=== PATIENT | female | born 2000 | race Caucasian/White ===

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

== ENCOUNTER 2022-11-24 12:31 | Emergency (ER) | payer OTHER, SELFPAY ==
[2022-11-24 12:46] VITALS: BP 132/76; PULSE 85; RESP 16; TEMP 36.8; O2SAT 99
--- NOTE | 2022-11-24 13:13 | ED.URI ---
HPI - URI/Sore Throat General Chief Complaint: Upper Respiratory Infection Stated Complaint: sore throat runny nose Source: patient and RN notes reviewed History of Present Illness HPI Narrative: 22-year-old male presents urgent care with complaints of runny nose, congestion, sore throat, and cough. Patient states her symptoms are worse at nighttime. Patient states she has chest pain, midsternal, with coughing nasal shortness of breath. Patient denies any fevers or chills. Denies any vomiting or diarrhea. Denies any ear pain. Patient has been taking [id number] cold medication with minimal relief. Patient states she tested positive for COVID 3 weeks ago and her symptoms resolved after approximately 4-5 days. Some parts of this dictation were generated by voice recognition software and may contain typographical and/or grammatical inaccuracies. Related Data Allergies Allergy/AdvReac Type Severity Reaction Status Date / Time Penicillins Allergy Severe HIVES Verified 11/24/22 12:45 amoxicillin Allergy Stopped Verified 11/24/22 12:45 Breathing ALL CILLINS Allergy Stopped Uncoded 11/24/22 12:45 Breathing Review of Systems Review of Systems: Pertinent positives and pertinent negatives per HPI. [facility] Past Medical History Medical History Ankle fracture, left Asthma Foot fracture, right Pneumonia Right arm fracture Skin tag of neck Tonsillitis Surgical History Surgical History History of surgical removal of skin lesion on neck Hx of tonsillectomy Family History Family History Mother No pertinent family history Social History Social History (Updated 10/25/21 @ 17:41 by TIMOTHY Hubbard, ) Smoking status: Never smoker Substance use: never Living arrangements: with family Occupation/Education: student Gender identity (if verbalized by the patient): Female Spiritual care concerns: No Comments At the time of my signature, I reviewed and agree with the nursing past medical, surgical, social, and family history. There is no relevant family history pertinent to the patient complaint. Exam Narrative: GENERAL: This is a well-nourished, well-developed patient, in no apparent distress. HEAD: normocephalic, atraumatic. EYES: PERRL. Sclera clear/white. Vision is grossly intact. EARS: External ears normal, auditory canals clear and without drainage, TMs normal without perforation. Hearing grossly intact. NOSE: External nose normal with no obvious nasal discharge, nares without redness, no rhinorrhea. THROAT: Mucous membranes moist, posterior pharynx clear. NECK: Neck supple, non-tender without lymphadenopathy, masses or thyromegaly. CARDIOVASCULAR: Regular rate and rhythm without murmurs, gallops, or rubs. RESPIRATORY: Clear to auscultation. Breath sounds equal bilaterally. No wheezes, rales, or rhonchi. GASTROINTESTINAL: Abdomen soft, non-tender, nondistended. Bowel sounds are active. No hepato-splenomegaly, or palpable masses. No guarding. SKIN: warm, intact with no suspicious lesions or rash, good texture and turgor. NEURO: awake, alert, and oriented to person, place and time. There were no obvious focal neurologic abnormalities. Course Course Level of Care: Express Care Visit Vital Signs Vital signs: Vital Signs Temperature 98.2 F 11/24/22 12:46 Pulse Rate 85 11/24/22 12:46 Respiratory Rate 16 11/24/22 12:46 Blood Pressure 132/76 11/24/22 12:46 Pulse Oximetry 99 11/24/22 12:46 Oxygen Delivery Room Air 11/24/22 12:46 Temperature 98.2 F 11/24/22 12:46 Pulse Rate 85 11/24/22 12:46 Respiratory Rate 16 11/24/22 12:46 Blood Pressure 132/76 11/24/22 12:46 Pulse Oximetry 99 11/24/22 12:46 Oxygen Delivery Room Air 11/24/22 12:46 reviewed. ALEX - YANNICKI/Juan Jiménez
== END 2022-11-24 13:18 | disposition home or self-care (01) ==
PROVIDERS: Emergency Provider Nurse Practitioner Family; PCP Pediatrics
DX: J06.9 Acute upper respiratory infection, unspecified (principal); J45.909 Unspecified asthma, uncomplicated
CPT/HCPCS: 87081; 87880; 99213; G0463

== ENCOUNTER 2023-03-31 08:30 | Emergency (ER) | payer OTHER, SELFPAY ==
[2023-03-31 08:45] VITALS: BP 129/85; PULSE 87; RESP 16; TEMP 36.2; O2SAT 100
--- NOTE | 2023-03-31 09:07 | ED.URI ---
HPI - URI/Sore Throat General Chief Complaint: Upper Respiratory Infection Stated Complaint: Sore Throat/Fever/Chest Congestion Time Seen by Provider: 03/31/23 08:55 Source: patient, RN notes reviewed and old records reviewed Mode of arrival: ambulatory Limitations: no limitations History of Present Illness HPI Narrative: [age] year female presents to the [facility] with complaints of a fever and a sore throat that started last night. Reports a fever of 101 last night. MD elicited complaint: sore throat Onset (ago): hour(s) (12) Treatments prior to arrival: ibuprofen Related Data Allergies Allergy/AdvReac Type Severity Reaction Status Date / Time Penicillins Allergy Severe HIVES Verified 01/19/23 14:28 amoxicillin Allergy Stopped Verified 01/19/23 14:28 Breathing ALL CILLINS Allergy Stopped Uncoded 01/19/23 14:28 Breathing Review of Systems Review of Systems: All systems reviewed & are unremarkable except as noted in HPI and below Constitutional: Constitutional: Reports no additional constitutional complaints Eyes: Eyes: Reports no additional eye complaints ENT: Reports as per HPI and Reports sore throat Cardiovascular: Cardiovascular: Reports no additional cardiovascular complaints, Denies chest pain and Denies dyspnea Respiratory: Respiratory: Reports no additional respiratory complaints, Denies chest congestion, Denies cough and Denies dyspnea Gastrointestinal: Gastrointestinal: Reports no additional gastrointestinal complaints, Denies abdominal pain, Denies nausea and Denies vomiting Musculoskeletal: Musculoskeletal: Reports no additional musculoskeletal complaints Integumentary/Breasts: Skin/Breast: Reports system reviewed and no additional complaints, except as docu Neurologic: Reports system reviewed and no additional complaints, except as documented Psychiatric: Psychiatric: Reports no additional psychiatric complaints Allergic/Immunologic: Allergic/Immunologic: Reports no additional allergic/immunologic complaints [facility] Past Medical History Medical History Ankle fracture, left Asthma Foot fracture, right Pneumonia Right arm fracture Surgical History Surgical History History of surgical removal of skin lesion on neck Hx of tonsillectomy Family History Family History Mother Hypertension Depression Social History Social History Smoking status: Never smoker Substance use: never Living arrangements: with family Occupation/Education: student Gender identity (if verbalized by the patient): Female Spiritual care concerns: No Comments At the time of my signature, I reviewed and agree with the nursing past medical, surgical, social, and family history. There is no relevant family history pertinent to the patient complaint. Exam Const: General: cooperative, healthy appearing, comfortable, no acute distress, well developed, alert and well nourished Nutritional Appearance: well nourished Orientation/consciousness: patient oriented x3 Limitations: no limitations HENMT: Head: normal to inspection Ears: hearing grossly normal bilaterally, external ears normal, TM's normal bilaterally and EAC's normal Face/Nose/Sinus: Normal external nose present, Normal nares present, Normal nasal mucous membranes and turbinates present and normal facial exam Face and sinus: normal facial exam Mouth: Yes Normal oral and palatal mucosa present, Yes lip normal and Yes moist mucous membranes Throat: posterior oropharynx normal, tonsils normal, uvula midline and postnasal drainage Eyes: General: appearance normal, both eyes and all related structures Alignment and Position: alignment normal Periorbital: periorbital findings normal Pupils: Equal, round and reactive pupils pres
== END 2023-03-31 09:17 | disposition home or self-care (01) ==
PROVIDERS: Emergency Provider Nurse Practitioner; PCP Family Medicine
DX: J02.9 Acute pharyngitis, unspecified (principal); J06.9 Acute upper respiratory infection, unspecified; J45.909 Unspecified asthma, uncomplicated
CPT/HCPCS: 87081; 87880; 99213; G0463

== ENCOUNTER 2023-09-28 13:30 | Emergency (ER) | payer OTHER, SELFPAY ==
[2023-09-28 13:40] VITALS: BP 149/83; PULSE 86; RESP 14; TEMP 36.8; O2SAT 100
--- NOTE | 2023-09-28 14:56 | ED.URI ---
HPI - URI/Sore Throat General Chief Complaint: Upper Respiratory Infection Stated Complaint: Fever/Vomiting/Diarrhea/Sore Throat Time Seen by Provider: 09/28/23 14:40 Source: patient, RN notes reviewed and old records reviewed Mode of arrival: ambulatory Limitations: no limitations History of Present Illness HPI Narrative: 23-year-old female who presents to [facility] with complaints of being ill since Tuesday with body aches, nausea, vomiting, some loose stools ,some sore throat and fever. 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 She has been taking DayQuil NyQuil and also Tylenol MD elicited complaint: fever, sore throat, rhinorrhea, nasal congestion and other Onset (ago): day(s) (day 3 of symptoms) Consistency: progressively worsening Pain scale (0-10): 8 Treatments prior to arrival: acetaminophen and other (DayQuil and NyQuil) Related Data Allergies Allergy/AdvReac Type Severity Reaction Status Date / Time Penicillins Allergy Severe HIVES Verified 09/28/23 14:27 amoxicillin Allergy Stopped Verified 09/28/23 14:27 Breathing ALL CILLINS Allergy Stopped Uncoded 09/28/23 14:27 Breathing Review of Systems Review of Systems: CONSTITUTIONAL: Reports fever, chills, or sweats. EYES: Denies visual changes, redness, or discharge. ENT:reports rhinorrhea, congestion, positive for sore throat, or otalgia. CARDIOVASCULAR: Denies chest pain, palpitations, or edema. RESPIRATORY: REports cough no dyspnea. GASTROINTESTINAL: Denies abdominal pain,positive for nausea, vomiting, or diarrhea. GENITOURINARY: Denies dysuria or hematuria. SKIN: Denies rash or itching. MUSCULOSKELETAL: Denies back pain, joint pain, or myalgia. NEUROLOGIC: Denies headache, numbness, or weakness. PSYCHIATRIC: Denies anxiety or depression. All systems reviewed & are unremarkable except as noted in HPI and below PMFSH Past Medical History Medical History Ankle fracture, left Asthma Foot fracture, right PCOS (polycystic ovarian syndrome) Pneumonia Right arm fracture Surgical History Surgical History History of surgical removal of skin lesion on neck Hx of tonsillectomy Family History Family History Mother Hypertension Depression Social History Social History Smoking status: Never smoker Substance use: never Living arrangements: with family Occupation/Education: student Gender identity (if verbalized by the patient): Female Spiritual care concerns: No Comments At time of signature, agree with nursing past medical, surgical, social and family history. There is no relevant family history pertinent to the presenting complaint Exam Narrative: GENERAL: Well-appearing, well-nourished, and in no acute distress. HEAD: Normocephalic, atraumatic. EYES: PERRLA and EOMI. ENT: Nares clear, clear rhinorrhea no epistaxis. Mucous membranes moist.TM's normal, tonsil absent, oropharyngeal redness NECK: Supple. CHEST: Clear to auscultation. No respiratory distress. HEART: Regular rate and rhythm. No murmur heard. Normal peripheral pulse ABDOMEN: Soft, nontender, nondistended, normal active bowel sounds.intermittent nausea vomiting and diarrhea. EXTREMITIES: Normal range of motion. No edema. SKIN: Warm, dry, no rash. NEURO: No focal deficits. Alert and oriented x3. Course Course Emergency Course: Patient is aware of diagnosis, understands and agrees to treatment plan.? Anticipatory guidance given.? Patient agrees to follow-up as directed and is aware of reasons to seek care at the emergency department. Portions of this record may have been created with voice recognition software Level of Care: [facility] Visit Vital
== END 2023-09-28 15:20 | disposition home or self-care (01) ==
PROVIDERS: Emergency Provider Registered Nurse; PCP Family Medicine
DX: B34.9 Viral infection, unspecified (principal); Z20.822 Contact with and (suspected) exposure to COVID-19; J45.909 Unspecified asthma, uncomplicated; E28.2 Polycystic ovarian syndrome
CPT/HCPCS: 87081; 87426; 87804; 87880; 99213; G0463

== ENCOUNTER 2024-05-30 09:02 | Emergency (ER) | payer OTHER, SELFPAY ==
--- NOTE | ~2024-05-30 | XR_ITS ---
Clinical Indication: Cough PA and lateral views of the chest: Comparison: 09/17/2019 Findings: The lungs are clear, without evidence of focal consolidation or pleural effusion. Cardiome diastinal silhouette is within normal limits. Bones and soft tissues are unremarkable. Impression: Normal chest. Reviewed, dictated and finalized at [facility]. Impression: Normal chest.
[2024-05-30 09:15] VITALS: BP 135/96; PULSE 84; RESP 16; TEMP 36.7; O2SAT 99
--- NOTE | 2024-05-30 09:57 | ED.URI ---
HPI - URI/Sore Throat General Chief Complaint: Upper Respiratory Infection Stated Complaint: chest pain,cough Time Seen by Provider: 05/30/24 09:40 Source: patient and RN notes reviewed Mode of arrival: ambulatory Limitations: no limitations History of Present Illness HPI Narrative: Patient presents today complaining of a one-month history of an occasionally productive cough with intermittent shortness of breath that is worse at night when lying flat. She also complains of a one-week history of some sternal chest wall pain with coughing. She has tried some bmlr-vgb-csgfglx cough medicine without relief. She has tried some Tylenol and ibuprofen for her discomfort with some minimal relief. Reports history of asthma as a small child, but none since then. She is a nonsmoker. States cough started after she had COVID a month ago. Related Data Allergies Allergy/AdvReac Type Severity Reaction Status Date / Time Penicillins Allergy Severe HIVES Verified 05/30/24 09:35 amoxicillin Allergy Stopped Verified 05/30/24 09:35 Breathing Review of Systems Review of Systems: CONSTITUTIONAL: Denies body aches, fever, chills, or sweats. EYES: Denies visual changes, redness, or discharge. ENT: Denies rhinorrhea, congestion, sore throat, or otalgia. CARDIOVASCULAR: Denies chest pain, palpitations, or edema. RESPIRATORY: + cough, shortness of breath, chest wall pain GASTROINTESTINAL: Denies abdominal pain, nausea, vomiting, or diarrhea. GENITOURINARY: Denies dysuria or hematuria. SKIN: Denies rash, itching, or wounds. MUSCULOSKELETAL: Denies back pain, joint pain, or myalgia. NEUROLOGIC: Denies headache, numbness, tingling, or weakness. PSYCH: Denies depression or anxiety. [facility] Past Medical History Medical History Ankle fracture, left Asthma Foot fracture, right PCOS (polycystic ovarian syndrome) Pneumonia Right arm fracture Surgical History Surgical History History of surgical removal of skin lesion on neck Hx of tonsillectomy Family History Family History Mother Hypertension Depression Social History Social History Smoking status: Never smoker Substance use: never Living arrangements: with family Occupation/Education: student Gender identity (if verbalized by the patient): Female Spiritual care concerns: No Comments At time of signature, I have reviewed and agree with nursing past medical, surgical, social and family history unless otherwise noted. Please see nursing chart for further information. There is no relevant family history pertinent to the presenting complaint Exam Narrative: GENERAL: Well-appearing, well-nourished, and in no acute distress. HEAD: Normocephalic, atraumatic. EYES: EOMI. No redness or drainage. Conjunctivae normal. ENT: Mucous membranes pink and moist. Nares clear. No rhinorrhea. NECK: Normal AROM. Supple. No lymphadenopathy. CHEST: No respiratory distress. Clear to auscultation. Tenderness to the bilateral sternal borders with palpation. HEART: Regular rate and rhythm. No murmur appreciated. EXTREMITIES: Normal range of motion. No edema. SKIN: Warm, dry, no rash. Capillary refill normal. Normal skin turgor. NEURO: No focal deficits. Alert and oriented x3. Gait steady. PSYCH: Normal affect. No signs of depression or anxiety. Course Course Level of Care: Express Care Visit Vital Signs Vital signs: Vital Signs Temperature 98.1 F 05/30/24 09:15 Pulse Rate 84 05/30/24 09:15 Respiratory Rate 16 05/30/24 09:15 Blood Pressure 135/96 H 05/30/24 09:15 Pulse Oximetry 99 05/30/24 09:15 Oxygen Delivery Room Air 05/30/24 09:15 Temperature 98.1 F 05/30/24 09:15 Pulse Rate 84 05/30/24 09:15
== END 2024-05-30 10:10 | disposition home or self-care (01) ==
PROVIDERS: Emergency Provider Nurse Practitioner; PCP Family Medicine
DX: J40 Bronchitis, not specified as acute or chronic (principal); M94.0 Chondrocostal junction syndrome [Tietze]; J45.909 Unspecified asthma, uncomplicated; E28.2 Polycystic ovarian syndrome
CPT/HCPCS: 71046; 99213; G0463

== ENCOUNTER 2024-08-21 08:13 | Emergency (ER) | payer OTHER, SELFPAY ==
[2024-08-21 08:18] VITALS: BP 136/87; PULSE 93; RESP 20; TEMP 36.7; O2SAT 100
--- NOTE | 2024-08-21 08:39 | ED.GENADULT ---
HPI - General Adult General Chief complaint: Ear Stated complaint: Ear Pain Source: patient Mode of arrival: ambulatory Limitations: no limitations History of Present Illness HPI narrative: Patient presents for evaluation of left-sided ear pain. Symptom onset yesterday. She has some muffled hearing on that side. Denies tinnitus or drainage from the ear. Approximately 3 weeks ago she had upper respiratory symptoms including sinus congestion and cough. She still has a mild cough. Denies fever, chills, nausea, vomiting, diarrhea, shortness of breath. She has tried several hoff-wfe-iidhcni agents without improvement thereafter. She does not smoke. Related Data Home Medications ?Medication ?Instructions ?Recorded ?Confirmed ?Last Taken ?Type etonogestrel 0.12 mg-ethinyl 1 vag ring vaginal ONCE 08/21/24 08/21/24 Unknown History estradiol 0.015 mg/24 hr vaginal ring (EluRyng) Allergies Allergy/AdvReac Type Severity Reaction Status Date / Time Penicillins Allergy Severe HIVES Verified 08/21/24 08:18 amoxicillin Allergy Stopped Verified 08/21/24 08:18 Breathing Review of Systems Review of Systems: CONSTITUTIONAL: Denies fever, chills, or sweats. EYES: Denies visual changes, redness, or discharge. ENT: Reports left sided ear pain. Denies rhinorrhea, congestion, or sore throat CARDIOVASCULAR: Denies chest pain, palpitations, or edema. RESPIRATORY: Reports occasional cough. Denies dyspnea. GASTROINTESTINAL: Denies abdominal pain, nausea, vomiting, or diarrhea. GENITOURINARY: Denies dysuria or hematuria. SKIN: Denies rash or itching. MUSCULOSKELETAL: Denies back pain, joint pain, or myalgia. NEUROLOGIC: Denies headache, numbness, dizziness, or weakness. PSYCHIATRIC: Denies anxiety or depression. COUNTS INCLUDE 234 BEDS AT [facility] Past Medical History Medical History PCOS (polycystic ovarian syndrome) Ankle fracture, left Right arm fracture Foot fracture, right Pneumonia Asthma Surgical History Surgical History History of surgical removal of skin lesion on neck Hx of tonsillectomy Family History Family History Mother Hypertension Depression Social History Social History Smoking status: Never smoker Substance use: never Living arrangements: with family Occupation/Education: student Gender identity (if verbalized by the patient): Female Spiritual care concerns: No Exam Narrative: GENERAL: Well-appearing, well-nourished, and in no acute distress. HEAD: Normocephalic, atraumatic. EYES: PERRLA and EOMI. ENT: Nares clear, no rhinorrhea or epistaxis. Mucous membranes moist. Oropharynx without tonsillar hypertrophy exudate or other lesions. Left ear canal is edematous. Left TM is erythematous and bulging NECK: Supple. No adenopathy or masses. No carotid bruits or JVD CHEST: Clear to auscultation. No respiratory distress. No wheezes rales or rhonchi HEART: Regular rate and rhythm. No murmur heard. Normal peripheral pulses. ABDOMEN: Soft, nontender, nondistended, normal active bowel sounds. EXTREMITIES: Normal range of motion. No edema. SKIN: Warm, dry, no rash. NEURO: No focal deficits. Alert and oriented x3. PSYCH: Normal mood and affect. Course Course Emergency Course: This is a 24-year-old female who presents for evaluation of left ear pain. She has evidence of otitis media and externa on exam. Will discharge with cefdinir and ofloxacin. Smbl-jgm-tfhptgt agents for symptom management. Follow up with primary provider. Go to the ER for worsening symptoms. Patient in agreement with plan of care. Level of Care: Express Care Visit Vital Signs Vital signs: Vital Signs Temperature 36.7 C 08/21/24 08:18 Pulse Rate 93 08/21/24 08:18 Respiratory Rate 20 08/21/24 08:18 Blood Pressure 136/87 08/21/24 08:18 Pulse Oximetry 100 08/21/24 08:18 Oxygen Delivery Room Air 08/21/24 08:18 Temperature 36.7 C 08/21/24 08:18 Pulse Rate 93 08/21/24 08:18 Respiratory Rate 20 08/21/24 08:18 Blood Pressure 136/87 08/21/24 08:18 Pulse Oximetry 100 08/21/24 08:18 Oxygen Delivery Room Air 08/21/24 08:18 Medical Decision Making Vital Signs Vital Signs: Vital Signs Temperature 36.7 C 08/21/24 08:18 Pulse Rate 93 08/21/24 08:18 Respiratory Rate 20 08/21/24 08:18 Blood Pressure 136/87 08/21/24 08:18 Pulse Oximetry 100 08/21/24 08:18 Oxygen Delivery Room Air 08/21/24 08:18 Temperature 36.7 C 08/21/24 08:18 Pulse Rate 93 08/21/24 08:18 Respiratory Rate 20 08/21/24 08:18 Blood Pressure 136/87 08/21/24 08:18 Pulse Oximetry 100 08/21/24 08:18 Oxygen Delivery Room Air 08/21/24 08:18 Discharge Plan Discharge Clinical Impression: Acute otitis media, left, Other otitis externa, left ear Patient Disposition: Home, Self-Care Condition: Stable Instructions: Antibiotic Form, Swimmer's Ear (GEN), Ear Infection (AC) Patient Language: Serbian Prescriptions: New cefdinir 300 mg capsule 300 mg PO Q12H Qty: 20 0RF ofloxacin 0.3 % drops 10 drp LEFT EAR DAILY 7 Days Qty: 5 0RF No Action etonogestrel-ethinyl estradiol [EluRyng] 0.12-0.015 mg/24 hr ring 1 vag ring vaginal ONCE Follow-up/Referrals: Steven Chase MD [Primary Care Provider] - Time of Disposition: 08:38
--- OUTSIDE RECORDS SUMMARY | 2024-08-28 06:02 | XMS_ITS ---
Author Organization [facility] Address [address] [place] [address] Phone Care Team Providers Care Dynamite Reclaimer Name Role Phone KWASI FOUNTAIN, SURESH Unavailable [phone] Plan of Treatment No Plan of Treatment Recorded Assessments Includes: Assessments for all patient encounters Findings Encounter Date Contact with and (Suspected) exposure to COVID-19 COVID SICK VISIT- NEW PATIENT with [facility] 08/09/2021 Last Documented On 1 5:58PM ; [facility] Medical Equipment - Implanted Devices Includes: Current and historical Devices No Medical Equipment Recorded Medications Includes: Current and historical Medications No Medications Taken Medications Administered Includes: Administered Medications in patient's chart No Administered Medications Recorded Results Includes: Results from 08/28/2023 through 08/28/2024 No Results Recorded For Specified Dates History of Present Illness History of Present Illness not supported for this document type No History of Present Illness Recorded Social History Description Last Updated Tobacco non-user 08/09/2021 Last Documented On 1 5:58PM ; [facility] Smoking Status Unknown Medical History Includes: Medical History in patient's chart Description Last Updated Contact with and (Suspected) exposure to COVID-19 08/09/2021 Last Documented On 1 5:58PM ; [facility] Date COVID symptoms started: 08/07 Last Documented On 1 5:58PM ; [facility] No fall 08/09/2021 Last Documented On 1 5:58PM ; [facility] Family History Includes: Family History in patient's chart No Family History Recorded Review of Systems Review of Systems not supported for this document type No Review of Systems Recorded Mental Status Description Oriented to time, place, and person Functional Status No Functional Status Recorded Physical Exam Physical Exam not supported for this document type No Physical Exam Recorded Allergies Includes: Active, inactive, and resolved Allergies No Known Allergies Insurance Includes: Active Insurance Policies Plan Name Member ID Group # Subscriber Relationship Effect james Dates 1 - [facility] [id number] ELIAS magana Clinical Notes Includes: Signed Clinical Notes starting from 09/10/2022 No Clinical Notes Recorded
--- OUTSIDE RECORDS SUMMARY | 2024-08-28 06:02 | XMS_ITS ---
Care Plan - [facility] Created on: August 28, 2024 ELIAS VILLATORO : 2000 Sex: Female Author Organization [facility] Address [address] [place] [address] Phone Care Team Providers Care Wire Stitcher Name Role Phone SURESH VILLALPANDO MD Unavailable [phone]
--- OUTSIDE RECORDS SUMMARY | 2024-08-28 06:03 | XMS_ITS | Encounter Summary ---
Author Organization [facility] Address [address] [place] [address] Care Team Providers Care Home Economics Extension Worker Name Role Phone Rose Mary Kidd MD Primary Care Provider + Encounter Details Date Type Department Care Team (Late st Contact Info) Description 05/31/[address] [facility] Orthopedics and Sports Medicine at [address] [address] Chraley Dominguez Social History Tobacco Use Types Packs/Day Years Used Date Smoking Tobacco: Never Smokeless Tobacco: Never AUDIT-C Answer Date Recorded Q1: How often do you have a drink containing alc ohol? 2-3 times a week 03/23/2024 Q2: How many drinks containi ng alcohol do you have on a typical day when you are drinking? 5 or 6 03/23/2024 Q3: How often do you have si x or more drinks on one occasion? Weekly 03/23/2024 Personal Safety Answer Date Recorded Have you ever been in or are you currently in a harmful physical or emotional relationship or is someone making you feel afraid or unsafe? 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
--- OUTSIDE RECORDS SUMMARY | 2024-08-28 06:03 | XMS_ITS | Encounter Summary ---
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 She's starts college 04/09/2024 will need assistance getting around. documented in this encounter Plan of Treatment Not on file documented as of this encounter Visit Diagnoses Not on filedocumented in this encounter Care Teams Development Editor Relationship Specialty Start Date End Date Rose Mary Kidd MD [address] [place] [address] PCP - General 07/21/17 documented as of this encounter
--- OUTSIDE RECORDS SUMMARY | 2024-08-28 06:03 | XMS_ITS | Encounter Summary ---
Author Organization [facility] Address [address] [place] [address] Care Team Providers Care Lawyer Real Estate Name Role Phone Rose Mary Kidd MD Primary Care Provider Reason for Visit * Reason Comments Evaluation restless sleep, trou ble initiating and staying asleep, patient thinks she sleepwalks occasionally Encounter Details Date Type Department Care Team (Latest Contact Info) Description 12/27/2017 8:14 AM CDT - 12/27/2017 9:18 AM CDT Hospital Encounter [facility] - Sleep [address] [place] [address] Lilibeth Helm, ENVIRONMENTAL ISSUES INSTRUCTOR-GENERAL PRACTICE [address] [place] [address] Discharge Disposition: Home or Self Care Social History Tobacco Use Types Packs/Day Years Used Date Smoking Tobacco: Passive Smo ke Exposure - Never Smoker Smokeless Tobacco: Never Sex and Gender Information Value Date Recorded Sex Assigned at Not on file Gender Identity Not on file Sexual Orientation Not on file documented as of this encounter Last Filed Vital Signs Vital Sign Reading Time Taken Comments Blood Pressure 108/58 12/27/2017 8:30 AM CDT Pulse 91 12/27/2017 8:30 AM CDT Temperature - - Respiratory Rate - - Oxygen Saturation 97% 12/27/2017 8:30 AM CDT Inhaled Oxygen Concentration - - Weight 107.3 kg (236 lb 8.9 oz) 12/27/2017 8:30 AM CDT Height 172.5 cm (5' 7.91 ) 12/27/2017 8:30 AM CD T Body Mass Index 36.06 12/27/2017 8:30 AM CDT Body Mass Index Percentile 98.89% 12/27/2017 8:3 0 AM CDT Growth Chart: [facility] (Girls, 2- 20 Years) documented in this encounter Discharge Instructions * Patient Instructions* Lilibeth Helm APRN-CNP - 12/27/2017 9:06 AM CDT 1. Sleep study 2. Labs today 3. Rosmery will start iron for ferritin < 80 and Vitamin D < 30. Please call our nurse's line with any questions. ([phone], opt 3) documented in this encounter Medications at Time of Discharge Medication Sig Dispensed Refills Start Date End Date ibuprofen (MOTRIN) 200 MG tablet Take 400 mg by mouth every 6 hours as needed for Pain melatonin 10 MG capsule Take 10 mg by mouth at bedtime documented as of this encounter Progress Notes * Lilibeth Helm APRN-CNP - 12/27/2017 8:34 AM CDT New Patient Visit Note Pediatric Sleep Medicine [facility] Chief Complaint Patient presents with ??? Evaluation restless sleep, trouble initiating and staying asleep, patient thinks she sleepwalks occasionally HPI: Rosmery Wynne is a 17 y.o. female who presents to the Pediatric Sleep Disorders Clinic at [facility] on 12/27/2017 for evaluation of headaches and restless sleep. She was accompanied by her grandmother who assisted in providing the history. She was referred by Dr. Kidd. I have personally reviewed her records. Rosmery reports weekly headaches that occur mostly in the morning. She wakes with headaches that resolve as the day progresses. No vomiting, photo or phonophobia. She has previously taken amitriptylineand rizatriptan without improvement. She does not snore. There are are no pauses in breathing, gasping, choking, diaphoresis, or drooling noted during sleep. She complains of extreme thirst at night . She is difficult to awaken in the morning and is sleepy throughout the day. She does fall asleep at school. She does not take naps. She has nocturnal enuresis 0 nights per week. Nocturia occurs 2 times per night. No previous polysomnogram. Rosmery complains of a sensation of bugs crawling 1 nights per week. Sensation is relieved with movement and and worsened with lying still. She describes herself as a very restless sleeper with difficulty getting comfortable. She does not have a history of low iron. RLS is not reported in first degree family members. There are no sleep terrors, nightmares, sleep talking or sleep walking. Weekday Bedtime: 930 PM takes 10 mg of melatonin at 830 PM Weekday Wake time: 615 AM Weekend Bedtime: 11 PM Weekend Wake time: 10 AM Sleep Latency: less than 30 minutes Nighttime awakenings: 1-2 Sleep onset after wake: 20 minutes Sleep environment: In her own bedroom, in his own bed. There is not a nightlight. Accessible screens include: NO Bedtime routine: dinner, homework TV and lights out Naps: no Caffeine intake: YES- coffee in the AM Review of Systems: Psychological ROS: negative Ophthalmic ROS: negative ENT ROS: negative Allergy and Immunology ROS: negative Respiratory ROS: no cough, shortness of breath, or wheezing negative Cardiovascular ROS: negative Gastrointestinal ROS: negative Urinary ROS: negative Musculoskeletal ROS: negative Neurological ROS: negative Dermatological ROS: negative [place] Sleepiness Scale: Sitting and Reading would never doze Watching TV slight chance of dozing Sitting, inactive in a public place would never doze Car passenger for an hour high chance of dozing Lying down to rest in afternoon high chance of dozing Sitting and Talking would never doze Sitting Quietly after lunch would never doze While playing a video game slight chance of dozing Total Dozing Score 8 Past Surgical History: Procedure Laterality Date ??? Tonsillectomy and Adenoidectomy 2007 at [facility] Past Medical History: Diagnosis Date ??? GERD (gastroesophageal reflux disease) ??? Skin tag reoved in 2010 ??? Unspecified asthma(493.90) triggered by allergies, no inhaler use FAMILY HISTORY OF SLEEP DISORDERS: None known SOCIAL HISTORY: Rosmery lives at home with maternal grandmother, mother, step- father and one sister. There is pasive smoke exposure. she is in the 9th grade and receives good grades. she does not get in trouble at school. Allergies Allergen Reactions ??? Amoxicillin Urticaria Current Outpatient Prescriptions Ordered in [facility] Medication Sig Dispense Refill ??? ibuprofen (MOTRIN) 200 MG tablet Take 400 mg by mouth every 6 hours as needed for Pain ??? melatonin 10 MG capsule Take 10 mg by mouth at bedtime No current [facility]-ordered facility-administered medications on file. Exam: Vitals: 12/27/17 0830 BP: 108/58 Pulse: 91 SpO2: 97% Constitutional: no retractions or cyanosis Psych: normal affect Head and Face: no lesions or masses; facies symmetrical Eyes: sclera and conjunctiva clear Ears: Inspection: normal pinnae shape and position Nasal: normal external nose, mucous membranes and septum Oral Cavity: moist mucous membranes; normal uvula, palate and tongue size scalloping of tongue Throat: tonsil absent Mallampati 1 Neck: supple without tenderness or crepitus; no palpable adenopathy Heart: normal rate and rhythm Respiration: unlabored breathing GI: abdomen soft and round Skin: skin healthy Impression/Plan: Headaches: Headaches are a common complaint in those with untreated sleep disorders. Headaches havebeen associated with sleep-onset and maintenance problem and disrupted sleep architecture on polysomnogram. Children and teenagers with Obstructive Sleep Apnea may complain of headaches, particularlyin the morning on waking, likely secondary to elevated CO2 levels and/or poor quality sleep. Diagnostic polysomnogram scheduled today. Restless Sleeper: Restless sleep is often the only symptom described in the broader condition of restless legs syndrome. I reviewed the diagnosis, etiology and treatment of RLS at length with mother.Restless legs syndrome is caused by a defect in the dopamine pathway, either with decreased production, incorrect production, or failed transport across the blood-brain barrier. Iron is a necessary cofactor for dopamine production. Serum ferritin checked today. Ferrous sulfate to be started for ferritin < 80. Additionally, a vitamin D level was checked. Goal Vitamin D > 30. Patient Instructions 1. Sleep study 2. Labs today 3. Rosmery will start iron for ferritin < 80 and Vitamin D < 30. Please call our nurse's line with any questions. ([phone], opt 3) Follow-up in 3 months Thank you for allowing me to participate in the care of your patient. Please call me with any questions at [phone]. KATARINA Chavez [facility] documented in this encounter Plan of Treatment Not on file documented as of this encounter Results * VITAMIN D (25-HYDROXY) (12/27/2017 9:20 AM CDT) Vitamin D, 25 Hydroxy 28.8 20 - 100 ng/mL 12/27/2017 11:29 AM CDT [facility] Blood BLOOD SPECIMEN / Unknown Lab Venipuncture / Unknown 12/27/2017 9:20 AM CDT 12/27/2017 10:02 AM CDT Narrative [facility] - 12/27/2017 11:29 AM CDT Vitamin D Status: ?Deficient ? <10 ?? ng/mL ? Borderline ?10-20 ng/mL ?Sufficient ?>20 ?? ng/mL ?Toxic ? >100 ??ng/mL Lilibeth SANTANA LAB - CHEMISTR Y ORDERABLES [facility] [address] [facility] [place] [address] * FERRITIN (12/27/2017 9:20 AM CDT) Pathologist [facility] Ferritin 31 10 - 140 ng/mL 12/27/2017 11:08 AM CDT [facility] Blood BLOOD SPECIMEN / Unknown Lab Venipuncture / Unknown 12/27/2017 9:20 AM CDT 12/27/2017 10:02 AM CDT Lilibeth Helm ENVIRONMENTAL ISSUES INSTRUCTOR-GENERAL PRACTICE LAB - CHEMISTR Y ORDERABLES Performing Organization Address City/State/[facility] Co de Phone Number [facility] [address] [place] [address] documented in this encounter Visit Diagnoses Diagnosis Restless legs syndrome (RLS)- Primary Nocturia Chronic nonintractable headache, unspecified headache type documented in this encounter Care Teams Lawyer Real Estate Relationship Specialty [place] [address] [place] [id number] PCP - General 03/29/11 documented as of this encounter
--- OUTSIDE RECORDS SUMMARY | 2024-08-28 06:03 | XMS_ITS | Referral Summary ---
Author Organization [facility] Address [address] [place] [address] Care Team Providers Care Director Professional Services Name Role Phone Rose Mary Kidd MD Primary Care Provider [phone] Source Comments [facility],non-owned Affiliates and Associated Physician Practices is amultiple site organization consisting of ambulatory clinics and hospital sitesin [place], [place], [place]. This disclosure is being madepursuant to the Care Everywhere program and may not contain all information available regarding this patient. Last updated 18.[facility] Allergies Active Allergy Reactions Criticality Noted Date Comments Amoxicillin Urticaria 05/14/2011 Medications * Be aware that medications may not be up to date on this document. Alwaysverify current medications with the patient. Medication Sig Dispensed Refills Start Date End Date Status ibuprofen (MOTRIN) 200 MG tablet Take 400 mg by mouth every 6 hours as needed for Pain Active melatonin 10 MG capsule Take 10 mg by mouth at bedtime Active ferrous sulfate 325 (65 FE) MG tablet Take 1 tablet by mouth 2 times daily Take w/ vitamin C such as OJ. Miralax or generic for tummy upset. 60 tablet 3 12/27/2017 Active Active Problems Problem Noted Date Diagnosed Date Skin tag 05/12/2011 Social History Tobacco Use Types Packs/Day Years Used Date Smoking Tobacco: Passive Smo ke Exposure - Never Smoker Smokeless Tobacco: Never Sex and Gender Information Value Date Recorded Sex Assigned at Not on file Gender Identity Not on file Sexual Orientation Not on file Last Filed Vital Signs Vital Sign Reading Time Taken Comments Blood Pressure 108/58 12/27/2017 8:30 AM CDT Pulse 91 12/27/2017 8:30 AM CDT Temperature 37.3 ??C (99.2 ??F) 07/24/2011 5:32 PM CS T Respiratory Rate 16 11/28/2017 10:0 7 AM CDT Oxygen Saturation 97% 12/27/2017 8:30 AM CDT Inhaled Oxygen Concentration - - Weight 107.3 kg (236 lb 8.9 oz) 12/27/2017 8:30 AM CDT Height 172.5 cm (5' 7.91 ) 12/27/2017 8:30 AM CD T Body Mass Index 36.06 12/27/2017 8:30 AM CDT Plan of Treatment Not on file Care Teams Director Professional Services Relationship Specialty Start Date End Date Rose Mary Kidd MD [address] [place] [address] PCP - General 03/29/11
--- OUTSIDE RECORDS SUMMARY | 2024-08-28 06:03 | XMS_ITS | Encounter Summary ---
Author Organization [facility] Address [address] [place] [address] Care Team Providers Care Medical Communication Specialist Name Role Phone Rose Mary Kidd MD Primary Care Provider + Reason for Visit * Reason Comments Post-op Encounter Details Date Type Department Care Team (Late st Contact Info) Description 04/09/2024 1:00 PM CDT Office Visit [facility] at [address] [place] [id number] [place] [address] [address] Closed displaced fracture of medial malleolus of left tibia with routine healing, subsequent encounter (Primary Dx) Social History Tobacco Use Types Packs/Day Years [...] on file 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 Gender Identity Not on file Sexual Orientation Not on file documented as of this encounter Last Filed Vital Signs Vital Sign Reading Time Taken Comments Blood Pressure - - Pulse - - Temperature - - Respiratory Rate - - Oxygen Saturation - - Inhaled Oxygen Concentration - - Weight 110.2 kg (243 lb) 04/09/2024 1:12 PM CDT Height 170.2 cm (5' 7 ) 04/09/2024 1:12 PM CDT Body Mass Index 38.06 04/09/2024 1:12 PM CDT documented in this encounter Ordered Prescriptions Prescription Sig Dispense Quantity Refills Last Filled Start Date End Date mupirocin (BACTROBAN) 2 % ointment Apply topically 2 (two) times a day 30 g 1 04/09/2024 HYDROcodone-acetam inophen (NORCO) 5-325 mg per tabletIndications: Pain Take 1 tablet by mouth every 6 (six) hours as needed for pain 30 tablet 04/09/2024 documented in this encounter Progress Notes * Adrienne Umanzor PA - 04/09/2024 1:00 PM CDT Images from the original note were not included. FOLLOW UP VISIT Subjective CHIEF COMPLAINT She had concerns including Post-op of the Left Ankle. HISTORY OF PRESENT ILLNESS Rosmery Wynne is a pleasant 23-year-old female that presents to the office today for a [id number]. She is 2 weeks status-post an open reduction internal fixation left medial malleolus fracture, her surgery was performed on 03/23/[address] Mendoza. She reports that she has been doing well since surgery with minimal pain to the left ankle. She states that she had some increased swelling to the dorsum of her left foot and toes after surgery and the splint to the lateral aspect of her left foot over the 5th toe became tight and was rubbing on the toe-She was having more pain from this than at her surgical site. She reports that she has remained compliant with her non-weightbearing restrictions to her left lower extremity since surgery-She has been up ambulating with a knee scooter. She has been elevating the left lower extremity as directed to help with swelling. 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 She has been taking Aleve through the day which helps. She denies any numbness to the left foot or toes. She denies any drainage to her surgical dressings. She denies any fevers or chills. Pain Assessment Pain Assessment: 0-10 Pain Score: 0 - No pain Pain Location: Ankle MEDICATIONS She has a current medication list which includes the following prescription(s): acetaminophen-codeine, acetaminophen-codeine, hydrocodone-acetaminophen, ibuprofen, and meclizine. PHYSICAL EXAM Ht 170.2 cm (5' 7 ) Wt 110.2 kg (243 lb) BMI 38.06 kg/m?? Ortho Exam Alert and oriented x 3. No acute distress. She is cooperative with the examination. She presents tothe office today non-weightbearing to her left lower extremity-Up using a knee scooter. Splint removed. Left lower extremity is neurovascular intact. Sensation is intact to light touch to the dorsum of her left foot and toes. Left foot and toes are pink, warm and well-perfused with palpable distal pulses. Sutures removed from her incision site to the medial ankle, steri strips applied-Incision isclean, dry and well-healed with no evidence of any infection. She is able to wiggle her toes. Rangeof motion of the left ankle is as expected for this stage of healing. Soft tissue swelling noted tothe dorsum of her left foot and toes. She does have a small blood blister to the lateral aspect of the foot over her 5th toe from where the splint was rubbing-Area tender, no signs of any active infection or surrounding redness. REVIEW OF X-RAYS/STUDIES/LABS No new x-rays taken in the office today Assessment/Plan Rosmery was seen today for post-op. Diagnoses and all orders for this visit: Closed displaced fracture of medial malleolus of left tibia with routine healing, subsequent encounter PLAN This is a 23-yo female that is 2 weeks status-post an open reduction internal fixation left medial malleolus fracture Sutures removed from her incision site to the medial ankle, steri strips applied-Incision is clean,dry and well-healed with no evidence of any infection- She was instructed on continued incision care She was transitioned into a tall walker boot today but will remain non- weightbearing to her left lower extremity for the next 2 weeks-She should continue to be ambulating with a knee scooter She may remove the boot to shower, sleep and to start working on range of motion exercises/stretches of her left foot and ankle Continue to ice and elevate the left foot and ankle to help with swelling Hydrocodone refilled in the office today-To take as needed for pain. She may take Aleve/Ibuprofen through the day She was given a Rx for Bactroban ointment to use to the area of blistering to the lateral aspect ofher left little toe-Apply twice daily with a band-aid She will follow back up in the office in 2 weeks for re-evaluation and non- weightbearing x-rays of her left ankle-If x-rays look good at that time, we will allow protected weight-bearing in the boot.She knows to call the office with any worsening symptoms, questions or concerns. RAYMOND Cameron documented in this encounter Plan of Treatment Not on file documented as of this encounter Visit Diagnoses Diagnosis Closed displaced fracture of medial malleolus of left tibia with routine healing, subsequent encounter- Primary documented in this encounter Discontinued Medications Medication Sig Discontinue Reason Start Date End Da te acetaminophen-codeine (TYLENOL with CODEINE #3) 300-30 mg per tabletIndications:Closed displaced fracture of medial malleolus of left tibia, initial encounter Take 1-2 tablets by mouth every 6 (six) hours as needed for pain Alternate therapy 03/20/2024 04/09/2024 acetaminophen-codeine (TYLENOL with CODEINE #3) 300-30 mg per tablet Take 1-2 tablets by mouth every 4 (four) hours as needed for pain for up to 40 doses Alternate therapy 03/23/2024 04/09/2024 HYDROcodone-acetaminophe n (NORCO) 5-325 mg per tabletIndications:Pain Take 1-2 tablets every 4-6 hours as needed for pain Reorder 03/23/2024 04/09/2024 documented as of this encounter Care Teams Medical Communication Specialist Relationship Specialty Start Date End Date Rose Mary Kidd MD [address] [place] [address] PCP - General 07/21/17 documented as of this encounter
--- OUTSIDE RECORDS SUMMARY | 2024-08-28 06:03 | XMS_ITS | Encounter Summary ---
Author Organization [facility] Address [address] [place] [address] Care Team Providers Care Pattern Repair Person Name Role Phone Rose Mary Kidd MD Primary Care Provider Reason for Visit * Reason Onset Date Comments Surgical Followup 07/20/2011 Encounter Details Date Type Department Care Team (Late st Contact Info) Description 07/20/2011 Telephone [facility] Pediatrics - Plastic Surgery Division of Plastic Surgery [address] [place] [id number] Val Brennan MD [address] [place] [id number] Surgical Followup Social History Tobacco Use Types Packs/Day Years Used Date Smoking Tobacco: Passive Smo ke Exposure - Never Smoker Sex and Gender Information Value Date Recorded Sex Assigned at Not on file Gender Identity Not on file Sexual Orientation Not on file documented as of this encounter Miscellaneous Notes * Telephone Encounter - Dariana Winters RN - 07/20/2011 12:33 PM SOCIETY EDITOR Enriqueta called in and states that the upper leg incision has come apart, when asked for Enriqueta to describe she stated that they did not think that it was as wide as a piece of spaghetti. Dermabond remains in place. Enriqueta states that the incision is slightly reddened, but it is also has a tendency to rub. Denies bright red, shiny, warmth to touch, oozing, pain, or bleeding. Instructed to apply small dressing over the incision to prevent further irritation. Plan reviewed with Dr. Brennan. Instructed to follow up in the ER if incision continues to widen or if she notices any of the above, redness, warmth, shininess, drainage, bleeding. States other incisions are healing without difficulty. No further complaints and verbalizes understanding. ETY EDITOR documented in this encounter Plan of Treatment Not on file documented as of this encounter Visit Diagnoses Not on filedocumented in this encounter Care Teams Pattern Repair Person Relationship Specialty Start Date End Date Rose Mary Kidd MD [address] [place] [id number] PCP - General 03/29/11 documented as of this encounter
--- OUTSIDE RECORDS SUMMARY | 2024-08-28 06:03 | XMS_ITS | Encounter Summary ---
Author Organization [facility] Healthcare Address [address] [place] [address] Care Team Providers Care Hand Decorator Name Role Phone Rose Mary Kidd MD Primary Care Provider + Reason for Referral * Consultation (Routine) - Closed Specialty Diagnoses / Procedures Referred By Macy mcclain Referred To Contact Physical Therapy Diagnoses Closed displaced fracture of medial malleolus of left tibia with routine healing, [place] [address] [address] Phone: tel: fax: External Order Referral ID Status Reason Start Date Expiration Date V isits Requested Visits Authorized [id number] Closed Evaluate and Treat 04/26/2024 05/26/2025 12 12 Question Answer PTRFR PT Evaluate and Treat Therapy options discussed with patient? Yes Location provided for therapy services is: Patient requested/Patient preferred Please select the performing region: External Order [171] # of visits: 12 Comments Left medial malleolus fracture S/P ORIF Left ankle Evaluate and treat She is weightbearing in the boot for the next 3 weeks * Diagnostic Imaging (Routine) - Closed Specialty Diagnoses / Procedures Referred By Macy mcclain Referred To Contact Diagnoses Closed displaced fracture of medial malleolus of left tibia with routine healing, subsequent encounter Procedures XR Ankle Left 3 or More Views [place], [place] [address] [facility] [address] [place] [address] Phone: tel: fax: Referral ID Status Reason Start Date Expiration Date Visits Re quested Visits Authorized [id number] Closed 04/26/2024 05/26/2025 1 1 Reason for Visit * Reason Comments Post-op Encounter Details Date Type Department Care Team (Late st Contact Info) Description 04/26/2024 1:30 PM CDT Office Visit [facility] at [address] [id number] [place] [id number] [address] Closed displaced fracture of medial [...] on file 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 FOLLOW UP VISIT Subjective CHIEF COMPLAINT She had concerns including Post-op of the Left Ankle. HISTORY OF PRESENT ILLNESS Rosmery Wynne is a pleasant 23-year-old female that presents to the office today for a [id number]. She is 5 weeks status-post an open reduction internal fixation left medial malleolus fracture, her surgery was performed on 03/23/[address] Mendoza. She reports that she has continued to do well since her last office visit. She reports minimal painto her left ankle. She has intermittent aching soreness to the medial aspect of her left ankle. Shecontinues to have soft tissue swelling to her left ankle. She has been complaint with her non-weightbearing restrictions-She has been up with the help of a knee scooter. Blister to the lateral aspectof her 5th toe is improving-She has been using the prescribed Bactroban ointment as directed. She has been elevating the left lower extremity as directed to help with swelling. She has been taking Aleve/Ibuprofen as needed for pain. She denies any numbness to the left foot or toes. Her incision site is well-healed. She denies any fevers or chills. She has been removing the boot to work on [id number] exercises/stretches of her left foot/ankle. Pain Assessment Pain Assessment: 0-10 Pain Score: 1 Pain Location: Ankle Pain Orientation: Left Pain Descriptors: Aching, Discomfort, Tightness, Sore Pain Frequency: Constant/continuous Clinical Progression: Gradually worsening Result of Injury: No Work-Related Injury: No MEDICATIONS She has a current medication list which includes the following prescription(s): hydrocodone-acetaminophen, ibuprofen, meclizine, and mupirocin. PHYSICAL EXAM Ht 170.2 cm (5' 7.01 ) BMI 38.05 kg/m?? Ortho Exam Alert and oriented x 3. No acute distress. She is cooperative with the examination. She presents tothe office today non-weightbearing to her left lower extremity-Up using a knee scooter. Left lower extremity is neurovascular intact. Sensation is intact to light touch to the dorsum of her left footand toes. Left foot and toes are pink, warm and well-perfused with palpable distal pulses. Incisionto her medial ankle is clean, dry and well-healed with no evidence of any infection. She is able towiggle her toes. Stiffness with plantarflexion and dorsiflexion of her left ankle. Soft tissue swelling noted to the dorsum of her left foot and toes. Small blood blister to the lateral aspect of thefoot over her 5th toe-Area non-tender, no signs of any active infection or surrounding redness-Areaimproving REVIEW OF X-RAYS/STUDIES/LABS XR Ankle Left 3 or More Views X-rays Left ankle-3 views non-weightbearing demonstrate a single screw transfixing the medial malleolus, fracture remains in good alignment/position. No evidence of any hardware loosening or failure. Assessment/Plan Rosmery was seen today for post-op. Diagnoses and all orders for this visit: Closed displaced fracture of medial malleolus of left tibia with routine healing, subsequent encounter - XR Ankle Left 3 or More Views - Ambulatory referral order to Physical Therapy -; Future - Vitamin D 25 hydroxy; Future PLAN This is a 23-yo female that is 5 weeks status-post an open reduction internal fixation left medial malleolus fracture Incision to her medial ankle is clean, dry and well-healed X-rays of her left ankle were reviewed in the office today She may transition to protected weightbearing in her boot She may continue to remove the boot to shower, sleep and to continue working on range of motion exercises/stretches of her left foot and ankle She was given an order to start outpatient physical therapy for the left ankle with a home exerciseprogram Continue to ice and elevate the left foot and ankle to help with swelling Aleve/Ibuprofen as needed for pain She should continue to use Bactroban ointment to the area of blistering to her left toe She was given a lab order today to have her vitamin-D levels checked She will follow back up in the office in 3 weeks for re-evaluation and weightbearing x-rays of her left ankle. She knows to call the office with any worsening symptoms, questions or concerns. RAYMOND Cameron documented in this encounter Plan of Treatment Scheduled Orders Name Type Priority Associated Diagnoses Orde r Schedule Vitamin D 25 hydroxy Lab Routine Closed displaced fracture of medial malleolus of left tibia with routine healing, subsequent encounter Expected: 04/29/2024, Expires: 04/26/2025 Scheduled Referrals Name Type Priority Associated Diagnoses Order Schedule Ambulatory referral order to Physical Therapy - Outpatient Referral Routine Closed displaced fracture of medial malleolus of left tibia with routine healing, subsequent encounter Expected: 05/10/2024 (Approximate), Expires: 04/26/2025 documented as of this encounter Procedures Procedure Name Priority Date/Time Associated Diagnosis Comments XR ANKLE LEFT 3 OR MORE VIEWS Schedule Routine, Read Routine (OP Routine) 04/26/2024 2:05 PM CDT Closed displaced fracture of medial malleolus of left tibia with routine healing, subsequent encounter documented in this encounter Results * XR Ankle Left 3 or More Views (04/26/2024 2:05 PM CDT) Anatomical Region Laterality Modality Lower Extremities, Ankle Left Compute d Radiography Narrative 04/26/2024 4:26 PM CDT X-rays Left ankle-3 views non-weightbearing demonstrate a single screw transfixing the medial malleolus, fracture remains in good alignment/position. ??No evidence of any hardware loosening or failure. Adrienne ANDRADE IMG XR PROCEDURES Final Resu lt documented in this encounter Visit Diagnoses Diagnosis Closed displaced fracture of medial malleolus of left tibia with routine healing, subsequent encounter- Primary documented in this encounter Care Teams Hand Decorator Relationship Specialty Start Date End Date Rose Mary Kidd MD [address] [place] [address] PCP - General 07/21/17 documented as of this encounter
--- OUTSIDE RECORDS SUMMARY | 2024-08-28 06:03 | XMS_ITS | Patient Health Summary ---
Author Organization [facility] Address [address] [place] [address] Care Team Providers Care Reinstatement Clerk Name Role Phone Rose Mary Kidd MD Primary Care Provider [phone] Note from [facility],non-owned Affiliates and Associated Physician Practices is amultiple site organization consisting of ambulatory clinics and hospital sitesin [place], [place], [place] and [place]. This disclosure is being madepursuant to the Care Everywhere program and may not contain all information available regarding this patient. Last updated 18.[facility] Allergies * Amoxicillin(Urticaria) Medications * Be aware that medications may not be up to date on this document. Alwaysverify current medications with the patient. * ibuprofen (MOTRIN) 200 MG tablet Take 400 mg by mouth every 6 hours as needed for Pain * melatonin 10 MG capsule Take 10 mg by mouth at bedtime * ferrous sulfate 325 (65 FE) MG tablet(Started 12/27/2017) Take 1 tablet by mouth 2 times daily Take w/ vitamin C such as OJ. Miralax or generic for tummy upset. 3 refills remaining Active Problems Problem Noted Date Diagnosed Date [...] Mass Index 36.06 12/27/2017 8:30 AM CDT Procedures * DERMATOPATHOLOGY(Performed 09/21/2022) * VITAMIN D 25-HYDROXY(Performed 12/27/2017) Performed for Restless legs syndrome (RLS) * FERRITIN(Performed 12/27/2017) Performed for Restless legs syndrome (RLS) * CARDIAC EKG ORDER(Performed 12/02/2017) * CARDIAC EKG ORDER(Performed 12/02/2017) * EKG 15-LEAD(Performed 11/28/2017) Performed for Other chest pain * ECHO CONSULT - PEDIATRIC(Performed 11/28/2017) Performed for Other chest pain * PATHOLOGY/CYTOLOGY REPORT ORDER(Performed 07/19/2011) * GROSS + MICRO EXAM(Performed 07/14/2011) Results * DERMATOPATHOLOGY (09/21/2022 12:00 AM TECHNICAL IMPLEMENTATION LEAD) Case Report Dermatopathology Report ? Case: [id number] ? Authorizing Provider: ??Vasiliy Arredondo MD ?Collected: ? 09/21/2022 12:00 AM ? Ordering Location: ? [facility] ?Received: ?09/22/2022 04:04 PM ? Pathologist: ? Elicia Ferguson MD ? Specimen: ?Skin, left upper bhavesh lip border ? 5:16 PM [facility] Final Diagnosis Specimen A. SKIN, left upper bhavesh lip border: RUPTURED EPIDERMOID CYST (L72.0) (see microscopic description) 5:16 PM [facility] Clinical History R/O EIC 5:16 PM [facility] Gross Description Specimen A: Received is one formalin filled container labeled with the patient's name and designated left upper bhavesh lip border. The specimen consists of a punch biopsy measuring [id number]. Jar 0. 5:16 PM [facility] Microscopic Description Specimen A. SKIN, left upper bhavesh lip border: Within the dermis, there is an infiltrate composed of lymphocytes and histiocytes, including multinucleated type giant cells. Some histiocytes contain flakes of material consistent with keratin. Additional deeper sections were obtained and reviewed. 5:16 PM [facility] Disclaimer An external and internal positive and negative controls are appropriate for the histochemical, immunohistochemical and immunofluorescence stain(s) in this case (if any), except where stated explicitly. The performance characteristics of the stain(s) cited in this report were developed and its performance characteristic determined by the Dermatopathology Laboratory at [facility], directed by Dr. Williams Hale. These tests need not be, and therefore are not, approved by the [place] Food and Drug Administration. The tests are used for clinical purposes. Billing Codes Specimen Charges Stain Charges 68823 1 3 5:16 PM TECHNICAL IMPLEMENTATION LEAD DERMATOPATHOLOGY LABORATORY Embedded Images 3 5:16 PM TECHNICAL IMPLEMENTATION LEAD DERMATOPATHOLOGY LABORATORY Pathology/Cytolog y TISSUE SPECIMEN FROM SKIN / Unknown 09/21/2022 09/22/2022 4:04 PM TECHNICAL IMPLEMENTATION LEAD Vasiliy Arredondo MD LAB - PATHOLOGY/CYTO LOGY ORDERABLES Performing Organization Address City/[facility]/ZIP Co de Phone Number DERMATOPATHOLOGY LABORATORY [facility] - Department of Dermatology [address], [address] [phone] * VITAMIN D (25-HYDROXY) (12/27/2017 9:20 AM CDT) [facility] Vitamin D, 25 Hydroxy 28.8 20 - 100 ng/mL 12/27/2017 11:29 AM CDT [facility] Blood BLOOD SPECIMEN / Unknown Lab Venipuncture / Unknown 12/27/2017 9:20 AM CDT 12/27/2017 10:02 AM CDT Narrative [facility] - 12/27/2017 11:29 AM CDT Vitamin D Status: ?Deficient ? <10 ?? ng/mL ? Borderline ?10-20 ng/mL ?Sufficient ?>20 ?? ng/mL ?Toxic ? >100 ??ng/mL Lilibeth Helm APRN-CONTAINER FINISHING INSPECTOR LAB - CHEMISTR Y ORDERABLES Performing Organization Address [facility] Co de Phone Number [facility] [place] [address] * FERRITIN (12/27/2017 9:20 AM CDT) Ferritin 31 10 - 140 ng/mL 12/27/2017 11:08 AM CDT [facility] Blood BLOOD SPECIMEN / Unknown Lab Venipuncture / Unknown 12/27/2017 9:20 AM CDT 12/27/2017 10:02 AM CDT Lilibeth James Helm WIRING TECHNICIAN-CONTAINER FINISHING INSPECTOR LAB - CHEMISTR Y ORDERABLES [facility] [address] [place] [address] * CARDIAC EKG ORDER (12/02/2017 2:30 PM CDT) Only the most recent of2 resultswithin the time period is included. Narrative 12/02/2017 2:30 PM CDT Ordered by an unspecified provider. Scanned Document CARDIAC SERVICES ORD ERABLES * EKG 15-LEAD (11/28/2017 11:32 AM CDT) Ventricular Rate 79 BPM CG MUSE Atrial Rate 79 BPM CG MUSE P-R Interval 136 ms CG MUSE QRS Duration ms 86 ms CG MUSE Q-T Interval ms 372 ms CG MUSE QTC Calculation (Bezet) 426 ms CG MUSE Calculated P Melrose 46 degrees CG MUSE Calculated R Mel[place] 75 degrees CG MUSE Calculated T Melrose 36 degrees CG MUSE Interpretation EKG * Pediatric ECG Analysis * Normal sinus rhythm Normal ECG No previous ECGs available Confirmed by Janice Norton ([id number]) on 12/01/2017 3:06:44 PM CG MUSE 11/28/2017 11:3 2 AM CDT 12/01/2017 3:06 PM CDT Janice Norton MD ECG ORDERABLES Performing Organization Address City/[facility]/ZIP Co de Phone Number MUSE * ECHO CONSULT - PEDIATRIC (11/28/2017 10:48 AM CDT) 11/28/2017 10:4 8 AM CDT Narrative [facility] - 11/28/2017 11:48 AM CDT ?[address] [place] [address] ?[phone] Phone ?[phone] Fax ?Non-Congenital Transthoracic Report Pat.Name: ??ELIAS VILLATORO ?Pat.ID: ?[id number] ? St.Date: ?? 11/28/2017 ?Exam Time: 10:48:00 AM ? Study Type:Non-Congenital TTE ?Height: ?171.8cm ? Weight: ?107kg ? BSA: ? 2.18 m2 ?Age: ??2000,17Y ?Sex: ? FEMALE ? BP: ?116/76 ?Sonogrphr: Hannah Cool LU ? Pat. Stat.:Outpatient ?CPT - 4: ?? [id number] ? Reason for Study:chest pain, right axis deviation History / Clinical:chest pain and right axis deviation Procedures:2D Non-congenital, Doppler Complete, Color Flow Visit ID: ??[id number] ? SUMMARY: Impression: Normal intracardiac anatomy and normal biventricular systolic function. ??No pathologic valve stenosis or regurgitation. Coronary arteries, arch sidedness, and atrial septum images attempted but not well seen due to patient body habitus. Findings: Anatomic Relationships: ??Abdominal situs solitus. ??There is levocardia. ??Atrial situs solitus. ??The AV alignment is concordant. The ventricular looping is D-looped. ??The VA connection is concordant. The arterial relationships are normal. Systemic Veins: ??Normal right SVC. ??Normal IVC. Pulmonary Veins: ??1/4 pulmonary veins drain normally to the LA. The remaining pulmonary veins not well visualized due to patient body habitus.. Right Atrium: ??The right atrial size is normal. Left Atrium: ??The left atrial size is normal. Atrial Septum: ??Atrial septum attempted to be visualized but not well seen due to patient body habitus. Tricuspid Valve: ??The tricuspid valve is structurally normal. ??There is no stenosis. ??There is physiologic regurgitation present. Mitral Valve: ??The mitral valve is structurally normal. ??There is no stenosis. ??There is no regurgitation present. Right Ventricle: ??The cavity size is normal. ??The wall thickness is normal. ??The systolic function is normal. RV Outflow Tract: ??The outflow tract is normal. Left Ventricle: ??The cavity size is normal. ??The wall thickness is normal. ??The systolic function is normal. ?? LV Outflow Tract: ??The outflow tract is normal. Ventricular Septum: ??The septal motion is normal. ??There is no defect with no shunting. Pulmonary Valve: ??The pulmonic valve is structurally normal. ??There is no stenosis. ??There is physiologic regurgitation present. Aortic Valve: ??The aortic valve is structurally normal. ??There is no stenosis. ??There is no regurgitation present. Pulmonary Artery: ??The MPA is normal. ??The LPA is normal. ??The RPA is normal. Aorta: ??The aortic root is normal. ??The aortic arch is patent. ??The arch sidedness is not evaluated. PDA: ??No PDA with no shunting. Coronary Arteries: ??Coronary artery images attempted but not well visualized due to patient body habitus.. Pericardium: ??No pericardial effusion. MEASUREMENTS: ?DOPPLER Mitral Valve ?? MV pkE ? 0.7 m/s ??(zsc -1.5) MV E/A ? 1.6 ?(zsc -1.1) MV pkA ? 0.4 m/s ??(zsc -0.2) MV DeTm ?136 ms ?? (zsc -0.6) Left Ventricle ?? BasLatE' ? 0.2 m/s ? BasSeptE' ?0.1 m/s ??(zsc -2.1) AV Velocity AVpkVel ?1.3 m/s ? AVpkPG ? 6.7 mmHg PV Velocity PV pkVel ? 1.2 m/s ? PV pkPG ?5.9 mmHg AO Pressure Gradient DscAopkVel ? 1.6 m/s ? DscAopkPG ?9.7 mmHg ?2D Mitral Valve ?? MV jameel ?28.3 mm ?? (zsc -0.5) Tricuspid Valve ?? TV jameel ?31.5 mm ?? (zsc -0.3) Aortic Valve ?? AV chemo ?21.1 mm ?? (zsc -0.9) Aorta ?? Ao StJx ? 20.4 mm ?? (zsc -1.9) DisAoArc ?17.4 mm ?? (zsc -1.6) AAo ? 24 mm ?? (zsc -1.3) ?MMODE Left and Right Ventricles RVIDd ? 32 mm ?LV EF ? 60.4 % ?? IVSd ?11.7 mm ?? (zsc 0.6) HR ?80 bpm LVPWd ? 11.7 mm ?? (zsc 1.2) LV CO ?3.6 l/min LVIDd ? 41 mm ?? (zsc -3.2) LV CI ?1.6 l/m/m2 LVIDs ? 27.9 mm ?? (zsc -1.8) LV Mass ?165.9 g ?(zsc -1.4) IVSs ?11.9 mm ?? (zsc -1.2) LV Ma/ht ?96.6 g/m LVPWs ? 15.5 mm ?? (zsc -0.4) LV MaIx ? 76.1 g/m2 LV%fs ? 31.9 % ? Signed 11/28/2017 11:48 AM Janice Norton MD Procedure Note Janice Norton MD - 11/29/2017 [address] [place] [address] Fax Non-Congenital Transthoracic Report Pat.Name: ELIAS VILLATORO Pat.ID: [id number] .Date: 11/28/2017 Exam Time: 10:48:00 AM Study Type:Non-Congenital TTE Height: 171.8cm Weight: 107kg BSA: 2.18 m2 Age: 14 2000,17Y Sex: FEMALE BP: 116/76 Sonogrphr: Hannah Cool RDCS Pat. Stat.:Outpatient CPT - 4: [id number] Reason for Study:chest pain, right axis deviation History / Clinical:chest pain and right axis deviation Procedures:2D Non-congenital, Doppler Complete, Color Flow Visit ID: [id number] SUMMARY: Impression: Normal intracardiac anatomy and normal biventricular systolic function. No pathologic valve stenosis or regurgitation. Coronary arteries, arch sidedness, and atrial septum images attempted but not well seen due to patient body habitus. Findings: Anatomic Relationships: Abdominal situs solitus. There is levocardia. Atrial situs solitus. The AV alignment is concordant. The ventricular looping is D-looped. The VA connection is concordant. The arterial relationships are normal. Systemic Veins: Normal right SVC. Normal IVC. Pulmonary Veins: 1/4 pulmonary veins drain normally to the LA. The remaining pulmonary veins not well visualized due to patient body habitus.. Right Atrium: The right atrial size is normal. Left Atrium: The left atrial size is normal. Atrial Septum: Atrial septum attempted to be visualized but not well seen due to patient body habitus. Tricuspid Valve: The tricuspid valve is structurally normal. There is no stenosis. There is physiologic regurgitation present. Mitral Valve: The mitral valve is structurally normal. There is no stenosis. There is no regurgitation present. Right Ventricle: The cavity size is normal. The wall thickness is normal. The systolic function is normal. RV Outflow Tract: The outflow tract is normal. Left Ventricle: The cavity size is normal. The wall thickness is normal. The systolic function is normal. LV Outflow Tract: The outflow tract is normal. Ventricular Septum: The septal motion is normal. There is no defect with no shunting. Pulmonary Valve: The pulmonic valve is structurally normal. There is no stenosis. There is physiologic regurgitation present. Aortic Valve: The aortic valve is structurally normal. There is no stenosis. There is no regurgitation present. Pulmonary Artery: The MPA is normal. The LPA is normal. The RPA is normal. Aorta: The aortic root is normal. The aortic arch is patent. The arch sidedness is not evaluated. PDA: No PDA with no shunting. Coronary Arteries: Coronary artery images attempted but not well visualized due to patient body habitus.. Pericardium: No pericardial effusion. MEASUREMENTS: DOPPLER Mitral Valve MV pkE 0.7 m/s (zsc -1.5) MV E/A 1.6 (zsc -1.1) MV pkA 0.4 m/s (zsc -0.2) MV DeTm 136 ms (zsc -0.6) Left Ventricle BasLatE' 0.2 m/s BasSeptE' 0.1 m/s (zsc -2.1) AV Velocity AVpkVel 1.3 m/s AVpkPG 6.7 mmHg PV Velocity PV pkVel 1.2 m/s PV pkPG 5.9 mmHg AO Pressure Gradient DscAopkVel 1.6 m/s DscAopkPG 9.7 mmHg 2D Mitral Valve MV jameel 28.3 mm (zsc -0.5) Tricuspid Valve TV jameel 31.5 mm (zsc -0.3) Aortic Valve AV chemo 21.1 mm (zsc -0.9) Aorta Ao StJx 20.4 mm (zsc -1.9) DisAoArc 17.4 mm (zsc -1.6) AAo 24 mm (zsc -1.3) MMODE Left and Right Ventricles RVIDd 32 mm LV EF 60.4 % IVSd 11.7 mm (zsc 0.6) HR 80 bpm LVPWd 11.7 mm (zsc 1.2) LV CO 3.6 l/min LVIDd 41 mm (zsc -3.2) LV CI 1.6 l/m/m2 LVIDs 27.9 mm (zsc -1.8) LV Mass 165.9 g (zsc -1.4) IVSs 11.9 mm (zsc -1.2) LV Ma/ht 96.6 g/m LVPWs 15.5 mm (zsc -0.4) LV MaIx 76.1 g/m2 LV%fs 31.9 % Signed 11/28/2017 11:48 AM Janice Norton MD Janice Norton MD ECHO ORDERABLES [facility] [address] [place] [address] * PATHOLOGY/CYTOLOGY REPORT ORDER (07/19/2011 9:25 AM TECHNICAL IMPLEMENTATION LEAD) Narrative Transcriptions Document, Scanned - 07/19/2011 9:25 AM CST Scanned Document LAB - PATHOLOGY/CYTO LOGY ORDERABLES * GROSS + MICRO EXAM (07/14/2011 2:43 PM TECHNICAL IMPLEMENTATION LEAD) [facility] Clinical History [facility] Comment: The patient is ab 10-year-old girl with two neck lesions, two right thigh lesions, one lower lip skin tag, and left axillary skin tag. ?? Gross Description [facility] Comment: The specimens are received in three formalin-filled containers all labeled with the patient's name, Elias Villatoro. Specimen A, left neck cyst, consists of one 0.3 cm round firm, olvera- vasquez lesion. ??The surface is smooth. ??On the cut surface, the loose cyst is seen. ??There is a white, vasquez firm calcification at the center of the lesion. ??The specimen is bisected and entirely submitted in cassette A1 . ??The specimen has been submitted for decalcification. ?? Specimen B, right neck nevus, consists of one black-vasquez elliptic skin and subcutaneous tissue measuring 2.9 x 0.8 x 0.3 cm. ??The surface is inked blue. ??After inked, the specimen is serially sectioned, and entirely submitted in cassette B1 . Specimen C, right groin thigh lesion, consists of two olvera-vasquez skin and subcutaneous tissue measuring 1.6 x 0.9 x 0.4 cm. ??The other one is 0.8 x 0.4 x 0.3 cm. ??The skin surface shows papillary structure. ??The larger specimen is bisected and submitted in cassette C1 . ??The small specimen is bisected and submitted in cassette C2 . ??(LH/lw) Microscopic Examination [facility] Comment: A) 2 H+E; B) 1 H+E; C) 2 H+E. Sections show oval-shaped concentric lamination of keratin mixed with brown pigment consistent with melanin. ?? Sections of right neck nevus show papillomatosis, epidermal hyperplasia, and hyperkeratosis associated with poorly formed hair follicles, hyperplastic sebaceous glands, and sweat glands. ?? Sections of left groin and thigh show papillomatosis, hyperkeratosis, and hypergranulosis. ??Within the dermis, there are poorly-formed hair follicles, hyperplastic sebaceous glands, and sweat glands. ??(LH/lw) ?? Diagnosis [facility] Comment: DIAGNOSIS: ??A) LEFT NECK CYST, EXCISION: ? -LAMINATED KERATIN PLUG. ?B) RIGHT NECK NEVUS, EXCISION: ? -NEVUS SEBACEOUS. ?C) RIGHT GROIN/THIGH LESION, EXCISION: ? -NEVUS SEBACEOUS. ?? This case has been personally reviewed and interpreted by the attending (teaching) pathologist. Addendum 1 [facility] Comment: Slides were sent to [facility], [place]. ??Dr. Amanda Hale reviewed the slides and her diagnosis are as follows: A.SKIN, LEFT NECK: ?? 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 B.SKIN,RIGHT NECK,: ?? -NEVUS SEBACEOUS, PRESENT AT MARGIN. C.SKIN,LEFT GROIN AND THIGH: ??-ACANTHOSIS AND PAPILLOMATOSIS, SEE COMMENT. COMMENT: ??The findings in specimen C could be consistent with a verruca or an epidermal nevus. ??Clinical correlation is recommended. ?? (CSA) Cardiac Technologist Gilda Conner, [facility] Resident in Pathology Leona Hopper M.D. [facility] Pathologist Rocky Valdovinos M.D. [facility] Electronically Signed By Rocky Valdovinos M.D. [facility] CYST TISSUE / Unknown 07/14/2011 2:43 PM TECHNICAL IMPLEMENTATION LEAD 07/16/2011 9:01 AM TECHNICAL IMPLEMENTATION LEAD Val Brennan MD LAB - PATHOLOGY /CYTOLOGY ORDERABLES [facility] [address] [place] [address] Care Teams Reinstatement Clerk Relationship Specialty Start Date End Date Rose Mary Kidd MD [address] [place] [id number] PCP - General 03/29/11
--- OUTSIDE RECORDS SUMMARY | 2024-08-28 06:03 | XMS_ITS | Encounter Summary ---
Author Organization [facility] Address [address] [place] [address] Care Team Providers Care Homemaking Rehabilitation Consultant Name Role Phone Rose Mary Kidd MD Primary Care Provider Encounter Details Date Type Department Care Team (Late st Contact Info) Description 12/27/2017 Orders Only [facility] - Sleep [address] [place] [address] Lilibeth Helm, DIRECTOR OF EDUCATION-THEOLOGY TEACHER [address] [place] [address] Social History Tobacco Use Types Packs/Day Years [...] on filedocumented in this encounter Care Teams Homemaking Rehabilitation Consultant Relationship Specialty Start Date End Date Rose Mary Kidd MD [address] [address] PCP - General 03/29/11 documented as of this encounter
--- OUTSIDE RECORDS SUMMARY | 2024-08-28 06:03 | XMS_ITS | Encounter Summary ---
Author Organization [facility] Address [address] [place] [address] Care Team Providers Care Foreign Language Professor Name Role Phone Rose Mary Kidd MD Primary Care Provider [phone] Encounter Details Date Type Department Care Team (Late st Contact Info) Description 09/22/2022 Lab Requisition [facility] [address] [place] [address] Vasiliy Arredondo MD [address] [place] [address] Social History Tobacco Use Types Packs/Day Years Used Date Smoking Tobacco: Passive Smo ke Exposure - Never Smoker Smokeless Tobacco: Never Sex and Gender Information Value Date Recorded Sex Assigned at Not on file Gender Identity Not on file Sexual Orientation Not on file documented as of this encounter Plan of Treatment Not on file documented as of this encounter Procedures Procedure Name Priority Date/Time Associated Diagnosis Comments DERMATOPATHOLOGY Routine 09/21/2022 12:0 0 AM HAMMER SETTER documented in this encounter Results * DERMATOPATHOLOGY (09/21/2022 12:00 AM HAMMER SETTER) Case Report Dermatopathology Report ? Case: [id number] ? Authorizing Provider: ??Vasiliy Arredondo MD ?Collected: ? 09/21/2022 12:00 AM ? Ordering Location: ? [facility] ?Received: ?09/22/2022 04:04 PM ? Pathologist: ? Elicia Ferguson MD ? Specimen: ?Skin, left upper bhavesh lip border ? 3 5:16 PM [facility] Final Diagnosis Specimen A. SKIN, left upper bhavesh lip border: RUPTURED EPIDERMOID CYST (L72.0) (see microscopic description) 3 5:16 PM [facility] Clinical History R/O EIC 3 5:16 PM [facility] Gross Description Specimen A: Received is one formalin filled container labeled with the patient's name and designated left upper bhavesh lip border. The specimen consists of a punch biopsy measuring [id number]. Jar 0. 3 5:16 PM [facility] Microscopic Description Specimen A. SKIN, left upper bhavesh lip border: Within the dermis, there is an infiltrate composed of lymphocytes and histiocytes, including multinucleated type giant cells. Some histiocytes contain flakes of material consistent with keratin. Additional deeper sections were obtained and reviewed. 3 5:16 PM [facility] Disclaimer An external and internal positive and negative controls are appropriate for the histochemical, immunohistochemical and immunofluorescence stain(s) in this case (if any), except where stated explicitly. The performance characteristics of the stain(s) cited in this report were developed and its performance characteristic determined by the Dermatopathology Laboratory at [facility], directed by Dr. Williams Hale. These tests need not be, and therefore are not, approved by the [place] Food and Drug Administration. The tests are used for clinical purposes. Billing Codes Specimen Charges Stain Charges 37903 1 3 5:16 PM HAMMER SETTER DERMATOPATHOLOGY LABORATORY Embedded Images 3 5:16 PM [facility]MER SETTER DERMATOPATHOLOGY LABORATORY Pathology/Cytolog y TISSUE SPECIMEN FROM SKIN / Unknown 09/21/2022 09/22/2022 4:04 PM HAMMER SETTER Vasiliy Arredondo MD LAB - PATHOLOGY/CYTO LOGY ORDERABLES DERMATOPATHOLOGY LABORATORY [facility] - Department of Dermatology [facility] Medicine [address] [place] [address], [address] [phone] documented in this encounter Visit Diagnoses Not on filedocumented in this encounter Care Teams Foreign Language Professor Relationship Specialty Start Date End Date Rose Mary Kidd MD [address] [address] PCP - General 03/29/11 documented as of this encounter
--- OUTSIDE RECORDS SUMMARY | 2024-08-28 06:03 | XMS_ITS | Clinical Summary ---
Author Organization [facility] Address [address] [place] [address] Phone Care Team Providers Care Tying Machine Operator Name Role Phone Rose Mary Kidd MD Primary Care Provider + Allergies Active Allergy Reactions Criticality Noted Date Comments Amoxicillin Unknown 02/26/2014 Medications ibuprofen (ADVIL,MOTRIN) 200 mg tab/cap Take by mouth every 6 (six) hours as needed for pain Active meclizine (ANTIVERT) 25 mg tablet Take 1 tablet (25 mg total) by mouth 3 (three) times a day as needed for dizziness 30 tablet 3 Active HYDROcodone-rito taminophen (NORCO) 5-325 mg per tabletIndicatio ns:Pain Take 1 tablet by mouth every 6 (six) hours as needed for pain 30 tablet 4 Active Additional Information Patient not taking.Reported on 05/31/2024 mupirocin (BACTROBAN) 2 % ointment Apply topically 2 (two) times a day 30 g 1 4 Active Active Problems Problem Noted Date Diagnosed Date Closed displaced fracture of medial malleolus of left tibia 03/19/2024 Patellofemoral pain syndrome of left knee 2018 Acute pain of left knee 04/06/2019 Encounters Date Type Department Care Team Description 05/31/2024 1:45 PM CDT Office Visit [facility] Medical [facility] Orthopedics and Sports Medicine at [address] [phone] Adrienne Umanzor PA Closed displaced fracture of medial malleolus of left tibia with routine healing, subsequent encounter (Primary Dx) 05/31/2024 1:29 PM CDT - 05/31/2024 11:59 PM CDT Hospital Encounter [facility] [address] [place] [phone] Discharge Disposition: Discharge to home or self care 05/31/2024 Documentation [facility] Orthopedics and Sports Medicine at [address] [phone] Charley Dominguez from Last 3 Months Surgical History Surgery Date Site/Laterality Comments TONSILECTOMY, ADENOIDECTOMY, BILATERAL MYRINGOTOMY AND TUBES SKIN TAG REMOVAL ORIF ANKLE FRACTURE 03/23/2024 Left Medical History Medical History Date Comments Asthma PONV (postoperative nausea and vomiting) Motion sickness Closed nondisplaced fracture of medial malleolus of left tibia, initial encounter Social History Tobacco Use Types Packs/Day Years [...] on file Legal Sex 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 Gender Identity Not on file Sexual Orientation Not on file Obstetrics History Last Filed Vital Signs Vital Sign Reading Time Taken Comments Blood Pressure 118/77 03/23/2024 1:45 PM CDT Pulse 85 03/23/2024 1:45 PM CDT Temperature 36.8 ??C (98.2 ??F) 03/23/2024 1:45 PM CD T Respiratory Rate 18 03/23/2024 1:45 PM CDT Oxygen Saturation 100% 03/23/2024 1:45 PM CDT Inhaled Oxygen Concentration - - Weight 110.2 kg (243 lb) 05/31/2024 1:24 PM CDT Height 170.2 cm (5' 7.01 ) 05/31/2024 1:24 PM CD T Body Mass Index 38.05 05/31/2024 1:24 PM CDT Plan of Treatment Health Maintenance Due Date Last Done Comments Cervical Cancer Screening 2002 Chlamydia and Gonorrhea (GC/ CT) Screening 2002 Depression Screening 2002 Hepatitis C Screening 2002 Meningococcal B Vaccine (1 o f 2 - Patient Seeks Protection) 2018 Regular Well Visit/Exam 18-64 2020 Influenza Vaccine (#1) 2024 06/23/2009 DTaP/Tdap/Td Vaccine (8 - Td or Tdap) 07/18/2033 07/18/2023, 11/20/2013, 03/21/2008, Additional history exists Pneumococcal vaccine <65 Completed 003, 02/15/2003, 2002, Additional history exists Varicella Vaccines Completed 03/21/2008, 01/31/2004 HPV Vaccines Completed 11/12/2014, 05/23, 04/10/2014 Medical Devices Implanted Type Area Etl Lead Device Identifier Shelf Expiration Date Model / Serial / Lot [employer] Low Profile Screws 4mm 46mm Self Drill Self Tap Cannulated [id number] - [id number] Implanted:Qty: 1 on 03/23/2024 by Donald Mendoza Jr., MD at [facility] Left: Ankle [employer] [id number] / / Procedures Procedure Name Priority Date/Time Associated Diagnosis Comments XR ANKLE LEFT 3 OR MORE VIEWS Schedule Routine, Read Routine (OP Routine) 06/03/2024 1:19 PM CDT Closed displaced fracture of medial malleolus of left tibia with routine healing, subsequent encounter from Last 3 Months Results * XR Ankle Left 3 or More Views (06/03/2024 1:19 PM CDT) Anatomical Region Laterality Modality Lower Extremities, Ankle Left Compute d Radiography Narrative 06/03/2024 1:19 PM CDT X-rays Left ankle-3 views weightbearing demonstrate a single screw transfixing the medial malleolus, fracture remains in good alignment/position. ??No evidence of any hardware loosening or failure. Good callus formation present across the fracture line-Fracture appears healed. Adrienne ANDRADE IMG XR PROCEDURES Final Resu lt from Last 3 Months Insurance [facility] Care Teams Tying Machine Operator Relationship Specialty Start Date End Date Rose Mary Kidd MD [address] [place] [address] PCP - General 07/21/17
--- OUTSIDE RECORDS SUMMARY | 2024-08-28 06:03 | XMS_ITS | Encounter Summary ---
Author Organization [facility] Address [address] [facility] [place] [address] Care Team Providers Care Pot Maker Name Role Phone Rose Mary Kidd MD Primary Care Provider Reason for Visit * Reason Comments Skin Tag dark skin tag on nec k, in between legs, and small bumb on neck Encounter Details Date Type Department Care Team (Late st Contact Info) Description 05/14/2011 12:01 AM CDT - 05/14/2011 11:59 PM T Hospital Encounter [facility] - Plastic Surgery Division of Plastic Surgery [address] [place] [id number] Val Brennan MD [address] [place] [id number] Plastic Surgery Discharge Disposition: Home or Self Care Social History Tobacco Use Types Packs/Day Years Used Date Smoking Tobacco: Never Assessed Sex and Gender Information Value Date Recorded Sex Assigned at Not on file Gender Identity Not on file Sexual Orientation Not on file documented as of this encounter Last Filed Vital Signs Vital Sign Reading Time Taken Comments Blood Pressure - - Pulse - - Temperature - - Respiratory Rate - - Oxygen Saturation - - Inhaled Oxygen Concentration - - Weight 64.3 kg (141 lb 12.8 oz) 05/14/2011 8:10 AM CDT Height 152 cm (4' 11.84 ) 05/14/2011 8:10 AM CDT Body Mass Index 27.84 05/14/2011 8:10 AM CDT Body Mass Index Percentile 99.44% 05/14/2011 8:1 0 AM CDT Growth Chart: [facility][NOTE 3] (Girls, 2- 20 Years) documented in this encounter Discharge Instructions * Patient Instructions* Rekha Dillon RN - 05/14/2011 11:00 AM CDT Plastic Surgey has recommended that your child be scheduled for surgery. Please call the plastic surgery office at [phone] to schedule this procedure. Please call plastic office when you are ready to schedule surgery. documented in this encounter Medications at Time of Discharge Medication Sig Dispensed Refills Start Date End Date Loratadine (CLARITIN PO) Take by mouth once daily. 11/28/2017 Montelukast Sodium (SINGULAIR PO) Take by mouth. 11/28/2017 RANITIDINE HCL PO Take by mouth twice daily before meal and at bedtime. 12/28/2013 documented as of this encounter Progress Notes * Val Brennan MD - 05/14/2011 8:48 AM CDT [facility] Plastic Surgery Note 05/14/2011 HISTORY: Rosmery Wynne is a 10 y.o. 9 m.o. female who presents today with mom and grandma with concerns aboutthree separate skin lesions. First, there are two areas of skin tags between her legs in her right medial upper thigh and also in her right groin. They began when she was [age] years old and have recently been getting larger and becoming more irritating especially when her legs rub together. She hasstarted wearing boy shorts underwear so that the lesions in her groin are not irritated by her clothes. She also has a small, blue, hard bump on the side of her neck that appeared about a year ago. She complains that is painful and changes in size. Lastly, she has a large, linear, textured, mole-like lesion on her anterior neck that has been there since she was a baby and has changed slightly in size and texture. Mom, grandma and Rosmery are here today for evaluation of these lesions and to discuss options for possible removal. PAST MEDICAL HISTORY: No past medical history on file. PAST SURGICAL HISTORY: Tonsils and Adenoids removed around 8yo MEDICATIONS: Current Outpatient Prescriptions Medication Sig Dispense Refill ??? Montelukast Sodium (SINGULAIR PO) Take by mouth. ??? Loratadine (CLARITIN PO) Take by mouth once daily. ??? RANITIDINE HCL PO Take by mouth twice daily before meal and at bedtime. ALLERGIES: is allergic to amoxicillin. SOCIAL HISTORY: History Substance Use Topics ??? Smoking status: Not on file ??? Smokeless tobacco: Not on file ??? Alcohol Use: Not on file Lives at home with mom about 30 minutes away. In third grade and enjoys school. FAMILY HISTORY: No family history on file. REVIEW OF SYSTEMS: Negative except for above Exam- Skin: 1. Multiple hyperpigmented, pedunculated skin lesions in her right medial upper thigh measuring 2cmx 1 cm and in her right groin measuring 1cm x 0.5cm. 2. Small, blue, circular, hard mass on left lateral neck measuring about 2mm x 2mm 3. Hyperpigmented, papular, linear epithelial nevus on right anterior neck measuring 4.2cm x 1cm A/P- 10yoF with no medical problems presents with multiple benign skin lesions includin. skin tags on her right upper thigh and groin probably resulting from a viral skin infection, 2. 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 linear epidermal nevus on right anterior neck. We discussed possible options including surgical excision of all the lesions under general anesthesia. We discussed in depth the procedures regarding removal and the scars that would result from these procedures. The family is comfortable with the diagnoses and options and they plan to discuss at home which lesions they would like to have removed at this time. The surgery scheduling will be calling them next week to discuss a possible surgery date. Sabina Rubio, MS3 05/14/11 Patient personally seen and examined, and I agree with the above with the following additions: Rosmery is seen in consultation of skin lesions on neck since , thigh since 6 y/o and neck cyst as described above. The thigh lesions are painful and catch on clothing and the neck cyst is tender at times. The neck skin lesion is thickening and becoming more prominent. On exam there is a linear 4.2x1.2cm relatively vertical veruccous brown raised lesion of the anterior R neck just lateral to midline with skip lesions. There are raised hard projecting frondular lesions of the R upper thigh (2x1cm) and groin crease (1x0.5cm). There is a hard nodular SQ cyst with overlying blue discoloration of the skin ~0.5 cm on L posterior neck. A/P- 1. Neck Pilomatrixoma. The nature of this cyst was discussed with the family including the tendencyto grow over time and affect the overlying skin and slight risk of infection. We recommend excision, and this will be carried out under local/general anesthesia due to patient age and sensitive location and multiple procedures. 2. Likely linear epidermal nevus of the neck. We discussed the benign nature of this skin lesion but tendency to thicken and grow over time. Alternatives to excision and varying efficacy were brieflydiscussed with offer of referral to derm for consideration of these should they wish to avoid the scarring associated with surgical excision. Otherwise, surgical excision would require Z plasty for closure to reduce the chance of scar contracture or hypertrophy and the nature of this scar was discussed in detail. 3. Likely thigh skin lesion of viral origin/wart. At this point due to the size and local symptoms of pain, excision for diagnosis and treatment is warranted. We discussed the possibility of recurrence associated with this due to it being viral in nature which they understand. Due to the multiple lesions in sensitive locations I would address all of these lesions under general anesthesia. We discussed procedure to excise and issues related to scar, and individual variationin scarring. Risks of bleeding, infection, scarring and need for further procedures reviewed. Activity restrictions and postop care reviewed. They will take this consult under advisement and contact for scheduling. documented in this encounter Miscellaneous Notes * Miscellaneous Scans - Document, Scanned - 06/30/2011 11:27 AM CST ARE ANALYST documented in this encounter Plan of Treatment Not on file documented as of this encounter Visit Diagnoses Not on filedocumented in this encounter Care Teams Pot Maker Relationship Specialty Start Date End Date Rose Mary Kidd MD [address] [phone] PCP - General 03/29/11 documented as of this encounter
--- OUTSIDE RECORDS SUMMARY | 2024-08-28 06:03 | XMS_ITS | Encounter Summary ---
Author Organization [facility] Address [address] [facility] [place] [address] Care Team Providers Care Plastic Tile Setter Name Role Phone Rose Mary Kidd MD Primary Care Provider Reason for Visit * Reason Comments Surgical Follow-up Encounter Details Date Type Department Care Team (Late st Contact Info) Description 07/30/2011 9:54 AM VEHICLE COST ENGINEER - 07/30/2011 11:59 PM [facility] Hospital Encounter [facility] - Plastic Surgery Division of Plastic Surgery [address] [place] [address]. [place] [address] Val Brennan MD [address] [place] [id number] Plastic Surgery Discharge Disposition: Home or Self Care Social History Tobacco Use Types Packs/Day Years Used Date Smoking Tobacco: Passive Smo ke Exposure - Never Smoker Sex and Gender Information Value Date Recorded Sex Assigned at Not on file Gender Identity Not on file Sexual Orientation Not on file documented as of this encounter Medications at Time of Discharge Medication Sig Dispensed Refills Start Date End Date Loratadine (CLARITIN PO) Take by mouth once daily. 11/28/2017 Montelukast Sodium (SINGULAIR PO) Take by mouth. 11/28/2017 RANITIDINE HCL PO Take by mouth twice daily before meal and at bedtime. 12/28/2013 documented as of this encounter Progress Notes * Val Brennan MD - 07/30/2011 11:04 AM CST Plastic Surgery Clinic Note 07/30/2011 History: Rosmery Wynne is an 10 yo female who presents 2 weeks s/p excision of right medial thigh and right andleft neck lesions, and left axillary and lower lip skin tags. On POD#10 she felt a pop in the rightgroin while she was walking at home and noticed that the right medial thigh incision had opened up.She was seen in the ER and told to proceed with local wound care with warm soapy water rinses and ap plication of bacitracin TID. She denies any pain or discharge from the wounds. She presents today for follow up. Exam: NAD, cooperative, pleasant. Right neck and left neck incisions healing well RRR CTAB Abdomen soft, non-distented, non-tender Extremities: Right upper medial thigh incision open with no surrounding erythema or signs of infection. Wound measures approximately 2 cm x 0.5 cm. Right lower medial thigh incision open with no surrounding erythema or signs of infection. Wound measures approximately 3 cm x 1.5 cm. There is some tenderness to palpation over both wounds. A/P: 10 yo female s/p excision of right medial thigh, right and left neck lesions, and left axillary and lower lip skin tags on 07/14/2011 with dehiscence of upper and lower right medial thigh incisions, healing well. - Continue local wound care. - Follow-up in clinic in 2 weeks. Abdelrahman Merchant M.D, M.P.H. PGY-2 [facility] Department of Sugery Pager: Patient personally seen and examined, and I agree with the above with the following additions: Rosmery is now 2.5 weeks s/p excision of multiple skin lesions. She was seen for dehiscence of the thigh wounds in the ER last week, and they have been keeping the wounds clean with bacitracin applied. On exam the neck incisions are pink and healing without complication. There is minor localized surrounding erythema on the Z plasty incision c/w suture reaction. No infection. Facial and axillary skin tag excision sites are healed. The R medial thigh has 2 small areas of clean granulating wounds which are epithelializing at the edges at the sites of previous excision. Pathology pending, despite calling for results. A/P- We discussed the process of healing by secondary intention and the plan for continued wound care with bacitracin ointment and daily baths as the sites heal. Discussed monitoring for signs of infection. We will see them in 2 weeks to follow progress, and possibly initiate taping of the neck scar to promote maturation and combat hypertrophy. CLE COST ENGINEER documented in this encounter Miscellaneous Notes * Miscellaneous Scans - Document, Scanned - 08/25/2011 9:48 AM CST CLE COST ENGINEER documented in this encounter Plan of Treatment Not on file documented as of this encounter Visit Diagnoses Not on filedocumented in this encounter Care Teams Plastic Tile Setter Relationship Specialty Start Date End Date Rose Mary Kidd MD [address] [id number] PCP - General 03/29/11 documented as of this encounter
--- OUTSIDE RECORDS SUMMARY | 2024-08-28 06:03 | XMS_ITS | Encounter Summary ---
Author Organization [facility] Healthcare Address [address] [place] [address] Care Team Providers Care Computer Systems Hardware Analyst Name Role Phone Rose Mary Kidd MD Primary Care Provider + Reason for Visit * Auth/Cert (Routine) Specialty Diagnoses / Procedures Referred By Contac t Referred To Contact Diagnoses Closed nondisplaced fracture of medial malleolus of left tibia, initial encounter Closed nondisplaced fracture of medial malleolus of left tibia, initial encounter [S82.55XA] Procedures [place] OPEN TREATMENT MEDIAL MALLEOLUS FRACTURE ORIF LEFT MEDIAL MALLEOLUS/60 min Referral ID Status Reason Start Date Expiration Date Visits Re quested Visits Authorized [id number] 1 1 Encounter Details Date Type Department Care Team (Late st Contact Info) Description 03/23/2024 12:30 PM CDT - 03/23/2024 2:30 PM CDT Surgery [facility] Operating Room [address] [place] [address] [place] [id number] [address] OPEN REDUCTION INTERNAL FIXATION LEFT MEDIAL MALLEOLUS Surgery Details Date/Time Status Location OR Service Patient Class Case Class Case Type Trauma Case? 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 For your information, our number may come up as unknown or a random number. If our surgical flow allows, we will attempt tomake a phone call the same day of surgery if you were discharged prior to 3pm. Regardless, we will call you the next day after surgery to follow up with you on pain control and see if you have any questions or concerns. If we are unable to reach you, we will leave a voice message if that is an option and then attempt to reach you again the following day. If we are still unable to reach you on that second day after surgery, we will stop the process of follow up calls. Please reach out to your surgeon if you have any questions or concerns. We want you to be able to say your care was EXCELLENT! If it was not, please let us know! Good and Great are not enough for us, we strive for EXCELLENCE! * Attachments The following attachments cannot be sent through Care Everywhere. * Hydrocodone/Acetaminophen (By mouth) (Nepali) * Care After General Anesthesia (General Information) (Nepali) documented in this encounter Medications at Time of Discharge ibuprofen (ADVIL,MOTRIN) 200 mg tab/cap Take by mouth every 6 (six) hours as needed for pain meclizine (ANTIVERT) 25 mg tablet Take 1 tablet (25 mg total) by mouth 3 (three) times a day as needed for dizziness 30 tablet 01/05/2023 acetaminophen-co deine (TYLENOL with CODEINE #3) 300-30 mg per tabletIndication s:Closed displaced fracture of medial malleolus of left tibia, initial encounter Take 1-2 tablets by mouth every 6 (six) hours as needed for pain 30 tablet 03/20/2024 4 acetaminophen-co deine (TYLENOL with CODEINE #3) 300-30 mg per tablet Take 1-2 tablets by mouth every 4 (four) hours as needed for pain for up to 40 doses 40 tablet 03/23/2024 4 HYDROcodone-acet aminophen (NORCO) 5-325 mg per tabletIndication s:Pain Take 1-2 tablets every 4-6 hours as needed for pain 40 tablet 03/23/2024 4 documented as of this encounter Ordered Prescriptions Prescription Sig Dispense Quantity Refills Last Filled Start Date End Date HYDROcodone-acetam inophen (NORCO) 5-325 mg per tabletIndications: Pain Take 1-2 tablets every 4-6 hours as needed for pain 40 tablet 03/23/2024 4 acetaminophen-code ine (TYLENOL with CODEINE #3) 300-30 mg per tablet Take 1-2 tablets by mouth every 4 (four) hours as needed for pain for up to 40 doses 40 tablet 03/23/2024 4 documented in this encounter Discharge Disposition Disposition Code Departure Means Destination Comment s Discharge to home or self care documented in this encounter H&P Notes * Donald Mendoza Jr., MD - 03/23/2024 10:30 AM CDT I have reviewed the H&P, examined the patient, and endorse the findings as written. Plan of Care : Based on the above findings, I consider Rosmery Wynne to be an acceptable risk for :Procedure(s): ORIF LEFT MEDIAL MALLEOLUS/60 min Source Note - Donald Mendoza Jr., MD - 03/19/2024 1:00 PM CDT Images from the original note were not included. NEW PATIENT VISIT Subjective CHIEF COMPLAINT Rosmery Wynne was seen today for consultation requested by Rose Mary Kidd MD for Pain and Edema of the Left Ankle HISTORY OF PRESENT ILLNESS She is a 23-year-old white female with a painful left ankle. She was enjoying her vacation in [place] and was just walking in her hotel room and twisted her left ankle on 03/16/2024. She went to [facility] on [facility]/17[facility]. She had pain and tenderness in the ankle and she was diagnosed with a medial malleolus fracture and placed into a splint ER notes were reviewed. She was placed into a walker boot and has been nonweightbearing. She was in the office with her mother a friend. 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 Pain Assessment Pain Assessment: 0-10 Pain Score: 8 Pain Location: Ankle Pain Descriptors: Aching, Burning Pain Frequency: Constant/continuous PAST MEDICAL HISTORY She has a past medical history of Asthma. PAST SURGICAL HISTORY She has a past surgical history that includes Tonsilectomy, adenoidectomy, bilateral myringotomy and tubes and Skin tag removal. MEDICATIONS She has a current medication list which includes the following prescription(s): acetaminophen-codeine, haloette, ibuprofen, and meclizine. ALLERGIES She is allergic to amoxicillin. SOCIAL HISTORY She reports that she has never smoked. She has never used smokeless tobacco. She reports that she does not use drugs. Patient denies consuming alcoholic drinks. FAMILY HISTORY Her family history is not on file. REVIEW OF SYSTEMS Review of Systems Constitutional: Negative for chills and fever. HENT: Negative for hearing loss. Eyes: Negative for visual disturbance. Respiratory: Negative for cough and shortness of breath. Cardiovascular: Negative for chest pain and palpitations. Gastrointestinal: Negative for constipation, diarrhea, nausea and vomiting. Endocrine: Negative for cold intolerance, heat intolerance, polydipsia and polyuria. Genitourinary: Negative for difficulty urinating, dysuria and urgency. Musculoskeletal: Positive for gait problem and joint swelling. Negative for back pain, myalgias andneck pain. Neurological: Negative for seizures and weakness. Hematological: Does not bruise/bleed easily. Psychiatric/Behavioral: Negative for dysphoric mood. The patient is not nervous/anxious. Objective PHYSICAL EXAM BP 127/88 Ht 170.2 cm (5' 7 ) Wt 99.8 kg (220 lb) BMI 34.46 kg/m?? CONSTITUTIONAL: No fever, chills or change in weight HEENT: No change in vision, speech or hearing CARDIOVASCULAR: No chest pain or shortness of breath RESPIRATORY: No wheezing or cough GASTROINTESTINAL: No nausea, vomiting or diarrhea GENITOURINARY: No hematuria or discharge MUSCULOSKELETAL: See HPI NEUROLOGIC: No seizure or headaches SKIN: No ulcerations or skin lesions Ortho Exam Left foot and ankle She has been nonweightbearing in the tall walker boot. She does not have any tenderness in the proximal aspect of her leg. She is only tender over her medial malleolus. Neurologic and vascular grossly intact and normal. Pain tenderness and swelling over the medial malleolar area. No tenderness lateral malleolus but there is some tenderness of the ankle joint itself. Range of motion decreased secondary to tenderness. No skin lesions, lacerations or ulcerations. REVIW OF X-RAYS/STUDIES/LABS My independent interpretation of the left nonweightbearing tibia, ankle and foot films done on 03/17/2024 show a displaced medial malleolus fracture below the level of the plafond. Assessment/Plan Rosmery was seen today for pain and edema. Diagnoses and all orders for this visit: Closed displaced fracture of medial malleolus of left tibia, initial encounter She has a displaced left medial malleolus fracture from a fall in her hotel room on 03/16/2024 in [place]. It to be surgically fixed and stabilized. She was seen in [place] and placed into a splint. She only has tenderness of the medial malleolus. It is a fracture below the level of the plafond but it is displaced. 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 PLAN She will be scheduled for open reduction internal fixation left medial malleolus fracture as same-day surgery with general anesthesia. The risks, benefits, complications and prognosis pertaining to the ankle fracture were explained to the patient. These include, but are not inclusive, are infection, the fracture not healing, loss of position of the fracture, postoperative arthritis or arthritis in surrounding joints. There also is the possibility of a nerve or blood vessel damage. All questionswere answered to the patient's satisfaction and they elected to proceed with surgery. I will need the Arthrex ankle set and mini C-arm. Donald Mendoza Jr., MD documented in this encounter Miscellaneous Notes * Op Note - Donald Mendoza Jr., MD - 03/23/2024 12:14 PM CDT OPERATIVE NOTE Attending Surgeon: Surgeons and Role: * Donald Mendoza Jr., MD - Primary RAYMOND Lai - 1st treasury assistant Preoperative Diagnosis: Pre-op Diagnosis * Closed displaced fracture of medial malleolus of left tibia, initial encounter Postoperative Diagnosis: Closed displaced fracture medial malleolus of left tibia Name of Operation: Open reduction internal fixation left medial malleolus fracture Operative Findings: Patient brought the operating placed supine position. General anesthesia was given. Tourniquet placed on the left thigh. Left lower extremity was prepped and draped in usual sterile manner. 2 g Ancef given intravenously the thigh tourniquet deflated 250 mm of mercury. Mean incision was made over the anterior aspect the medial malleolus. Section carried down subcutaneous tissue. Any bleeding vessels with the Bovie cautery. The fracture fragments able to be identified and the tip of the K-wire was placed in the tip of the fracture. Due the fact being a small fragment need tomake sure is in the center of the fragment I was a pin was driven up to the center the fragment up i nto the medial malleolus. Measured and a 50 mm partially-threaded Arthrex cannulated screw was placed with anatomic mandaen of the medial malleolar fragment with excellent compression. Wound was irrigated and dried. Closed with 3 0 Vicryl and 3-0 nylon suture. Dressing was Xeroform, 4 x 4, Webril with posterior and sugar-tong splints an Gerard wrap. 10 cc of 0.5% Marcaine injected around the incision prior to final dressing closure. Tourniquet released after approximately 30 minutes. Transferred to PACU in stable condition sponge counts correct. Intraoperative findings were documented with FluoroScan. Specimen/Tissue removed: No specimen collected in procedure Estimated Blood Loss: No blood loss documented. Blood/Bloood Products Transfused: Complications: * No complications entered in OR log * Condition on discharge from the operating room was : stable Date: 03/23/2024 Time: 12:14 PM * Perioperative Nursing Note - Chris Bass RN - 03/23/2024 11:03 AM CDT Nerve block procedure complete. Awake and alert. * Pre-Procedure Instructions - Simin Arellano RN - 03/21/2024 1:01 PM CDT We are pleased that you and your doctor have chosen [facility] for your surgery. We hope that the following information will help make your visit a pleasant one. Surgery Date: 03/23/2024 Arrive at 10 AM. [facility] Center [facility] side [facility] (look for sign reading ???EMERGENCY - SURGERY CENTER?? ) [address] [place] [address] Directions: [address] driving down [facility] [address] [facility] towards [facility], look for the sign that says Emergency. Take this Entrance, drive straight back following the signs that say Surgery Center. At the 3rd stop sign, the Surgery Center is on the left and parking is on the right. Parking is also straightahead across the road. Before your surgery: Notify your doctor of ANY change in your health such as a cold, sore throat, fever, infection or a change in the problem for which you are having your surgery. Follow any instructions given to you by your doctor or surgeon. One week before surgery STOP taking (unless directed otherwise by your physician): All herbal/vitamin supplements Aspirin (not ordered by your doctor) Aleve, Advil, Motrin, Ibuprofen, Excedrin, Naproxen, Meloxicam, Diclofenac (oral & topical) Relafen, Celebrex, Ketorolac (Toradol) or other similar medications (Tylenol is okay unless it is not recommended by your physician). Fish Oil/[place] 3, Co Q 10, Cod Liver Oil, or other similar products. 24 hours before your surgery: No smoking, chew, vaping, alcohol, Marijuana, or recreational drug use. It is best to stop smoking now to improve your health. Hydrate yourself (water) - if no restrictions. Night before your surgery: DO NOT eat or drink anything after midnight including candy, mints, gum, chewable antacids, and cough drops. However, You may have up to 16 ounces of water/Gatorade (Sugar Free if you are diabetic) (no red or purple) until 9 AM the morning of your surgery. Follow surgeon's instructions for anti-bacterial shower night before and morning of surgery. Before Surgery your body must be thoroughly cleaned. Shower Instructions Using Chlorhexidine gluconate or CHG (brand name: Hibiclens): CHG helps to reduce the bacteria (germs) from the skins surface. First Clean your hair using your normal shampoo. Do this so the antiseptic soap is not washed off by your shampoo. Wash face with warm water and/or your normal soap Move away from the shower stream. Using a clean washcloth and the CHG soap, thoroughly wash from jawline down (avoid the groin area, buttocks, and open wounds). Using a second clean washcloth and CHG soap, wash your groin area, and buttocks. (Do NOT use CHG onthe genital area.) Use enough soap to thoroughly cover your body. CHG soap does not produce much lather. You may need help if some areas cannot easily be reached, such as your back. Wash with the CHG soap for 2-3 minutes then Rinse thoroughly. Dry with a clean towel. Do not use lotions, powders, creams, Vaseline, makeup, or hair products after either shower. Dress in clean pajamas or clothing. Do not shave below the neck on the night before or day of surgery The night before surgery sleep on clean linen Do Not let pets sleep with you Day of surgery: You may brush your teeth and rinse your mouth out. Repeat shower ONLY take these pills with a sip of water: Pre-Surgery Instructions: Medication Instructions acetaminophen-codeine (TYLENOL with CODEINE #3) Take morning of surgery, if needed. meclizine (ANTIVERT) Take morning of surgery, if needed. You Should bring a complete, up-to-date, list of all medications on the day of your surgery/procedure. Including any over the counter medications or supplements. Please note on your medication list the last time you took each medication. The healthcare team will ask for this information. If you are 17 years old or younger, you must have a parent or legal guardian with you. Wear comfortable clothes that will not be tight over the area of your surgery Do Not Glue Dentures or Partials In If you have an implantable device with a remote, bring the remote with you on the day of surgery. Leave all valuables and jewelry, (including all body piercing jewelry), hairpins, false eyelashes, contact lenses at home. If you use a CPAP machine, please bring it with you to wear after your surgery. Please bring your photo ID, insurance cards, and medication list (including all [id number] medications) with you. Prescriptions can be filled onsite prior to discharge. Please have your co-pay available. Check in at the Registration Desk. You may have 2 visitors (visitor must be over the age of 18). When you are discharged: You must have a responsible adult to drive you home, you will not be allowed to drive or take a cabhome. We recommend you have someone stay with you for 24 hours after your surgery. What to bring if you are spending the night with us: Bring toiletry items such as: robe, slippers, toothbrush, toothpaste, brush or comb. Bring contact lens, hearing aids, glass cases and denture container if you use any of these items. The hospital will provide you with a gown. Questions or concerns: If you have any questions or concerns regarding your procedure, or to cancel your surgery/procedure- contact your surgeon as soon as possible. If you have questions regarding your Pre-Admission Screen/Testing, please call at . documented in this encounter Plan of Treatment Not on file documented as of this encounter Procedures Procedure Name Priority Date/Time Associated Diagnosis Comments FL FLUOROSCOPY < 1 HOUR IP Routine 03/23/2024 12:11 PM CDT XR ANKLE LEFT 2 VIEWS IP Routine 03/23/2024 12:11 PM CDT OPEN REDUCTION INTERNAL FIXATION - ANKLE 03/23/2024 11:09 AM CDT Closed nondisplaced fracture of medial malleolus of left tibia, initial encounter POCT HCG, URINE Routine 03/23/2024 10:15 AM CDT documented in this encounter Results * FL Fluoroscopy < 1 Hour (03/23/2024 12:11 PM CDT) Narrative [facility] - 03/23/2024 12:11 PM CDT The images from this study are not interpreted by Radiology. ??Please refer to the physician's procedure / OR operative note. Donald Mendoza Jr., MD IMG FLUOROSCOPY PRO CEDURES Final Result [facility] * XR Ankle Left 2 Views (03/23/2024 12:11 PM CDT) Anatomical Region Laterality Modality Lower Extremities, Ankle Left Compute d Radiography 03/23/2024 1:22 PM CDT Impressions 03/23/2024 1:22 PM CDT Findings/impression: Fixation screw traversing the medial malleolus. ??Remainder the examination is unremarkable. Electronically signed by: Jerson Monroe II, D.O. Narrative 03/23/2024 1:22 PM CDT EXAMINATION: XR ANKLE LEFT 2 VIEWS DATE: 03/23/2024 10:55 AM HISTORY: ORIF left ankle. COMPARISON: None. Procedure Note Jerson Monroe II, DO - 03/23/2024 EXAMINATION: XR ANKLE LEFT 2 VIEWS DATE: 03/23/2024 10:55 AM HISTORY: ORIF left ankle. COMPARISON: None. IMPRESSION: Findings/impression: Fixation screw traversing the medial malleolus. Remainder the examination is unremarkable. Electronically signed by: Jerson Monroe II, D.O. Donald Mendoza Jr., MD IMG XR PROCEDURES F inal Result * POCT hCG, urine (03/23/2024 10:15 AM CDT) HCG, ur, POC Negative Negative Lot Number [id number] QC Backgroud Clear Acceptable QC Control Line Acceptable Urine 03/23/2024 10:1 5 AM CDT Yoandy Mar MD POINT OF CARE TEST ORDERABLES Fi nal Result documented in this encounter Visit Diagnoses Diagnosis Closed displaced fracture of medial malleolus of left tibia- Primary Closed displaced fracture of medial malleolus of left tibia, initial encounter Closed nondisplaced fracture of medial malleolus of left tibia, initial encounter documented in this encounter Admitting Diagnoses Diagnosis Closed nondisplaced fracture of medial malleolus of left tibia documented in this encounter Administered Medications Inactive Administered Medications - up to 3 most recent administrations Medication Order MAR Action Action Date Dose Rate Site acetaminophen (TYLENOL) tablet 1,000 mg 1,000 mg, oral, Once, On Tue03/23/24 at 0945, For 1 dose, Pre-Op, Indications: Pre-Emptive AnalgesiaIndications:Pre-Emptive Analgesia Given 03/23/2024 9:50 AM CDT 1,000 mg celecoxib (CeleBREX) capsule 200 mg 200 mg, oral, Once, On Tue03/23/24 at 0945, For 1 dose, Pre-Op, Indications: Pre-Emptive PainIndications:Pre-Emptive Pain Given 03/23/2024 9:51 AM CDT 200 mg HYDROcodone-acetaminophen (NORCO) 5-325 mg per tablet 2 tablet 2 tablet, oral, Once, On Tue03/23/24 at 1430, For 1 dose, Phase I & Post-op Floor, Indications: PainIndications:Pain Given 03/23/2024 2:05 PM CDT 2 tablets HYDROmorphone (PF) (DILAUDID) injection 0.2 mg 0.2 mg, intravenous, Administer over 2 Minutes, Every 10 min PRN, 1st line for pain, Starting on Tue03/23/24 at 1154, Phase I, Notify Anesthesiologist if total PACU dose reaches 2 mg and pain score 5/10 or more., Indications: PainIndications:Pain Given 03/23/2024 12:33 PM CDT 0.2 mg Given 03/23/2024 12:20 PM CDT 0.2 mg Given 03/23/2024 12:10 PM CDT 0.2 mg Lactated Ringer's (LR) infusion 30 mL/hr, intravenous, Continuous, Starting on Tue03/23/24 at 0945, Pre-Op New Bag 03/23/2024 11:43 AM CDT Rate/Dose Verify 03/23/2024 11:08 AM CDT 30 mL/ hr New Bag 03/23/2024 10:12 AM CDT 30 mL/hr 30 mL/hr sodium chloride 0.9% irrigation As needed, Starting on Tue03/23/24 at 1127, Intra-Op Given 03/23/2024 11:27 AM CDT 1,000 mL Surgical Site documented in this encounter Discontinued Medications Medication Sig Discontinue Reason Start Date End Da te Haloette 0.12-0.015 mg/24 hr vaginal ring INSERT 1 RING VAGINALLY EVERY MONTH 01/24/2024 03/21/2024 documented as of this encounter Active and Recently Administered Medications Times are shown in CDT. Scheduled Medication Order 03/21/2024 03/22/2024 03/23/2024 acetaminophen (TYLENOL) tablet 1,000 mg (COMPLETED) 1,000 mg, oral, Once, On Tue03/23/24 at 0945, For 1 dose, Pre-Op, Indications: Pre-Emptive Analgesia 0950 (Given - Provid er: Chris Bass RN) ceFAZolin (ANCEF) 1 gram/10 mL in sterile water (premix) 2,000 mg (COMPLETED) 2,000 mg, intravenous, at 400 mL/hr, Administer over 3 Minutes, Once, On Tue03/23/24 at 0945, For 1 dose, Pre-Op, Indications: Prophylaxis, Surgical 1118 (Given - Provid er: Nely Page CRNA) celecoxib (CeleBREX) capsule 200 mg (COMPLETED) 200 mg, oral, Once, On Tue03/23/24 at 0945, For 1 dose, Pre-Op, Indications: Pre-Emptive Pain 0951 (Given - Provid er: Chris Bass RN) HYDROcodone-acetaminophen (NORCO) 5-325 mg per tablet 2 tablet (COMPLETED) 2 tablet, oral, Once, On Tue03/23/24 at 1430, For 1 dose, Phase I & Post-op Floor, Indications: Pain 1405 (Given - Provid er: Chris Bass RN) Continuous Medication Order 03/21/2024 03/22/2024 03/23/2024 Lactated Ringer's (LR) infusion 30 mL/hr, intravenous, Continuous, Starting on Tue03/23/24 at 0945, Pre-Op 1012 (New Bag - Prov ider: Chris Bass RN)1108 (Rate/Dose Verify - Provider: Nely Page CRNA)1142 (Paused - Provider: Nely Arlyn [place], LEAD SECURITY OFFICER - Comment: Switch to gravity)1143 (New Bag - Provider: Nely Page CRNA)1159 (Continued from OR - Provider: Raisa Us RN)1849 (Due: Stopped) PRN Medication Order 03/21/2024 03/22/2024 03/23/2024 HYDROmorphone (PF) (DILAUDID) injection 0.2 mg (CANCELED) 0.2 mg, intravenous, Administer over 2 Minutes, Every 10 min PRN, 1st line for pain, Starting on Tue03/23/24 at 1154, Phase I, Notify Anesthesiologist if total PACU dose reaches 2 mg and pain score 5/10 or more., Indications: Pain 1210 (Given - Provid er: Raisa Us RN)1220 (Given - Provider: Raias Us RN)1233 (Given - Provider: Raisa Us RN) sodium chloride 0.9% irrigation (CANCELED) As needed, Starting on Tue03/23/24 at 1127, Intra-Op 1127 (Given - Provid er: Donald Mendoza Jr., MD - Comment: on sterile field for use during case) documented in this encounter Orders Medications Ordered That Leodan ht Not Have Been Administered Count Last Ordered Date First Ordered Date ceFAZolin (ANCEF) 1 gram/10 mL in sterile water (premix) 2,000 mg 1 03/23/2024 lidocaine (XYLOCAINE) 10 mg/ mL (1 %) injection 2-10 mg 1 03/23/2024 meperidine (DEMEROL) preserv ative free injection 12.5 mg 1 03/23/2024 naloxone (NARCAN) 0.4 mg/mL injection 0.04-0.4 mg 1 03/23/2024 ondansetron (ZOFRAN) injection 4 mg 1 03/23 prochlorperazine (COMPAZINE) injection 5 mg 1 03/23/2024 sodium chloride 0.9% flush 0.5-20 mL 2 09/2023 Diet Count Last Ordered Date First Orde red Date ADULT DISCHARGE DIET 1 03/23/2024 Nursing Count Last Ordered Date First Orde red Date DISCHARGE ACTIVITY 1 03/23/2024 DISCHARGE CALL PROVIDER 8 03/23/2024 DISCHARGE DRESSING 3 03/23/2024 DISCHARGE FOLLOW UP 1 03/23/2024 DISCHARGE INSTRUCTIONS 4 03/23/2024 WEIGHT BEARING STATUS 1 03/23/2024 Discharge Count Last Ordered Date First Orde red Date DISCHARGE PATIENT 1 03/23/2024 documented in this encounter Care Teams Computer Systems Hardware Analyst Relationship Specialty Start Date End Date Rose Mary Kidd MD [address] [place] [address] PCP - General 07/21/17 documented as of this encounter
--- OUTSIDE RECORDS SUMMARY | 2024-08-28 06:03 | XMS_ITS | Encounter Summary ---
Author Organization [facility] Address [address] [place] [address] Care Team Providers Care Wax Molder Name Role Phone Rose Mary Kidd MD Primary Care Provider Reason for Visit * Reason Comments WOUND DEHISCENCE had skin tag removal 07/14 on R. upper thigh. wounds opened today. mom had notified plastic superintendent car construction. Encounter Details Date Type Department Care Team (Late st Contact Info) Description 07/24/2011 5:27 PM MUCK HAULER - 07/24/2011 7:27 PM MUCK HAULER Emergency ER at [address] [address] Toni Glynn MD [address] [place] [id number] Skin tag; Wound check, dressing change Discharge Disposition: Home or Self Care Social [...] Sign Reading Time Taken Comments Blood Pressure 106/67 07/24/2011 5:35 PM MUCK HAULER Pulse 100 07/24/2011 5:32 PM MUCK HAULER Temperature 37.3 ??C (99.2 ??F) 07/24/2011 5:32 PM CS T Respiratory Rate 18 07/24/2011 5:32 PM MUCK HAULER Oxygen Saturation - - Inhaled Oxygen Concentration - - Weight 67.2 kg (148 lb 2.4 oz) 07/24/2011 5:32 P M MUCK HAULER Height - - Body Mass Index - - documented in this encounter Discharge Instructions * Discharge Instructions* Toni Glynn MD - 07/24/2011 7:12 PM MUCK HAULER Sutured Wound Care Your cut has been cleaned and closed with sutures, also called stitches. You should keep the area around your wound clean and dry until the stitches are removed. Rest and elevate the injured area until all the pain and swelling are gone. HOME CARE INSTRUCTIONS ?? Change your dressing daily unless your caregiver tells you differently. ?? Avoid stretching a sutured wound. ?? On some sutured wounds your caregiver may want you to do certain things. Please make sure you know how your caregiver wants you to care for your wound. Treatment recommendation may include: l Apply a topical antibiotic ointment on the sutured wound. l Stop using a dressing after 2 days or after the wound stops draining. l Cleaning the wound gently with soap and water once daily after 48 hours ?? Use sunscreen on your wound for the next 3-6 months to reduce darkening of the scar. SEEK IMMEDIATE MEDICAL ATTENTION IF: ?? If the wound becomes red, swollen, hot, tender, or pus starts to drain. ?? If you develop a fever, shaking chills. ?? Bleeding persists from the sutured wound. SUTURE REMOVAL: ?? Remember to return to your caregiver as instructed for suture removal. General guidelines to return for suture removal are: l 5 days for the face. l 7 days for the scalp. l 10 days for the extremities and the trunk. Document Released: 08/02/2007 Document Re-Released: 06/10/2009 ExitCare?? Patient Information ??2009 [employer]. HAULER * Discharge Instructions* Document, Scanned - 07/26/2011 8:46 PM MUCK HAULER HAULER documented in this encounter Medications at Time of Discharge Medication Sig Dispensed Refills Start Date End Date acetaminophen-codeine (TYLENOL #3) 300-30 MG tablet Take 1 Tab by mouth every 4 hours as needed for Pain. 30 Tab 0 07/14/2011 07/30/2011 Loratadine (CLARITIN PO) Take by mouth once daily. 11/28/2017 Montelukast Sodium (SINGULAIR PO) Take by mouth. 11/28/2017 RANITIDINE HCL PO Take by mouth twice daily before meal and at bedtime. 12/28/2013 documented as of this encounter Consult Notes * Cherelle Strange MD - 07/24/2011 6:53 PM CST Plastic Surgery Consult Note 07/24/2011 Chief Complaint: Right medial thigh wound HISTORY: Rosmery Wynne is a 10 y.o. 11 m.o. female who had excision of the right medial thigh, right neck lesion & left axillary skin tags done by Dr Brennan on 07/14/2011. Post-op, patient had no complains but earlier today mom says that when patient was walking she felt a pop in the right groin &noted the lower incision in the right thigh had opened up. Patient denies any pain or any dischargefrom the right thigh wound. PAST MEDICAL HISTORY: Past Medical History Diagnosis Date ??? Unspecified asthma triggered by allergies, no inhaler use ??? GERD (gastroesophageal reflux disease) PAST SURGICAL HISTORY: Past Surgical History Procedure Date ??? Tonsillectomy and adenoidectomy 2008 at [facility] 07/14/2011 1. Excision of anterior neck nevus measuring 4 cm with tissue rearrangement by multiple Z-plasty for closure. 2. Excision of left neck subcutaneous cyst measuring 8 mm with intermediate closure 8 mm. 3. Excision of right thigh exophytic skin lesions x2, one measuring 2.5 cm diameter, the upper thigh 2 cm diameter with intermediate closure, total measuring 6 cm. 4. Trimming of skin tags of the lower lip and left axillary region. MEDICATIONS: Current Facility-Administered Medications Medication Dose Route Frequency Provider Last Rate Last Dose ??? ibuprofen (MOTRIN) tablet 400 mg 400 mg Oral Once Toni Glynn MD 400 mg at 07/24/11 1810 ??? bacitracin topical ointment Topical TID Cherelle Strange MD Current Outpatient Prescriptions Medication Sig Dispense Refill ??? acetaminophen-codeine (TYLENOL #3) 300-30 MG tablet Take 1 Tab by mouth every 4 hours as neededfor Pain. 30 Tab 0 ??? Montelukast Sodium (SINGULAIR PO) Take by mouth. ??? Loratadine (CLARITIN PO) Take by mouth once daily. ??? RANITIDINE HCL PO Take by mouth twice daily before meal and at bedtime. ALLERGIES: is allergic to amoxicillin. SOCIAL HISTORY: History Substance Use Topics ??? Smoking status: Passive Smoker ??? Smokeless tobacco: Not on file ??? Alcohol Use: FAMILY HISTORY: None REVIEW OF SYSTEMS: Negative except for as mentioned in HPI Exam- General: Alert, awake & resting comfortably. HEENT: Right neck incision intact and healing well CVS: RRR Lungs: Clear B/L Abd: Soft, non-distented, non-tender. Extremities: Right upper medial thigh incision open with overlying scab but no surrounding erythema/cellulitis. Right lower medial thigh incision open with clean base & no surrounding erythema/cellulitis. A/P- 10 yr old female s/p excision of the right medial thigh, right neck lesion & left axillary skin tags on 07/14/2011 now with dehiscence of upper & lower right medial thigh incision - There is no evidence of local wound infection upper & lower right medial thigh incisional dehiscence - Local wound care: wash with warm soapy water daily and apply bacitracin TID. - F/U with Dr Brennan as scheduled on 07/30/2011 HAULER documented in this encounter ED Notes * Paulette Schrader RN - 07/24/2011 7:26 PM CST Bacitracin and dressing placed on wound to go home. Dressing supplies sent home with family.* HAULER * Swetha Izquierdo RN - 07/24/2011 7:03 PM CST Wound cleansed with surcleanse and water. Pt tolerated fair. Awaiting bacitracin from the pharmacy. HAULER * Toni Glynn MD - 07/24/2011 6:57 PM CST Images from the original note were not included. EMERGENCY DEPARTMENT 07/25/[address] Rose Mary Kidd MD We had the pleasure of caring for your patient, Rosmery Wynne in our emergency department on 07/25/2011. A note from the provider(s) who cared for your patient is attached. Should you wish to access any laboratory results, please call . Should you wish to access any radiology results, please call , option 3. In addition, you can access patient information 24 hours a day, from any computer, through [employer], the online version of our electronic medical record. If you would like to use this service, please call Yulia Sandoval, Connectivity Coordinator, at . We appreciate the opportunity to care for your patients. If you would like additional information, please call the emergency department directly at . Sincerely, Toni Glynn MD Division of Emergency Medicine [facility], [place] [facility] EMERGENCY DEPARTMENT 07/24/2011 6:57 PM Rosmery Wynne [id number] [facility] EMERGENCY DEPT History Chief Complaint Patient presents with ??? WOUND DEHISCENCE had skin tag removal 07/14 on R. upper thigh. wounds opened today. mom had notified plastic superintendent car construction. HPI Comments: 10 yo female to ED with concern about surgical wounds. Patient had skin tags removed on 07/14. Today wound on upper right thigh noted to be open. Called plastics superintendent car construction and referred to ED. Plastics has already seen patient in ED and taken care of wound. To be discharged to home with bacitracin ointment. Past Medical History Diagnosis Date ??? Unspecified asthma triggered by allergies, no inhaler use ??? GERD (gastroesophageal reflux disease) Past Surgical History Procedure Date ??? Tonsillectomy and adenoidectomy 2008 at [facility] History Social History ??? Marital Status: Single Spouse Name: N/A Number of Children: N/A ??? Years of Education: N/A Occupational History ??? Not on file. Social History Main Topics ??? Smoking status: Passive Smoker ??? Smokeless tobacco: Not on file ??? Alcohol Use: ??? Drug Use: ??? Sexually Active: Not on file Other Topics Concern ??? Not on file Social History Narrative ??? No narrative on file Medications Current Outpatient Prescriptions Medication Sig Dispense Refill ??? acetaminophen-codeine (TYLENOL #3) 300-30 MG tablet Take 1 Tab by mouth every 4 hours as neededfor Pain. 30 Tab 0 ??? Montelukast Sodium (SINGULAIR PO) Take by mouth. ??? Loratadine (CLARITIN PO) Take by mouth once daily. ??? RANITIDINE HCL PO Take by mouth twice daily before meal and at bedtime. Review of Systems Review of Systems Skin: Positive for wound (surgical wound evaluation). BP 106/67 Pulse 100 Temp 99.2 ??F Resp 18 Wt 67.2 kg (148 lb 2.4 oz) Physical Exam Physical Exam Skin: Anterior neck with healing surgical wound. Right upper thigh with bandage over surgical wound site. Just placed by Plastics Surgery. Dressing not removed to examine area. Procedures Procedures EKG Interpretation Lab/SPO2 Interpretation Progress Notes ED Course Medical Decision Making ATTENDING LINKING STATEMENT: I have personally seen and examined this patient. I have fully participated in the care of this patient. I have reviewed all pertinent clinical information, including history, physical exam and plan.I have reviewed the nurses notes. I have reviewed available labs and radiographic studies. Discharge to home with recommendations from Plastics Surgery. To follow up with Plastics as previously scheduled. To return to ED for worsening symptoms, problems, or concerns. Clinical Impression Encounter Diagnoses Name Primary? Skin tag ??? Wound check, dressing change Toni Glynn M.D., Ph.D. Property And Equipment Clerk of Pediatrics Division of Pediatric Emergency Medicine Department of Pediatrics, [facility] [employer] [facility] HAULER * Swetha Izquierdo RN - 07/24/2011 6:51 PM CST Plastics to the bedside for assessment. Plastic requesting that wound be cleansed and bacitracin beapplied. Awaiting bacitracin and discharge papers. HAULER * Swetha Izquierdo RN - 07/24/2011 6:14 PM CST This RN assuming care of the pt at this time and to the bedside for assessment. Pt presents to the ED with wound to rt thigh after having sink tags removed last week. Pt has open wound to rt thigh. Wound is beefy red with black fuzz to edges. This RN attempted to cleanse wound with sponge and saline, but pt reporting pain and will not tolerate cleaning at this time. Motrin given as charted. Pt awaiting assessment by MD. Mother denies further needs at this time. Will continue to monitor pt. HAULER documented in this encounter Miscellaneous Notes * Miscellaneous Scans - Document, Scanned - 08/18/2011 8:50 AM CST HAULER * Miscellaneous Scans - Document, Scanned - 08/17/2011 5:27 PM CST HAULER documented in this encounter Plan of Treatment Not on file documented as of this encounter Visit Diagnoses Diagnosis Skin tag Unspecified hypertrophic and atrophic condition of skin Wound check, dressing change Encounter for change or removal of nonsurgical wound dressing documented in this encounter Administered Medications Inactive Administered Medications - up to 3 most recent administrations Medication Order MAR Action Action Date Dose Rate Site ibuprofen (MOTRIN) tablet 400 mg 400 mg, Oral, ONCE, 1 dose, On 07/24/11 at 1830, Maximum allowable amount = 3200 mg / 24 hours. $ Given 07/24/2011 6:10 PM MUCK HAULER 400 mg documented in this encounter Active and Recently Administered Medications Times are shown in MUCK HAULER. Scheduled Medication Order 07/22/2011 07/23/2011 07/24/2011 ibuprofen (MOTRIN) tablet 400 mg (COMPLETED) 400 mg, Oral, ONCE, 1 dose, On 07/24/11 at 1830, Maximum allowable amount = 3200 mg / 24 hours. 1810 ($ Given - Prov ider: Swetha Izquierdo RN) documented in this encounter Care Teams Wax Molder Relationship Specialty Start Date End Date Rose Mary Kidd MD [address] [id number] PCP - General 03/29/11 documented as of this encounter
--- OUTSIDE RECORDS SUMMARY | 2024-08-28 06:03 | XMS_ITS | Encounter Summary ---
Author Organization [facility] Address [address] [place] [address] Care Team Providers Care Reactor Technician Name Role Phone Rose Mary Kidd MD Primary Care Provider + Reason for Visit * Diagnostic Imaging (Routine) - Closed Specialty Diagnoses / Procedures Referred By Macy t Referred To Contact Diagnoses Closed displaced fracture of medial malleolus of left tibia with routine healing, subsequent encounter Procedures XR Ankle Left 3 [place] [address] [address] Phone: tel: fax: Referral ID Status Reason Start Date Expiration Date Visits Re quested Visits Authorized [id number] Closed 05/31/2024 06/30/2025 1 1 Encounter Details Date Type Department Care Team (Latest Contact Info) Description 05/31/2024 1:29 PM CDT - 05/31/2024 11:59 PM CDT Hospital Encounter [facility] [id number] [id number] Discharge Disposition: Discharge to home or self care Social History Tobacco Use Types Packs/Day Years [...] on file Legal Sex Female 6:03 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 Gender Identity Not on file Sexual Orientation Not on file documented as of this encounter Medications at Time of Discharge HYDROcodone-acet aminophen (NORCO) 5-325 mg per tabletIndication s:Pain Take 1 tablet by mouth every 6 (six) hours as needed for pain 30 tablet 04/09/2024 ibuprofen (ADVIL,MOTRIN) 200 mg tab/cap Take by mouth every 6 (six) hours as needed for pain meclizine (ANTIVERT) 25 mg tablet Take 1 tablet (25 mg total) by mouth 3 (three) times a day as needed for dizziness 30 tablet 01/05/2023 mupirocin (BACTROBAN) 2 % ointment Apply topically 2 (two) times a day 30 g 1 04/09/2024 documented as of this encounter Discharge Disposition Disposition Code Departure Means Destination Discharge to home or self care documented in this encounter Plan of Treatment [...] lt documented in this encounter Visit Diagnoses Not on filedocumented in this encounter Care Teams Reactor Technician Relationship Specialty Start Date End Date Rose Mary Kidd MD [address] [place] [address] PCP - General 07/21/17 documented as of this encounter
--- OUTSIDE RECORDS SUMMARY | 2024-08-28 06:03 | XMS_ITS | Encounter Summary ---
Author Organization [facility] Address [address] [facility] [place] [address] Care Team Providers Care College Football Coach Name Role Phone Rose Mary Kidd MD Primary Care Provider [phone] Reason for Visit * Reason Comments Dizziness * Cardiac (Routine) - Closed Specialty Diagnoses / Procedures Referred By Macy mcclain Referred To Contact Pediatric Cardiology Procedures TX ELECTROCARDIOGRAM, TRACING TX TTE W/DOPPLER, COMPLETE Janice Norton MD [address] [place] [phone] Janice Norton MD [address] [place] [phone] Referral ID Status Reason Start Date Expiration Date Visits Re quested Visits Authorized [id number] Closed 11/28/2017 05/27/2018 1 1 Encounter Details Date Type Department Care Team (Latest Contact Info) Description 11/28/2017 9:01 AM CDT - 11/28/2017 11:59 PM CDT Hospital Encounter [facility] at [address] [address] Janice Norton MD [address] [place] [address] Discharge Disposition: Home or Self Care Social [...] Sign Reading Time Taken Comments Blood Pressure 116/76 11/28/2017 10:07 AM CDT Pulse 96 11/28/2017 10:07 AM CDT Temperature - - Respiratory Rate 16 11/28/2017 10:0 7 AM CDT Oxygen Saturation 97% 11/28/2017 10: 07 AM CDT Inhaled Oxygen Concentration - - Weight 107 kg (235 lb 14.3 oz) 11/29/19 18 10:07 AM CDT Height 171.8 cm (5' 7.64 ) 11/28/2017 1 0:07 AM CDT Body Mass Index 36.25 11/28/2017 10:07 AM CDT Body Mass Index Percentile 98.97% 11/28 10:07 AM CDT Growth Chart: [facility] (Girls, 2- 20 Years) documented in this encounter Progress Notes * Janice Norton MD - 11/28/2017 11:03 AM CDT At the request of Dr. Kidd, I evaluated Elias Wynne on 11/28/17 for chest pain, dizziness, and fatigue. She has been feeling cloudy all the time for the past couple of months. She describes thisas feeling dizzy like she is going to pass out. She reports having lost consciousness while taking a bath once. She woke up when she hit the water. In addition, she has episodes of feeling short of breath, having a high heart rate, and having left sided non-radiating burning chest pain. She rates the chest pain as 6-7/10 and states it is worse when she breathes out. These episodes occur about twice daily and are worse when she goes from sitting to standing and when she is active. She describes being active as kicking a ball outside or walking between classes. She also has symptoms when she istrying to play her [employer]t. She has a history of asthma a couple of years ago for which she was onalbuterol. She no longer takes the albuterol and has not tried it for these symptoms. Additional pertinent symptoms include frequent wakings at night and frequent headaches over the past couple of months She denies snoring. She drinks 2 cups of milk and 1 cup of pineapple juice daily. She urinates four times daily and states it is somewhere between clear and yellow. There is no history of cyanosis, respiratory distress, feeding difficulties, peripheral edema, or fatigue. Past Medical History: Elias has a history of asthma but no longer takes albuterol or singulair for it. She is obese. Past Surgical History: Elias has had her tonsils and skin tags removed when she was less than 12 years old. Family History: There is no family history of congenital heart disease, premature atherosclerosis, sudden , or arrhythmias. Social History: Lives with her mother, step father, and 4 year old healthy sister. She plays the [employer] in the [employer]. She is in 9th grade. Dental Care: Up to date Immunizations: Up to date Allergies: Amoxicillin - hives Medications: None Review of Systems: General: Negative for fever and malaise. HENT: Positive for headaches. Negative for runny nose, problems hearing, and congestion. Eyes: Negative for scleral icterus, eye discharge, glasses. RESP: Positive for shortness of breath. CV: See HPI. GI: Negative for diarrhea, vomiting, and constipation. : Negative for frequent urinary tract infections, hematuria, and polyuria. NEURO: Negative for seizures. Musculoskeletal: Negative for joint swelling and pain. Skin: Negative for rash. Psych: Negative for depression. Physical Examination: BP 116/76 Pulse 96 Resp 16 Ht 171.8 cm Wt 107 kg (235 lb 14.3 oz) SpO2 97% BMI 36.25 kg/m2 Lying down 120/66 mmHg with heart rate 88 bpm; sitting 116/76 mmHg with heart rate 96 bpm, [id number]/78 mmHg with heart rate 116 bpm General: No acute distress. HENT: Normocephalic, atraumatic. No rhinorrhea or congestion. Eyes: No scleral icterus. Chest: Nontender to palpation. Resp: No tachypnea or retractions. No increased work of breathing. Clear to auscultation bilaterally. No rhonchi, rales, or wheezes. CV: Regular rate and rhythm. Normal precordium. No heave. Normal S1 and S2. No murmurs, rubs, or gallops. Abdomen: Soft, nontender, nondistended. No hepatomegaly. Extremities: Warm and well perfused. 2+ peripheral upper and lower extremity pulses. Skin: No rash or lesions. Electrocardiogram (Outside EKG 11/10/17): On my review, there is normal sinus versus possible ectopic atrial rhythm with a rate of 86 bpm. Her p wave axis is rightward and may be ectopic. There is right axis deviation with a QRS axis of 140. There is no evidence of chamber enlargement or hypertrophy. There is a normal QTc interval. Electrocardiogram: On my review, there is normal sinus rhythm with a rate of 79 bpm. There is a normal QRS axis. Thereis no evidence of chamber enlargement or hypertrophy. There are normal TX, ST, QRS, and QTc intervals. Echocardiogram: Normal intracardiac anatomy and normal biventricular systolic function. No pathologic valve stenosis or regurgitation. Coronary arteries, arch sidedness, and atrial septum images attempted but not well seen due to patient body habitus. Diagnosis: 1. Obesity 2. Chest pain, non-cardiac 3. Shortness of breath 4. Dizziness 5. Fatigue 6. History of asthma 7. Orthostasis from dehydration 8. Right axis deviation on EKG, resolved today Plan: Elias has a multitude of symptoms that are not secondary to cardiac pathology. Consideration shouldbe given to obstructive sleep apnea, deconditioning in the setting of obesity, asthma, and dehydration (positive orthostatics today) to explain her symptoms. In fact, it is highly possible that she has all of these pathologies. I recommended she increase water intake to a minimum of 64 ounces dailyand that she make attempts to lose weight by increasing her exercise and no longer drinking sugary drinks such as milk and pineapple juice. She should urinate more frequently than 4 times daily and her urine should be clear. I also recommend obtaining a sleep study and doing a trial of albuterol given her history of asthma. I will defer ordering these to her primary physician. Elias does not require cardiac anesthesia with procedures. She does not require bacterial endocarditis prophylaxis. Shedoes not require activity restriction. She does not need to follow up with me unless further concerns arise. I discussed my impression and plan with her and her grandmother who expressed understanding. Janice Norton MD Pediatric Elevator Examiner And Adjuster I communicated my above impression and recommendations with Dr. Kidd via this note. documented in this encounter Plan of Treatment Not on file documented as of this encounter Procedures Procedure Name Priority Date/Time Associated Diagnosis Comments CARDIAC EKG ORDER 12/02/2017 2:3 0 PM CDT CARDIAC EKG ORDER 12/02/2017 2:3 0 PM CDT EKG 15-LEAD Routine 11/28/2017 11:32 AM CDT Other chest pain ECHO CONSULT - PEDIATRIC Routine 11/28/2017 10:48 AM CDT Other chest pain documented in this encounter Results * CARDIAC EKG ORDER (12/02/2017 2:30 PM CDT) Narrative 12/02/2017 2:30 PM CDT Ordered by an unspecified provider. Scanned Document CARDIAC SERVICES ORD ERABLES * CARDIAC EKG ORDER (12/02/2017 2:30 PM CDT) Narrative 12/02/2017 2:30 PM CDT Ordered by [...] (Bezet) 426 ms CG MUSE Calculated P Herm[place] 46 degrees CG MUSE Calculated R [place] 75 degrees CG MUSE Calculated T [place] 36 degrees CG MUSE Interpretation EKG * Pediatric ECG Analysis * Normal sinus rhythm Normal ECG No previous ECGs available Confirmed by Janice Norton ([id number]) on 12/01/2017 3:06:44 PM CG MUSE 11/28/2017 11:3 2 AM CDT 12/01/2017 3:06 PM CDT Janice Norton MD ECG ORDERABLES CG MUSE * ECHO CONSULT - PEDIATRIC (11/28/2017 10:48 AM CDT) 11/28/2017 10:4 8 AM CDT Narrative [facility] - 11/28/2017 11:48 AM CDT ?[address] [facility] [place] [address] ?[phone] Phone ?[phone] Fax ?Non-Congenital Transthoracic Report Pat.Name: ??ELIAS WYNNE ?Pat.ID: ?[id number] ? St.Date: ?? 11/28/2017 ?Exam Time: 10:48:00 AM ? Study Type:Non-Congenital TTE ?Height: ?171.8cm ? Weight: ?107kg ? BSA: ? 2.18 m2 ?Age: ??2000,17Y ?Sex: ? FEMALE ? BP: ?116/76 ?Sonogrphr: Hannah Cool RDCS ? Pat. Stat.:Outpatient ?CPT - 4: ?? 23393 ? Reason for Study:chest pain, right axis deviation History / Clinical:chest pain and right axis deviation Procedures:2D Non-congenital, Doppler Complete, Color Flow Visit ID: ??[id number] ? SUMMARY: Impression: Normal intracardiac anatomy and [...] Note Janice Norton MD - 11/29/[address] [place] [id number] Fax Non-Congenital Transthoracic Report Pat.Name: ELIAS WYNNE Pat.ID: [id number] St.Date: 11/28/2017 Exam Time: 10:48:00 AM Study Type:Non-Congenital TTE Height: 171.8cm Weight: 107kg BSA: 2.18 m2 Age: 14 2000,17Y Sex: FEMALE BP: 116/76 Sonogrphr: Hannah Cool RDCS Pat. Stat.:Outpatient CPT - 4: 80271 Reason for Study:chest pain, right axis deviation History / Clinical:chest pain and right axis deviation Procedures:2D Non-congenital, Doppler Complete, Color Flow Visit ID: [id number] SUMMARY: Impression: Normal intracardiac anatomy and normal [...] Norton MD Janice Norton MD ECHO ORDERABLES [facility] [place] [address] documented in this encounter Visit Diagnoses Diagnosis Other chest pain- Primary documented in this encounter Care Teams College Football Coach Relationship Specialty Start Date End Date Rose Mary Kidd MD [address] [address] PCP - General 03/29/11 documented as of this encounter
--- OUTSIDE RECORDS SUMMARY | 2024-08-28 06:03 | XMS_ITS | Encounter Summary ---
Author Organization [facility] Address [address] [place] [address] Care Team Providers Care Rabbet Operator Name Role Phone Rose Mary Kidd MD Primary Care Provider + Reason for Referral * Diagnostic Imaging (Routine) - Closed Specialty Diagnoses / Procedures Referred By Macy mcclain Referred To Contact Diagnoses Closed displaced fracture of medial malleolus of left tibia with routine healing, subsequent encounter Procedures XR Ankle Left 3 or More Views Adrienne Umanz[place] [id number] [place] [address] Phone: tel: fax: Referral ID Status Reason Start Date Expiration Date Visits Re quested Visits Authorized [id number] Closed 05/31/2024 06/30/2025 1 1 Reason for Visit * Reason Comments Fracture ORIF Post-op ORIF Encounter Details Date Type Department Care Team (Late st Contact Info) Description 05/31/2024 1:45 PM CDT Office Visit [facility] at [address] [address] [place] [address] [address] Closed displaced fracture of medial [...] on file Legal Sex Female 6:03 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 HISTORY OF PRESENT ILLNESS Rosmery Wynne is a pleasant 23-year-old female that presents to the office today for a rher-voadanlsviltzao-im. She is 10 weeks status-post an open reduction internal fixation left medial malleolus fracture, her surgery was performed on 03/23/[address] Mendoza. She reports that she has continued to do well since her last office visit. She reports minimal to no pain to her left ankle. She has been protected weightbearing in her boot since her last office visit. She has been removing the boot to work on yrlic-zs-cwlxqg exercises of her left ankle. Blister to the lateral aspect of her 5th toe is improving-She has been using the prescribed Bactroban ointment as directed. She has been taking Aleve/Ibuprofen as needed for pain. She denies any numbness to the left foot or toes. Her incision site is well-healed. She denies any fevers or chills. Pain Assessment Pain Assessment: No/denies pain MEDICATIONS She has a current medication list which includes the following prescription(s): meclizine, mupirocin, hydrocodone-acetaminophen, and ibuprofen. PHYSICAL EXAM Ht 170.2 cm (5' 7.01 ) Wt 110.2 kg (243 lb) BMI 38.05 kg/m?? Ortho Exam Alert and oriented x 3. No acute distress. She is cooperative with the examination. She presents tothe office today weightbearing to her left lower extremity in her tall walker boot. Left lower extremity is neurovascular intact. Sensation is intact to light touch to the dorsum of her left foot andtoes. Left foot and toes are pink, warm and well-perfused with palpable distal pulses. Incision to her medial ankle is clean, dry and well-healed with no evidence of any infection. She is able to wiggle her toes. Minimal soft tissue swelling noted to her medial ankle. Small blister to the lateral aspect of the foot over her 5th toe-Blister scabbed over-Scab was debrided to allow to dry and heal-Area non-tender, no drainage or surrounding erythema, no evidence of any infection. Full ndtaq-bt-pladpk of her left ankle in all planes. Left ankle is stable to stress with no pain, laxity or instability. REVIEW OF X-RAYS/STUDIES/LABS XR Ankle Left 3 or More Views X-rays Left ankle-3 views weightbearing demonstrate a single screw transfixing the medial malleolus, fracture remains in good alignment/position. No evidence of any hardware loosening or failure. Good callus formation presentacross the fracture line-Fracture appears healed. Assessment/Plan Rosmery was seen today for fracture and post-op. Diagnoses and all orders for this visit: Closed displaced fracture of medial malleolus of left tibia with routine healing, subsequent encounter - XR Ankle Left 3 or More Views PLAN This is a 23-yo female that is 10 weeks status-post an open reduction internal fixation left medialmalleolus fracture Incision to her medial ankle is clean, dry and well-healed X-rays of her left ankle were reviewed in the office today-Fracture is healed She may transition into a regular shoe and remain weight-bearing as tolerated to her left lower extremity She should continue to work on range of motion exercises/stretches of her left foot and ankle Ice and elevate left ankle as needed for swelling Aleve/Ibuprofen as needed for pain She should continue to use Bactroban ointment to the area of blistering to her left toe 1-2 times per day She never had her vitamin-D level checked-Order in her chart She will follow back up in the office on an as needed basis. She knows to call the office with [...] present across the fracture line-Fracture appears healed. us Adrienne ANDRADE IMG XR PROCEDURES Final Resu lt documented in this encounter Visit Diagnoses Diagnosis Closed displaced fracture of medial malleolus of left tibia with routine healing, subsequent encounter- Primary documented in this encounter Care Teams Rabbet Operator Relationship Specialty Start Date End Date Rose Mary Kidd MD [address] [facility] [place] [address] PCP - General 07/21/17 documented as of this encounter
--- OUTSIDE RECORDS SUMMARY | 2024-08-28 06:03 | XMS_ITS | Encounter Summary ---
Author Organization [facility] Address [address] [place] [address] Phone Care Team Providers Care Leather Production Machine Operator Name Role Phone Steven Chase MD Primary Care Provider Reason for Visit * Reason Comments Foot Injury Encounter Details Date Type Department Care Team (Late st Contact Info) Description 07/18/2023 12:51 PM ACCOUNTS RECEIVABLE ASSOCIATE - 07/18/2023 3:06 PM ACCOUNTS RECEIVABLE ASSOCIATE Emergency [facility] Emergency [address] [place] [address] Roberta Milton, ROOF MECHANIC, POULTRY CLEANER [address] [place] [address] Closed displaced fracture of distal phalanx of left great toe, initial encounter Discharge Disposition: Discharged to home or Selfcare Social History Tobacco Use Types Packs/Day Years Used Date Smoking Tobacco: Never Assessed Comments No Sex and Gender Information Value Date Recorded Sex Assigned at Female 07/18/2023 1:18 PM ACCOUNTS RECEIVABLE ASSOCIATE Legal Sex Female 12:48 PM ACCOUNTS RECEIVABLE ASSOCIATE Gender Identity Female 07/18/2023 1:18 PM ACCOUNTS RECEIVABLE ASSOCIATE Sexual Orientation Not on file documented as of this encounter Last Filed Vital Signs Vital Sign Reading Time Taken Comments Blood Pressure 143/83 07/18/2023 1:00 PM ACCOUNTS RECEIVABLE ASSOCIATE Pulse 82 07/18/2023 1:00 PM ACCOUNTS RECEIVABLE ASSOCIATE Temperature 36 ??C (96.8 ??F) 07/18/2023 1:00 PM ACCOUNTS RECEIVABLE ASSOCIATE Respiratory Rate 16 07/18/2023 1:00 PM ACCOUNTS RECEIVABLE ASSOCIATE Oxygen Saturation 99% 07/18/2023 1:00 PM ACCOUNTS RECEIVABLE ASSOCIATE Inhaled Oxygen Concentration - - Weight 99.8 kg (220 lb) 07/18/2023 1:00 PM ACCOUNTS RECEIVABLE ASSOCIATE Height 170.2 cm (5' 7 ) 07/18/2023 1:00 PM ACCOUNTS RECEIVABLE ASSOCIATE Body Mass Index 34.46 07/18/2023 1:00 PM ACCOUNTS RECEIVABLE ASSOCIATE documented in this encounter Discharge Instructions * Discharge Instructions* Roberta Milton APRN, CNP - 07/18/2023 2:34 PM ACCOUNTS RECEIVABLE ASSOCIATE Keep wound clean and dry. Rest, elevate, and ice the foot. Monitor for signs of infection. UNTS RECEIVABLE ASSOCIATE * Attachments The following attachments cannot be sent through Care Everywhere. * Toe Fracture Tzha-pi-Lzkm (Maldivian) documented in this encounter Medications at Time of Discharge cephALEXin (KEFLEX) 500 MG CapsuleIndicatio ns:Skin and Soft Tissue Infection Take 1 Capsule by mouth 2 times daily for 7 days. Indications: Infection of the Skin and/or Soft Tissue 14 Capsule 07/18/2023 3 documented as of this encounter ED Notes * Joy Marshall RN - 07/18/2023 3:05 PM CST Patient refused vitals and discharged. Discharge instructions and patient educational material reviewed with patient; questions and concerns addressed; patient verbalizes understanding, using teach back. Patient was given 1 prescriptions. Patient discharged per wheelchair mode with self as responsible green party. UNTS RECEIVABLE ASSOCIATE * Joy Marshall RN - 07/18/2023 2:59 PM CST Pt medicated per provider orders. Pt educated on intended effects and side effects of medication and verbalized understanding, able to provide teach back of education. UNTS RECEIVABLE ASSOCIATE * Joy Marshall RN - 07/18/2023 2:50 PM CST Pt's toe cleansed and dressed with telfa and wrapped with gauze. Post-op shoes available did not fit pt. Pt requesting a boot instead. Tech at bedside to place boot. Pt requesting something for pain prior to leaving. UNTS RECEIVABLE ASSOCIATE * Joy Marshall RN - 07/18/2023 2:44 PM CST Pt medicated per provider orders. Pt educated on intended effects and side effects of medication and verbalized understanding, able to provide teach back of education. UNTS RECEIVABLE ASSOCIATE * Robreta Monge RN - 07/18/2023 2:39 PM CST Report given to DONTAE Hamilton UNTS RECEIVABLE ASSOCIATE * Joy Marshall RN - 07/18/2023 2:37 PM CST Report received from DONTAE Granados. UNTS RECEIVABLE ASSOCIATE * Roberta Monge RN - 07/18/2023 2:25 PM CST Roberta Milton at bedside to discuss test results and plan of care UNTS RECEIVABLE ASSOCIATE * Roberta Monge RN - 07/18/2023 2:15 PM CST Patient resting on stretcher with no distress noted. Denies needs at this time. Call light within reach. Continue to monitor UNTS RECEIVABLE ASSOCIATE * Roberta Monge RN - 07/18/2023 1:40 PM CST Patient is resting in room with call light at bedside. Patient informed about wait time and verbalizes understanding. Patient denies needs at this time and verbalizes understanding that RN will complete hourly rounding. UNTS RECEIVABLE ASSOCIATE * Roberta Milton APRN, CNP - 07/18/2023 1:18 PM CSTAssociated Order(s): SPLINT APPLICATION Chief Complaint Patient presents with ??? Foot Injury Rosmery Wynne is a 22 y.o. female who presents to the ED c/o left foot pain. Patient states that she accidentally dropped a metal cuff on her foot. She was getting into a cabinet and a metal cup fell off the top shelf landing on her foot. She has a small laceration at the base of the nail bed on the left great toe. Bleeding is controlled. She has tenderness to the medial foot with decreased range of motion. Sensation is intact. She is neurovascularly intact distal to the injury. No past medical history on file. Current Facility-Administered Medications Medication Dose Route Frequency Provider Last Rate Last Admin ??? cephALEXin (KEFLEX) capsule 500 mg 500 mg Oral Once Roberta Milton APRN, CNP ??? dqysety-vyxnvnmthf-umqnodhfb pertussis (BOOSTRIX) injection SUSP 0.5 mL 0.5 mL Intramuscular Once Roberta Milton APRN, RAO Current Outpatient Medications Medication Sig Dispense Refill ??? cephALEXin (KEFLEX) 500 MG Capsule Take 1 Capsule by mouth 2 times daily for 7 days. Indications: Infection of the Skin and/or Soft Tissue 14 Capsule 0 Allergies Allergen Reactions ??? Amoxil [Amoxicillin] Unknown No past medical history on file. No past surgical history on file. Social History Socioeconomic History ??? Marital status: Single Spouse name: Not on file ??? Number of children: Not on file ??? Years of education: Not on file ??? Highest education level: Not on file Occupational History ??? Not on file Tobacco Use ??? Smoking status: Not on file ??? Smokeless tobacco: Not on file Substance and Sexual Activity ??? Alcohol use: Not on file ??? Drug use: Not on file ??? Sexual activity: Not on file Other Topics Concern ??? Not on file Social History Narrative ??? Not on file BP 143/83 Pulse 82 Temp 96.8 ??F (36 ??C) (Tympanic) Resp 16 Ht 5' 7 (1.702 m) Wt 220 lb(99.8 kg) LMP 07/11/2023 SpO2 99% BMI 34.46 kg/m?? Review of Systems Constitutional: Negative for chills and fever. HENT: Negative for congestion, ear pain, rhinorrhea and sore throat. Eyes: Negative for discharge. Respiratory: Negative for cough, chest tightness, shortness of breath and wheezing. Cardiovascular: Negative for chest pain and palpitations. Gastrointestinal: Negative for abdominal pain, diarrhea, nausea and vomiting. Genitourinary: Negative for difficulty urinating and menstrual problem. Musculoskeletal: Positive for arthralgias (left foot) and joint swelling (left foot). Negative for myalgias. Skin: Positive for wound. Negative for rash. Neurological: Negative for dizziness, syncope, numbness and headaches. All other systems reviewed and are negative. Physical Exam Vitals and nursing note reviewed. Constitutional: General: She is not in acute distress. Appearance: She is well-developed. She is not diaphoretic. HENT: Head: Normocephalic and atraumatic. Right Ear: External ear normal. Left Ear: External ear normal. Eyes: Conjunctiva/sclera: Conjunctivae normal. Pupils: Pupils are equal, round, and reactive to light. Neck: Trachea: No tracheal deviation. Cardiovascular: Rate and Rhythm: Normal rate and regular rhythm. Pulses: Normal pulses. Heart sounds: Normal heart sounds. No murmur heard. Pulmonary: Effort: Pulmonary effort is normal. No respiratory distress. Breath sounds: Normal breath sounds. No wheezing or rales. Abdominal: General: Bowel sounds are normal. There is no distension. Palpations: Abdomen is soft. Tenderness: There is no abdominal tenderness. There is no guarding or rebound. Musculoskeletal: Cervical back: Normal range of motion. Left foot: Decreased range of motion. Normal capillary refill. Swelling and tenderness present. Normal pulse. Skin: General: Skin is warm and dry. Capillary Refill: Capillary refill takes less than 2 seconds. Findings: Laceration (0.5 cm laceration at the base of the nailbed of the left great toe) present. Neurological: Mental Status: She is alert and oriented to person, place, and time. Cranial Nerves: No cranial nerve deficit. @CHADS2@ SPLINT APPLICATION Performed by: Roberta Milton APRN, CNP Authorized by: Roberta Milton APRN, CNP Consent: Verbal consent obtained. Risks and benefits: risks, benefits and alternatives were discussed Consent given by: patient Imaging studies: imaging studies available Patient identity confirmed: verbally with patient and arm band Location: left foot. Splint type: cast boot. Post-procedure: The splinted body part was neurovascularly unchanged following the procedure. Patient tolerance: patient tolerated the procedure well with no immediate complications No results found for this or any previous visit (from the past 24 hour(s)). Imaging Results XR FOOT 3 OR MORE VIEWS LEFT (Final result) Result time 07/18/23 14:04:38 Final result by Gerald Lockhart DO (07/18/23 14:04:38) Impression: IMPRESSION: Subtle minimally displaced left 1st digit distal phalangeal intra-articular fracture. Narrative: EXAM DESCRIPTION: XR FOOT 3 OR MORE VIEWS LEFT REASON FOR STUDY: left foot pain. Patient dropped a metal cup on her foot. Patient has laceration under left great toenail x today TECHNIQUE: 3 radiographic view(s) of the left foot . COMPARISON: None FINDINGS: There is a subtle minimally displaced fracture involving the lateral aspect of the left 1st digit distal phalanx. The fracture extends to the proximal interphalangeal joint. There is no significant angulation or displacement. No additional fractures or dislocations are identified. There is mild associated soft tissue swelling. THIS IS AN ELECTRONICALLY VERIFIED FINAL REPORT 07/18/2023 2:02 PM - Electronically signed by Gerald Lockhart D.O. PS: PS Report ID: [id number] Reading Location: [id number] Labs Reviewed - No data to display XR FOOT 3 OR MORE VIEWS LEFT Final Result IMPRESSION: Subtle minimally displaced left 1st digit distal phalangeal intra-articular fracture. Medical Decision Making Amount and/or Complexity of Data Reviewed Radiology: ordered. Clinical Impression 1. Closed displaced fracture of distal phalanx of left great toe, initial encounter Disposition: Discharge IMPRESSION: Subtle minimally displaced left 1st digit distal phalangeal intra-articular fracture. Tetanus was updated. Patient was given 1st dose of Keflex in the ED. Wound was cleansed. Dressing applied. Patient was provided cast boot as there were no available hard sole shoes in her size. The patient remained stable throughout their ED stay. My clinical impression was discussed with thepatient/family. Labs and radiology results were reviewed with them. I gave them the opportunity to ask questions, and addressed them as completely as possible given the information available at present. The therapeutic plan was discussed, advised to take medications as instructed, instructions weregiven and the importance of primary care follow up was stressed and encouraged. The patient/family voiced understanding of the plan, indications to return, and the need for follow up. Cosigned by Von Fontanez MD at 07/19/2023 11:11 AM ACCOUNTS RECEIVABLE ASSOCIATE UNTS RECEIVABLE ASSOCIATE UNTS RECEIVABLE ASSOCIATE UNTS RECEIVABLE ASSOCIATE * Jenna Seo RN - 07/18/2023 1:02 PM CST Patient to ED with complaints of left foot pain. Patient dropped a metal cup on her foot. Patient has laceration under left great toenail. UNTS RECEIVABLE ASSOCIATE documented in this encounter Plan of Treatment Not on file documented as of this encounter Procedures Procedure Name Priority Date/Time Associated Diagnosis Comments XR FOOT 3 OR MORE VIEWS LEFT STAT 07/18/2023 1:50 PM ACCOUNTS RECEIVABLE ASSOCIATE SPLINT APPLICATION STAT 07/18/2023 1: 18 PM ACCOUNTS RECEIVABLE ASSOCIATE documented in this encounter Results * XR FOOT 3 OR MORE VIEWS LEFT (07/18/2023 1:50 PM ACCOUNTS RECEIVABLE ASSOCIATE) Anatomical Region Laterality Modality LOWER EXTREMITY, foot Left Digital Ra diography 07/18/2023 2:02 PM ACCOUNTS RECEIVABLE ASSOCIATE Impressions 07/18/2023 2:04 PM ACCOUNTS RECEIVABLE ASSOCIATE IMPRESSION: Subtle minimally displaced left 1st digit distal phalangeal intra-articular fracture. Narrative 07/18/2023 2:04 PM ACCOUNTS RECEIVABLE ASSOCIATE EXAM DESCRIPTION: XR FOOT 3 OR MORE VIEWS LEFT REASON FOR STUDY: left foot pain. Patient dropped a metal cup on her foot. Patient has laceration under left great toenail x today ?? TECHNIQUE: 3 ??radiographic view(s) of the ??left foot . COMPARISON: None FINDINGS: There is a subtle minimally displaced fracture involving the lateral aspect of the left 1st digit distal phalanx. ??The fracture extends to the proximal interphalangeal joint. ??There is no significant angulation or displacement. ??No additional fractures or dislocations are identified. ??There is mild associated soft tissue swelling. THIS IS AN ELECTRONICALLY VERIFIED FINAL REPORT 07/18/2023 2:02 PM - Electronically signed by ??Gerald Lockhart D.O. PS: PS D: ??07/18/2023 2:02 PM T: ??07/18/2023 2:02 PM Report ID: [id number] Reading Location: ??[id number] Procedure Note Gerald Lockhart, DO - 07/18/2023 EXAM DESCRIPTION: XR FOOT 3 OR MORE VIEWS LEFT REASON FOR STUDY: left foot pain. Patient dropped a metal cup on her foot. Patient has laceration under left great toenail x today TECHNIQUE: 3 radiographic view(s) of the left foot . COMPARISON: None FINDINGS: There is a subtle minimally displaced fracture involving the lateral aspect of the left 1st digit distal phalanx. The fracture extends to the proximal interphalangeal joint. There is no significant angulation or displacement. No additional fractures or dislocations are identified. There is mild associated soft tissue swelling. THIS IS AN ELECTRONICALLY VERIFIED FINAL REPORT 07/18/2023 2:02 PM - Electronically signed by Gerald Lockhart D.O. PS: PS Report ID: [id number] Reading Location: [id number] IMPRESSION: Subtle minimally displaced left 1st digit distal phalangeal intra-articular fracture. Roberta Milton APRN, POULTRY CLEANER IMG DIAGNOSTIC ORDERA BLES Final Result * SPLINT APPLICATION (07/18/2023 1:18 PM ACCOUNTS RECEIVABLE ASSOCIATE) Narrative Von Fontanez MD - 07/18/2023 1:18 PM ACCOUNTS RECEIVABLE ASSOCIATE Roberta Milton APRN, CNP ? 07/18/2023 ??2:52 PM SPLINT APPLICATION Performed by: Roberta Milton APRN, CNP Authorized by: Roberta Milton APRN, CNP ??Consent: Verbal consent obtained. Risks and benefits: risks, benefits and alternatives were discussed Consent given by: patient Imaging studies: imaging studies available Patient identity confirmed: verbally with patient and arm band Location: left foot. Splint type: cast boot. Post-procedure: The splinted body part was neurovascularly unchanged following the procedure. Patient tolerance: patient tolerated the procedure well with no immediate complications Roberta Milton APRN, RAO PROCEDURE/MINOR SURGI LUIS ALFREDO ORDERABLES Final Result documented in this encounter Visit Diagnoses Diagnosis Closed displaced fracture of distal phalanx of left great toe, initial encounter- Primary documented in this encounter Administered Medications Inactive Administered Medications - up to 3 most recent administrations Medication Order MAR Action Action Date Dose Rate Site cephALEXin (KEFLEX) capsule 500 mg 500 mg, Oral, ONCE, 1 dose, On Tue07/18/23 at 1500, Indications: Skin and Soft Tissue InfectionIndications:Skin and Soft Tissue Infection Given 07/18/2023 2:43 PM ACCOUNTS RECEIVABLE ASSOCIATE 500 mg ketorolac (TORADOL) injection 30 mg 30 mg, Intramuscular, ONCE, 1 dose, On Tue07/18/23 at 1530 Given 07/18/2023 2:58 PM ACCOUNTS RECEIVABLE ASSOCIATE 30 mg Left Deltoid documented in this encounter Active and Recently Administered Medications Times are shown in ACCOUNTS RECEIVABLE ASSOCIATE. Scheduled Medication Order 07/16/2023 07/17/2023 07/18/2023 cephALEXin (KEFLEX) capsule 500 mg (COMPLETED) 500 mg, Oral, ONCE, 1 dose, On Tue07/18/23 at 1500, Indications: Skin and Soft Tissue Infection 1443 (Given - Provid er: Joy Marshall RN) ketorolac (TORADOL) injection 30 mg (COMPLETED) 30 mg, Intramuscular, ONCE, 1 dose, On Tue07/18/23 at 1530 1458 (Given - Provid er: Joy Marshall RN) documented in this encounter Care Teams Leather Production Machine Operator Relationship Specialty Start Date End Date Steven Chase MD [address] [place] [address] PCP - General Family Medicine 07/18/23 documented as of this encounter
--- OUTSIDE RECORDS SUMMARY | 2024-08-28 06:03 | XMS_ITS | Clinical Summary ---
Author Organization [facility] Address [address] [place] [address] Care Team Providers Care Doctor Of Osteopathy Name Role Phone Rose Mary Kidd MD Primary Care Provider Source Comments [facility],non-owned Affiliates and Associated Physician Practices is amultiple site organization consisting of ambulatory clinics and hospital sitesin [place], [place], [place] and [place]. This disclosure is being madepursuant to the Care Everywhere program and may not contain all information available regarding this patient. Last updated 18.[facility] Allergies Active Allergy Reactions Criticality Noted [...] Noted Date Diagnosed Date Skin tag 05/12/2011 Family History Medical History Relation Name Comments Cardiomyopathy Neg Hx Congenital Heart defect Neg Hx Sudd. <30 Neg Hx Social History Tobacco Use Types Packs/Day Years [...] 12/27/2017 8:30 AM CDT Plan of Treatment Health Maintenance Due Date Last Done Comments PAP SMEAR 2002 HIV SCREENING 2017 HPV VACCINE (1 - 3-dose series) 2017 CHLAMYDIA/GONORRHEA SCREENING 2018 HEPATITIS C SCREENING 08/08/2020 DTAP/TDAP/TD VACCINES (1 - Tdap) 2021 HEPATITIS B VACCINE (1 of 3 - 19+ 3-dose series) 2021 COVID-19 VACCINE (1 - 2023-2 5 season) 2024 INFLUENZA VACCINE (#1) 2024 DEPRESSION SCREENING 08/22/2024 ZOSTER VACCINE (1 of 2) 2052 HIB VACCINE Aged Out No longer eligi ble based on patient's age to complete this topic MENINGOCOCCAL VACCINE Aged Out No breann candy eligible based on patient's age to complete this topic PNEUMOCOCCAL VACCINE Aged Out No long er eligible based on patient's age to complete this topic Care Teams Doctor Of Osteopathy Relationship Specialty Start Date End Date Rose Mary Kidd MD [address] [place] [address] PCP - General 03/29/11
--- OUTSIDE RECORDS SUMMARY | 2024-08-28 06:03 | XMS_ITS | Clinical Summary ---
Author Organization [facility] Address [address] [place] [address] Phone Care Team Providers Care Assessment Manager Name Role Phone ELLEO-SURESH SORENSON MD Unavailable [phone] Reason for Visit and Chief Complaint The Chief Complaint is: COVID exposure yestereday to a friend whom tested pos today, sx of heaviness chest, cough, SOB, faatigue/tired, felt warm-took no meds, JORDAN, muscle/body aches-lower back, mouth dry and upset stomch x 2-3 days, along with taste is off x 2d (COVID vaccines 10/2020) Plan of Treatment Rapid COVID testing was negative. Patient is vaccinated but discussed that since she is symptomatic she is recommended to quarantine. Recommended retest for COVID if symptoms worsen or persist. Discussed OTC medications as needed for symptoms. Follow up if symptoms worsen or do not improve. - Last Documented On 08/09/2021 5:58PM ; [facility] Assessments Includes: Assessments from this encounter Findings - Contact with and (Suspected) exposure to COVID-19 [Z20.822 - Contact with and (suspected) exposure to COVID-19] - Last Documented On 08/09/2021 5:58PM ; [facility] Medical Equipment - Implanted Devices Includes: Current Devices No Medical Equipment Recorded Medications Includes: Medications discussed during this encounter and other current Medications No Medications Taken Medications Administered Includes: Administered Medications from this encounter No Administered Medications Recorded Vital Signs Includes: Vital Signs from this encounter Vital Name 08/09/2021 05:30P Pulse Rate-Sitting (bpm) 97 Temp-Oral (F) 98.2 Oxygen Saturation (%) 99 Last Documented: On 08/09/2021 5:32PM ; [facility] Results Includes: Results discussed during this encounter Rapid COVID Test [facility] Ordered by CLYDE ZEE on 10/10/2020 Collected: Reported: 08/09/2021 Last Documented On 1 5:40PM ; [facility] Reviewed on 08/09/2021; All test results are final unless otherwise noted. Rapid COVId neg N (Normal) Last Documented On 1 5:40PM ; [facility] Int. QC Acceptable yes N (Normal) Last Documented On 1 5:40PM ; [facility] Lot # and Exp. Date [id number] 10/16/21 N (Normal) Last Documented On 1 5:40PM ; [facility] History of Present Illness Includes: History of Present Illness from this encounter AAYUSH WYNNE is an 20 year old female. - Allergy list reviewed - Medication list reviewed - Feeling tired - Feeling poorly (malaise) - No fever - Headache - No eye symptoms - Nasal discharge - No ear symptoms - No postnasal drip - No nasal passage blockage (stuffiness) - No sore throat - No chest pain or discomfort - No chest tightness or heavy pressure - Cough - No dyspnea - No wheezing - Normal appetite - No nausea - No vomiting - No abdominal pain - No diarrhea - Myalgias - Taste decreased Rosmery was exposed to a friend who has COVID- she reports some headache, congestion, fatigue and body aches for a few days and wants tested for COVID. Social History Description Last Updated Tobacco non-user 08/09/2021 Last Documented On 1 5:58PM ; [facility] Smoking Status Unknown Procedures and Surgical History Includes: Procedures from this encounter Procedures Code Diagnosis Performing Provider Service L ocation Service Date Discussed with pt / family to observe for signs and symptoms of respiratory distress including the following: shortness of breath, increased respiratory rate, wheezing, difficulty breathing, sternal notch/intercostal retractions, and/or accessory muscle use during respiration. Pt / family to call our office to update patient's status if above changes are noted or worsen Last Documented On 1 5:55PM ; [facility] use of tobacco assessment performed 1000F Last Documented On 1 5:30PM ; [facility] Medical History Includes: Medical History addressed during this encounter Description Last Updated Contact with and (Suspected) exposure to COVID-19 08/09/2021 Last Documented On 1 5:58PM ; [facility] Date COVID symptoms started: 08/07 Last Documented On 1 5:58PM ; [facility] No fall 08/09/2021 Last Documented On 1 5:58PM ; [facility] Family History Includes: Family History addressed during this encounter No Family History Recorded Review of Systems Includes: Review of Systems from this encounter Systemic: No fever. Head: Headache. Otolaryngeal: No earache. Nasal discharge. No sore throat. Cardiovascular: No chest pain or discomfort. Pulmonary: No dyspnea. Cough. No wheezing. Gastrointestinal: No vomiting, no abdominal pain, and no diarrhea. Musculoskeletal: No muscle aches. Neurological: No Loss of taste or smell. Skin: No skin symptoms. Mental Status Includes: Mental Status from this encounter Description Oriented to time, place, and person Functional Status Includes: Functional Status from this encounter No Functional Status Recorded Physical Exam Includes: Physical Exam from this encounter Allergies Includes: Active Allergies No Known Allergies Encounters Encounter Provider Location Date Check-In Time Check-Out Time Diagnosis COVID SICK VISIT- NEW PATIENT CLYDE Fox MARTHA [employer] [facility] 08/09/20 21 5:08PM 5:45PM Contact with and (Suspected) Exposure To Covid-19 Insurance Includes: Active Insurance Policies Plan Name Member ID Group # Subscriber Relationship Effect james Dates 1 - [facility] [place] [id number] ROSMERY Goldstein f Clinical Notes Includes: Clinical Notes from this encounter No Clinical Notes Recorded
--- OUTSIDE RECORDS SUMMARY | 2024-08-28 06:03 | XMS_ITS | Encounter Summary ---
Author Organization [facility] Address [address] [place] [address] Care Team Providers Care Manufacturing Plant Manager Name Role Phone Rose Mary Kidd MD Primary Care Provider Encounter Details Date Type Department Care Team (Latest Contact Info) Description 11/10/2017 3:55 PM CDT - 11/10/2017 11:59 PM CDT Hospital Encounter [facility] at [address] [address] Stephan Funk MD Discharge Disposition: Home or Self Care Social [...] Sodium (SINGULAIR PO) Take by mouth. 11/28/2017 documented as of this encounter Plan of Treatment Not on file documented as of this encounter Visit Diagnoses Diagnosis Dizziness Dizziness and giddiness documented in this encounter Care Teams Manufacturing Plant Manager Relationship Specialty Start Date End Date Rose Mary Kidd MD [address] [place] [address] PCP - General 03/29/11 documented as of this encounter
--- OUTSIDE RECORDS SUMMARY | 2024-08-28 06:03 | XMS_ITS | Encounter Summary ---
Author Organization [facility] Address [address] [place] [address] Care Team Providers Care Title Curative Specialist Name Role Phone Rose Mary Kidd MD Primary Care Provider [phone] Encounter Details Date Type Department Care Team (Late st Contact Info) Description 07/14/2011 9:58 AM GALLERY OR MUSEUM ATTENDANT - 07/14/2011 6:40 PM GALLERY OR MUSEUM ATTENDANT Hospital Encounter [facility] - [address] [place] [address] Val Brennan MD [address] [place] [id number] Surgery General Discharge Disposition: Home or Self Care Social [...] Sign Reading Time Taken Comments Blood Pressure 110/54 07/14/2011 6:30 PM GALLERY OR MUSEUM ATTENDANT Pulse 80 07/14/2011 6:30 PM GALLERY OR MUSEUM ATTENDANT Temperature 36.1 ??C (96.9 ??F) 07/14/2011 4:35 PM CS T Respiratory Rate 16 07/14/2011 6:30 PM GALLERY OR MUSEUM ATTENDANT Oxygen Saturation 100% 07/14/2011 6:30 PM GALLERY OR MUSEUM ATTENDANT Inhaled Oxygen Concentration - - Weight 65.5 kg (144 lb 6.4 oz) 07/14/20 11 10:07 AM GALLERY OR MUSEUM ATTENDANT Height 150.5 cm (4' 11.25 ) 07/14/2011 10:07 AM GALLERY OR MUSEUM ATTENDANT Body Mass Index 28.92 07/14/2011 10:07 AM GALLERY OR MUSEUM ATTENDANT Body Mass Index Percentile 99.63% 07/14 10:07 AM GALLERY OR MUSEUM ATTENDANT Growth Chart: [facility] (Girls, 2- 20 Years) documented in this encounter Discharge Summaries * Cherelle Strange MD - 07/14/2011 4:46 PM CST Images from the original note were not included. SAME DAY SURGERY DISCHARGE SUMMARY Patient ID: Elias Wynne [id number] 10 y.o. 2000 Discharge Date: 07/14/2011 Discharge Diagnoses: 1. Benign neoplasm of other specified sites Discharge Condition: stable Discharge Medication: Current Discharge Medication List START taking these medications Details sulfamethoxazole-trimethoprim (BACTRIM;SEPTRA) 200-40 MG/5ML suspension Take 20 mL by mouth 2 timesdaily for 7 days. Qty: 300 mL, Refills: 0 acetaminophen-codeine 120-12 MG/5ML solution Take 13.65 mL by mouth every 4 hours as needed for Pain. Qty: 480 mL, Refills: 0 CONTINUE these medications which have NOT CHANGED Details Montelukast Sodium (SINGULAIR PO) Take by mouth. Loratadine (CLARITIN PO) Take by mouth once daily. RANITIDINE HCL PO Take by mouth twice daily before meal and at bedtime. Discharge Instructions: Discharge Procedure Orders GENERAL ANESTHESIA /IV SEDATION INSTRUCTIONS For the remainder of the day, patient should relax. A feeling of dizziness, light-headedness or drowsiness is not unusual. Move cautiously, fast movements can make this feeling worse. If patient has been lying down, he/she should sit up slowly and pause briefly before standing. We strongly suggest that a responsible adult monitor the patient more closely than usual until tomorrow morning for his/her comfort and safety. CALL PHYSICIAN If unrelieved pain; excessive bleeding at surgical site; excessive redness/unusual drainage at surgical site or IV site; fever over 100 degrees under the arm or 101 degrees orally; PATIENT TO CALL PHYSICIAN/CLINIC FOR APPOINTMENT Follow up with Dr Brennan in 2 weeks. Bring all medications to next visit. SPECIAL ACTIVITY TO INCLUDE No gym till seen in clinic ADDITIONAL INSTRUCTIONS FOR DRESSING OR WOUND CARE Remove neck dressing on 07/16/2011 & can shower starting 07/16/2011. Cherelle Strange MD ERY OR MUSEUM ATTENDANT documented in this encounter Discharge Instructions * Discharge Instructions* Lauren Pierce RN - 07/14/2011 6:09 PM GALLERY OR MUSEUM ATTENDANT Discharge Instructions for: Elias Harrison Ricci Tylenol given at 5:45 PM, next dose may be given at 9:45 PM and every 4 hrs as needed for pain or restlessness Discharge Procedure Orders GENERAL ANESTHESIA /IV SEDATION INSTRUCTIONS For the remainder of the day, patient should relax. A feeling of dizziness, light-headedness or drowsiness is not unusual. Move cautiously, fast movements can make this feeling worse. If patient has been lying down, he/she should sit up slowly and pause briefly before standing. We strongly suggest that a responsible adult monitor the patient more closely than usual until tomorrow morning for his/her comfort and safety. CALL PHYSICIAN If unrelieved pain; excessive bleeding at surgical site; excessive redness/unusual drainage at surgical site or IV site; fever over 100 degrees under the arm or 101 degrees orally; PATIENT TO CALL PHYSICIAN/CLINIC FOR APPOINTMENT Follow up with Dr Brennan in 2 weeks. Bring all medications to next visit. SPECIAL ACTIVITY TO INCLUDE No gym till seen in clinic ADDITIONAL INSTRUCTIONS FOR DRESSING OR WOUND CARE Remove neck dressing on 07/16/2011 & can shower starting 07/16/2011. No tub baths. Sponge bathe till Tuesday then may shower. The following belonging have been returned to you Clothing Clothing: Yes With Patient: Shirt;Pants Jewelry Jewelry: None Electronics Electronic Items: None Dentures Dentures/Retainers: None Vision Visual Aids: None Hearing Aids Hearing Aids: None Equipment/Assistive Devices Equipment with Patient: None Home Medications Home Medications: None Miscellaneous Belongings Miscellaneous Items: None Monetary Monetary Items: None If your child has any worsening of his or her condition, please call your primary care doctor (or their exchange if after hours) or return to the ED if your primary care doctor cannot be reached. 07/14/2011 ERY OR MUSEUM ATTENDANT * Discharge Instructions* Document, Scanned - 07/19/2011 9:25 AM GALLERY OR MUSEUM ATTENDANT ERY OR MUSEUM ATTENDANT documented in this encounter Medications at Time [...] daily before meal and at bedtime. 12/28/2013 sulfamethoxazole-trimetho prim (BACTRIM DS; SEPTRA DS) 800-160 MG tablet Take 1 Tab by mouth 2 times daily for 7 days. 14 Tab 0 07/14/2011 07/21/2011 documented as of this encounter Progress Notes * Sindi Colin MD - 07/14/2011 5:04 PM CST POST-OP ANESTHESIA EVALUATION Elias Wynne is Post Op from Scheduled Procedure Scheduled procedure: Excision Neck Lesion with Tissue REarrangement, Excision Benign Lesion on Backof Neck with Layered Closure, Excision Benign Lision Right Groin with Layered Closure The patient is sufficiently recovered from the acute administration of the anesthesia so as to participate in the evaluation or neurologic status has returned to pre-operative or expected level of consciousness. The post-anesthesia assessment was completed based upon the elements below. The patient is stable and has adequately recovered from anesthesia unless otherwise noted. Post-op Evaluation: Temp: 96.9 ??F Pulse: 110 Resp: 16 SpO2: 100 % BP: 120/52 mmHg Pain Rating Score #: 4 Resp function: Natural Airway Cardiac Function: Stable Mental Status : Awake/Alert Pain: Comfortable / acceptable Nausea / Vomiting: None Post Procedure Hydration: Adequate Other complications A post-op evaluation was performed on the patient with the following assessment: No Apparent Anesthesia Complications Unless otherwise indicated, the patient is being discharged from anesthesia care. ERY OR MUSEUM ATTENDANT * Betina Guillen, DO - 07/14/2011 11:10 AM CST Elias Wynne 10 y.o. female : 2000 PRE-ANESTHESIA EVALUATION Scheduled Procedure Scheduled procedure: Excision Neck Lesion with Tissue REarrangement, Excision Benign Lesion on Backof Neck with Layered Closure, Excision Benign Lision Right Groin with Layered Closure Pt with PMH of seasonal allergies/asthma and GERD. Mom reports sinus infection requiring zpack thatpt finished 2 weeks ago. No breathing problems or fevers since then. Pt has cough that is typical of her GERD symptoms. Patient Active Problem List Diagnoses ??? Skin tag Allergies Amoxicillin Meds Prescriptions prior to admission Medication Sig Dispense Refill ??? Montelukast Sodium (SINGULAIR PO) Take by mouth. ??? Loratadine (CLARITIN PO) Take by mouth once daily. ??? RANITIDINE HCL PO Take by mouth twice daily before meal and at bedtime. No current facility-administered medications for this encounter. Past Medical History Diagnosis Date ??? Unspecified asthma triggered by allergies, no inhaler use ??? GERD (gastroesophageal reflux disease) Past Surgical History Procedure Date ??? Tonsillectomy and adenoidectomy 2008 at [facility] No family history on file. Labs:No results found for this basename: WBC,HGB,HCT,PLTCOUNT in the last 24372 hoursNo results found for this basename: SODIUM,POTASSIUM,CLORIDE,CO2,BUN,CREATININE,GLUCOSE in the last 46087 hoursNo r esults found for this basename: PT,INR,PTT in the last 03161 hours Test:No results found for this basename: HCGURINE,HCGQUAL in the last 21695 hours VITAL SIGNS Temp: 98.3 ??F Pulse: 88 Resp: 28 BP: 112/68 mmHg Weight: 65.5 kg (144 lb 6.4 oz) Height: 150.5 cm (4' 11.25 ) SpO2: 100 % Pre-Eval ExamPrevious Review I reviewed previous documentation: Yes PHYSICAL EXAM NPO status: (cup of water at 0830 otherwise NPO since 2129) Heart Sounds: S1 S2 Respiratory Pattern/Effort: CTA Oriented x 3: Yes Teeth: Loose (upper left third loose) Airway Class: I ANESTHESIA ASA: II Anesthesia Choices: General Post-Op: PACU Patient prefers Mask flavor: bubble gum I have discussed anesthesia with the mother including possible complications and techniques. He/She/They understand(s) and consent(s). ERY OR MUSEUM ATTENDANT * Sindi Colin MD - 07/14/2011 11:10 AM CST I have personally reviewed the patient's condition and agree with the above evaluation and anesthetic plan. ERY OR MUSEUM ATTENDANT documented in this encounter H&P Notes * Val Brennan MD - 07/14/2011 1:42 PM CST Plastic Surgery History & Physical 07/14/2011 HISTORY: Elias Wynne is a 10 y.o. 11 m.o. female who presents with a pigmented lesion in her right neck which has been present since and has changed slightly in size and texture. She had a lesion on her left neck which has bluish discoloration and has grown in the last year. She also has a verrucous lesion in her right medial thigh which has been growing in size over the last few months and catcheson to her clothes. She has skin tags in the left axilla and lower lip. Patient presents for excision of the above mentioned lesions. PAST MEDICAL HISTORY: Past Medical History Diagnosis Date ??? Unspecified asthma triggered by allergies, no inhaler use ??? GERD (gastroesophageal reflux disease) PAST SURGICAL HISTORY: Past Surgical History Procedure Date ??? Tonsillectomy and adenoidectomy 2007 at [facility] MEDICATIONS: No current facility-administered medications for this encounter. ALLERGIES: is allergic to amoxicillin. SOCIAL HISTORY: History Substance Use Topics ??? Smoking status: Passive Smoker ??? Smokeless tobacco: Not on file ??? Alcohol Use: FAMILY HISTORY: None REVIEW OF SYSTEMS: Negative except for as mentioned in HPI Exam- General: Alert, awake & resting comfortably. HEENT: Skin tag over the lower lip below the white roll. 1 cm diameter firm mass with bluish discoloration over the left neck and linear 4.2x1.2cm relatively vertical veruccous brown raised lesion of the anterior right neck. CVS: RRR Left Axilla: Skin tag Lungs: Clear B/L Extremeties: 2.5 cm and 2cm diameter verrucous lesion in the right medial thigh/groin crease. 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 - We did discuss the risks of surgery including bleeding infection, scarring, wound dehiscence, injury to near by structures & possible need for further surgery depending on the pathology/scarring. We did discuss the need for Z- plasty for the right neck excision as it is fairly log & is supseptible to contracture. Mom voiced understanding & consented for the procedure. Patient personally seen and examined, and I agree with the above with the following additions: Since last visit, mom has noticed new skin tags of the R axilla and lower lip. The details of excision of the L neck cyst, excision of the anterior neck lesion with tissue rearrangement for closure, excision of the R groin lesions and shaving of the lower lip and axillary skin tags was discussed. The risks of the procedure including but not limited to infection, bleeding, scarring, changes with growth, recurrence especially of the groin and skin tags, injury to surrounding tissues including and possible need for further procedures was explained and questions answered.?? Mom voiced understanding and agreement with this plan and they are ready to proceed with surgery. ERY OR MUSEUM ATTENDANT documented in this encounter Procedure Notes * Document, Scanned - 07/19/2011 9:25 AM CSTAssociated Order(s): PATHOLOGY/CYTOLOGY REPORT ORDER ERY OR MUSEUM ATTENDANT documented in this encounter OR Notes * Operative - Val Brennan MD - 07/14/2011 4:48 PM CST [facility] Operative Report NAME: ELIAS WYNNE : 2000 UNIT #: [id number] DATE OF OPERATION: 07/14/2011 ATTENDING SURGEON: VAL BRENNAN MD PREOPERATIVE DIAGNOSES: 1. Cyst of the left neck. 2. Linear nevus of the anterior neck. 3. Exophytic growth of the right upper thigh. 4. Skin tags of the lower lip and left axilla. POSTOPERATIVE DIAGNOSES: 1. Cyst of the left neck. 2. Linear nevus of the anterior neck. 3. Exophytic growth of the right upper thigh. 4. Skin tags of the lower lip and left axilla. PROCEDURES PERFORMED: 1. Excision of anterior neck nevus measuring [...] the lower lip and left axillary region. SURGEON: Val Brennan M.D. RESIDENT: Cherelle Strange M.D. ANESTHESIA: General. INDICATIONS: Elias Wynne is an 10-year-old female with multiple skin lesions who is seen in consultation for excision. She has a cyst of the left neck, a birthmark present on the anterior neck which is growing and itching her, as well as exophytic growths of the lip, axilla and right groin which especially bother her when wearing clothes as they are rubbed and tugged upon. We have discussed at length the procedure to excise these areas with Z-plasty closure of the linear neck birthmark to reduce problems with postoperative scar contracture and sending all the lesions for pathologic diagnosis. The details of surgery and risks have been discussed in detail with questions answered and mom consented. We will proceed to surgery. DETAILS OF THE PROCEDURE: Patient was brought to operating room and adequate general anesthesia induced. A time-out was ensured to be correct and preoperative antibiotics given. She was prepped and draped in a sterile condition and attention turned to her left neck cyst. There was a small immediately subcutaneous cyst whichcould be palpated below the skin without thinning of the overlying skin. Because of this, an incision was made over the area and the cyst dissected out from the subcutaneous tissues and passed off the field for pathologic evaluation. It measured 8 mm in length. The wound was closed in layers with 4-0 Monocryl in the deep dermis and a running 4-0 Monocryl subcuticular stitch with Steri-Strips and Mastisol applied. The patient's head was then turned and attention turned to the anterior neck linear nevus which was4 cm x 1.5 cm in maximal width. The lesion had been injected with 0.5% lidocaine with epinephrine prior to prepping. At this time it was marked for excision with a minimal border and the lesion excised in a full- thickness skin fashion using a 15-blade scalpel. Care was taken to reorient the incision and the superior portion of it closed in the horizontal fashion, lying within a relaxed skin tension line at the superior neck. The more vertical tail end of the excision was temporarily closed with4-0 Monocryl deep dermal sutures. At this time 3 very small Z-plasties were planned along the length of it to reorient the scar in a more horizontal direction along the relaxed skin tension lines. Each of these was measured and marked and then carried out with an 11- blade scalpel with tips transposed and inset with 3 point deep dermal sutures of 5-0 Monocryl. In between these 4-0 Monocryl was used to close the rest of the deep dermis. This provided nice reorientation of the scar and the rest ofthe incision was closed with 4-0 Monocryl deep dermal sutures. The entire incision had 5-0 chromic interrupted and running segments placed. The wound was washed, dried, dressed with bacitracin and a Telfa pad with overlying Tegaderm. At this time attention was turned to the right groin where she had 2 separate areas of exophytic warty-type growths present. The areas were marked with a minimal border for excision and injected with0.5% lidocaine with epinephrine for help with operative hemostasis. A 15-blade scalpel was then used to excise the areas the lower one measuring 2.5 cm in diameter and the upper one 2 cm in diameter.They were passed off the field and sent together for pathologic evaluation. The wounds were then closed in layers with 4-0 Monocryl in the deep dermis and running 4-0 Monocryl subcuticular stitch reinforced with 4-0 chromic interrupted sutures. Total closure length measured 6 cm in this area. At this time the wounds were washed, dried and dressed with Dermabond for protection. At this point the patient was undraped and the areas of skin tag on the lower lip and axilla were cleansed with alcohol and snipped with a tenotomy scissors at their bases. The patient was treated with 0.25% bupivacaine for local field blocks to the areas of treatment. She was then awoken from anesthesia in good condition and taken to the PACU. ESTIMATED BLOOD LOSS: Minimal. COMPLICATIONS: None. SPECIMENS: Left neck cyst, anterior neck linear nevus and right upper thigh/groin lesions x2. Dictated By: VAL BRENNAN MD [facility] JOB ID: [id number] ERY OR MUSEUM ATTENDANT * Operative - Cherelle Strange MD - 07/14/2011 4:32 PM CST Pre-operative Diagnosis: Right neck nevus, left neck cyst, lower lip & left axillary skin tag and right medial thigh lesions X 2 Post-operative Diagnosis: Right neck nevus, left neck cyst, lower lip & left axillary skin tag and right medial thigh lesions X 2 Surgeon: Val Brennan MD Twist Packer: Cherelle Strange MD Procedure: 1. Excision of Right neck nevus with local tissue re-arrangement 2. Excision of Left neck mass 3. Exision of lower lip skin tag 4. Excision of left axillary skin tag 5. Excision of right medial thigh lesions X 2 Anesthesia: GETA ASA Class: 2 Pre-op Antibiotic: Clindamycin 600 mg IV EBL: Minimal Complication: None ERY OR MUSEUM ATTENDANT documented in this encounter Miscellaneous Notes * Miscellaneous Scans - Document, Scanned - 08/09/2011 1:32 PM CST ERY OR MUSEUM ATTENDANT * Miscellaneous Scans - Document, Scanned - 07/19/2011 9:25 AM CST ERY OR MUSEUM ATTENDANT * Miscellaneous Scans - Document, Scanned - 07/19/2011 9:25 AM CST ERY OR MUSEUM ATTENDANT * Miscellaneous Scans - Document, Scanned - 07/19/2011 9:25 AM CST ERY OR MUSEUM ATTENDANT * Miscellaneous Scans - Document, Scanned - 07/19/2011 9:25 AM CST ERY OR MUSEUM ATTENDANT documented in this encounter Plan of Treatment Not on file documented as of this encounter Procedures Procedure Name Priority Date/Time Associated Diagnosis Comments PATHOLOGY/CYTOLOGY REPORT ORDER 07/19/2011 9:25 AM GALLERY OR MUSEUM ATTENDANT GROSS + MICRO EXAM Routine 07/14/2011 2: 43 PM GALLERY OR MUSEUM ATTENDANT documented in this encounter Results * PATHOLOGY/CYTOLOGY REPORT ORDER (07/19/2011 9:25 AM GALLERY OR MUSEUM ATTENDANT) Narrative Transcriptions Document, Scanned - 07/19/2011 9:25 AM CST Scanned Document LAB - PATHOLOGY/CYTO LOGY ORDERABLES * GROSS + MICRO EXAM (07/14/2011 2:43 PM GALLERY OR MUSEUM ATTENDANT) [facility] Clinical History [facility] Comment: The patient is ab 10-year-old girl with two neck lesions, two right thigh lesions, one lower lip skin tag, and left axillary skin tag. ?? Gross Description [facility] Comment: The specimens are received in three formalin-filled containers all labeled with the patient's name, Elias Wynne. Specimen A, left neck cyst, consists of [...] in cassette C2 . ??(LH/lw) Microscopic Examination [facility] Comment: A) 2 H+E; B) [...] glands, and sweat glands. ??(LH/lw) ?? Diagnosis [facility] Comment: DIAGNOSIS: ??A) LEFT NECK CYST, EXCISION: ? -LAMINATED KERATIN PLUG. ?B) RIGHT NECK NEVUS, EXCISION: ? -NEVUS SEBACEOUS. ?C) RIGHT GROIN/THIGH LESION, EXCISION: ? -NEVUS SEBACEOUS. ?? This case has been personally reviewed and interpreted by the attending (teaching) pathologist. Addendum 1 [facility] Comment: Slides were sent to [facility], [place]. ??Dr. Amanda Hale reviewed the [...] epidermal nevus. ??Clinical correlation is recommended. ?? ([facility]) Telemetry Rn Gilda Conner, [facility] Resident in Pathology Leona Hopepr M.D. [facility] Pathologist Rocky Valdovinos M.D. [facility] Electronically Signed By Rocky Valdovinos M.D. [facility] CYST TISSUE / Unknown 07/14/2011 2:43 PM GALLERY OR MUSEUM ATTENDANT 07/16/2011 9:01 AM GALLERY OR MUSEUM ATTENDANT Val Brennan MD LAB - PATHOLOGY /CYTOLOGY ORDERABLES Performing Organization Address City/State/[facility] Co de Phone Number [facility] [address] [place] [address] documented in this encounter Visit Diagnoses Diagnosis Benign neoplasm of other specified sites documented in this encounter Administered Medications Inactive Administered Medications - up to 3 most recent administrations Medication Order MAR Action Action Date Dose Rate Site acetaminophen-codeine (TYLENOL #3) 300-30 MG tablet 1 Tab 1 tablet, Oral, EVERY 4 HOURS PRN, Pain, Starting on Tue07/14/11 at 1729, Until Lynette 07/15/11 at 0701, Maximum recommended doses should not exceed 5 doses per 24 hours. Do not exceed 1 mg/kg/dose of Codeine or 60 mg whichever is less. $ Given 07/14/2011 5:45 PM GALLERY OR MUSEUM ATTENDANT 1 tablet isolyte-S pH 7.4 infusion 100 mL/hr, Intravenous, POST-OP CONTINUOUS, Starting on Tue07/14/11 at 1500, Until Lynette 07/15/11 at 0701, Continue Fluids at current rates, until current bag is finished. Then Switch to fluids as ordered for floor. Current Rate 07/14/2011 4:35 PM GALLERY OR MUSEUM ATTENDANT 100 mL/hr 100 mL/hr documented in this encounter Active and Recently Administered Medications Times are shown in GALLERY OR MUSEUM ATTENDANT. Continuous Medication Order 07/12/2011 07/13/2011 07/14/2011 isolyte-S pH 7.4 infusion (CANCELED) 100 mL/hr, Intravenous, POST-OP CONTINUOUS, Starting on Tue07/14/11 at 1500, Until Lynette 07/15/11 at 0701, Continue Fluids at current rates, until current bag is finished. Then Switch to fluids as ordered for floor. 1635 (Current Rate - Provider: Lauren Pierce, RN - Comment: cont IV fluid from OR)1830 (Stopped - Provider: Lauren Pierce RN - Comment: D/c'ed IV fluid and site) PRN Medication Order 07/12/2011 07/13/2011 07/14/2011 acetaminophen-codeine (TYLENOL #3) 300-30 MG tablet 1 Tab (CANCELED) 1 tablet, Oral, EVERY 4 HOURS PRN, Pain, Starting on Tue07/14/11 at 1729, Until Lynette 07/15/11 at 0701, Maximum recommended doses should not exceed 5 doses per 24 hours. Do not exceed 1 mg/kg/dose of Codeine or 60 mg whichever is less. 1745 ($ Given - Prov ider: Lauren Pierce, DONTAE - Comment: given in PACU) documented in this encounter Care Teams Title Curative Specialist Relationship Specialty Start Date End Date Rose Mary Kidd MD [address] [facility] [address] [place] [address] PCP - General 03/29/11 documented as of this encounter
--- OUTSIDE RECORDS SUMMARY | 2024-08-28 06:03 | XMS_ITS | Encounter Summary ---
Author Organization [employer] Care Team Providers Care Fuel Distribution System Operator Name Role Phone Steven Chase MD Primary Care Provider Encounter Details Date Type Department Care Team (Latest Contact Info) Description 07/18/2023 Travel Social History Tobacco Use Types Packs/Day Years Used Date Smoking Tobacco: Never Assessed Comments No Sex and Gender Information Value Date Recorded Sex Assigned at Female 07/18/2023 1:18 PM SENIOR OFFICE ASSISTANT Legal Sex Female 12:48 PM SENIOR OFFICE ASSISTANT Gender Identity Female 07/18/2023 1:18 PM SENIOR OFFICE ASSISTANT Sexual Orientation Not on file documented as of this encounter Plan of Treatment Not on file documented as of this encounter Visit Diagnoses Not on filedocumented in this encounter Care Teams Fuel Distribution System Operator Relationship Specialty Start Date End Date Steven Chase MD [address] [place] [address] PCP - General Family Medicine 07/18/23 documented as of this encounter
--- OUTSIDE RECORDS SUMMARY | 2024-08-28 06:03 | XMS_ITS | Referral Summary ---
Author Organization [facility] Address [address] [place] [address] Phone Care Team Providers Care Furnace Combustion Analyst Name Role Phone Rose Mary Kidd MD Primary Care Provider + Encounters Date Type Department Care Team Description 05/31/2024 Documentation [facility] Medicine at [address] [address] Charley Dominguez 05/31/2024 1:29 PM CDT - 05/31/2024 11:59 PM CDT Hospital Encounter [facility] [address] [place] [phone] Discharge Disposition: Discharge to home or self care 05/31/2024 1:45 PM CDT Office Visit [facility] and Sports Medicine at [address] [address] Adrienne Umanzor PA Closed displaced fracture of medial malleolus of left tibia with routine healing, subsequent encounter (Primary Dx) from Last 3 Months Allergies Active Allergy Reactions Criticality Noted Date [...] 2018 Acute pain of left knee 04/06/2019 Social History Tobacco Use Types Packs/Day Years [...] on file Legal Sex Female 6:03 AM STORE SALES CONSULTANT Gender Identity Not on file Sexual Orientation [...] 05/31/2024 1:24 PM CDT Plan of Treatment Not on file Medical Devices Implanted Type Area Supervisor Paint Device Identifier Shelf Expiration Date Model / Serial / Lot [employer] Low Profile Screws 4mm 46mm Self Drill Self Tap Cannulated [id number] - [id number] Implanted:Qty: 1 on 03/23/2024 by Donald Mendoza Jr., MD at [facility] Left: Ankle [employer] [id number] / / [...] Resu lt from Last 3 Months Insurance [facility] Care Teams Furnace Combustion Analyst Relationship Specialty Start Date End Date Rose Mary Kidd MD [address] [place] [address] PCP - General 07/21/17
--- OUTSIDE RECORDS SUMMARY | 2024-08-28 06:03 | XMS_ITS | Encounter Summary ---
Author Organization [facility] Address [address] [facility] [place] [address] Care Team Providers Care Library Sales Consultant Name Role Phone Rose Mary Kidd MD Primary Care Provider Encounter Details Date Type Department Care Team (Latest Contact Info) Description 12/27/2017 9:19 AM CDT - 12/27/2017 11:59 PM CDT Hospital Encounter [facility] Pediatric[facility] - Lab [address] [place] [id number] Lilibeth Helm, CULLED FRUIT PACKER[address] [address] Discharge Disposition: Home or Self Care Social [...] Sig Dispensed Refills Start Date End Date ferrous sulfate 325 (65 FE) MG tablet Take 1 tablet by mouth 2 times daily Take w/ vitamin C such as OJ. Miralax or generic for tummy upset. 60 tablet 3 12/27/2017 ibuprofen (MOTRIN) 200 MG tablet Take 400 mg by mouth every 6 hours as needed for Pain melatonin 10 MG capsule Take 10 mg by mouth at bedtime Cholecalciferol 2000 UNITS Take 2,000 Units by mouth once daily for 90 days 30 capsule 2 12/27/2017 03/27/2018 documented as of this encounter Plan of Treatment Not on file documented as of this encounter Procedures Procedure Name Priority Date/Time Associated Diagnosis Comments VITAMIN D 25-HYDROXY Routine 12/27/2017 9:20 AM CDT Restless legs syndrome (RLS) FERRITIN Routine 12/27/2017 9:20 AM CDT Restless legs syndrome (RLS) documented in this encounter Results * VITAMIN D (25-HYDROXY) (12/27/2017 9:20 AM CDT) Vitamin D, 25 Hydroxy 28.8 20 - 100 ng/mL 12/27/2017 11:29 AM CDT [facility] Blood BLOOD SPECIMEN / Unknown Lab Venipuncture / Unknown 12/27/2017 9:20 AM CDT 12/27/2017 10:02 AM CDT Narrative [facility] - 12/27/2017 11:29 AM CDT Vitamin D Status: ?Deficient ? <10 ?? ng/mL ? Borderline ?10-20 ng/mL ?Sufficient ?>20 ?? ng/mL ?Toxic ? >100 ??ng/mL Lilibeth Helm APRN-[facility] - CHEMISTR Y ORDERABLES [facility] [address] [place] [address] * FERRITIN (12/27/2017 9:20 AM CDT) Ferritin 31 10 - 140 ng/mL 12/27/2017 11:08 AM CDT [facility] Blood BLOOD SPECIMEN / Unknown Lab Venipuncture / Unknown 12/27/2017 9:20 AM CDT 12/27/2017 10:02 AM CDT Lilibeth Helm CULLED FRUIT PACKER-[facility] - CHEMISTR Y ORDERABLES Performing Organization Address City/State/[facility] Co de Phone Number [facility] [address] [place] [address] documented in this encounter Visit Diagnoses Diagnosis Restless legs syndrome (RLS) documented in this encounter Care Teams Library Sales Consultant Relationship Specialty Start Date End Date Rose Mary Kidd MD [address] [facility] [address] [place] [address] PCP - General 03/29/11 documented as of this encounter
--- OUTSIDE RECORDS SUMMARY | 2024-08-28 06:03 | XMS_ITS | Encounter Summary ---
Author Organization [facility] Address [address] [place] [address] Care Team Providers Care Ambulance Attendant Name Role Phone Rose Mary Kidd MD Primary Care Provider Encounter Details Date Type Department Care Team (Latest Contact Info) Description 09/18/2019 7:40 AM SALON LEADER - 09/18/2019 11:59 PM [facility] Hospital Encounter [facility] at [address] [address] Queenie Montaño MD [address] [place] [address] Discharge Disposition: Home or Self Care Social [...] at bedtime documented as of this encounter Plan of Treatment Not on file documented as of this encounter Visit Diagnoses Diagnosis Chest pain, unspecified type documented in this encounter Care Teams Ambulance Attendant Relationship Specialty Start Date End Date Rose Mary Kidd MD [address] [address] PCP - General 03/29/11 documented as of this encounter
--- OUTSIDE RECORDS SUMMARY | 2024-08-28 06:03 | XMS_ITS | Encounter Summary ---
Author Organization [facility] Address [address] [place] [address] Care Team Providers Care Painter Spray Name Role Phone Rose Mary Kidd MD Primary Care Provider Reason for Visit * Reason Onset Date Comments Surgery Scheduling 07/12/2011 Encounter Details Date Type Department Care Team (Late st Contact Info) Description 07/12/2011 Telephone [facility] - Plastic Surgery Division of Plastic Surgery [address] [place] [id number] Val Brennan MD [address] [place] [phone] Surgery Scheduling Social History Tobacco Use Types Packs/Day Years Used Date Smoking Tobacco: Never Assessed Sex and Gender Information Value Date Recorded Sex Assigned at Not on file Gender Identity Not on file Sexual Orientation Not on file documented as of this encounter Miscellaneous Notes * Telephone Encounter - Dariana Winters RN - 07/12/2011 1:26 PM PEST CONTROL CHEMICAL TECHNICIAN Mom called in stating that surgery is scheduled for Saturday 07/14 and she was unsure whether theyneeded a preop visit. Reviewed patient's chart. Informed mom that Dr. Brennan did not indicate iton either her surgery scheduling sheet or in her medical record. Mom states that she is comfortablewith proceeding with surgery as Rosmery has already had several surgeries in the past. Mom transferred to Same day surgery for pre-op surgical instructions. CONTROL CHEMICAL TECHNICIAN documented in this encounter Plan of Treatment Not on file documented as of this encounter Visit Diagnoses Not on filedocumented in this encounter Care Teams Painter Spray Relationship Specialty Start Date End Date Rose Mary Kidd MD [address] [place] [address] PCP - General 03/29/11 documented as of this encounter
--- OUTSIDE RECORDS SUMMARY | 2024-08-28 06:03 | XMS_ITS | Encounter Summary ---
Author Organization [facility] Address [address] [facility] [place] [address] Care Team Providers Care Learning And Development Specialist Name Role Phone Rose Mary Kidd MD Primary Care Provider [phone] Reason for Visit * Reason Comments Scar here for discussion for scar revision on neck from previous removal of skin tag in 2010. c/o scar pulling at night . Encounter Details Date Type Department Care Team (Late st Contact Info) Description 12/28/2013 10:30 AM CDT - 12/28/2013 11:59 PM CDT Hospital Encounter [facility] - Plastic Surgery Division of Plastic Surgery [address] [place] [phone] Val Brennan MD [address] [place] [address] Discharge Disposition: Home or Self Care Social History Tobacco Use Types Packs/Day Years Used Date Smoking Tobacco: Passive Smo ke Exposure - Never Smoker Sex and Gender Information Value Date Recorded Sex Assigned at Not on file Gender Identity Not on file Sexual Orientation Not on file documented as of this encounter Discharge Instructions * Patient Instructions* Blanche Estrada RN - 12/28/2013 11:21 AM CDT Plastic Surgey has recommended that your child be scheduled for surgery. Someone from Dr. Brennan' office will call you to schedule a time. If you don't hear from Dr. Brennan' office in 1-2 weeks, please call the plastic surgery office at [phone] to schedule this procedure. Same day surgery will call you with pre-op instructions a few days before the scheduled surgery date. Please call with any further questions, concerns, or problems. documented in this encounter Medications at Time of Discharge Medication Sig Dispensed Refills Start Date End Date Loratadine (CLARITIN PO) Take by mouth once daily. 11/28/2017 Montelukast Sodium (SINGULAIR PO) Take by mouth. 11/28/2017 documented as of this encounter Progress Notes * Val Brennan MD - 12/28/2013 4:46 PM CDT Images from the original note were not included. Attending Physician: Val Brennan MD Office Division of Pediatric Plastic Surgery 12/28/2013 4:46 PM PLASTIC SURGERY outpatient note Chief Complaint Patient presents with ??? Scar here for discussion for scar revision on neck from previous removal of skin tag in 2010. c/o scar pulling at night . HISTORY OF PRESENT ILLNESS Rosmery Wynne is 13 y.o. female here for follow up of her neck scar. Patient had a linear sebaceousnevus removed from her neck 2.5 years ago with zplasty closure as well as multiple other lesions onher axilla and thigh. Patient is pleased with the results of the incisions on her thigh and axilla.Patient did not follow up in clinic after her initial follow up appointment 10 days post operatively. At this appointment, patient was encouraged to follow up in 2 weeks to monitor progression and intiate taping of the neck scar. Patient now presents with a widened scar on her neck that she and Mom feels is unsightly. Mother stated that her internal communications manager suggested she follow up with Dr. Brennan for scar revision. Patient also complains of pulling sensation of the scar on her neck that causes pain during the day. Patient denies fevers, chills, nausea, and vomiting. They do not use any scar creams or massage to the area cur rently. Plastic Surgery History ?? 07/14/2011: Right neck sebaceous nevus, left neck keratin plug, lower lip & left axillary skin tag and right medial thigh lesions X 2 (Dr. Brennan) PAST MEDICAL AND SURGICAL HISTORY Past Medical History Diagnosis Date ??? Unspecified asthma triggered by allergies, no inhaler use ??? GERD (gastroesophageal reflux disease) ??? Sebaceous nevus removed in 2010 Past Surgical History Procedure Date ??? Tonsillectomy and adenoidectomy 2007 at [facility] Allergies Allergen Reactions ??? Amoxicillin Urticaria Current Outpatient Prescriptions Medication Sig Dispense Refill ??? Montelukast Sodium (SINGULAIR PO) Take by mouth. ??? Loratadine (CLARITIN PO) Take by mouth once daily. FAMILY HISTORY No family history. SOCIAL HISTORY Social History: History Social History Narrative Patient is in the 5th grade. She enjoys playing volleyball and softball. REVIEW OF SYSTEMS Constitutional: no fevers, chills Craniomaxillofacial: as above Ophthalmologic: Negative Otolaryngologic: Negative Musculoskeletal: Negative Neurologic: Negative PHYSICAL EXAM General: alert, interactive tall female child in no acute distress Head and Face: 5.5 cm scar at the right neck which is slightly widened, but soft, faded and flat superiorly that progresses to a larger area ~3x1.5cm of thicker, pink ,firm, hypertrophic scarring extending to the midline in a more transverse fashion. There is a small area of recurrent epidermal nevus (brownish dys pigmentation to the L of this scar. Patient is able to move her neck in all directions without significant limitations due to scar but reports uncomfortable sensation with movement. Thigh with widened but flat faded scar from previous excisions. Eyes: pupils equally round and move synchronously Inner Ear, Inner Nose, Inner Throat: moist mucous membranes ASSESSMENT AND PLAN 13 yo female with hypertrophic scar on her neck s/p excision of linear sebaceous (epidermal) nevus. We discussed the nature of hypertrophic scarring which is more common in the neck area due to the motion/tension of the skin in the region. The option for scar revision at the inferior thickened portion of the scar to excise this as well as the small area of recurrent skin lesion lateral to it and reclose it in a longer transverse scar was reviewed. The details of surgery under local versus general anesthesia with postop care/activity restrictions and need for compliance with scar taping and scar creams postop to maximize result was reviewed. Mom is requesting gen anesthesia d/t age and likely inability to tolerate under local at this point. The risks of the procedure including but not limited to infection, bleeding, recurrent poor scarring, injury to surrounding tissues and possible needfor further procedures was explained and questions answered. We discussed at length that scar healing/hypertrophy is unpredictable without guarantee of result despite revision d/t location in the neck with option for topical scar creams (Kelocote) as alternative (but unlikley to fully address her symptoms and with no effect on the the width of the scarring).We also would not recommend redoing the superior portion as it is soft and fading and unlikely to be reliably improved with further surgery. Willow, Zenobia and she voiced understanding and agreement with this plan and they would like to proceed with scheduling surgery. Val Brennan MD CC: Rose Mary Kidd [address] [place] [id number] Date: 12/28/2013 4:46 PM * Sabina Law MD - 12/28/2013 1:21 PM CDT PLASTIC SURGERY outpatient note Chief Complaint Patient presents with ??? Scar here for discussion for scar revision on neck from previous removal of skin tag in 2010. c/o scar pulling at night . Lesion on neck and not applicable HISTORY OF PRESENT ILLNESS Rosmery Wynne is 13 y.o. female here for widening of the incision on right neck. Patient had sebaceous nevus removed from her neck 2.[address] Brennan as well as multiple other lesions on her axilla and thigh. Patient is pleased with the results of the incisions on her thigh and axilla. Patient did not follow up with Dr. Brennan in clinic after her initial follow up appointment 10 days post operatively. At this appointment, patient was encouraged to follow up in 2 weeks to monitor progression and intiate taping of the neck scar. Patient now presents with a widened scar on her neck that she feels is unsightly. Mother stated that her internal communications manager suggested she follow up with Dr. Brennan for scar revision. Patient also complains of pulling of the scar on her neck that causes pain during the day. Patient denies fevers, chills, nausea, and vomiting. Plastic Surgery History ?? 07/14/2011: Right neck sebaceous nevus, left neck keratin plug, lower lip & left axillary skin tag and right medial thigh lesions X 2 (Dr. Brennan) ?? PAST MEDICAL AND SURGICAL HISTORY Past Medical History Diagnosis Date ??? Unspecified asthma triggered by allergies, no inhaler use ??? GERD (gastroesophageal reflux disease) ??? Skin tag reoved in 2010 Past Surgical History Procedure Date ??? Tonsillectomy and adenoidectomy 2007 at [facility] Allergies Allergen Reactions ??? Amoxicillin Urticaria Current Outpatient Prescriptions Medication Sig Dispense Refill ??? Montelukast Sodium (SINGULAIR PO) Take by mouth. ??? Loratadine (CLARITIN PO) Take by mouth once daily. FAMILY HISTORY No family history on file. SOCIAL HISTORY Social History: History Social History Narrative Patient is in the 5th grade. She enjoys playing volleyball and softball. REVIEW OF SYSTEMS Constitutional: no fevers, chills Craniomaxillofacial: as above Ophthalmologic: Negative Otolaryngologic: Negative Musculoskeletal: Negative Neurologic: Negative PHYSICAL EXAM General: alert, interactive, no acute distress Head and Face: 5.5 cm incision across right neck that demonstrates hypertrophic scarring with an area towards the midline of patient's neck that measures 3 cm wide with hypertrophic bands. However, there does not appear to be a contraction scar. Scars are flesh colored with evidence of light brown pigment towards the midline of patient's neck. Patient is able to move her neck in all directions without limitations due to scar. Eyes: pupils equally round and move synchronously Inner Ear, Inner Nose, Inner Throat: moist mucous membranes ASSESSMENT AND PLAN 13 yo female with hypertrophic scar on her neck s/p excision of sebaceous nevus - Patient interested in scheduling general surgery for scar revision - Explained to mother and patient that scar healing is very unpredictable. Encouraged post operative wound care to maximize wound healing. - Schedulers will be contacting patient for surgery date and information documented in this encounter Miscellaneous Notes * Miscellaneous Scans - Document, Scanned - 01/01/2014 12:24 AM CDT documented in this encounter Plan of Treatment Not on file documented as of this encounter Visit Diagnoses Not on filedocumented in this encounter Care Teams Learning And Development Specialist Relationship Specialty Start Date End Date Rose Mary Kidd MD [address] [place] [id number] PCP - General 03/29/11 documented as of this encounter
--- OUTSIDE RECORDS SUMMARY | 2024-08-28 06:03 | XMS_ITS | Encounter Summary ---
Author Organization [facility] Address [address] [place] [address] Care Team Providers Care Coder Name Role Phone Rose Mary Kidd MD Primary Care Provider + Reason for Visit * Diagnostic Imaging (Routine) - Closed Specialty Diagnoses / Procedures Referred By Macy t Referred To Contact Diagnoses Closed displaced fracture of medial malleolus of left tibia with routine healing, subsequent encounter Procedures XR Ankle Left 3 [place] [address] [address] Phone: tel: fax: Referral ID Status Reason Start Date Expiration Date Visits Re quested Visits Authorized [id number] Closed 04/26/2024 05/26/2025 1 1 Encounter Details Date Type Department Care Team (Latest Contact Info) Description 04/26/2024 1:53 PM CDT - 04/26/2024 11:59 PM CDT Hospital Encounter [facility] [id number] [address] Discharge Disposition: Discharge to home [...] on file Legal Sex Female 6:03 AM GROUND DEFENCE OFFICER Gender Identity Not on file Sexual Orientation [...] evidence of any hardware loosening or failure. us Adrienne ANDRADE IMG XR PROCEDURES Final Resu lt documented in this encounter Visit Diagnoses Not on filedocumented in this encounter Care Teams Coder Relationship Specialty Start Date End Date Rose Mary Kidd MD [address] [place] [address] PCP - General 07/21/17 documented as of this encounter
--- OUTSIDE RECORDS SUMMARY | 2024-08-28 06:03 | XMS_ITS | Clinical Summary ---
Author Organization [facility] Address [address] [place] [address] Phone Care Team Providers Care Bakery Technician Name Role Phone Steven Chase MD Primary Care Provider Allergies Active Allergy Reactions Criticality Noted Date Comments Amoxicillin Unknown 07/18/2023 Medications No known medications Immunizations Immunization Administration Dates Next Due TDAP Vaccine 07/18/2023 Social History Tobacco Use Types Packs/Day Years Used Date Smoking Tobacco: Never Assessed Comments No Sex and Gender Information Value Date Recorded Sex Assigned at Female 07/18/2023 1:18 PM HOGSHEAD PRESS OPERATOR Legal Sex Female 12:48 PM HOGSHEAD PRESS OPERATOR Gender Identity Female 07/18/2023 1:18 PM HOGSHEAD PRESS OPERATOR Sexual Orientation Not on file Last Filed Vital Signs Vital Sign Reading Time Taken Comments Blood Pressure 143/83 07/18/2023 1:00 PM HOGSHEAD PRESS OPERATOR Pulse 82 07/18/2023 1:00 PM HOGSHEAD PRESS OPERATOR Temperature 36 ??C (96.8 ??F) 07/18/2023 1:00 PM HOGSHEAD PRESS OPERATOR Respiratory Rate 16 07/18/2023 1:00 PM HOGSHEAD PRESS OPERATOR Oxygen Saturation 99% 07/18/2023 1:00 PM HOGSHEAD PRESS OPERATOR Inhaled Oxygen Concentration - - Weight 99.8 kg (220 lb) 07/18/2023 1:00 PM HOGSHEAD PRESS OPERATOR Height 170.2 cm (5' 7 ) 07/18/2023 1:00 PM HOGSHEAD PRESS OPERATOR Body Mass Index 34.46 07/18/2023 1:00 PM HOGSHEAD PRESS OPERATOR Plan of Treatment Health Maintenance Due Date Last Done Comments Hepatitis C Virus (HCV) Screening 2002 Meningococcal B Immunization (1 of 2 - Standard) 2018 Pap Smear 2023 Influenza Immunization (#1) 2024 SARS-COV-2 Immunization ( season) 2024 10/30/2020 Td Immunization Every 10 Years (Adults With 1 Tdap) 07/18/2033 07/18/2023, 11/20/2013 Respiratory Syncytial Virus (RSV) Immunization (Adult) (1 - 1-dose 75+ series) 2077 Hepatitis B Immunization Completed 003, 2002, 2002, Additional history exists Pneumococcal Immunization Combined Aged Out 08/19/2003, 02/15/2003, 2002, Additional history exists No longer eligible based on patient's age to complete this topic Meningococcal Immunization (ACWY) Aged Out 04/10/2014 No longer eligible based on patient's age to complete this topic Human Papillomavirus (HPV) Immunization Completed 11/12/2014, 06/17/2014, 04/10/2014 DTaP/Tdap/Td Immunization Discontinued 2022, 11/20/2013, 03/21/2008, Additional history exists Rotavirus Immunization Aged Out No lo nger eligible based on patient's age to complete this topic Insurance [place]ICAID [place] Care Teams Bakery Technician Relationship Specialty Start Date End Date Steven Chase MD [address] [place] [address] PCP - General Family Medicine 07/18/23
--- OUTSIDE RECORDS SUMMARY | 2024-08-28 06:04 | XMS_ITS | Encounter Summary ---
Author Organization [facility] Healthcare Address [address] [place] [address] Care Team Providers Care Hand Tier Name Role Phone Rose Mary Kidd MD Primary Care Provider + Encounter Details Date Type Department Care Team (Late st Contact Info) Description 03/17/2024 12:10 AM CDT Ancillary Procedure [facility] Outside Films Social History Tobacco Use Types Packs/Day Years Used Date Smoking Tobacco: Never Smokeless Tobacco: Never AUDIT-C Answer Date Recorded Q1: How often do you have a drink containing alc ohol? Never 03/22/2022 Average Number of Drinks Not on file 022 Frequency of Binge Drinking Not on file 08/2021 Personal Safety Answer Date Recorded Getting School Help Needed Not on file 01/19 Comments Unknown Sex and Gender Information Value Date Recorded Sex Assigned at Not on file Legal Sex Female 6:03 AM [employer] Gender Identity Not on file Sexual Orientation Not on file documented as of this encounter Plan of Treatment Not on file documented as of this encounter Procedures Procedure Name Priority Date/Time Associated Diagnosis Comments XR TRANSFER OF OUTSIDE FILMS Routine 03/17/2024 12:10 AM CDT documented in this encounter Results * XR Outside Reference (03/17/2024 12:10 AM CDT) Narrative [facility] - 03/19/2024 12:57 PM CDT This order has been auto-finalized and does not contain a result. us Provider Transcribed Order IMG XR PROCEDURES Fin al Result [facility] documented in this encounter Visit Diagnoses Not on filedocumented in this encounter Care Teams Hand Tier Relationship Specialty Start Date End Date Rose Mary Kidd MD [address] [place] [address] PCP - General 07/21/17 documented as of this encounter
--- OUTSIDE RECORDS SUMMARY | 2024-08-28 06:04 | XMS_ITS | Encounter Summary ---
Author Organization [facility] Healthcare Address [address] [place] [address] Care Team Providers Care Hose Wrapper Name Role Phone Rose Mary Kidd MD Primary Care Provider + Encounter Details Date Type Department Care Team (Late st Contact Info) Description 03/20/2024 Orders Only [facility] at [facility] [address] [id number] [place] [id number] [place] [id number] Closed displaced fracture of medial malleolus of left tibia, initial encounter (Primary Dx) Social History Tobacco Use [...] on file Legal Sex Female 6:03 AM [employer]ATIVE [employer]ER[employer] Gender Identity Not on file Sexual Orientation Not on file documented as of this encounter Ordered Prescriptions Prescription Sig Dispense Quantity Refills Last Filled Start Date End Date acetaminophen-code ine (TYLENOL with CODEINE #3) 300-30 mg per tabletIndications: Closed displaced fracture of medial malleolus of left tibia, initial encounter Take 1-2 tablets by mouth every 6 (six) hours as needed for pain 30 tablet 03/20/2024 documented in this encounter Plan of Treatment Not on file documented as of this encounter Visit Diagnoses Diagnosis Closed displaced fracture of medial malleolus of left tibia, initial encounter- Primary documented in this encounter Discontinued Medications Medication Sig Discontinue Reason Start Date End Da te acetaminophen-codeine (TYLENOL with CODEINE #3) 300-30 mg per tablet Take 1-2 tablets by mouth every 6 (six) hours as needed Reorder 03/17/2024 03/20/2024 documented as of this encounter Care Teams Hose Wrapper Relationship Specialty Start Date End Date Rose Mary Kidd MD [address] [place] [address] PCP - General 07/21/17 documented as of this encounter
--- OUTSIDE RECORDS SUMMARY | 2024-08-28 06:04 | XMS_ITS | Encounter Summary ---
Author Organization [facility] Healthcare Address [address] [place] [address] Care Team Providers Care Blocker And Polisher Gold Wheel Name Role Phone Rose Mary Kidd MD Primary Care Provider + Reason for Visit * Auth/Cert (Routine) Specialty Diagnoses / Procedures Referred By Contac t Referred To Contact Diagnoses Closed nondisplaced fracture of medial malleolus of left tibia, initial encounter Closed nondisplaced fracture of medial malleolus of left tibia, initial encounter [S82.55XA] Procedures CA OPEN TREATMENT MEDIAL MALLEOLUS FRACTURE ORIF LEFT MEDIAL MALLEOLUS/60 min Referral ID Status Reason Start Date Expiration Date Visits Re quested Visits Authorized [id number] 1 1 Encounter Details Date Type Department Care Team (Late st Contact Info) Description 03/23/2024 11:08 AM CDT Anesthesia Event [facility] Operating Room [address] [place] [address] [place] [address] [facility] [place] [address] Yoandy Mar MD [address] [employer] [address] [address] Anesthesia Record Procedure Summary Procedure Name Responsible Anesthesiologist Anesthesia Start Time Anesthesia Stop Time OPEN REDUCTION INTERNAL FIXATION LEFT MEDIAL MALLEOLUS (Left: Ankle) Juan Berumen MD 03/23/24 1108 03/23/24 1203 Events Date Time Event Comment 03/23/2024 1042 1108 An Start 1108 An Start Data 1109 In Room 1113 An Induction The patient was reevaluated immediately before moderate or deep sedation use and before anesthesia induction. 1115 An Intubation 1123 Anesthesia Ready 1127 Proc Start 1151 Proc Fin 1155 An Extubation 1157 an stop data 1157 Out of Room 1203 Handoff to RN I completed my handoff to the receiving nurse during which we: 1. Patient identified 2. Responsible provider identified 3. Pertinent medical history reviewed 4. Procedure type and surgical course discussed 5. Intraoperative anesthetic management and any significant issues discussed 6. Expectations and concerns for postop period discussed 7. Questions solicited from receiving nurse 8. Patient disposition at the time of handoff: No value filed. 1203 An Stop Meds Name Total midazolam 2 mg fentaNYL 150 mcg lidocaine (CARDIAC) syringe 2 % 60 mg propofol 200 mg ondansetron 4 mg EPINEPHrine 1:200,000-BUPivacaine 0.25 % 50 mL ceFAZolin (ANCEF) 1 gram/10 mL in steril e water (premix) 2,000 mg 2,000 mg lidocaine jelly 2 % 1 Application dexAMETHasone 4 mg/mL 4 mg diphenhydrAMINE 25 mg Lactated Ringer's (LR) infusion 1,000 mL * Agents Name O2 N2O Sevoflurane Inspired Sevoflurane * Blood No blood administrations on file. Lines, Drains, and Airways Type Details Placement Removal Peripheral IV Placement Date: 03/23/24; Placement Time: 1010; Catheter Size: 20 G; Orientation: Anterior, Left, Lateral; Location: Wrist; Site Prep: Alcohol, Chlorhexidine; Technique: Anatomical landmarks; Inserted by: bruno alcocer RN; Insertion Attempts: 1; Patient Tolerance: Tolerated well; Removal Date: 03/23/24; Removal Time: 1437 (catheter tip intact); Removal Reason: Per protocol 03/23/24 1010 by Chris Alcocer RN 03/23/24 1437 by Chris Alcocer, DONTAE Supraglottic Airway Placement Date: 03/23/24; Placement Time: 1124 (created via procedure documentation); Mask Ventilation: 1; Size: 4; Insertion Attempts: 1; Comments: Atraumatic insertion; Removal Date: 03/23/24; Removal Time: 1155 03/23/24 1124 by Nely Page CRNA 03/23/24 1155 by Nely Page CRNA RETIRED Surgical Site 03/23/24; 1139; Le ft; Ankle/malleolus; 07/24/24 (Retired LDA, Removed/Completed by [facility] with LDA Utility); 1213 (Retired LDA, Removed/Completed by [facility] with LDA Utility) 03/23/24 1139 by Betina Henriquez RN 07/24/24 1213 by Discharge Provider, Automatic documented in this encounter Social History Tobacco [...] on file 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 Gender Identity Not on file Sexual Orientation Not on file documented as of this encounter OR Notes * Anesthesia Procedure Notes - Juan Berumen MD - 03/23/2024 3:55 PM CDT Associated Order(s): Peripheral Block Peripheral Block Patient location during procedure: block room End time: 03/23/2024 12:25 PM Reason for block: post-op pain management per surgeon request Block type: single shot Laterality: left Block type: femoral nerve block (distal mid thigh ) Staff: Placed by: Anesthesiologist: Juan Berumen MD Procedure prep: Preprocedure checklist: patient identified, procedure contraindications assessed, site marked, procedure consent, surgical consent, IV checked, risks, benefits and alternatives discussed, monitors and equipment checked and timeout performed Patient position: supine Procedure performed while patient: sedate with meaningful contact Monitoring: ECG, oximetry and blood pressure Supplemental O2: nasal cannula Prep solution: chlorhexidine/alcohol PPE: sterile gloves and provider hat/mask Skin infiltrated with lidocaine 1%: yes Peripheral nerve block: Technique: ultrasound guided Needle type: insulated and echogenic Needle gauge: 21 G Needle length: 100 mm Injection assessment: injection made incrementally with constant monitoring, local visualized surrounding nerve on ultrasound, negative aspiration for heme, no paresthesias noted, normal resistance to injection and see flowsheet for medication details Assessment: Block success: complete Events: patient tolerated procedure well with no complications * Anesthesia Postprocedure Evaluation - Juan Berumen MD - 03/23/2024 3:52 PM CDT Patient: Rosmery Wynne Procedure Summary Date: 03/23/24 Room / Location: OPERATING ROOM 9 / OPERATING ROOM Anesthesia Start: 1108 Anesthesia Stop: 1203 Procedure: OPEN REDUCTION INTERNAL FIXATION LEFT MEDIAL MALLEOLUS (Left: Ankle) Diagnosis: Closed nondisplaced fracture of medial malleolus of left tibia, initial encounter (Closed nondisplaced fracture of medial malleolus of left tibia, initial encounter [S82.55XA]) Providers: Donald Mendoza Jr., MD Responsible Provider: Juan Berumen MD Anesthesia Type: general, PNB - single shot ASA Status: 2 Anesthesia Type: general, PNB - single shot Last vitals BP 118/77 Pulse 85 Temp 36.8 ??C (98.2 ??F) (Oral) Resp 18 SpO2 100% Anesthesia Post Evaluation Patient location during evaluation: PACU Patient participation: complete - patient participated Level of consciousness: fully awake Pain score: 1 Pain management: adequate Airway patency: patent Evidence of recall: no Cardiovascular status: hemodynamically stable Respiratory status: room air Hydration status: euvolemic Pt is: normothermic Nausea/Vomiting status: none No notable events documented. * Anesthesia Procedure Notes - Nely Page CRNA - 03/23/2024 11:23 AM CDTAssociated Order(s): Airway Airway Patient location: OR Urgency: elective Indications for airway management: anesthesia Difficult airway: no Staff: Placed by: STATE F[employer] AGENT TEAM MEMBER: Nely Page CRNA Emergent airway documentation: Risks and benefits discussed: yes Consent obtained: yes Consent given by: patient Airway prep: Preoxygenated: yes Mask difficulty assessment: 1 - vent by mask Spontaneous ventilation during airway: absent Sedation level during airway: GA Final airway details: Final airway type: supraglottic airway Final supraglottic airway: IGel SGA size: 4 Number of attempts: 1 Additional comments: Atraumatic insertion * Anesthesia Procedure Notes - Juan Berumen MD - 03/23/2024 11:10 AM CDT Associated Order(s): Peripheral Block Peripheral Block Patient location during procedure: pre-op holding End time: 03/23/2024 11:00 AM Reason for block: post-op pain management per surgeon request Block type: single shot Laterality: left Block type: sciatic nerve block - popliteal Staff: Placed by: Anesthesiologist: Juan Berumen MD Procedure prep: Preprocedure checklist: patient identified, procedure contraindications assessed, site marked, procedure consent, surgical consent, IV checked, risks, benefits and alternatives discussed, monitors and equipment checked and timeout performed Procedure performed while patient: sedate with meaningful contact Monitoring: ECG, oximetry and blood pressure Supplemental O2: nasal cannula PPE: provider hat/mask and sterile gloves Skin infiltrated with lidocaine 1%: yes Peripheral nerve block: Technique: ultrasound guided Needle type: insulated Needle gauge: 18 G Needle length: 100 mm Injection assessment: injection made incrementally with constant monitoring, local visualized surrounding nerve on ultrasound, negative aspiration for heme, normal resistance to injection, see flowsheet for medication details and no paresthesias noted Assessment: Block success: complete Events: patient tolerated procedure well with no complications * Anesthesia Preprocedure Evaluation - Yoandy Mar MD - 03/21/2024 2:06 PM CDT Images from the original note were not included. Anesthesia Evaluation Rosmery Wynne is a 23 y.o. female ORIF LEFT MEDIAL MALLEOLUS/60 min (Left: Ankle) Pre-Op Diagnosis Codes: * Closed nondisplaced fracture of medial malleolus of left tibia, initial encounter [S82.55XA] HISTORY Past Medical History Information obtained from: patient and chart. Neurological Neuro/Psych system: negative Cardiovascular Cardiac system: negative Respiratory + Asthma Pertinent negatives: non-smoker Hepatic / Heme Hepatic/Heme system: negative Gastrointestinal GI system: negative Renal / Renal/ system: negative Musculoskeletal/Pain Musculoskeletal/Pain system: negative Endocrine / Other + Obesity (BMI >30) Functional Capacity Functional capacity: 6-10 METs Patient Active Problem List Diagnosis Date Noted Closed nondisplaced fracture of medial malleolus of left tibia 03/19/2024 Patellofemoral pain syndrome of left knee 04/06/2019 Acute pain of left knee 04/06/2019 Past Medical History: Diagnosis Date Asthma Closed nondisplaced fracture of medial malleolus of left tibia, initial encounter Motion sickness PONV (postoperative nausea and vomiting) Past Surgical History: Procedure Laterality Date SKIN TAG REMOVAL TONSILECTOMY, ADENOIDECTOMY, BILATERAL MYRINGOTOMY AND TUBES OB History No obstetric history on file. Allergies Allergen Reactions Amoxicillin Unknown Med List Status: Nurse Complete Set By: Simin Arellano RN at 03/21/2024 1:01 PM Taking? Last Dose Start Date End Date Provider acetaminophen-codeine (TYLENOL with CODEINE #3) 300-30 mg per tablet -- 03/20/24 -- Rebekah Montero PA Take 1-2 tablets by mouth every 6 (six) hours as needed for pain ibuprofen (ADVIL,MOTRIN) 200 mg tab/cap 03/21/2024 -- -- Licha Angel MD Notes: Dosed at 400 mg at 1400 meclizine (ANTIVERT) 25 mg tablet -- 01/05/23 -- Vero Leyva MD Take 1 tablet (25 mg total) by mouth 3 (three) times a day as needed for dizziness -- No current facility-administered medications for this encounter. Current Outpatient Medications: ibuprofen (ADVIL,MOTRIN) 200 mg tab/cap acetaminophen-codeine (TYLENOL with CODEINE #3) 300-30 mg per tablet meclizine (ANTIVERT) 25 mg tablet Social History Tobacco Use Smoking Status Never Smokeless Tobacco Never Alcohol Use: Not At Risk (03/22/2022) AUDIT-C Frequency of Alcohol Consumption: Never Average Number of Drinks: Not on file Frequency of Binge Drinking: Not on file Substance and Sexual Activity Drug Use Never No family history on file. There were no vitals filed for this visit. PT: No results found for requested labs within last 30 days. INR: No results found for requested labs within last 30 days. APTT: No results found for requested labs within last 30 days. Hgb A1C: No results found for requested labs within last 30 days. CBC RBC: No results found for requested labs within last 30 days. RDW: No results found for requested labs within last 30 days. MCHC: No results found for requested labs within last 30 days. MCH: No results found for requested labs within last 30 days. MCV: No results found for requested labs within last 30 days. Hct: No results found for requested labs within last 30 days. Hgb: No results found for requested labs within last 30 days. WBC: No results found for requested labs within last 30 days. MPV: No results found for requested labs within last 30 days. Platelets: No results found for requested labs within last 30 days. RDW CV: No results found for requested labs within last 30 days. RDW Sd: No results found for requested labs within last 30 days. BMP Glucose: No results found for requested labs within last 30 days. Calcium: No results found for requested labs within last 30 days. Sodium: No results found for requested labs within last 30 days. Potassium: No results found for requested labs within last 30 days. CO2: No results found for requested labs within last 30 days. Chloride: No results found for requested labs within last 30 days. BUN: No results found for requested labs within last 30 days. Creatinine: No results found for requested labs within last 30 days. DOS Physical Exam Medical history, medications, and allergies reviewed. Attestation: I endorse the findings of the anesthesia pre-evaluation assessment dated: 03/23/2024. Airway Exam: Mallampati: II Cervical ROM: FROM TM distance: >4 Cardiovascular Exam: Rate: regular Rhythm: regular Pulmonary Exam: LCTA, bilat EENT Exam: trachea midline Dental Exam: Appears intact Current state: Patient's current state is cooperative. Anesthesia Plan ASA 2 Planned anesthesia: General and PNB - single shot Team communication plan: LMA Lower extremity: sciatic nerve block - popliteal Induction: Induction: intravenous. Postoperative Plan: No plan for postoperative opioid use. No postoperative mechanical ventilation intended. Patient's planned disposition post procedure is Outpatient. No trial extubation planned. Informed Consent: Discussed plan with attending and STATE FARM AGENT TEAM MEMBER. Anesthesia plan and risks discussed with patient. Consent and Attending signature: I and/or my designee have discussed the anesthesia plan, benefits, possible alternatives, parental presence at time of induction (if indicated), and clinically relevant risks that may include dental injury, unintentional awareness, and/or other complications. The patient and/or parent/legal guardian understand, and agree to proceed. All questions answered. documented in this encounter Plan of Treatment Not on file documented as of this encounter Procedures Procedure Name Priority Date/Time Associated Diagnosis Comments ANESTHESIA PERIPHERAL BLOCK Routine 03/23/2024 3:55 PM CDT CA AN ELECTIVE SUPRAGLOTTIC AIRWAY Routine 03/23/2024 11:23 AM CDT ANESTHESIA PERIPHERAL BLOCK Routine 03/23/2024 11:10 AM CDT documented in this encounter Results * Peripheral Block (03/23/2024 3:55 PM CDT) Narrative Juan Berumen MD - 03/23/2024 3:55 PM CDT Juan Berumen MD ? 03/23/2024 ??3:55 PM Peripheral Block Patient location during procedure: block room End time: 03/23/2024 12:25 PM Reason for block: post-op pain management per surgeon request Block type: single shot Laterality: left Block type: femoral nerve block (distal mid thigh ) Staff: Placed by: Anesthesiologist: Juan Berumen MD Procedure prep: Preprocedure checklist: patient identified, procedure contraindications assessed, site marked, procedure consent, surgical consent, IV checked, risks, benefits and alternatives discussed, monitors and equipment checked and timeout performed Patient position: supine Procedure performed while patient: sedate with meaningful contact Monitoring: ECG, oximetry and blood pressure Supplemental O2: nasal cannula Prep solution: chlorhexidine/alcohol PPE: sterile gloves and provider hat/mask Skin infiltrated with lidocaine 1%: yes Peripheral nerve block: Technique: ultrasound guided Needle type: insulated and echogenic Needle gauge: 21 G Needle length: 100 mm Injection assessment: injection made incrementally with constant monitoring, local visualized surrounding nerve on ultrasound, negative aspiration for heme, no paresthesias noted, normal resistance to injection and see flowsheet for medication details Assessment: Block success: complete Events: patient tolerated procedure well with no complications us Juan Berumen MD ANESTHESIA ORDERABLES Final Result * CA AN ELECTIVE SUPRAGLOTTIC AIRWAY (03/23/2024 11:23 AM CDT) Narrative Nely Page CRNA - 03/23/2024 11:23 AM CDT Nely Page CRNA ? 03/23/2024 11:24 AM Airway Patient location: OR Urgency: elective Indications for airway management: anesthesia Difficult airway: no Staff: Placed by: STATE F[employer] AGENT TEAM MEMBER: Nely Page CRNA Emergent airway documentation: Risks and benefits discussed: yes Consent obtained: yes Consent given by: patient Airway prep: Preoxygenated: yes Mask difficulty assessment: 1 - vent by mask Spontaneous ventilation during airway: absent Sedation level during airway: GA Final airway details: Final airway type: supraglottic airway Final supraglottic airway: IGel SGA size: 4 Number of attempts: 1 Additional comments: Atraumatic insertion us Juan Berumen MD ANESTHESIA ORDERABLES Final Result * Peripheral Block (03/23/2024 11:10 AM CDT) Narrative Juan Berumen MD - 03/23/2024 11:10 AM CDT Juan Berumen MD ? 03/23/2024 11:12 AM Peripheral Block Patient location during procedure: pre-op holding End time: 03/23/2024 11:00 AM Reason for block: post-op pain management per surgeon request Block type: single shot Laterality: left Block type: sciatic nerve block - popliteal Staff: Placed by: Anesthesiologist: Juan Berumen MD Procedure prep: Preprocedure checklist: patient identified, procedure contraindications assessed, site marked, procedure consent, surgical consent, IV checked, risks, benefits and alternatives discussed, monitors and equipment checked and timeout performed Procedure performed while patient: sedate with meaningful contact Monitoring: ECG, oximetry and blood pressure Supplemental O2: nasal cannula PPE: provider hat/mask and sterile gloves Skin infiltrated with lidocaine 1%: yes Peripheral nerve block: Technique: ultrasound guided Needle type: insulated Needle gauge: 18 G Needle length: 100 mm Injection assessment: injection made incrementally with constant monitoring, local visualized surrounding nerve on ultrasound, negative aspiration for heme, normal resistance to injection, see flowsheet for medication details and no paresthesias noted Assessment: Block success: complete Events: patient tolerated procedure well with no complications Juan Berumen MD ANESTHESIA ORDERABLES Final Result documented in this encounter Visit Diagnoses Not on filedocumented in this encounter Administered Medications Inactive Administered Medications - up to 3 most recent administrations Medication Order MAR Action Action Date Dose Rate Site BUPivacaine-EPINEPHrine (MARCAINE with EPI) 0.25 %-1:200,000 preservative free injection infiltration, As needed, Starting on Tue03/23/24 at 1100, Anesthesia Intra-op Given 03/23/2024 12:25 PM CDT 20 mL Given 03/23/2024 11:00 AM CDT 30 mL ceFAZolin (ANCEF) 1 gram/10 mL in sterile water (premix) 2,000 mg 2,000 mg, intravenous, at 400 mL/hr, Administer over 3 Minutes, Once, On Tue03/23/24 at 0945, For 1 dose, Pre-Op, Indications: Prophylaxis, SurgicalIndications:Prophylaxis, Surgical Given 03/23/2024 11:18 A M CDT 2,000 mg dexAMETHasone (DECADRON) 4 mg/mL injection intravenous, Administer over 2 Minutes, As needed, Starting on Tue03/23/24 at 1122, Anesthesia Intra-op Given 03/23/2024 11:22 AM CDT 4 mg diphenhydrAMINE (BENADRYL) 50 mg/mL injection intravenous, Administer over 2 Minutes, As needed, Starting on Tue03/23/24 at 1122, Anesthesia Intra-op Given 03/23/2024 11:22 AM CDT 25 mg fentaNYL (SUBLIMAZE) preservative free injection intravenous, As needed, Starting on Tue03/23/24 at 1055, Anesthesia Intra-op Given 03/23/2024 11:44 AM CDT 25 mcg Given 03/23/2024 11:13 AM CDT 25 mcg Given 03/23/2024 10:55 AM CDT 100 mcg Lactated Ringer's (LR) infusion 30 mL/hr, intravenous, Continuous, Starting on Tue03/23/24 at 0945, Pre-Op New Bag 03/23/2024 11:43 AM CDT Rate/Dose Verify 03/23/2024 11:08 AM CDT 30 mL/ hr New Bag 03/23/2024 10:12 AM CDT 30 mL/hr 30 mL/hr lidocaine (cardiac) (XYLOCAINE) preservative free injection intravenous, As needed, Starting on Tue03/23/24 at 1113, Anesthesia Intra-op, Indications: Ventricular ArrhythmiasIndications:Ventricular Arrhythmias Given 03/23/2024 11:13 AM CDT 60 mg lidocaine (GLYDO) 2 % jelly topical, As needed, Starting on Tue03/23/24 at 1113, Anesthesia Intra-op Given 03/23/2024 11:13 AM CDT 1 Ap plication midazolam (VERSED) 1 mg/mL preservative free injection intravenous, Administer over 2 Minutes, As needed, Starting on Tue03/23/24 at 1055, Anesthesia Intra-op Given 03/23/2024 10:55 AM CDT 2 mg ondansetron (ZOFRAN) injection intravenous, Administer over 2 Minutes, As needed, Starting on Tue03/23/24 at 1121, Anesthesia Intra-op Given 03/23/2024 11:21 AM CDT 4 mg propofoL (DIPRIVAN) 10 mg/mL IV intravenous, As needed, Starting on Tue03/23/24 at 1113, Anesthesia Intra-op Given 03/23/2024 11:13 AM CDT 200 mg documented in this encounter Care Teams Blocker And Polisher Gold Wheel Relationship Specialty Start Date End Date Rose Mary Kidd MD [address] [place] [address] PCP - General 07/21/17 documented as of this encounter
--- OUTSIDE RECORDS SUMMARY | 2024-08-28 06:04 | XMS_ITS | Encounter Summary ---
Author Organization [facility] Healthcare Address [address] [place] [address] Care Team Providers Care Tin Roofer Name Role Phone Rose Mary Kidd MD Primary Care Provider + Reason for Visit * Reason Onset Date Comments Rash 03/22/2022 Encounter Details Date Type Department Care Team (Late st Contact Info) Description 03/22/2022 Nurse Triage [facility] Answer Line [address] [place] [id number] Samanta Walker RN Social History Tobacco Use Types Packs/Day Years Used Date Smoking Tobacco: Never Smokeless Tobacco: Never AUDIT-C Answer Date Recorded Q1: How often do you have a drink containing alc ohol? Never 03/22/2022 Average Number of Drinks Not on file 022 Frequency of Binge Drinking Not on file 08/2021 Comments Unknown Sex and Gender Information Value Date Recorded Sex Assigned at Not on file Legal Sex Female 6:03 AM ASPHALT ENGINEER Gender Identity Not on file Sexual Orientation Not on file documented as of this encounter Miscellaneous Notes * Telephone Encounter - Samanta Walker RN - 03/22/2022 7:56 PM CDT MEDICAL VISITS (OFFICE/ED/Urgent Care) IN LAST 2 WEEKS: none ONSET/SEVERITY:Sx began 3-4 days ago. Getting bumps. At first one on cheek and one on neck. Thoughtinsect bite. Had 8 this morning. Now has >20. Trunk,arms, legs. They are red bumps. Very itchy and they burn after showering. Putting calamine lotion on them. That helps. They have a white clark's point around them. They are oozing clear/yellow fluid. They are pencil eraser size to nickel size. Drainage is a clear yellow. They are all open and oozing. No fever. Taking Benadryl 50mg (for 200#) and helps for a while. But itching becoming severe and can't take more for one hr. Has a mild h/a and fatigue. Urine has been yellow/tea colored for 2 days. ACTIVITY LEVEL:Drinking well, void x4-5, but urine is dark and bad smelling. Urine looks like a mixture of lemonade and tea. No abd pain or pain with voiding. OTHER SYMPTOMS:No fever. Also, teen has question re: monkeypox. She lies next to boyfriend all the time but he has no rash. Her younger sibling that does not have close contact with her, has 2 spots now. ADDITIONAL INFORMATION: Rn reviewed home care for now and call offc in a.m. Take photo of rash tonight. Call exchg back for worsening,fever, red streak coming from any open sores. ON-CALL PROVIDER: Caden Mendoza NP Reason for Disposition ??? [1] Bad (foul)-smelling urine AND [2] unexplained AND [3] new-onset ??? [1] Unexplained sores AND [2] 3 or more Protocols used: URINE - UNUSUAL COLOR OR BBPJ-XIRNSATLA-AN, [id number] * Telephone Encounter - Samanta Walker RN - 03/22/2022 7:53 PM CDT Regarding: has bumps that are spreading and itchy ----- Message from Eusebia Feliciano sent at 03/22/2022 7:38 PM CDT ----- Phone number: Number verified. documented in this encounter Plan of Treatment Not on file documented as of this encounter Visit Diagnoses Not on filedocumented in this encounter Care Teams Tin Roofer Relationship Specialty Start Date End Date Rose Mary Kidd MD [address] [place] [address] PCP - General 07/21/17 documented as of this encounter
--- OUTSIDE RECORDS SUMMARY | 2024-08-28 06:04 | XMS_ITS | Encounter Summary ---
Author Organization [facility] Healthcare Address [address] [place] [address] Care Team Providers Care Drapery Inspector Name Role Phone Rose Mary Kidd MD Primary Care Provider + Encounter Details Date Type Department Care Team (Late st Contact Info) Description 03/17/2024 12:05 AM CDT Ancillary Procedure [facility] Outside Films Social History Tobacco Use Types Packs/Day Years Used Date Smoking Tobacco: Never Smokeless Tobacco: Never AUDIT-C Answer Date Recorded Q1: How often do you have a drink containing alc ohol? Never 03/22/2022 Average Number of Drinks Not on file 022 Frequency of Binge Drinking Not on file 0808/2021 Personal Safety Answer Date Recorded Getting School Help Needed Not on file 01/19 Comments Unknown Sex and Gender Information Value Date Recorded Sex Assigned at Not on file Legal Sex Female 6:03 AM DIRECT ENTRY MIDWIFE Gender Identity Not on file Sexual Orientation Not on file documented as of this encounter Plan of Treatment Not on file documented as of this encounter Procedures Procedure Name Priority Date/Time Associated Diagnosis Comments XR TRANSFER OF OUTSIDE FILMS Routine 03/17/2024 12:05 AM CDT documented in this encounter Results * XR Outside Reference (03/17/2024 12:05 AM CDT) Narrative [facility] - 03/19/2024 12:57 PM CDT This order has been auto-finalized and does not contain a result. us Provider Transcribed Order IMG XR PROCEDURES Fin al Result [facility] documented in this encounter Visit Diagnoses Not on filedocumented in this encounter Care Teams Drapery Inspector Relationship Specialty Start Date End Date Rose Mary Kidd MD [address] [place] [address] PCP - General 07/21/17 documented as of this encounter
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
--- OUTSIDE RECORDS SUMMARY | 2024-08-28 06:04 | XMS_ITS | Encounter Summary ---
Author Organization [facility] Facility Care Team Providers Care Rd Project Manager Name Role Phone Unavailable Primary Care Provider Unavailabl e Encounter Details Date Type Department Care Team (Latest Contact Info) Description 08/07/2010 11:08 PM BALL SORTER - 08/07/2010 11:59 PM BALL SORTER Hospital Encounter [facility] Viral infection in conditions classified elsewhere and of unspecified site Social History Tobacco Use Types Packs/Day Years Used Date Smoking Tobacco: Never Assessed Comments Unknown Sex and Gender Information Value Date Recorded Sex Assigned at Not on file Legal Sex Female 6:03 AM BALL SORTER Gender Identity Not on file Sexual Orientation Not on file documented as of this encounter Plan of Treatment Not on file documented as of this encounter Visit Diagnoses Diagnosis Viral infection in conditions classified elsewhere and of unspecified site documented in this encounter
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
--- OUTSIDE RECORDS SUMMARY | 2024-08-28 06:04 | XMS_ITS | Encounter Summary ---
Author Organization [facility] Healthcare Address [address] [place] [address] Care Team Providers Care Route Specialist Name Role Phone Rose Mary Kidd MD Primary Care Provider + Encounter Details Date Type Department Care Team (Late st Contact Info) Description 07/21/2017 10:30 AM SENIOR SUPPLY CHAIN ANALYST - 07/21/2017 2:53 PM SENIOR SUPPLY CHAIN ANALYST Emergency [facility] [place] [address] Roxi Maharaj MD 1 [facility] [address] [place] [address] Discharge Disposition: Discharge to home or self care Social History Tobacco Use Types Packs/Day Years Used Date Smoking Tobacco: Never Assessed Comments Unknown Sex and Gender Information Value Date Recorded Sex Assigned at Not on file Legal Sex Female 6:03 AM SENIOR SUPPLY CHAIN ANALYST Gender Identity Not on file Sexual Orientation Not on file documented as of this encounter Discharge Disposition Disposition Code Departure Means Destination Discharge to home or self care documented in this encounter Plan of Treatment Not on file documented as of this encounter Procedures Procedure Name Priority Date/Time Associated Diagnosis Comments DIFFERENTIAL AUTO STAT 07/21/2017 12: 26 PM SENIOR SUPPLY CHAIN ANALYST CREATININE, WHOLE BLOOD STAT 07/21/2017 12:26 PM SENIOR SUPPLY CHAIN ANALYST CALCIUM, IONIZED STAT 07/21/2017 12:2 6 PM SENIOR SUPPLY CHAIN ANALYST GLUCOSE, WHOLE BLOOD STAT 07/21/2017 12:26 PM SENIOR SUPPLY CHAIN ANALYST ELECTROLYTES, WHOLE BLOOD STAT 07/21/2017 12:26 PM SENIOR SUPPLY CHAIN ANALYST URINALYSIS STAT 07/21/2017 12:26 PM SENIOR SUPPLY CHAIN ANALYST HCG, URINE, QUALITATIVE STAT 07/21/2017 12:26 PM SENIOR SUPPLY CHAIN ANALYST URINALYSIS, MICROSCOPIC ONLY STAT 07/21/2017 12:26 PM SENIOR SUPPLY CHAIN ANALYST CBC WITHOUT DIFFERENTIAL STAT 07/21/2017 12:26 PM SENIOR SUPPLY CHAIN ANALYST DISCHARGE LABORATORY CUMULATIVE REPORT 07/21/2017 12:00 AM SENIOR SUPPLY CHAIN ANALYST documented in this encounter Results * Urinalysis, microscopic only (07/21/2017 12:26 PM SENIOR SUPPLY CHAIN ANALYST) WBC, ur None Seen None Seen [facility] RBC, ur None Seen None Seen [facility] Epithelial cells, renal, ur None Seen None Seen [facility] Epithelial cells, squamous, ur < 5/HPF [facility] Urine 07/21/2017 12:2 6 PM SENIOR SUPPLY CHAIN ANALYST 07/21/2017 12:30 PM SENIOR SUPPLY CHAIN ANALYST [facility] - 07/21/2017 1:31 PM SENIOR SUPPLY CHAIN ANALYST us Beto Cassidy MD LAB URINE ORDERABLES Final R esult [facility] [place] [address] * (ABNORMAL) Urinalysis (07/21/2017 12:26 PM SENIOR SUPPLY CHAIN ANALYST) Color, ur Yellow [facility] Clarity, ur Clear Clear [facility] Specific gravity, ur 1.020 1.008 - 1.022 [facility] pH, ur 5.5 [facility] Albumin, ur 2+(A) Negative [facility] Glucose, ur ql Negative Negative [facility] Ketones, ur Trace(A) Negative [facility] Bilirubin, ur 1+(A) Negative [facility] Blood, ur Negative Negative [facility] Urobilinogen, ur 0.2 EhrUnit/dL [facility] Nitrites, ur Negative Negative [facility] Leukocyte esterase, ur Negative Negative [facility] Urine 07/21/2017 12:2 6 PM SENIOR SUPPLY CHAIN ANALYST 07/21/2017 12:30 PM SENIOR SUPPLY CHAIN ANALYST Narrative [facility] - 07/21/2017 1:13 PM SENIOR SUPPLY CHAIN ANALYST Beto Cassidy MD LAB URINE ORDERABLES Final R esult [facility] Department [place] [address] * Differential, auto (07/21/2017 12:26 PM SENIOR SUPPLY CHAIN ANALYST) Neutrophil abs 2.39 1.50 - 9.40 K/cumm [facility] Lymphocyte abs 1.49 1.00 - 7.20 K/cumm [facility] Monocyte abs 0.56 0.10 - 1.70 K/cumm [facility] Eosinophil abs 0.16 0.10 - 1.60 K/cumm [facility] Basophil abs 0.02 0.00 - 0.30 K/cumm [facility] Imm gran abs 0.02 0.00 - 0.20 K/cumm [facility] Neutrophil pct 51.6 % [facility] Lymphocyte pct 32.1 % [facility] Monocyte pct 12.1 % [facility] Eosinophil pct 3.4 % [facility] Basophil pct 0.4 % [facility] Imm gran pct 0.4 % [facility] Blood specimen (specimen) 07/21/2017 12:26 PM SENIOR SUPPLY CHAIN ANALYST 07/21/2017 12:29 PM SENIOR SUPPLY CHAIN ANALYST Narrative [facility] - 07/21/2017 12:54 PM SENIOR SUPPLY CHAIN ANALYST Beto Cassidy MD LAB BLOOD ORDERABLES Final R esult [facility] Department [place] [address] * (ABNORMAL) CBC without differential (07/21/2017 12:26 PM SENIOR SUPPLY CHAIN ANALYST) WBC 4.64 3.80 - 9.90 K/cumm [facility] RBC 5.33(H) 3.90 - 5.20 M/cumm [facility] Hgb 14.4 11.9 - 15.5 g/dL [facility] Hct 43.1 35.6 - 45.5 % [facility] MCV 80.9(L) 81.3 - 96.4 fL [facility] MCH 27.0(L) 27.1 - 33.3 pg [facility] MCHC 33.4 32.3 - 35.7 g/dL [facility] RDW CV 12.5 11.1 - 14.9 % [facility] RDW SD 36.2 35.7 - 48.1 fL [facility] Plt 183 150 - 400 K/cumm [facility] MPV 11.5 9.1 - 12.3 fL [facility] NRBC abs 0.00 0.00 - 0.01 K/cumm [facility] NRBC 0.0 % [facility] Blood specimen (specimen) 07/21/2017 12:26 PM SENIOR SUPPLY CHAIN ANALYST 07/21/2017 12:29 PM SENIOR SUPPLY CHAIN ANALYST Narrative [facility] - 07/21/2017 12:54 PM SENIOR SUPPLY CHAIN ANALYST Beto Cassidy MD LAB BLOOD ORDERABLES Final R esult [facility] [place] [address] * HCG, urine, qualitative (07/21/2017 12:26 PM SENIOR SUPPLY CHAIN ANALYST) HCG, ur Negative Negative [facility] Urine 07/21/2017 12:2 6 PM SENIOR SUPPLY CHAIN ANALYST 07/21/2017 12:30 PM SENIOR SUPPLY CHAIN ANALYST Narrative [facility] - 07/21/2017 12:41 PM SENIOR SUPPLY CHAIN ANALYST Beto Cassidy MD LAB URINE ORDERABLES Final R esult Performing Organization Address [facility] [place] [address] * Electrolytes, whole blood (07/21/2017 12:26 PM SENIOR SUPPLY CHAIN ANALYST) Sodium, Whole Blood 137 135 - 145 mmol/L [facility] Potassium, bld 3.5 3.3 - 4.9 mmol/L [facility] Chloride, bld 108 100 - 114 mmol/L [facility] CO2, Total Calculated, Whole Blood 28 20 - 30 mmol/L [facility] Anion Gap, Whole Blood 2 mmol/L [facility] Blood specimen (specimen) 07/21/2017 12:26 PM SENIOR SUPPLY CHAIN ANALYST 07/21/2017 12:29 PM SENIOR SUPPLY CHAIN ANALYST Narrative [facility] - 07/21/2017 12:40 PM SENIOR SUPPLY CHAIN ANALYST Beto Cassidy MD LAB BLOOD ORDERABLES Final R esult Performing Organization Address [facility] [place] [address] * Calcium, ionized (07/21/2017 12:26 PM SENIOR SUPPLY CHAIN ANALYST) Ca, ionized, bld 4.72 3.90 - 5.20 mg/dL [facility] Blood specimen (specimen) 07/21/2017 12:26 PM SENIOR SUPPLY CHAIN ANALYST 07/21/2017 12:29 PM SENIOR SUPPLY CHAIN ANALYST Narrative [facility] - 07/21/2017 12:40 PM SENIOR SUPPLY CHAIN ANALYST Beto Cassidy MD LAB BLOOD ORDERABLES Final R esult Performing Organization Address City/[facility]/[place] [address] * Glucose, whole blood (07/21/2017 12:26 PM SENIOR SUPPLY CHAIN ANALYST) Glucose, bld 87 70 - 199 mg/dL [facility] Blood specimen (specimen) 07/21/2017 12:26 PM SENIOR SUPPLY CHAIN ANALYST 07/21/2017 12:29 PM SENIOR SUPPLY CHAIN ANALYST Narrative [facility] - 07/21/2017 12:40 PM SENIOR SUPPLY CHAIN ANALYST Result [facility] Beto Cassidy MD LAB BLOOD ORDERABLES Final R esult [facility] [place] [address] * Creatinine, whole blood (07/21/2017 12:26 PM SENIOR SUPPLY CHAIN ANALYST) Creatinine, bld 0.6 0.4 - 1.0 mg/dL [facility] Blood specimen (specimen) 07/21/2017 12:26 PM SENIOR SUPPLY CHAIN ANALYST 07/21/2017 12:29 PM SENIOR SUPPLY CHAIN ANALYST Narrative [facility] - 07/21/2017 12:37 PM SENIOR SUPPLY CHAIN ANALYST Result [facility] Beto Cassidy MD LAB BLOOD ORDERABLES Final R esult Performing Organization Address City/[facility]/[place] [address] * DISCHARGE LABORATORY CUMULATIVE REPORT (07/21/2017 12:00 AM SENIOR SUPPLY CHAIN ANALYST) Narrative 07/21/2017 12:00 AM SENIOR SUPPLY CHAIN ANALYST Ordered by an unspecified provider. Historical Provider LAB BLOOD ORDERABLES Julieth l Result documented in this encounter Visit Diagnoses Not on filedocumented in this encounter Care Teams Route Specialist Relationship Specialty Start Date End Date Rose Mary Kidd MD [address] [place] [address] PCP - General 07/21/17 documented as of this encounter
--- OUTSIDE RECORDS SUMMARY | 2024-08-28 06:04 | XMS_ITS | Encounter Summary ---
Author Organization [facility] Healthcare Address [address] [place] [address] Care Team Providers Care Dental Treatment Coordinator Name Role Phone Rose Mary Kidd MD Primary Care Provider + Reason for Visit * Reason Comments Abdominal Pain Encounter Details Date Type Department Care Team (Late st Contact Info) Description 01/11/2020 5:31 PM CDT - 01/11/2020 10:06 PM CDT Emergency [facility] Emergency [place] [address] Steven Adame MD [id number] [place] [address] Right lower quadrant abdominal pain (Primary Dx) Discharge Disposition: Discharge to home or self care Social History Tobacco Use Types Packs/Day Years Used Date Smoking Tobacco: Never Comments Unknown Sex and Gender Information Value Date Recorded Sex Assigned at Not on file Legal Sex Female 6:03 AM [employer] Gender Identity Not on file Sexual Orientation Not on file documented as of this encounter Last Filed Vital Signs Vital Sign Reading Time Taken Comments Blood Pressure 101/79 01/11/2020 5:16 PM CDT Pulse 79 01/11/2020 10:04 PM CDT Temperature 36.9 ??C (98.4 ??F) 01/11/2020 1 0:04 PM CDT Respiratory Rate 18 01/11/2020 10:0 4 PM CDT Oxygen Saturation 98% 01/11/2020 5:16 PM CDT Inhaled Oxygen Concentration - - Weight 90.1 kg (198 lb 10.2 oz) 01/11/2020 5:13 PM CDT Height - - Body Mass Index - - documented in this encounter Discharge Diagnoses Diagnosis Right lower quadrant pain - RIGHT LOWER QUADRANT PAIN prison (current) 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 Return to the emergency department for changing or worsening pain, inability to keep down solids orliquids, fever with abdominal pain, migration of location of pain, vomiting, other concerns. * Attachments The following attachments cannot be sent through Care Everywhere. * Abdominal Pain, Unknown Cause, Female (Child) (Citizen Of [place]) * Pelvic Pain, Unknown Cause (Citizen [place]) documented in this encounter Medications at Time of Discharge ibuprofen (ADVIL,MOTRIN) 200 mg tab/cap Take by mouth every 6 (six) hours as needed for pain aluminum-magnesi um hydroxide-simeth icone (MAALOX) suspension 200-200-20 mg/5 mL Take 15 mL by mouth every 12 (twelve) hours as needed for heartburn for up to 5 days 150 mL 01/11/2020 0 documented as of this encounter Ordered Prescriptions Prescription Sig Dispense Quantity Refills Last Filled Start Date End Date aluminum-magnesium hydroxide-simethic one (MAALOX) suspension 200-200-20 mg/5 mL Take 15 mL by mouth every 12 (twelve) hours as needed for heartburn for up to 5 days 150 mL 01/11/2020 0 documented in this encounter Discharge Disposition Disposition Code Departure Means Destination Discharge to home or self care documented in this encounter ED Notes * Steven Adame MD - 01/11/2020 5:49 PM CDT HPI Chief Complaint Patient presents with ??? Abdominal Pain Briefly this is a 19-year-old female who is presenting with 6 days worth of right lower abdominal pain. She is sexually active with 1 partner, consistent use of barrier contraception, has a NuvaRing in place, has not had any complaints of dysuria hematuria vaginal bleeding or discharge, was seen byher alteration tailor apprentice within the last 2 weeks and had suspicion for a right ovarian cyst however did nothave ultrasound capability in the office. Discussed with the cob sawyer approximately 2 days ago and due to continued symptoms recommended evaluation at [facility] for ultrasound and workup of potential appendicitis. She has noted pain with intercourse recently, no vaginal bleeding novaginal discharge, no dysuria no hematuria She has an additional complaint of a small subcutaneous mass about the right lateral neck, she noted this recently. Patient History Patient Active Problem List Diagnosis Date Noted ??? Patellofemoral pain syndrome of left knee 04/06/2019 ??? Acute pain of left knee 04/06/2019 History reviewed. No pertinent past medical history. Past Surgical History: Procedure Laterality Date ??? SKIN TAG REMOVAL ??? TONSILECTOMY, ADENOIDECTOMY, BILATERAL MYRINGOTOMY AND TUBES History reviewed. No pertinent family history. Social History Tobacco Use ??? Smoking status: Never Smoker Substance Use Topics ??? Alcohol use: Not on file ??? Drug use: Not on file Social History Social History Narrative Non-smoker : (Added by TW Conv) Review of Systems Review of Systems Constitutional: Negative for chills and fever. HENT: Negative for rhinorrhea. Eyes: Negative for visual disturbance. Respiratory: Negative for cough and shortness of breath. Cardiovascular: Negative for chest pain. Gastrointestinal: Positive for abdominal pain and nausea. Negative for diarrhea and vomiting. Decreased appetite and some abdominal discomfort with eating. Normal bowel movements. Genitourinary: Positive for dyspareunia and pelvic pain. Negative for decreased urine volume, difficulty urinating, dysuria, flank pain, hematuria, menstrual problem, urgency, vaginal bleeding, vaginal discharge and vaginal pain. Musculoskeletal: Negative for back pain. Skin: Negative for rash. Neurological: Negative for dizziness and light-headedness. All other systems reviewed and are negative. Physical Exam ED Triage Vitals Temp Pulse Resp BP SpO2 01/11/20 1713 01/11/20 1716 01/11/20 1716 01/11/20 17101/11/20 171 37.1 ??C (98.8 ??F) 98 18 101/79 98 % Temp src Heart Rate Source Patient Position BP Location FiO2 (%) 01/11/20 1713 01/11/20 171 -- -- -- Temporal Monitor Physical Exam Vitals signs and nursing note reviewed. Constitutional: General: She is not in acute distress. Appearance: Normal appearance. She is not ill-appearing. HENT: Head: Normocephalic and atraumatic. Mouth/Throat: Mouth: Mucous membranes are moist. Eyes: General: No scleral icterus. Comments: Midrange pupils Neck: Musculoskeletal: Neck supple. Cardiovascular: Rate and Rhythm: Normal rate and regular rhythm. Pulses: Normal pulses. Heart sounds: No murmur. Pulmonary: Effort: Pulmonary effort is normal. No respiratory distress. Breath sounds: Normal breath sounds. No stridor. No wheezing, rhonchi or rales. Abdominal: General: Abdomen is flat. Bowel sounds are normal. Palpations: Abdomen is soft. There is no mass. Tenderness: There is abdominal tenderness in the right lower quadrant. There is no right CVA tenderness or left CVA tenderness. Negative signs include Rovsing's sign and psoas sign. Hernia: No hernia is present. Comments: some voluntary guarding, most pronounced right lower quadrant, no involuntary guarding, no rigidity Musculoskeletal: Right lower leg: No edema. Left lower leg: No edema. Skin: General: Skin is warm and dry. Capillary Refill: Capillary refill takes less than 2 seconds. Neurological: Mental Status: She is alert and oriented to person, place, and time. Psychiatric: Mood and Affect: Mood normal. MDM MDM Number of Diagnoses or Management Options Diagnosis management comments: 19-year-old female with 6 days worth of right lower abdominal pain, in conjunction with menstrual cycle, potential for ectopic , evaluated with hCG negative, round ligament pain, ovarian cyst, ovarian torsion likely intermittent if present, appendicitis, lesslikely constipation as tolerating p.o. no vomiting and passing flatus. Will plan for CBC CMP lipase urinalysis and ultrasound right lower quadrant/pelvis ED Course as of Jan 10 2325 Time: 01/10 2138 Comment: About 30 minutes ago re-evaluated patient, at time of CT abdomen pelvis order, still with reported right lower quadrant pain, stable exam. D/w Dr. Catalan at 9:30 p.m. covering for the patient's primary care physician, I discussed the workup with him and he agrees for plan with close PCP follow-up given negative evaluation here in the emergency department and patient tolerating p.o. challenge without difficulty. Return precautions were given, I discussed potential possibilities of round ligament pain and other causes of pelvic pain such as endometriosis, these would not necessarily show up on the comprehensive evaluation performedtoday, she agrees with monitoring at home and close PCP follow-up By: Steven Adame MD Labs Reviewed URINALYSIS AND REFLEX TO MICROSCOPIC - Abnormal Result Value Color, ur Yellow Clarity, ur Clear Specific gravity, ur 1.007 (*) pH, urine 7.0 Protein, ur ql Negative Glucose, ur ql Negative Ketones, ur Negative Bilirubin, ur Negative Blood, ur Negative Urobilinogen, ur 0.2 Nitrite, ur Negative Leukocyte esterase, ur Negative UA reflex comment Reflex conditions for microscopic UA not met. Narrative: Urine pH is affected by diet, medications, systemic acid-base disturbances, and renal tubular function. pH may affect urinary stone formation. For example, urine pH below 6.0 may help reduce the tendency for calcium phosphate stones and pH greater than 6.0 may reduce the tendency for uric acid stone formation. Source: [employer].Last revised 09-01-2017 COMPREHENSIVE METABOLIC PANEL - Abnormal Sodium 138 Potassium, pl 3.7 Chloride 108 CO2 22 Anion gap 8 BUN 9 Creatinine 0.51 Glucose 86 Calcium 9.4 Bilirubin, total 0.3 Protein, pl 7.4 Albumin 4.3 Alk phos 48 (*) ALT 20 AST 19 HCG, URINE, QUALITATIVE HCG, ur Negative CBC WITH AUTO DIFFERENTIAL WBC 7.0 Hgb 14.1 Hct 42.3 Plt 228 MPV 10.9 RBC 5.14 MCV 82.3 MCH 27.4 MCHC 33.3 RDW CV 12.6 RDW SD 38.0 NRBC abs 0.00 LIPASE Lipase 35 DIFFERENTIAL AUTO Neutrophil abs 3.7 Imm gran abs 0.0 Lymphocyte abs 2.6 Monocyte abs 0.5 Eosinophil abs 0.3 Basophil abs 0.0 Neutrophil pct 52.0 Imm gran pct 0.3 Lymphocyte pct 36.2 Monocyte pct 7.0 Eosinophil pct 4.[address] Abdomen Pelvis W Contrast Preliminary Result No CT correlate for patient's abdominal pain. Normal appendix. Dictated by: Paco Smith M.D. US Appendix Preliminary Result Nonvisualized appendix. No free fluid, abscess, enlarged lymph nodes, or other secondary evidence of acute appendicitis. Dictated by: Paco Smith M.D. US Pelvis and Ovarian Doppler Limited (R/O Torsion in a pelvis) Preliminary Result Normal. Dictated by: Paco Smith M.D. Right lower quadrant abdominal pain Steven Adame MD 01/11/20 6510 * Delmy Martin RN - 01/11/2020 5:31 PM CDT Bed: [id number] Expected date: Expected time: Means of arrival: Car Comments: Delmy Martin RN 01/11/20 1731 * Americo Lacey RN - 01/11/2020 5:11 PM CDT RLQ X 6 days ago, afebrile with decreased appetite due to pain in RLQ that occurs with too much PO intake. Good UOP and stooling. Submandibular nodule on right side.hurts with any movement. NPO [id number] documented in this encounter Plan of Treatment Not on file documented as of this encounter Procedures Procedure Name Priority Date/Time Associated Diagnosis Comments CT ABDOMEN PELVIS W CONTRAST ED 01/11/2020 8:50 PM CDT US APPENDIX ED 01/11/2020 8:03 PM CDT US PELVIS AND OVARIAN DOPPLER LIMITED (C) ED 01/11/2020 8:03 PM CDT DIFFERENTIAL AUTO STAT 01/11/2020 6:2 9 PM CDT CBC WITH AUTO DIFFERENTIAL STAT 01/11/2020 6:29 PM CDT LIPASE STAT 01/11/2020 6:29 PM CDT COMPREHENSIVE METABOLIC PANEL STAT 01/11/2020 6:29 PM CDT URINALYSIS AND REFLEX TO MICROSCOPIC STAT 01/11/2020 6:00 PM CDT HCG, URINE, QUALITATIVE STAT 01/11/2020 6:00 PM CDT documented in this encounter Results * CT Abdomen Pelvis W Contrast (01/11/2020 8:50 PM CDT) Anatomical Region Laterality Modality Body N/A Computed Tomogra phy 01/11/2020 9:02 PM CDT Impressions 01/12/2020 7:[address] correlate for patient's abdominal pain. ??Normal appendix. Dictated by: Paco Smith M.D. The radiology attending physician has personally reviewed this study, and had reviewed and/or edited this written report and agrees with it. Electronically signed by: Tena Gomez 01/12/2020 7:45 AM CDT EXAMINATION: ??CT ABDOMEN PELVIS W CONTRAST HISTORY: Right lower quadrant abdominal pain. TECHNIQUE: Computed tomography (CT) of the abdomen and pelvis was performed after the uneventful administration of 100 mL of Optiray-320 intravenous contrast. Oral contrast was not administered prior to imaging. COMPARISON: Same-day ultrasound. FINDINGS: Visible portion lung bases are clear. ??Heart size is normal. ??No pericardial effusion. Liver is normal in size and contour. ??No focal hepatic lesion. ??Area of hypoattenuation along the falciform ligament is likely due to transient hepatic attenuation differences or focal fat deposition. No intra or extrahepatic biliary ductal dilatation. ??The portal, splenic, and superior mesenteric veins are patent. ??Gallbladder, pancreas, spleen, adrenal glands, and kidneys are normal. ??Urinary bladder and uterus are normal. ??Adnexa are normal. The small bowel and colon are normal in course and caliber. ??The appendix is normal. ??The distal esophagus, stomach, and duodenum are normal. ??No intra-abdominal free air. ??Trace physiologic amount free fluid is noted within the pelvis. The abdominal aorta and its branches are normal in caliber. ??The celiac, superior mesenteric, and renal arteries are patent. Incidental replaced right hepatic artery. ??No lymphadenopathy within the abdomen or pelvis. Bone windows demonstrate no suspicious lytic or blastic osseous lesion. Procedure Note Tena King MD - 01/12/2020 EXAMINATION: CT ABDOMEN PELVIS W CONTRAST HISTORY: Right lower quadrant abdominal pain. TECHNIQUE: Computed tomography (CT) of the abdomen and pelvis was performed after the uneventful administration of 100 mL of Optiray-320 intravenous contrast. Oral contrast was not administered prior to imaging. COMPARISON: Same-day ultrasound. FINDINGS: Visible portion lung bases are clear. Heart size is normal. No pericardial effusion. Liver is normal in size and contour. No focal hepatic lesion. Area of hypoattenuation along the falciform ligament is likely due to transient hepatic attenuation differences or focal fat deposition. No intra or extrahepatic biliary ductal dilatation. The portal, splenic, and superior mesenteric veins are patent. Gallbladder, pancreas, spleen, adrenal glands, and kidneys are normal. Urinary bladder and uterus are normal. Adnexa are normal. The small bowel and colon are normal in course and caliber. The appendix is normal. The distal esophagus, stomach, and duodenum are normal. No intra-abdominal free air. Trace physiologic amount free fluid is noted within the pelvis. The abdominal aorta and its branches are normal in caliber. The celiac, superior mesenteric, and renal arteries are patent. Incidental replaced right hepatic artery. No lymphadenopathy within the abdomen or pelvis. Bone windows demonstrate no suspicious lytic or blastic osseous lesion. IMPRESSION: No CT correlate for patient's abdominal pain. Normal appendix. Dictated by: Paco Smith M.D. The radiology attending physician has personally reviewed this study, and had reviewed and/or edited this written report and agrees with it. Electronically signed by: Tena King Steven Adame [place] [facility] [place] Final Result * US Appendix (01/11/2020 8:03 PM CDT) Anatomical Region Laterality Modality Abdomen N/A Ultrasound 01/11/2020 8:10 PM CDT Impressions 01/12/2020 7:22 AM CDT Nonvisualized appendix. ??No free fluid, abscess, enlarged lymph nodes, or other secondary evidence of acute appendicitis. Dictated by: Paco Smith M.D. The radiology attending physician has personally reviewed this study, and had reviewed and/or edited this written report and agrees with it. Electronically signed by: Tena Gomez 01/12/2020 7:22 AM CDT EXAMINATION: US APPENDIX HISTORY: Right lower quadrant abdominal pain COMPARISON: None available. FINDINGS: Sonographic evaluation of the right lower quadrant was performed with graded compression technique. Appendix: The appendix could not be visualized. Abscess: None Fluid: No free fluid. Mesenteric lymph nodes: No enlarged (>7 mm) lymph nodes. Adjacent bowel loops: Peristalsing and otherwise normal appearing. Additional abnormalities: None. Procedure Note Tena King MD - 01/12/2020 EXAMINATION: US APPENDIX HISTORY: Right lower quadrant abdominal pain COMPARISON: None available. FINDINGS: Sonographic evaluation of the right lower quadrant was performed with graded compression technique. Appendix: The appendix could not be visualized. Abscess: None Fluid: No free fluid. Mesenteric lymph nodes: No enlarged (>7 mm) lymph nodes. Adjacent bowel loops: Peristalsing and otherwise normal appearing. Additional abnormalities: None. IMPRESSION: Nonvisualized appendix. No free fluid, abscess, enlarged lymph nodes, or other secondary evidence of acute appendicitis. Dictated by: Paco Smith M.D. The radiology attending physician has personally reviewed this study, and had reviewed and/or edited this written report and agrees with it. Electronically signed by: Tena King us Steven Adame MD [facility] [place]ED[place] Final Result * US Pelvis and Ovarian Doppler Limited (R/O Torsion in a pelvis) (01/11/2020 8:03 PM CDT) Anatomical Region Laterality Modality Pelvis N/A Ultrasound 01/11/2020 8:09 PM CDT Impressions 01/12/2020 7:23 AM CDT Normal. Dictated by: Paco Smith M.D. The radiology attending physician has personally reviewed this study, and had reviewed and/or edited this written report and agrees with it. Electronically signed by: Tena King Narrative 01/12/2020 7:23 AM CDT EXAMINATION: ??US PELVIS AND OVARIAN DOPPLER LIMITED (C) HISTORY: ??Right lower quadrant abdominal pain. COMPARISON: ??None. FINDINGS: The uterus is adult female in configuration and size. ??The endometrial stripe measures 0.6 cm. ??The left ovary measures 3.7 x 2.1 x 2.3 cm for a volume of 9.2 cc. ??The right ovary measures 3.8 x 2.3 x 1.8 cm for a volume of 8.0 cc. ??There is symmetric flow. There are no dominant cysts or masses. Small follicles are noted bilaterally. Color Doppler evaluation with spectral waveform analysis was performed and shows normal vascular flow Procedure Note Tena King MD - 01/12/2020 EXAMINATION: US PELVIS AND OVARIAN DOPPLER LIMITED (C) HISTORY: Right lower quadrant abdominal pain. COMPARISON: None. FINDINGS: The uterus is adult female in configuration and size. The endometrial stripe measures 0.6 cm. The left ovary measures 3.7 x 2.1 x 2.3 cm for a volume of 9.2 cc. The right ovary measures 3.8 x 2.3 x 1.8 cm for a volume of 8.0 cc. There is symmetric flow. There are no dominant cysts or masses. Small follicles are noted bilaterally. Color Doppler evaluation with spectral waveform analysis was performed and shows normal vascular flow IMPRESSION: Normal. Dictated by: Paco Smith M.D. The radiology attending physician has personally reviewed this study, and had reviewed and/or edited this written report and agrees with it. Electronically signed by: Tena King us Steven Adame MD [facility] [place]ED[place] Final Result * Differential, auto (01/11/2020 6:29 PM CDT) Neutrophil abs 3.7 1.7 - 6.5 K/cumm [facility] Imm gran abs 0.0 0.0 - 0.1 K/cumm [facility] Lymphocyte abs 2.6 0.8 - 3.3 K/cumm [facility] Monocyte abs 0.5 0.2 - 0.8 K/cumm [facility] Eosinophil abs 0.3 0.0 - 0.5 K/cumm [facility] Basophil abs 0.0 0.0 - 0.1 K/cumm [facility] Neutrophil pct 52.0 % [facility] Comment: Interpretive Data Percent cell count reference ranges are not reported, since discordance with absolute values may lead to misinterpretation of CBC data. Current Interpretive Data was last revised on 2017. Imm gran pct 0.3 % [facility] Comment: Interpretive Data Percent cell count reference ranges are not reported, since discordance with absolute values may lead to misinterpretation of CBC data. Current Interpretive Data was last revised on 2017. Lymphocyte pct 36.2 % [facility] Comment: Interpretive Data Percent cell count reference ranges are not reported, since discordance with absolute values may lead to misinterpretation of CBC data. Current Interpretive Data was last revised on 2017. Monocyte pct 7.0 % [facility] Comment: Interpretive Data Percent cell count reference ranges are not reported, since discordance with absolute values may lead to misinterpretation of CBC data. Current Interpretive Data was last revised on 2017. Eosinophil pct 4.1 % [facility] Comment: Interpretive Data Percent cell count reference ranges are not reported, since discordance with absolute values may lead to misinterpretation of CBC data. Current Interpretive Data was last revised on 2017. Basophil pct 0.4 % [facility] Comment: Interpretive Data Percent cell count reference ranges are not reported, since discordance with absolute values may lead to misinterpretation of CBC data. Current Interpretive Data was last revised on 2017. Blood specimen (specimen) 01/11/2020 6:29 PM CDT 01/11/2020 6:56 PM CDT us Steven Adame MD LAB BLOOD ORDERABLES Final Resul t Performing Organization Address City/[facility]/ZIP Co de Phone Number [facility] [place] [address] * Lipase (01/11/2020 6:29 PM CDT) Lipase 35 5 - 50 Units/L [facility] Blood specimen (specimen) 01/11/2020 6:29 PM CDT 01/11/2020 6:56 PM CDT Steven Adame MD LAB BLOOD ORDERABLES Final Resul t Performing Organization Address [facility] Co de Phone Number [facility] [address] * (ABNORMAL) Comprehensive metabolic panel (01/11/2020 6:29 PM CDT) Sodium 138 135 - 145 mmol/L [facility] Potassium, pl 3.7 3.3 - 4.9 mmol/L [facility] Chloride 108 100 - 114 mmol/L [facility] CO2 22 20 - 30 mmol/L [facility] Anion gap 8 2 - 15 mmol/L [facility] BUN 9 9 - 18 mg/dL [facility] Creatinine 0.51 0.40 - 1.00 mg/dL [facility] Glucose 86 70 - 199 mg/dL [facility] Comment: Interpretive Data Fasting glucose >/= 126 mg/dl is diagnostic for diabetes. ?? Fasting is defined as no caloric intake for at least 8 hours. Fasting glucose between 100 mg/dl to 125 mg/dl is diagnostic of prediabetes. In a patient with classic symptoms of hyperglycemia or hyperglycemic crisis, a random glucose >/= 200 mg/dl is diagnostic for diabetes. In the absence of unequivocal hyperglycemia, results should be confirmed by repeat testing. The classification and Diagnosis of Diabetes Diabetes Care 2019; 42:S13-S28. Current interpretive data was last revised 2017. Calcium 9.4 8.5 - 10.3 mg/dL [facility] Bilirubin, total 0.3 0.1 - 1.2 mg/dL [facility] Protein, pl 7.4 6.5 - 8.5 g/dL [facility] Albumin 4.3 3.2 - 5.0 g/dL [facility] Alk phos 48(L) 70 - 260 Units/L [facility] ALT 20 7 - 45 Units/L [facility] AST 19 10 - 50 Units/L [facility] Comment:Hemolyzed; results m ay be falsely elevated. Blood specimen (specimen) 01/11/2020 6:29 PM CDT 01/11/2020 6:56 PM CDT Steven Adame MD LAB BLOOD ORDERABLES Final Resul t Performing Organization Address [facility] Co de Phone Number [facility] Department [place] [address] * CBC with auto differential (01/11/2020 6:29 PM CDT) WBC 7.0 3.8 - 9.9 K/cumm [facility] Hgb 14.1 11.9 - 15.5 g/dL [facility] Hct 42.3 35.6 - 45.5 % [facility] Plt 228 150 - 400 K/cumm [facility] MPV 10.9 9.1 - 12.3 fL [facility] RBC 5.14 3.90 - 5.20 M/cumm [facility] MCV 82.3 81.3 - 96.4 fL [facility] MCH 27.4 27.1 - 33.3 pg [facility] MCHC 33.3 32.3 - 35.7 g/dL [facility] RDW CV 12.6 11.1 - 14.9 % [facility] RDW SD 38.0 35.7 - 48.1 fL [facility] NRBC abs 0.00 0.00 - 0.01 K/cumm [facility] Blood specimen (specimen) 01/11/2020 6:29 PM CDT 01/11/2020 6:56 PM CDT Steven Adame MD LAB BLOOD ORDERABLES Final Resul t Performing Organization Address City/[facility] Co de Phone Number [facility] Department [place] [address] * (ABNORMAL) Urinalysis reflex to microscopic (01/11/2020 6:00 PM CDT) Color, ur Yellow Yellow [facility] Clarity, ur Clear Clear [facility] Specific gravity, ur 1.007(L) 1.010 - 1.025 [facility] pH, urine 7.0 [facility] Protein, ur ql Negative Negative [facility] Glucose, ur ql Negative Negative [facility] Ketones, ur Negative Negative [facility] Bilirubin, ur Negative Negative [facility] Blood, ur Negative Negative [facility] Urobilinogen, ur 0.2 <2.0 mg/dL [facility] Nitrite, ur Negative Negative [facility] Leukocyte esterase, ur Negative Negative [facility] UA reflex comment Reflex conditions for microscopic UA not met. [facility] Urine 01/11/2020 6:00 PM CDT 01/11/2020 6:08 PM CDT Narrative [facility] - 01/11/2020 6:15 PM CDT ?? Urine pH is affected by diet, medications, systemic acid-base disturbances, and renal tubular function. ??pH may affect urinary stone formation. ??For example, urine pH below 6.0 may help reduce the tendency for calcium phosphate stones and pH greater than 6.0 may reduce the tendency for uric acid stone formation. Source: [facility] [place]. Last revised 09-01-2017 Steven Adame MD LAB URINE ORDERABLES Final Resul t Performing Organization Address [facility] Co de Phone Number [facility] Department [place] [address] * hCG, urine, qualitative (01/11/2020 6:00 PM CDT) HCG, ur Negative Negative [facility] Urine 01/11/2020 6:00 PM CDT 01/11/2020 6:08 PM CDT Steven Adame MD LAB URINE ORDERABLES Final Resul t [facility] Department [place] [address] documented in this encounter Visit Diagnoses Diagnosis Right lower quadrant abdominal pain- Primary documented in this encounter Administered Medications Inactive Administered Medications - up to 3 most recent administrations Medication Order MAR Action Action Date Dose Rate Site acetaminophen (TYLENOL) tablet 975 mg 975 mg, oral, Once, On Tue01/11/20 at 1932, For 1 dose Given 01/11/2020 7:35 PM CDT 975 mg ioversoL (OPTIRAY 320) intravenous syringe 100 mL 100 mL, intravenous, Once in imaging, contrast, Starting on Tue01/11/20 at 2050, For 1 dose Given 01/11/2020 8:51 PM CDT 100 mL lidocaine 1% buffered injection 0.1 mL 0.1 mL, subcutaneous, As needed, other, IV insertion, Starting on Tue01/11/20 at 181, Maximum daily dose 0.1 mL/kg Administer immediately prior to procedure. Given 01/11/2020 6:30 PM CDT 0.1 mL Left Upper Arm sodium chloride 0.9% bolus 1,000 mL 1,000 mL, intravenous, Once, On Tue01/11/20 at 175, For 1 dose New Bag 01/11/2020 6:52 PM CDT 1,000 mL documented in this encounter Historical Medications * This list may reflect changes made after this encounter. ibuprofen (ADVIL,MOTRIN) 200 mg tab/cap Take by mouth every 6 (six) hours as needed for pain added in this encounter Active and Recently Administered Medications Times are shown in CDT. Scheduled Medication Order 01/09/2020 01/10/2020 01/11/2020 acetaminophen (TYLENOL) tablet 975 mg (COMPLETED) 975 mg, oral, Once, On Tue01/11/20 at 1932, For 1 dose 1934 (Given - Provid er: Teagan Babcock RN) sodium chloride 0.9% bolus 1,000 mL (COMPLETED) 1,000 mL, intravenous, Once, On Tue01/11/20 at 1759, For 1 dose 1851 (New Bag - Prov ider: Jody Culp RN)2030 (Stopped - Provider: Teagan Babcock RN) PRN Medication Order 01/09/2020 01/10/2020 01/11/2020 ioversoL (OPTIRAY 320) intravenous syringe 100 mL (COMPLETED) 100 mL, intravenous, Once in imaging, contrast, Starting on Tue01/11/20 at 2050, For 1 dose 2050 (Given - Provid er: Aster Ramirez, RT) lidocaine 1% buffered injection 0.1 mL 0.1 mL, subcutaneous, As needed, other, IV insertion, Starting on Tue01/11/20 at 1812, Maximum daily dose 0.1 mL/kg Administer immediately prior to procedure. 1830 (Given - Provid er: Jody Culp RN) documented in this encounter Care Teams Dental Treatment Coordinator Relationship Specialty Start Date End Date Rose Mary Kidd MD [address] [place] [address] PCP - General 07/21/17 documented as of this encounter
--- OUTSIDE RECORDS SUMMARY | 2024-08-28 06:04 | XMS_ITS | Encounter Summary ---
Author Organization [facility] Facility Care Team Providers Care Property Management Specialist Name Role Phone Unavailable Primary Care Provider Unavailabl e Encounter Details Date Type Department Care Team (Latest Contact Info) Description 09/05/2014 9:35 AM PATENT SEARCHER - 09/05/2014 11:59 PM PATENT SEARCHER Hospital Encounter [facility] Treatment of healed fracture follow-up examination; Other acquired deformity of ankle and foot Social History Tobacco Use Types Packs/Day Years Used Date Smoking Tobacco: Never Assessed Comments Unknown Sex and Gender Information Value Date Recorded Sex Assigned at Not on file Legal Sex Female 6:03 AM PATENT SEARCHER Gender Identity Not on file Sexual Orientation Not on file documented as of this encounter Plan of Treatment Not on file documented as of this encounter Procedures Procedure Name Priority Date/Time Associated Diagnosis Comments XR ANKLE 2 VW Routine 09/05/2014 9:14 AM PATENT SEARCHER XR ANKLE 2 VW Routine 09/05/2014 9:14 AM PATENT SEARCHER documented in this encounter Results * XR Ankle 2 VW (09/05/2014 9:14 AM PATENT SEARCHER) Anatomical Region Laterality Modality N/A Radiographic Jess ging 09/05/2014 9:14 AM PATENT SEARCHER Narrative 09/05/2014 10:03 AM PATENT SEARCHER LAYNE ALCAZAR M.D. FINAL REPORT ACC# ??Date Time ??Exam [id number] Sep 05, 2014 09:14:00 17685 ANKLE 2 VIEWS UNILATERAL L [id number] Sep 05, 2014 09:14:00 53416 ANKLE 2 VIEWS UNILATERAL R EXAMINATION: ?? BILATERAL ??ANKLES ? 09-05-2014 HISTORY: ??Left distal tibial fracture followup FINDINGS: ??AP and lateral standing films of each ankle are read compared to the prior study the left ankle the most recent dated 06-14-2014. The AP and lateral weight-bearing films of each ankle are submitted. The right ankle appears to be normal and normally aligned. There is slight valgus deformity at the caval crural joint on the left. Other than that no abnormalities are identified. IMPRESSION: ?Slight valgus left ankle Otherwise normal with healed distal left tibial fracture, normal right ankle Requested By: TRESSA SANDHU NP Dictated By: ?? LAYNE ALCAZAR M.D. ??on Sep 05 2014 10:03A This document has been electronically signed by: LAYNE ALCAZAR M.D. on Sep 05 2014 10:03A Procedure Note Provider, MD Licha - 12/22/2016 LAYNE ALCAZAR M.D. FINAL REPORT ACC# Date Time Exam [id number] Sep 05, 2014 09:14:00 [id number] ANKLE 2 VIEWS UNILATERAL L [id number] Sep 05, 2014 09:14:00 28952 ANKLE 2 VIEWS UNILATERAL R EXAMINATION: BILATERAL ANKLES 09-05-2014 HISTORY: Left distal tibial fracture followup FINDINGS: AP and lateral standing films of each ankle are read compared to the prior study the left ankle the most recent dated 06-14-2014. The AP and lateral weight-bearing films of each ankle are submitted. The right ankle appears to be normal and normally aligned. There is slight valgus deformity at the caval crural joint on the left. Other than that no abnormalities are identified. IMPRESSION: Slight valgus left ankle Otherwise normal with healed distal left tibial fracture, normal right ankle Requested By: TRESSA SANDHU NP Dictated By: LAYNE ALCAZAR M.D. on Sep 05 2014 10:03A This document has been electronically signed by: LAYNE ALCAZAR M.D. on Sep 05 2014 10:03A us Historical Provider MD CARTER XR PROCEDURES Final R esult * XR Ankle 2 VW (09/05/2014 9:14 AM PATENT SEARCHER) Anatomical Region Laterality Modality N/A Radiographic Jess ging 09/05/2014 9:14 AM PATENT SEARCHER Narrative 09/05/2014 10:03 AM PATENT SEARCHER LAYNE ALCAZAR M.D. FINAL REPORT ACC# ??Date Time ??Exam [id number] Sep 05, 2014 09:14:00 88939 ANKLE 2 VIEWS UNILATERAL L [id number] Sep 05, 2014 09:14:00 86592 ANKLE 2 VIEWS UNILATERAL R EXAMINATION: ?? BILATERAL ??ANKLES ? 09-05-2014 HISTORY: ??Left distal tibial fracture followup FINDINGS: ??AP and lateral standing films of each ankle are read compared to the prior study the left ankle the most recent dated 06-14-2014. The AP and lateral weight-bearing films of each ankle are submitted. The right ankle appears to be normal and normally aligned. There is slight valgus deformity at the caval crural joint on the left. Other than that no abnormalities are identified. IMPRESSION: ?Slight valgus left ankle Otherwise normal with healed distal left tibial fracture, normal right ankle Requested By: TRESSA SANDHU NP Dictated By: ?? LAYNE ALCAZAR M.D. ??on Sep 05 2014 10:03A This document has been electronically signed by: LAYNE ALCAZAR M.D. on Sep 05 2014 10:03A Procedure Note Provider, Licha, - 12/22/2016 LAYNE ALCAZAR M.D. FINAL REPORT ACC# Date Time Exam [id number] Sep 05, 2014 09:14:00 98061 ANKLE 2 VIEWS UNILATERAL L [id number] Sep 05, 2014 09:14:00 15936 ANKLE 2 VIEWS UNILATERAL R EXAMINATION: BILATERAL ANKLES 09-05-2014 HISTORY: Left distal tibial fracture followup FINDINGS: AP and lateral standing films of each ankle are read compared to the prior study the left ankle the most recent dated 06-14-2014. The AP and lateral weight-bearing films of each ankle are submitted. The right ankle appears to be normal and normally aligned. There is slight valgus deformity at the caval crural joint on the left. Other than that no abnormalities are identified. IMPRESSION: Slight valgus left ankle Otherwise normal with healed distal left tibial fracture, normal right ankle Requested By: TRESSA SANDHU SUPERVISOR DRAWING Dictated By: LAYNE ALCAZAR M.D. on Sep 05 2014 10:03A This document has been electronically signed by: LAYNE ALCAZAR M.D. on Sep 05 2014 10:03A us Historical Provider MD CARTER XR PROCEDURES Final R esult documented in this encounter Visit Diagnoses Diagnosis Treatment of healed fracture follow-up examination Other acquired deformity of ankle and foot documented in this encounter
--- OUTSIDE RECORDS SUMMARY | 2024-08-28 06:04 | XMS_ITS | Encounter Summary ---
Author Organization [facility] Facility Care Team Providers Care Dairy Products Maker Name Role Phone Unavailable Primary Care Provider Unavailabl e Encounter Details Date Type Department Care Team (Latest Contact Info) Description 03/07/2014 2:46 PM CDT - 03/07/2014 11:59 PM CDT Hospital Encounter [facility] Aftercare for healing traumatic fracture of lower leg Social History Tobacco Use Types Packs/Day Years Used Date Smoking Tobacco: Never Assessed Comments Unknown Sex and Gender Information Value Date Recorded Sex Assigned at Not on file Legal 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 GORGE PISANO M.D. FINAL REPORT The radiology attending physician has personally reviewed this study, and has reviewed and/or edited this written report and agrees with it. ACC# ??Date Time ??Exam [id number] Mar 07, 2014 14:23:00 68193 ANKLE 2 VIEWS UNILATERAL L [id number] Mar 07, 2014 14:53:00 11358 ANKLE 2 VIEWS UNILATERAL L ACC# ??Date Time ??Exam [id number] Mar 07, 2014 14:23:00 69690 ANKLE 2 VIEWS UNILATERAL L [id number] Mar 07, 2014 14:53:00 36436 ANKLE 2 VIEWS UNILATERAL L EXAMINATION: ??LEFT ANKLE ??03-07-2014 HISTORY: ??Followup ankle fracture FINDINGS: ?? AP, lateral, mortise views of the left ankle submitted for review with comparison to prior OSH film 02/26/2014, OSH film 02/22/2014. Overlying cast obscures fine bony detail. Redemonstration of Salter type II fracture of the distal tibia with posterior displacement of the distal fracture fragment, alignment unchanged. Ankle joint spaces and alignment are normal. ?? IMPRESSION: ??Casted Salter II distal tibia fracture with unchanged nearly anatomic alignment. ?? Requested By: ENRIQUETA MONREAL Dictated By: ?? GORGE PISANO M.D. ??on Mar 07 2014 ??3:26P This document has been electronically signed by: LAYNE ALCAZAR M.D. on Mar 07 2014 ??4:32P Procedure Note Provider, MD Licha - 12/22/2016 LAYNE ALCAZAR M.D. GORGE PISANO M.D. FINAL REPORT The radiology attending physician has personally reviewed this study, and has reviewed and/or edited this written report and agrees with it. ACC# Date Time Exam [id number] Mar 07, 2014 14:23:00 31619 ANKLE 2 VIEWS UNILATERAL L [id number] Mar 07, 2014 14:53:00 32855 ANKLE 2 VIEWS UNILATERAL L ACC# Date Time Exam [id number] Mar 07, 2014 14:23:00 36546 ANKLE 2 VIEWS UNILATERAL L [id number] Mar 07, 2014 14:53:00 34013 ANKLE 2 VIEWS UNILATERAL L EXAMINATION: LEFT ANKLE 03-07-2014 HISTORY: Followup ankle fracture FINDINGS: AP, lateral, mortise views of the left ankle submitted for review with comparison to prior OSH film 02/26/2014, OSH film 02/22/2014. Overlying cast obscures fine bony detail. Redemonstration of Salter type II fracture of the distal tibia with posterior displacement of the distal fracture fragment, alignment unchanged. Ankle joint spaces and alignment are normal. IMPRESSION: Casted Salter II distal tibia fracture with unchanged nearly anatomic alignment. Requested By: ENRIQUETA MONREAL CPNP Dictated By: GORGE PISANO M.D. on Mar 07 2014 3:26P This document has been electronically signed by: LAYNE ALCAZAR M.D. on Mar 07 2014 4:32P us Historical Provider IMG XR PROCEDURES Final R esult * XR Ankle 2 VW (03/07/2014 2:23 PM CDT) Anatomical Region Laterality Modality N/A Radiographic Jess ging 03/07/2014 2:23 PM CDT Narrative 03/07/2014 4:32 PM CDT LAYNE ALCAZAR M.D. GORGE PISANO M.D. FINAL REPORT The radiology attending physician has personally reviewed this study, and has reviewed and/or edited this written report and agrees with it. ACC# ??Date Time ??Exam [id number] Mar 07, 2014 14:23:00 73985 ANKLE 2 VIEWS UNILATERAL L [id number] Mar 07, 2014 14:53:00 69260 ANKLE 2 VIEWS UNILATERAL L ACC# ??Date Time ??Exam [id number] Mar 07, 2014 14:23:00 [id number] ANKLE 2 VIEWS UNILATERAL L [id number] Mar 07, 2014 14:53:00 26637 ANKLE 2 VIEWS UNILATERAL L EXAMINATION: ??LEFT ANKLE ??03-07-2014 HISTORY: ??Followup ankle fracture FINDINGS: ?? AP, lateral, mortise views of the left ankle submitted for review with comparison to prior OSH film 02/26/2014, OSH film 02/22/2014. Overlying cast obscures fine bony detail. Redemonstration of Salter type II fracture of the distal tibia with posterior displacement of the distal fracture fragment, alignment unchanged. Ankle joint spaces and alignment are normal. ?? IMPRESSION: ??Casted Salter II distal tibia fracture with unchanged nearly anatomic alignment. ?? Requested By: ENRIQUETA MONREAL Dictated By: ?? GORGE PISANO M.D. ??on Mar 07 2014 ??3:26P This document has been electronically signed by: LAYNE ALCAZAR M.D. on Mar 07 2014 ??4:32P Procedure Note Provider, MD Lciha - 12/22/2016 LAYNE ALCAZAR M.D. GORGE PISANO M.D. FINAL REPORT The radiology attending physician has personally reviewed this study, and has reviewed and/or edited this written report and agrees with it. ACC# Date Time Exam [id number] Mar 07, 2014 14:23:00 82867 ANKLE 2 VIEWS UNILATERAL L [id number] Mar 07, 2014 14:53:00 72913 ANKLE 2 VIEWS UNILATERAL L ACC# Date Time Exam [id number] Mar 07, 2014 14:23:00 12553 ANKLE 2 VIEWS UNILATERAL L [id number] Mar 07, 2014 14:53:00 [id number] ANKLE 2 VIEWS UNILATERAL L EXAMINATION: LEFT ANKLE 03-07-2014 HISTORY: Followup ankle fracture FINDINGS: AP, lateral, mortise views of the left ankle submitted for review with comparison to prior OSH film 02/26/2014, OSH film 02/22/2014. Overlying cast obscures fine bony detail. Redemonstration of Salter type II fracture of the distal tibia with posterior displacement of the distal fracture fragment, alignment unchanged. Ankle joint spaces and alignment are normal. IMPRESSION: Casted Salter II distal tibia fracture with unchanged nearly anatomic alignment. Requested By: ENRIQUETA MONREAL Dictated By: GORGE PISANO M.D. on Mar 07 2014 3:26P This document has been electronically signed by: LAYNE ALCAZAR M.D. on Mar 07 2014 4:32P Historical Provider MD CARTER XR PROCEDURES Final R esult documented in this encounter Visit Diagnoses Diagnosis Aftercare for healing traumatic fracture of lower leg documented in this encounter
--- OUTSIDE RECORDS SUMMARY | 2024-08-28 06:04 | XMS_ITS | Encounter Summary ---
Author Organization [facility] Healthcare Address [address] [place] [address] Care Team Providers Care Oil Winterizer Name Role Phone Rose Mary Kidd MD Primary Care Provider + Reason for Visit * Reason Comments Dizziness Shortness of Breath Encounter Details Date Type Department Care Team (Late st Contact Info) Description 01/04/2023 9:56 PM CDT - 01/05/2023 3:13 AM CDT Emergency [facility] Emergency Department [address] [place] [address] Ama Jewell MD [address] [place] [address] Vero Leyva MD [address] [place] [address] Dizziness (Primary Dx) Discharge Disposition: Discharge to home or self care Social History Tobacco Use Types Packs/Day Years Used Date Smoking Tobacco: Never Smokeless Tobacco: Never AUDIT-C Answer Date Recorded Q1: How often do you have a drink containing alc ohol? Never 03/22/2022 Average Number of Drinks Not on file 022 Frequency of Binge Drinking Not on file 08/2021 Personal Safety Answer Date Recorded Have you ever been in or are you currently in a harmful physical or emotional relationship or is someone making you feel afraid or unsafe? 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 Gender Identity Not on file Sexual Orientation Not on file documented as of this encounter Last Filed Vital Signs Vital Sign Reading Time Taken Comments Blood Pressure 132/76 01/05/2023 3:12 AM CDT Pulse 82 01/05/2023 3:12 AM CDT Temperature 36.6 ??C (97.8 ??F) 01/05/2023 3:12 AM CD T Respiratory Rate 16 01/05/2023 3:12 AM CDT Oxygen Saturation 99% 01/05/2023 3:12 AM CDT Inhaled Oxygen Concentration - - Weight 99.8 kg (220 lb) 01/04/2023 6:14 PM CDT Height - - Body Mass Index - - documented in this encounter Discharge Instructions * Attachments The following attachments cannot be sent through Care Everywhere. * Vertigo (AfterCare(R) Instructions(ER/ED)) (Yi) * Benign Paroxysmal Positional Vertigo (AfterCare(R) Instructions(ER/ED)) (Yi) * Fainting, Uncertain Cause (Yi) documented in this encounter Medications at Time of Discharge ibuprofen (ADVIL,MOTRIN) 200 mg tab/cap Take by mouth every 6 (six) hours as needed for pain meclizine (ANTIVERT) 25 mg tablet Take 1 tablet (25 mg total) by mouth 3 (three) times a day as needed for dizziness 30 tablet 01/05/2023 documented as of this encounter Ordered Prescriptions Prescription Sig Dispense Quantity Refills Last Filled Start Date End Date meclizine (ANTIVERT) 25 mg tablet Take 1 tablet (25 mg total) by mouth 3 (three) times a day as needed for dizziness 30 tablet 01/05/2023 documented in this encounter Discharge Disposition Disposition Code Departure Means Destination Comment s Discharge to home or self care documented in this encounter ED Notes * Ama Jewell MD - 01/04/2023 10:39 PM CDT HPI Chief Complaint Patient presents with Dizziness Shortness of Breath The patient is a 22-year-old female who comes emergency department today for dizziness that has been going on for the past 3 days. Patient states she is been. dizzy to the point of falling she statesthe room is spinning. She denies any LOC or head trauma recently. States that she has had an episode of syncope out of no where about a year ago at school. Does not take any medication and has no history of significant medical problem. No family history of seizures she has not had a headache she has not had any vision changes. She is also complaining of associated shortness of breath with this dizziness but states currently she is not significantly short of breath she denies any other symptoms. Patient History: Patient Active Problem List Diagnosis Date Noted Patellofemoral pain syndrome of left knee 04/06/2019 Acute pain of left knee 04/06/2019 Past Medical History: Diagnosis Date Asthma Past Surgical History: Procedure Laterality Date SKIN TAG REMOVAL TONSILECTOMY, ADENOIDECTOMY, BILATERAL MYRINGOTOMY AND TUBES No family history on file. Social History Tobacco Use Smoking status: Never Smokeless tobacco: Never Vaping Use Vaping status: Never Used Substance and Sexual Activity Alcohol use: Not on file Drug use: Never Sexual activity: Yes Partners: Male control/protection: Condom Male Social History Social History Narrative Non-smoker : (Added by TW Conv) Review of Systems Review of Systems Constitutional: Negative. Negative for activity change, appetite change, chills, diaphoresis, fatigue and fever. HENT: Negative. Negative for congestion, drooling, rhinorrhea and sore throat. Eyes: Negative. Negative for photophobia, redness and visual disturbance. Respiratory: Positive for shortness of breath. Negative for cough and chest tightness. Cardiovascular: Negative. Negative for chest pain, palpitations and leg swelling. Gastrointestinal: Negative. Negative for abdominal pain, anal bleeding, blood in stool, constipation, diarrhea, nausea and vomiting. Endocrine: Negative. Genitourinary: Negative. Negative for decreased urine volume, difficulty urinating, dysuria, frequency, hematuria and urgency. Musculoskeletal: Negative. Negative for arthralgias and myalgias. Skin: Negative. Negative for rash and wound. Allergic/Immunologic: Negative for immunocompromised state. Neurological: Positive for dizziness. Negative for weakness and headaches. Hematological: Negative. Does not bruise/bleed easily. Psychiatric/Behavioral: Negative. Negative for confusion. All other systems reviewed and are negative. Physical Exam ED Triage Vitals [01/04/23 1814] Temp Pulse Resp BP SpO2 37.1 ??C (98.7 ??F) 86 16 148/88 100 % Temp src Heart Rate Source Patient Position BP Location FiO2 (%) Temporal -- -- -- -- Height Height Method Weight Weight Method -- -- 99.8 kg (220 lb) Stated Physical Exam Vitals and nursing note reviewed. Constitutional: General: She is not in acute distress. Appearance: She is well-developed. She is obese. She is not ill-appearing, toxic-appearing or diaphoretic. HENT: Head: Normocephalic and atraumatic. Eyes: General: No scleral icterus. Extraocular Movements: Extraocular movements intact. Conjunctiva/sclera: Conjunctivae normal. Pupils: Pupils are equal, round, and reactive to light. Neck: Thyroid: No thyromegaly. Vascular: No JVD. Trachea: No tracheal deviation. Cardiovascular: Rate and Rhythm: Normal rate. Pulmonary: Effort: Pulmonary effort is normal. No respiratory distress. Breath sounds: No stridor. No wheezing, rhonchi or rales. Chest: Chest wall: No tenderness. Abdominal: General: Abdomen is flat. There is no distension. Palpations: Abdomen is soft. There is no mass. Tenderness: There is no abdominal tenderness. Hernia: No hernia is present. Musculoskeletal: General: Normal range of motion. Cervical back: Normal range of motion and neck supple. Skin: General: Skin is warm and dry. Neurological: General: No focal deficit present. Mental Status: She is alert and oriented to person, place, and time. Mental status is at baseline. Motor: No abnormal muscle tone. Psychiatric: Mood and Affect: Mood normal. Behavior: Behavior normal. Thought Content: Thought content normal. Judgment: Judgment normal. MDM Medical Decision Making 22-year-old female here for dizziness and shortness of breath differential diagnosis includes PE, vertigo, seizures, acs. EKG within normal limits,workup pending , ordered medication for vertigo.pt care turned over to Dr. Leyva patient will most likely be discharged with outpatient follow-up. Amount and/or Complexity of Data Reviewed Labs: ordered. Radiology: ordered. ECG/medicine tests: ordered and independent interpretation performed. Risk Prescription drug management. Final diagnoses: Dizziness There may be grammatical errors in this note due to use of voice recognition software. Ama Jewell MD 01/04/23 2259 * Magdy Henry RN - 01/04/2023 6:10 PM CDT Pt to ED via POV for dizziness. Per Pt she has been increasingly dizzy for the past 3 days. Pt reports that she has been dizzy all today and fell last night but denies LOC or hitting head. documented in this encounter Miscellaneous Notes * ED Re-evaluation Note - Vero Leyva MD - 01/04/2023 10:48 PM CDT ED Re-evaluation Patient care assumed from Dr. Jewell. Case and findings, including treatment plan, evaluations, consults, and lab/imaging results were discussed. Please see previous physician's documentation for complete history and physical exam. At this time workup pending. Portions of the record may have been created with voice recognition software. Occasional wrong-word or '[id number]' substitutions may have occurred due to the inherent limitations of voice recognition software. Read the chart carefully and recognize, using context, where substitutions have occurred. I have reviewed and interpreted all of the currently available lab results from this visit (if applicable): Labs Reviewed DRUGS OF ABUSE SCREEN, URINE WITHOUT CONFIRMATION - Abnormal Result Value Amphetamine, ur Not Detected Barbiturates, ur Not Detected Benzodiazepines, ur Not Detected Cannabinoids, ur Detected (*) Cocaine, ur Not Detected Fentanyl, Ur Not Detected Methadone, ur Not Detected Opiates, ur Not Detected Oxycodone, ur Not Detected Phencyclidine, ur Not Detected Urine Creatinine 37 Narrative: Drug of Abuse screening is performed by immunoassay for medical purposes only. This is not to be used for Pain Management purposes. URINALYSIS AND REFLEX TO MICROSCOPIC AND CULTURE Color, ur Yellow Clarity, ur Clear Specific gravity, ur 1.010 pH, urine 7.0 Protein, ur ql Negative Glucose, ur ql Negative Ketones, ur Negative Bilirubin, ur Negative Blood, ur Negative Urobilinogen, ur <2.0 Nitrite, ur Negative Leukocyte esterase, ur Negative UA reflex comment Value: Reflex conditions for microscopic UA and culture not met. Narrative: Urine pH is affected by diet, medications, systemic acid-base disturbances, and renal tubular function. pH may affect urinary stone formation. For example, urine pH below 6.0 may help reduce the tendency for calcium phosphate stones and pH greater than 6.0 may reduce the tendency for uric acid stone formation. Source: [employer].Last revised 09-01-2017 CBC WITH AUTO DIFFERENTIAL WBC 9.0 Hgb 14.0 Hct 41.7 Plt 284 MPV 11.0 RBC 5.13 MCV 81.3 MCH 27.3 MCHC 33.6 RDW CV 12.4 RDW SD 36.9 NRBC abs 0.00 COMPREHENSIVE METABOLIC PANEL Sodium 139 Potassium, pl 3.5 Chloride 101 CO2 25 Anion gap 13 BUN 11 Creatinine 0.62 Glucose 96 Calcium 10.0 Bilirubin, total 0.2 Protein, pl 7.7 Albumin 4.5 Alk phos 64 ALT 16 AST 19 D-DIMER, QUANTITATIVE D-Dimer 216 TROPONIN T HIGH-SENSITIVITY SERIES (BASELINE, 2HR, 4HR, 6HR) Trop T hs <6 HCG, BLOOD, QUANTITATIVE hCG, quant <5.0 ETHANOL Ethanol <10 DIFFERENTIAL AUTO Neutrophil abs 5.3 Imm gran abs 0.0 Lymphocyte abs 2.8 Monocyte abs 0.6 Eosinophil abs 0.2 Basophil abs 0.1 Neutrophil pct 58.6 Imm gran pct 0.3 Lymphocyte pct 31.6 Monocyte pct 6.3 Eosinophil pct 2.6 Basophil pct 0.6 EGFR eGFR 131 TROPONIN T HIGH-SENSITIVITY 2-HOUR Trop T hs <6 Trop T hs delta 0 Trop T hs interp Insignificant Radiographs (if obtained): Report Reviewed: XR Chest 1 Vw Portable Final Result CT Head WO Contrast Final Result IMPRESSION: No acute abnormality identified. IMPRESSION: No acute abnormality identified. EKG (if obtained): (All EKGs are interpreted by myself in the absence of a clothing man) Sinus rhythm with a normal rate of 86, LA intervals slightly short 116, but no obvious delta wave appreciated, narrow QRS, normal QTC, normal ST segments and T-waves. No STEMI. No acute ischemic pattern. ED course/MDM: External chart review: (details typically documented under ED workup or in chart/outside record review above in my note, if obtained) History obtained by: (Typically documented in the HPI section, sometimes in ED course when obtainedfrom additional historians but not at the initial time of patient presentation.) Discussion of management: (typically conversations time stamped and documented in ED course), Independent interpretation studies: (typically documented in ED course and please note that labs and Radiology reads obtained in the ED and listed above have been reviewed) Vitals: 01/04/23 2323 01/04/23 2324 01/04/235 01/05/23 0045 BP: 155/93 152/94 133/98 146/78 Patient Position: Lying Sitting Standing Pulse: 86 92 94 85 Resp: 16 Temp: 36.6 ??C (97.8 ??F) TempSrc: SpO2: 100% Weight: ED Course as of 01/05/23 0307 Time: 01/04 2249 Comment: Care assumed from Dr. Jewell By: Vero Leyva MD Time: 01/04 2249 Comment: Patient care discussed with Dr. Leyva at end of shift By: Ama Jewell MD Time: 01/05 50 Value: D-Dimer: 216 Comment: No indication for CTA By: Vero Leyva MD Time: 01/06 152 Comment: Patient got meclizine and lorazepam and says that she does not feel better. She can not tell me if she is having presyncope or if it is vertigo. She says it is both. Low suspicion for acute emergent condition like posterior circulation stroke. By: Vero Leyva MD The patient was very worried that she was still having symptoms at the time of discharge. I spent along time talking to her about the differential diagnosis and trying to figure out if she was complaining of presyncope versus vertigo. I think that this may be BPPV. It is worse when she looks down and lying flat. It was severe associated with nausea and she was having difficulty walking due to unsteadiness as a result. But she does report an event that sounds like she may have syncopized, so difficult to tell. Vital signs are very reassuring. I had to get up and walk back and forth stand on 1ft. She was able to stand close her eyes with her arms out and she would no pronator drift and she did not fall over or LA unsteady. She is symmetrical smile symmetrical palate rise symmetrical full-strength in her uppers and lowers with sensation to light touch intact everywhere. She is no headache or head pain. There was no recent trauma or chiropractic manipulation. She does not take estrogen or control, she does not smoke. Her grandfather recently had a stroke. She has never had a stroke. In fact her grandfather about 3 days ago which is when the symptoms started presenting. She said that her symptoms were not helped much by the lorazepam or meclizine. She had no nystagmus. Normal finger-nose. I discussed the workup with her the differential diagnosis the risks benefits alternatives as far as outpatient follow-up verses admission for an MRI to definitively rule out posterior circulation stroke since technically I can not with 100% certainty say that this isn't a posterior circulation stroke, although given her completely normal neuro exam, the waxing and waning of symptoms, and the fact that there is no other neuro complaints, I think that this makes posterior circulation stroke highly unlikely. She is never been diagnosed with high blood pressure diabetes or highcholesterol. She as well as friend at bedside and her mother over the phone have all been given return precautions and follow-up instructions to which they verbalized understanding and agreement. Clinical Impression: 1. Dizziness Disposition: Discharge (Please note that portions of this note may have been completed with a voice recognition program. Photo Tech errors occur. Please contact me for any clarification.) Vero Leyva MD 01/05/23 0307 * ED Procedure Note - Ama Jewell MD - 01/04/2023 10:43 PM CDT Associated Order(s): ECG 12 lead Procedure ECG 12 lead Date/Time: 01/04/2023 10:43 PM Performed by: Ama Jewell MD Authorized by: Ama Jewell MD Rate: ECG rate: 116 ECG rate assessment: normal Rhythm: Rhythm: sinus rhythm Ectopy: Ectopy: none QRS: QRS axis: Normal QRS intervals: Normal Conduction: Conduction: normal ST segments: ST segments: Normal T waves: T waves: normal Interpretation: Interpretation: normal Ama Jewell MD 01/04/233 Ama Jewell MD 01/04/234 documented in this encounter Plan of Treatment Not on file documented as of this encounter Procedures Procedure Name Priority Date/Time Associated Diagnosis Comments TROPONIN T HIGH-SENSITIVITY 2-HOUR Timed 01/05/2023 12:23 AM CDT XR CHEST 1 VIEW ED 01/04/2023 10:36 PM CDT TROPONIN T HIGH-SENSITIVITY SERIES (BASELINE, 2HR, 4HR, 6HR) STAT 01/04/2023 10:28 PM CDT EGFR STAT 01/04/2023 10:28 PM CDT DIFFERENTIAL AUTO STAT 01/04/2023 10: 28 PM CDT URINALYSIS AND REFLEX TO MICROSCOPIC AND CULTURE STAT 01/04/2023 10:28 PM CDT CBC WITH AUTO DIFFERENTIAL STAT 01/04/2023 10:28 PM CDT DRUGS OF ABUSE SCREEN, URINE WITHOUT CONFIRMATION STAT 01/04/2023 10:28 PM CDT D-DIMER, QUANTITATIVE STAT 01/04/2023 10:28 PM CDT HCG, BLOOD, QUANTITATIVE STAT 01/04/2023 10:28 PM CDT ETHANOL STAT 01/04/2023 10:28 PM CDT COMPREHENSIVE METABOLIC PANEL STAT 01/04/2023 10:[address] HEAD WO CONTRAST ED 01/04/2023 1 0:25 PM CDT ECG 12-LEAD STAT 01/04/2023 10:21 PM CDT documented in this encounter Results * Troponin T high-sensitivity 2-hour (01/05/2023 12:23 AM CDT) Trop T hs <6 <=14 ng/L [facility] ([place]) Comment: Interpretive Data For further hscTnT resources including the diagnostic algorithm and an aid in interpretation, copy and paste this link: https://nrl.testcatalog.org/show/hsTrop Current Interpretive Data last revised 2020. Trop T hs delta 0 ng/L [facility] ([place]) Trop T hs interp Insignificant [facility] ([place]) Blood 01/05/2023 12:2 3 AM CDT 01/05/2023 12:27 AM CDT us Ama Jewell MD LAB BLOOD ORDERABLE S Final Result [facility] [place] [address] [facility] Department [place] [address] * XR Chest 1 Vw Portable (01/04/2023 10:36 PM CDT) Anatomical Region Laterality Modality Body, Chest N/A Computed Radiogr aphy 01/04/2023 11:0 4 PM CDT Narrative 01/04/2023 11:05 PM CDT EXAM DESCRIPTION: XR CHEST 1 VIEW REASON FOR STUDY: ' ?? Dizziness and shortness of breath x 3 days ?? Hx asthma ?? Non smoker ? TECHNIQUE: ??Portable upright AP view of the chest. COMPARISON: None FINDINGS: LUNGS AND PLEURA: ??No focal opacity, large effusion, or pneumothorax identified. HEART/MEDIASTINUM: ??Trachea midline. ?? Cardiac silhouette normal in size. Mediastinal contours appear normal. BONES: ??Unremarkable. ?? CHEST WALL: ??Unremarkable. ?? UPPER ABDOMEN: ??Unremarkable. ?? IMPRESSION: No acute abnormality identified. ?? THIS IS AN ELECTRONICALLY VERIFIED FINAL REPORT 01/04/2023 11:05 PM - Electronically signed by ??Von Arora M.D. AR: AWA D: ??01/04/2023 11:05 PM T: ??01/04/2023 11:05 PM Report ID: [id number] Reading Location: ??[id number] Procedure Note Von Arora MD - 01/04/2023 EXAM DESCRIPTION: XR CHEST 1 VIEW REASON FOR STUDY: ' Dizziness and shortness of breath x 3 days Hx asthma Non smoker TECHNIQUE: Portable upright AP view of the chest. COMPARISON: None FINDINGS: LUNGS AND PLEURA: No focal opacity, large effusion, or pneumothorax identified. HEART/MEDIASTINUM: Trachea midline. Cardiac silhouette normal in size. Mediastinal contours appear normal. BONES: Unremarkable. CHEST WALL: Unremarkable. UPPER ABDOMEN: Unremarkable. IMPRESSION: No acute abnormality identified. THIS IS AN ELECTRONICALLY VERIFIED FINAL REPORT 01/04/2023 11:05 PM - Electronically signed by Von Arora M.D. AR: AWA Report ID: [id number] Reading Location: [id number] us Ama Jewell MD IMG XR PROCEDURES F inal Result * eGFR (01/04/2023 10:28 PM CDT) eGFR 131 mL/min/1. 73 m2 [facility] ([place]) Comment: Interpretive Data Reference Interval Normal ?>/= 90 mL/min/1.73m2 Mildly decreased* ? 60 - 89 mL/min/1.73m2 Mildly to moderately decreased ?45 - 59 mL/min/1.73m2 Moderately to severely decreased ??30 - 44 mL/min/1.73m2 Severely decreased ?15 - 29 mL/min/1.73m2 Kidney Failure ?< 15 ??mL/min/1.73m2 *Relative to young adult level Estimated glomerular filtration rate is determined by the 2020 CKD-EPI equation recommended by the National Kidney Foundation (A Unifying Approach to GFR Estimation: Recommendations of the NKF-ASK Task Force on Reassessing the Inclusion of Race in Diagnosing Kidney Disease, JASN 2020). The CKD-EPI equation should not be used for patients with unstable renal function and has not been validated in children and those over 70. Current interpretive data was last reviewed 2021. Blood 01/04/2023 10:2 8 PM CDT 01/04/2023 10:37 PM CDT us Jerson Humphrey MD LAB BLOOD ORDERABLES Final Result [facility] ([place]) [address] [facility] Department [place] [address] * Differential, auto (01/04/2023 10:28 PM CDT) Neutrophil abs 5.3 1.7 - 6.5 K/cumm [facility] ([place]) Imm gran abs 0.0 0.0 - 0.1 K/cumm [facility] ([place]) Lymphocyte abs 2.8 0.8 - 3.3 K/cumm [facility] ([place]) Monocyte abs 0.6 0.2 - 0.8 K/cumm [facility] ([place]) Eosinophil abs 0.2 0.0 - 0.5 K/cumm [facility] ([place]) Basophil abs 0.1 0.0 - 0.1 K/cumm [facility] ([place]) Neutrophil pct 58.6 % [facility] ([place]) Comment: Interpretive Data Percent cell count reference ranges are not reported, since discordance with absolute values may lead to misinterpretation of CBC data. Current Interpretive Data was last revised on 2017. Imm gran pct 0.3 % [facility] ([place]) Comment: Interpretive Data Percent cell count reference ranges are not reported, since discordance with absolute values may lead to misinterpretation of CBC data. Current Interpretive Data was last revised on 2017. Lymphocyte pct 31.6 % [facility] ([place]) Comment: Interpretive Data Percent cell count reference ranges are not reported, since discordance with absolute values may lead to misinterpretation of CBC data. Current Interpretive Data was last revised on 2017. Monocyte pct 6.3 % [facility] ([place]) Comment: Interpretive Data Percent cell count reference ranges are not reported, since discordance with absolute values may lead to misinterpretation of CBC data. Current Interpretive Data was last revised on 2017. Eosinophil pct 2.6 % [facility] ([place]) Comment: Interpretive Data Percent cell count reference ranges are not reported, since discordance with absolute values may lead to misinterpretation of CBC data. Current Interpretive Data was last revised on 2017. Basophil pct 0.6 % [facility] ([place]) Comment: Interpretive Data Percent cell count reference ranges are not reported, since discordance with absolute values may lead to misinterpretation of CBC data. Current Interpretive Data was last revised on 2017. Blood 01/04/2023 10:2 8 PM CDT 01/04/2023 10:32 PM CDT us Jerson Humphrey MD LAB BLOOD ORDERABLES Final Result Performing Organization Address [facility] Co de Phone Number [facility] ([place]) [address] [facility] [place] [address] * Ethanol (01/04/2023 10:28 PM CDT) Ethanol <10 <=10 mg/dL [facility] ([place] Comment: Interpretive Data Legal limit of intoxication > or = 80 mg/dL Levels > or = 400 mg/dL are potentially TOXIC. Current interpretive data was last revised on 2018. Blood 01/04/2023 10:2 8 PM CDT 01/04/2023 11:35 PM CDT us Ama Jewell MD LAB BLOOD ORDERABLE S Final Result Performing Organization Address [facility] de Phone Number [facility] ([place]) [address] [place] [address] * (ABNORMAL) Drugs of Abuse Screen, Urine without Confirmation (01/04/2023 10:28 PM CDT) Amphetamine, ur Not Detected CutOff 500ng/mL [facility] ([place]) Comment: Interpretive Data - Amphetamines: ??Samples containing greater than 500 ng/mL d-methamphetamine ??or other cross-reacting amphetamine compounds are reported as positive. ??Amphetamine immunoassays are subject to significant false positive rates due to cross-reactivity of non-amphetamine drugs. Current Interpretive Data was last reviewed 2018. Barbiturates, ur Not Detected CutOff 200ng/mL [facility] ([place]) Comment: Interpretive Data - Barbiturates: ??Samples containing greater than 200 ng/mL secobarbital or other cross-reacting barbiturate compounds are reported as positive. ??False positive and false negative results are possible. Current Interpretive Data was last reviewed 2018. Benzodiazepines, ur Not Detected CutOff 100ng/mL [facility] ([place]) Comment: Interpretive Data - Benzodiazepines: ??Samples containing greater than 100 ng/mL nordiazepam or other cross-reacting compounds are reported as positive. ?? False positive and false negative results are possible. ?? Current Interpretive Data was last reviewed 2018. Cannabinoids, ur Detected(A) CutOff 50 ng/mL [facility] ([place]) Comment: Interpretive Data - Cannabinoids: ??Samples containing greater than 50 ng/mL delta-9 THC -COOH or other cross-reacting compounds are reported as positive. ??False positive and false negative results are possible. ?? Current Interpretive Data was last reviewed 2018. Cocaine, ur Not Detected CutOff 150ng/mL [facility] ([place]) Comment: Interpretive Data - Cocaine: ??Samples containing greater than 150 ng/mL benzoylecgonine or other cross-reacting compounds are reported as positive. False positive and false negative results are possible. Current Interpretive Data was last reviewed 2018. Fentanyl, Ur Not Detected Cutoff 1 ng/mL [facility] ([place]) Comment: Interpretive Data - Fentanyls: ??Samples containing greater than 1 ng/mL fentanyl or other cross-reacting fentanyl compounds are reported as detected. ??False positive and false negative results are possible. Current Interpretive Data was last reviewed 2019. Methadone, ur Not Detected CutOff 300ng/mL [facility] ([place]) Comment: Interpretive Data - Methadone: ??Samples containing greater than 300 ng/mL d,l-methadone or other cross-reacting compounds are reported as positive. ??False positive and false negative results are possible. Current Interpretive Data was last reviewed 2018. Opiates, ur Not Detected CutOff 300ng/mL [facility] ([place]) Comment: Interpretive Data - Opiates: ??Samples containing greater than 300 ng/mL morphine or other cross-reacting compounds are reported as positive. ??False positive and false negative results are possible. Current Interpretive Data was last reviewed 2018. Oxycodone, ur Not Detected CutOff 100ng/mL [facility] ([place]) Comment: Interpretive Data - Oxycodone: ??Samples containing greater than 100 ng/mL oxycodone or other cross-reacting compounds are reported as positive. ??False positive and false negative results are possible. ?? Current Interpretive Data was last reviewed 2018. Phencyclidine, ur Not Detected CutOff 25 ng/mL [facility] ([place]) Comment: Interpretive Data - Phencyclidine: ??Samples containing greater than 25 ng/mL phencyclidine or other cross-reacting compounds are reported as positive. ??False positive and false negative results are possible. ?? Current Interpretive Data was last reviewed 2018. Urine Creatinine 37 mg/dL [facility] ([place]) Comment: Interpretive Data Urine Creatinine: < 10 mg/dL is extremely dilute = or > 10 but < 20 mg/dL is dilute = or > 20 mg/dL is normal Current Interpretive Data was last revised on 2017. Urine 01/04/2023 10:2 8 PM CDT 01/04/2023 10:32 PM CDT Narrative [facility] ([place]) - 01/04/2023 11:15 PM CDT Drug of Abuse screening is performed by immunoassay for medical purposes only. ??This is not to be used for Pain Management purposes. us Ama Jewell MD LAB URINE ORDERABLE S Final Result [facility] ([place]) [address] [facility] Department [place] [address] * hCG, blood, quantitative (01/04/2023 10:28 PM CDT) hCG, quant <5.0 0.0 - 5.0 IUnits/L [facility] ([place]) Comment: Interpretive Data Non- Female premenopausal: < or = 5.0 IUnits/L Men: < 5.0 IUnits/L Weeks of Gestation ? Reference Interval ?? 3 to 6 ? 5.8-31,795 IUnits/L ?? 7 to 10 ? 3,697-186,977 IUnits/L ??12 to 15 ?27,832- 70,791 IUnits/L ??16 to 18 ? 9,040- 58,179 IUnits/L The Najma hCG Beta Quant assay procedure was used. Results from different manufacturers or methods may not be comparable. Serial testing should be performed using the same method. Current Interpretive Data was last revised on 2021. Blood 01/04/2023 10:2 8 PM CDT 01/04/2023 11:35 PM CDT us Ama Jewell MD LAB BLOOD ORDERABLE S Final Result [facility] ([place]) [address] [facility] Department of Laboratories [place] [id number] * Urinalysis reflex to microscopic and culture Urine (01/04/2023 10:28 PM CDT) Color, ur Yellow Yellow [facility] ([place]) Clarity, ur Clear Clear [facility] ([place]) Specific gravity, ur 1.010 1.003 - 1.030 [facility] ([place]) pH, urine 7.0 [facility] ([place]) Protein, ur ql Negative Negative [facility] ([place]) Glucose, ur ql Negative Negative [facility] ([place]) Ketones, ur Negative Negative [facility] ([place]) Bilirubin, ur Negative Negative [facility] ([place]) Blood, ur Negative Negative [facility] ([place]) Urobilinogen, ur <2.0 <2.0 mg/dL [facility] ([place]) Nitrite, ur Negative Negative [facility] ([place]) Leukocyte esterase, ur Negative Negative [facility] ([place]) UA reflex comment Reflex conditions for microscopic UA and culture not met. [facility] ([place]) Urine 01/04/2023 10:2 8 PM CDT 01/04/2023 10:32 PM CDT Narrative [facility] ([place]) - 01/04/2023 10:36 PM CDT ?? Urine pH is affected by diet, medications, systemic acid-base disturbances, and renal tubular function. ??pH may affect urinary stone formation. ??For example, urine pH below 6.0 may help reduce the tendency for calcium phosphate stones and pH greater than 6.0 may reduce the tendency for uric acid stone formation. Source: [facility] [employer]. Last revised 09-01-2017 Ama Jewell MD LAB MICROBIOLOGY - GENERAL ORDERABLES Final Result Performing Organization Address [facility] Co de Phone Number [facility] DIMAS ([place]) 1 [place] [address] * Troponin T high-sensitivity series (baseline, 2hr, 4hr, 6hr) (01/04/2023 10:28 PM CDT) Trop T hs <6 <=14 ng/L [facility] ([place]) Comment: Interpretive Data For further hscTnT resources including the diagnostic algorithm and an aid in interpretation, copy and paste this link: https://nrl.testcatalog.org/show/hsTrop Current Interpretive Data last revised 2020. Blood 01/04/2023 10:2 8 PM CDT 01/04/2023 11:35 PM CDT Ama Jewell MD LAB BLOOD ORDERABLE S Final Result Performing Organization Address [facility] Co de Phone Number MARINEANTONIO CO[facility] ([place]) 1 [facility] [place] [address] * D-dimer, quantitative (01/04/2023 10:28 PM CDT) D-Dimer 216 <=499 ng/mL FEU [facility] ([place]) Comment: Interpretive data FDA approved the D-dimer, in conjunction with a low or moderate pretest probability score, to exclude venous thromboembolic events (VTE) (PE and DVT) in outpatients when the D-dimer result is < 500 ng/ml FEU. ?? Evidence supports using an age-adjusted D-dimer cut-off for outpatients older than 50 (age x 10) to improve specificity without sacrificing sensitivity. Example: age 68, VTE cut-off 680 ng/ml FEU. References; Schkeyshawn HT et al. Brit Med J. 2013;346:f2492. Yoandy BAIRES et al. Annals Int Med. 2015;163:701-11. Current interpretive data was last revised on 2019. Blood 01/04/2023 10:2 8 PM CDT 01/04/2023 10:32 PM CDT us Jerson Humphrey MD LAB BLOOD ORDERABLES Final Result [facility] ([place]) [address] [facility] Department [place] [address] * Comprehensive metabolic panel (01/04/2023 10:28 PM CDT) Sodium 139 135 - 145 mmol/L [facility] ([place]) Potassium, pl 3.5 3.3 - 4.9 mmol/L [facility] ([place]) Chloride 101 97 - 110 mmol/L [facility] ([place]) CO2 25 22 - 32 mmol/L [facility]) Anion gap 13 2 - 15 mmol/L [facility] BUN 11 8 - 25 mg/dL [facility] Creatinine 0.62 0.60 - 1.10 mg/dL [facility] ([place]) Glucose 96 70 - 199 mg/dL [facility] ([place]) Comment: Interpretive Data Fasting glucose >/= 126 [...] classification and Diagnosis of Diabetes Diabetes Care 2021; 46: S19-S40. Current interpretive data was last revised 2022. Calcium 10.0 8.5 - 10.3 mg/dL [facility] ([place]) Bilirubin, total 0.2 0.1 - 1.2 mg/dL [facility] ([place]) Protein, pl 7.7 6.5 - 8.5 g/dL [facility] ([place]) Albumin 4.5 3.5 - 5.0 g/dL [facility] ([place]) Alk phos 64 40 - 130 Units/L [facility] ([place]) ALT 16 7 - 45 Units/L [facility] ([place]) AST 19 10 - 45 Units/L [facility] ([place]) Comment:Slightly Hemolyzed S pecimen Blood 01/04/2023 10:2 8 PM CDT 01/04/2023 10:32 PM CDT us Jerson Humphrey MD LAB BLOOD ORDERABLES Final Result [facility] [address] [facility] Department [place] [address] * CBC with auto differential (01/04/2023 10:28 PM CDT) WBC 9.0 3.8 - 9.9 K/cumm [facility] ([place]) Hgb 14.0 11.9 - 15.5 g/dL [facility] ([place]) Hct 41.7 35.6 - 45.5 % [facility] ([place]) Plt 284 150 - 400 K/cumm [facility] ([place]) MPV 11.0 9.1 - 12.3 fL [facility] ([place]) RBC 5.13 3.90 - 5.20 M/cumm [facility] ([place]) MCV 81.3 81.3 - 96.4 fL [facility] ([place]) MCH 27.3 27.1 - 33.3 pg [facility] ([place]) MCHC 33.6 32.3 - 35.7 g/dL [facility] ([place]) RDW CV 12.4 11.1 - 14.9 % [facility] ([place]) RDW SD 36.9 35.7 - 48.1 fL [facility] ([place]) NRBC abs 0.00 0.00 - 0.01 K/cumm [facility] ([place]) Blood 01/04/2023 10:2 8 PM CDT 01/04/2023 10:32 PM CDT us Jerson Humphrey MD LAB BLOOD ORDERABLES Final Result [facility] ([place]) [address] [facility] Department [place] [address] * CT Head WO Contrast (01/04/2023 10:25 PM CDT) Anatomical Region Laterality Modality Head and Neck N/A Computed Tomogra phy 01/04/2023 10:5 8 PM CDT Narrative 01/04/2023 10:59 PM CDT EXAM DESCRIPTION: ?? CT HEAD WO CONTRAST REASON FOR STUDY: ?? Dizziness, non-specific, dizziness ?? Dizziness for couple days, right side head injury one month ago. Pt shielded due to age. ? TECHNIQUE: Axial images acquired through the brain without intravenous contrast. ??Images stored on PACS. ?? Automated exposure control was used as a dose optimization technique for this examination. COMPARISON: ?? None FINDINGS: BRAIN: ??No mass, hemorrhage, or recent infarct. ?? Normal white matter. ?? Volume within normal limits for age. VASCULAR: ??No dense vessel or obvious aneurysm. EXTRA-AXIAL SPACES: ??No mass or fluid collection. ORBITS/GLOBES: Unremarkable. SOFT TISSUES: ??Unremarkable. ?? BONES/SINUSES: ??No fracture or lesion. ?? Moderate mucosal thickening in the paranasal sinuses. IMPRESSION: No acute abnormality identified. ?? THIS IS AN ELECTRONICALLY VERIFIED FINAL REPORT 01/04/2023 10:59 PM - Electronically signed by ??Von Arora M.D. AR: AWA D: ??01/04/2023 10:59 PM T: ??01/04/2023 10:59 PM Report ID: [id number] Reading Location: ??[id number] Procedure Note Von Arora MD - 01/04/2023 EXAM DESCRIPTION: CT HEAD WO CONTRAST REASON FOR STUDY: Dizziness, non-specific, dizziness Dizziness for couple days, right side head injury one month ago. Ptshielded due to age. TECHNIQUE: Axial images acquired through the brain without intravenous contrast. Images stored on PACS. Automated exposure control was used asa dose optimization technique for this examination. COMPARISON: None FINDINGS: BRAIN: No mass, hemorrhage, or recent infarct. Normal white matter. Volume within normal limits for age. VASCULAR: No dense vessel or obvious aneurysm. EXTRA-AXIAL SPACES: No mass or fluid collection. ORBITS/GLOBES: Unremarkable. SOFT TISSUES: Unremarkable. BONES/SINUSES: No fracture or lesion. Moderate mucosal thickening inthe paranasal sinuses. IMPRESSION: No acute abnormality identified. THIS IS AN ELECTRONICALLY VERIFIED FINAL REPORT 01/04/2023 10:59 PM - Electronically signed by Von Arora M.D. AR: AWA Report ID: [id number] Reading Location: [place] [address] Ama Jewell MD IMG CT PROCEDURES F inal Result * ECG 12 lead (01/04/2023 10:21 PM CDT) 01/04/2023 10:2 1 PM CDT Narrative [facility] - 01/05/2023 8:32 AM CDT Vent Rate: 86 bpm RR Interval: 691 msec LA Interval: 116 msec QRS Duration: 84 msec QT Interval: 359 msec QTC Interval: 403 msec P-R-T Dermott: 30 - 75 - 43 degrees SINUS RHYTHM WITH SHORT LA INTERVAL BORDERLINE ECG Electronically Signed By: Yaron Mark MD Ama Jewell MD ECG ORDERABLES Dylan kalen Result - Final [facility] documented in this encounter Visit Diagnoses Diagnosis Dizziness- Primary Dizziness and giddiness documented in this encounter Administered Medications Inactive Administered Medications - up to 3 most recent administrations Medication Order MAR Action Action Date Dose Rate Site LORazepam (ATIVAN) injection 1 mg 1 mg, intravenous, Once, On Tue01/04/23 at 2208, For 1 dose, For IV administration, dilute with equal volume of 0.9% sodium chloride to a final concentration of 1 mg/mL. Do not exceed a rate of 2 mg/minute Given 01/04/2023 11:14 PM CDT 1 mg meclizine (ANTIVERT) tablet 50 mg 50 mg, oral, Once, On Tue01/04/23 at 2208, For 1 dose Given 01/04/2023 10:34 PM CDT 50 mg sodium chloride 0.9% bolus 1,000 mL 1,000 mL, intravenous, at 1,000 mL/hr, Administer over 1 Hours, Once, On Tue01/04/23 at 2208, For 1 dose New Bag 01/04/2023 10:34 PM CDT 1,000 mL 1000 mL/hr documented in this encounter Active and Recently Administered Medications Times are shown in CDT. Scheduled Medication Order 01/03/2023 01/04/2023 01/05/2023 LORazepam (ATIVAN) injection 1 mg (COMPLETED) 1 mg, intravenous, Once, On Tue01/04/23 at 2208, For 1 dose, For IV administration, dilute with equal volume of 0.9% sodium chloride to a final concentration of 1 mg/mL. Do not exceed a rate of 2 mg/minute 2314 (Given - Provider: Natalie Healy, DONTAE) meclizine (ANTIVERT) tablet 50 mg (COMPLETED) 50 mg, oral, Once, On Tue01/04/23 at 2208, For 1 dose 2234 (Given - Provider: Natalie Healy, DONTAE) sodium chloride 0.9% bolus 1,000 mL (COMPLETED) 1,000 mL, intravenous, at 1,000 mL/hr, Administer over 1 Hours, Once, On Tue01/04/23 at 2208, For 1 dose 2234 (New Bag - Provider: Andrew Healy RN)2356 (Stopped - Provider: Andrew Healy RN) documented in this encounter Orders Nursing Count Last Ordered Date First Orde red Date AMBULATE PATIENT 1 01/05/2023 CONTINUOUS PULSE OXIMETRY 1 01/04/2023 documented in this encounter Care Teams Oil Winterizer Relationship Specialty Start Date End Date Rose Mary Kidd MD [address] [place] [address] PCP - General 07/21/17 documented as of this encounter
--- OUTSIDE RECORDS SUMMARY | 2024-08-28 06:04 | XMS_ITS | Encounter Summary ---
Author Organization [facility] unbound [employer] of [facility] Address [address] [place] [address] Phone Care Team Providers Care Pattern Designer Name Role Phone Rose Mary Kidd MD Primary Care Provider + Reason for Referral * Diagnostic Imaging (Routine) - Closed Specialty Diagnoses / Procedures Referred By Contac t Referred To Contact Diagnoses Acute pain of left knee Procedures XR Knee Left 4 or More Views Orin Johnson NP Phone: tel: fax: [address] [phone] Referral ID Status Reason Start Date Expiration Date Visits Re quested Visits Authorized [id number] Closed 04/05/2019 10/14/2020 1 1 Reason for Visit * Reason Comments Pain Encounter Details Date Type Department Care Team (Late st Contact Info) Description 04/05/2019 10:45 AM CDT Office Visit [facility] - [facility] [place] [address] [place] [address] [place] [address] Orin Johnson NP [address] [facility] [address] [place] [address] Acute pain of left knee (Primary Dx); Patellofemoral pain syndrome of left knee Social History Tobacco Use Types Packs/Day Years Used Date Smoking Tobacco: Never Assessed Comments Unknown Sex and Gender Information Value Date Recorded Sex Assigned at Not on file 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 She is a healthy 18-year-old female about 2 weeks ago started complaining of knee pain around the knee cap. She plays cough. Said she put a lot of strain on her knee when she plays. No injury. No fever night sweats or chills. Pain is always better at rest. She denies any mechanical symptoms. PAST MEDICAL HISTORY She has no past medical history on file. PAST SURGICAL HISTORY She has no past surgical history on file. INITIAL REVIEW OF MEDICATIONS She currently has no medications in their medication list. DRUG ALLERGIES She is allergic to amoxicillin. SOCIAL HISTORY She FAMILY HISTORY Her family history is not on file. REVIEW OF SYSTEMS ROS PHYSICAL EXAM: Alert, interactive and in no apparent distress. On physical exam left knee normal in contour. No soft tissue swelling or effusion noted. She has no point tenderness she describes her pain as being mostly on the lateral medial side of the patella. Full flexion full extension. Negative Vickie negative drawer negative J sign. Mild tightness in her hamstrings. Full range of motion of the hips and ankle. Negative Galeazzi sign. negative for malalignment. Skin is intact, neurologically intact. Ambulates without limp. XRAY/STUDIES: four view left knee unremarkable DIAGNOSIS: left knee patellofemoral syndrome TREATMENT: Physical therapy 1 to 2 times a week for 4-6 weeks for core strengthening stretching and gait training. Call if any questions or concerns. Anti inflammatory medication as needed for pain. Activitiesas tolerates. She was given a patellar stabilizer to wear with sport a prolonged activities. FOLLOW UP: 4-6 weeks if persistent knee pain after physical therapy Orin Johnson RN, BCPNP Nurse Practitioner [facility] Orin Johnson RN, BCPNP in collaborative practice with Dr. Blanquita Jaimes, and designees are Dr. Lincoln Damon, Dr. Jose Roberto Mcfarland, Dr. Scottie Fernando, Dr. Vasiliy Navarro, Dr. Gris Disla, Dr. Herbert West, Dr. Jose Virk, Dr. Kumar Camacho, Dr. Gem Ruano, and Dr. Brando Patel. Orin Johnson RN, BCPNP dictating using Fluency Direct. Pest Locator variances may occur. Cosigned by Chetan Jaimes MD at 04/09/2019 7:52 AM CDT documented in this encounter Plan of Treatment Not on file documented as of this encounter Procedures Procedure Name Priority Date/Time Associated Diagnosis Comments XR KNEE LEFT 4 OR MORE VIEWS Schedule Routine, Read Routine (OP Routine) 04/05/2019 11:22 AM CDT Acute pain of left knee documented in this encounter Results * XR Knee Left 4 or More Views (04/05/2019 11:22 AM CDT) Anatomical Region Laterality Modality Lower Extremities, Knee Left Computed Radiography 04/05/2019 11:5 5 AM CDT Impressions 04/05/2019 12:33 PM CDT Normal Dictated by: Alex Houston The radiology attending physician has personally reviewed this study, and had reviewed and/or edited this written report and agrees with it. Electronically signed by: Tena King Narrative 04/05/2019 12:33 PM CDT EXAMINATION: ??XR KNEE LEFT 4 OR MORE VIEWS HISTORY: ??ap/lat/notch/sunrise L knee; L knee pain COMPARISON: ??None FINDINGS: Bones alignment and articular surfaces are normal. No sign of joint effusion. Procedure Note Tena King MD - 04/05/2019 EXAMINATION: XR KNEE LEFT 4 OR MORE VIEWS HISTORY: ap/lat/notch/sunrise L knee; L knee pain COMPARISON: None FINDINGS: Bones alignment and articular surfaces are normal. No sign of joint effusion. IMPRESSION: Normal Dictated by: lAex Houston The radiology attending physician has personally reviewed this study, and had reviewed and/or edited this written report and agrees with it. Electronically signed by: Tena King us Orin Johnson EMT I/99 IMG XR PROCEDURES Final Resu lt documented in this encounter Visit Diagnoses Diagnosis Acute pain of left knee- Primary Patellofemoral pain syndrome of left knee documented in this encounter Care Teams Pattern Designer Relationship Specialty Start Date End Date Rose Mary Kidd MD [address] [place] [address] PCP - General 07/21/17 documented as of this encounter
--- OUTSIDE RECORDS SUMMARY | 2024-08-28 06:04 | XMS_ITS | Encounter Summary ---
Author Organization [facility] Healthcare Address [address] [place] [address] Care Team Providers Care Senior Account Director Name Role Phone Unavailable Primary Care Provider Unavailabl e Encounter Details Date Type Department Care Team (Late st Contact Info) Description 01/03/2011 11:52 AM CDT - 01/03/2011 12:57 PM CDT Hospital Encounter [facility] Jerson Humphrey MD [address] [place] [address] Bronchitis; Allergic rhinitis; Otitis media Social History Tobacco Use Types Packs/Day Years Used Date Smoking Tobacco: Never Assessed Comments Unknown Sex and Gender Information Value Date Recorded Sex Assigned at Not on file 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
--- OUTSIDE RECORDS SUMMARY | 2024-08-28 06:04 | XMS_ITS | Encounter Summary ---
Author Organization [facility] Healthcare Address [address] [place] [address] Care Team Providers Care School Bus Driver/Custodian Name Role Phone Rose Mary Kidd MD Primary Care Provider + Encounter Details Date Type Department Care Team (Late st Contact Info) Description 03/20/2024 Telephone [facility] Orthopedics and Sports Medicine at [address] [address] Donald Mendoza Jr., MD [address] [place] [id number] Social History Tobacco Use Types Packs/Day [...] feel afraid or unsafe? 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 Gender Identity Not on file Sexual Orientation Not on file documented as of this encounter Miscellaneous Notes * Telephone Encounter - Cyn Shaw - 03/20/2024 2:19 PM CDT Patient [place] Tyl[place] [facility] this [facility] Plan of Treatment Not on file documented as of this encounter Visit Diagnoses Not on filedocumented in this encounter Care Teams School Bus Driver/Custodian Relationship Specialty Start Date End Date Rose Mary Kidd MD [address] [place] [address] PCP - General 07/21/17 documented as of this encounter
--- OUTSIDE RECORDS SUMMARY | 2024-08-28 06:04 | XMS_ITS | Encounter Summary ---
Author Organization [facility] Facility Care Team Providers Care Mortician Supplies Sales Representative Name Role Phone Unavailable Primary Care Provider Unavailabl e Encounter Details Date Type Department Care Team (Latest Contact Info) Description 05/17/2014 10:54 AM CDT - 05/17/2014 11:59 PM CDT Hospital Encounter [facility] Aftercare for healing traumatic fracture of lower leg Social History Tobacco Use Types Packs/Day Years Used Date Smoking Tobacco: Never Assessed Comments Unknown Sex and Gender Information Value Date Recorded Sex Assigned at Not on file 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 JAUN VELASCO M.D. FINAL REPORT The radiology attending physician has personally reviewed this study, and has reviewed and/or edited this written report and agrees with it. ACC# ??Date Time ??Exam [id number] May 17, 2014 10:44:00 [id number] ANKLE 3 VIEWS UNILATERAL L ACC# ??Date Time ??Exam [id number] May 17, 2014 10:44:00 [id number] ANKLE 3 VIEWS UNILATERAL L EXAMINATION: ?? Left ankle 3 views HISTORY: Distal tibial Salter-Maradiaga II fracture ?? IMPRESSION: ?? Two-view examination of the left ankle is submitted with comparison dated 04/11/2014. There is a healing, nondisplaced Salter-Maradiaga II fracture of the left distal tibia. 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 Soft tissue swelling is slightly improved. No new fractures identified. ?? Requested By: ENRIQUETA MONREAL Dictated By: ?? JAUN VELASCO M.D. ??on May 17 2014 12:00P This document has been electronically signed by: GLORY STAPLES M.D. on May 17 2014 12:34P Procedure Note Provider, Licha, - 12/22/2016 GLORY STAPLES M.D. JAUN VELASCO M.D. FINAL REPORT The radiology attending physician has personally reviewed this study, and has reviewed and/or edited this written report and agrees with it. ACC# Date Time Exam [id number] May 17, 2014 10:44:00 [id number] ANKLE 3 VIEWS UNILATERAL L ACC# Date Time Exam [id number] May 17, 2014 10:44:00 [id number] ANKLE 3 VIEWS UNILATERAL L EXAMINATION: Left ankle 3 views HISTORY: Distal tibial Salter-Maradiaga II fracture IMPRESSION: Two-view examination of the left ankle is submitted with comparison dated 04/11/2014. There is a healing, nondisplaced Salter-Maradiaga II fracture of the left distal tibia. 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 Soft tissue swelling is slightly improved. No new fractures identified. Requested By: ENRIQUETA MONREAL Dictated By: JAUN VELASCO M.D. on May 17 2014 12:00P This document has been electronically signed by: GLORY STAPLES M.D. on May 17 2014 12:34P Historical Provider IMG XR PROCEDURES Final R esult documented in this encounter Visit Diagnoses Diagnosis Aftercare for healing traumatic fracture of lower leg documented in this encounter
--- OUTSIDE RECORDS SUMMARY | 2024-08-28 06:04 | XMS_ITS | Encounter Summary ---
Author Organization [facility] Facility Care Team Providers Care Meteorological Aide Name Role Phone Unavailable Primary Care Provider Unavailabl e Encounter Details Date Type Department Care Team (Latest Contact Info) Description 04/11/2014 11:04 AM CDT - 04/11/2014 11:59 PM CDT Hospital Encounter [facility] Aftercare for healing traumatic fracture of lower leg Social History Tobacco Use Types Packs/Day Years Used Date Smoking Tobacco: Never Assessed Comments Unknown Sex and Gender Information Value Date Recorded Sex Assigned at Not on file 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 ROME CHU M.D. FINAL REPORT The radiology attending physician has personally reviewed this study, and has reviewed and/or edited this written report and agrees with it. ACC# ??Date Time ??Exam [id number] Apr 11, 2014 10:59:00 [id number] ANKLE 3 VIEWS UNILATERAL L EXAMINATION: ?Left ankle 3 views unilateral HISTORY: ??Distal tibial Salter II fracture FINDINGS: ?? Three views of the left ankle are compared to prior examination dated 03/21/2014. There is a healing, nondisplaced Salter-Maradiaga II fracture of the left distal tibia. Disuse osteopenia is present. Soft tissue swelling has decreased. ?? IMPRESSION: Healing, nondisplaced Salter-Maradiaga II fracture of the left distal tibia. Requested By: ENRIQUETA MONREAL Dictated By: ?? ROME CHU M.D. ??on Apr 11 2014 11:27A This document has been electronically signed by: KATHIA VIRK M.D. on Apr 11 2014 12:16P Procedure Note Provider, MD Licha - 12/22/2016 Octavia SWIFT M.D. FINAL REPORT The radiology attending physician has personally reviewed this study, and has reviewed and/or edited this written report and agrees with it. ACC# Date Time Exam [id number] Apr 11, 2014 10:59:00 [id number] ANKLE 3 VIEWS UNILATERAL L EXAMINATION: Left ankle 3 views unilateral HISTORY: Distal tibial Salter II fracture FINDINGS: Three views of the left ankle are compared to prior examination dated 03/21/2014. There is a healing, nondisplaced Salter-Maradiaga II fracture of the left distal tibia. Disuse osteopenia is present. Soft tissue swelling has decreased. IMPRESSION: Healing, nondisplaced Salter-Maradiaga II fracture of the left distal tibia. Requested By: ENRIQUETA MONREAL Dictated By: ROME CHU M.D. on Apr 11 2014 11:27A This document has been electronically signed by: KATHIA VIRK M.D. on Apr 11 2014 12:16P Historical Provider IMG XR PROCEDURES Final R esult documented in this encounter Visit Diagnoses Diagnosis Aftercare for healing traumatic fracture of lower leg documented in this encounter
--- OUTSIDE RECORDS SUMMARY | 2024-08-28 06:04 | XMS_ITS | Encounter Summary ---
Author Organization [facility] Healthcare Address [address] [place] [address] Care Team Providers Care Core Shaper Sides Name Role Phone Rose Mary Kidd MD Primary Care Provider + Reason for Visit * Auth/Cert (Routine) Specialty Diagnoses / Procedures Referred By Contac t Referred To Contact Diagnoses Closed nondisplaced fracture of medial malleolus of left tibia, initial encounter Closed nondisplaced fracture of medial malleolus of left tibia, initial encounter [S82.55XA] Procedures ND OPEN TREATMENT MEDIAL MALLEOLUS FRACTURE ORIF LEFT MEDIAL MALLEOLUS/60 min Referral ID Status Reason Start Date Expiration Date Visits Re quested Visits Authorized [id number] 1 1 Encounter Details Date Type Department Care Team (Latest Contact Info) Description 03/23/2024 8:58 AM CDT - 03/23/2024 2:47 PM CDT Hospital Encounter [facility] Operating Room [address] [place] [address] [place] [id number] [address] Closed displaced fracture of medial malleolus of left tibia, initial encounter (Primary Dx) Discharge Disposition: Discharge to home [...] on file 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 * Hydrocodone/Acetaminophen (By mouth) (Nicaraguan) * Care After General Anesthesia (General Information) (Nicaraguan) documented in this encounter Medications at Time [...] ankle. She was enjoying her vacation in [place] and was just walking in her hotel room and twisted her left ankle on 03/16/2024. She went to the [facility] on 03/17/2024. She had pain and tenderness in the ankle and she was diagnosed with a medial malleolus fracture and placed into a splint ER notes were reviewed. She was placed into a walker boot and has been nonweightbearing. She was in the office with her mother a friend. She is a student but also [place] [facility] [place] [facility]. Pain Assessment Pain Assessment: 0-10 Pain Score: [...] in her hotel room on 03/16/2024 in [place]. It to be surgically fixed and stabilized. She was seen in [place] and placed into a splint. She only has tenderness of the medial malleolus. It is a fracture below the level of the plafond but it is displaced. 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 PLAN She will be scheduled for open [...] MD - Primary RAYMOND Lai - 1st coding assistant Preoperative Diagnosis: Pre-op Diagnosis * Closed [...] Arthrex cannulated screw was placed with anatomic quaker of the medial malleolar fragment with excellent [...] that you and your doctor have chosen [facility] for your surgery. We hope that the following information will help make your visit a pleasant one. Surgery Date: 03/23/2024 Arrive at 10 AM. [facility] (look for sign reading ???EMERGENCY - SURGERY CENTER?? ) [address] [place] [address] Directions: [address] driving down [facility] [address] [address] towards [facility], look for the sign that says [...] is not recommended by your physician). Fish Oil/Arion 3, Co Q 10, Cod Liver Oil, [...] insurance cards, and medication list (including all sjiq-clk-seqjsyl medications) with you. Prescriptions can be filled [...] the physician's procedure / OR operative note. us Donald Mendoza Jr., MD IMG FLUOROSCOPY PRO [...] COMPARISON: None. Procedure Note Jerson Monroe II, - 03/23/2024 EXAMINATION: XR ANKLE LEFT 2 [...] 10:12 AM CDT 30 mL/hr 30 mL/hr documented in this encounter Discontinued Medications Medication [...] Nely Page CRNA)1142 (Paused - Provider: Nely Page CRNA - Comment: Switch to gravity)1143 (New Bag [...] er: Raisa Us RN)1220 (Given - Provider: Raisa Us RN)1233 (Given - Provider: Raisa Us [...] chloride 0.9% flush 0.5-20 mL 2 09/2023 sodium chloride 0.9% irrigation 1 Diet Count Last Ordered Date First Orde [...] 03/23/2024 documented in this encounter Care Teams Core Shaper Sides Relationship Specialty Start Date End Date Rose Mary Kidd MD [address] [place] [address] PCP - General 07/21/17 documented as of this encounter
--- OUTSIDE RECORDS SUMMARY | 2024-08-28 06:04 | XMS_ITS | Encounter Summary ---
Author Organization [facility] Healthcare Address [address] [place] [address] Care Team Providers Care Sample Collector Name Role Phone Unavailable Primary Care Provider Unavailabl e Encounter Details Date Type Department Care Team (Late st Contact Info) Description 02/22/2014 8:46 PM CDT - 02/22/2014 10:57 PM CDT Hospital Encounter [facility] Jose Estrada MD [address] [place] [address] Closed fracture of ankle; Fall; Place of occurrence, place for recreation and sport; Physical games played by children at recess or summer camp Social History Tobacco Use Types Packs/Day Years Used Date Smoking Tobacco: Never Assessed Comments Unknown Sex and Gender Information Value Date Recorded Sex Assigned at Not on file 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 Gender Identity Not on file Sexual Orientation Not on file documented as of this encounter Plan of Treatment Not on file documented as of this encounter Procedures Procedure Name Priority Date/Time Associated Diagnosis Comments XR ANKLE 3+ VW Routine 02/22/2014 9:37 PM CDT documented in this encounter Results * XR Ankle 3+ Vw (02/22/2014 9:37 PM CDT) Anatomical Region Laterality Modality N/A Radiographic Jess ging 02/22/2014 9:37 PM CDT Narrative 02/24/2014 11:47 AM CDT XR ANKLE MIN 3 VIEWS L 52180 ??Acc#: ??[id number] DATE OF EXAM: ??Feb ??2013 CLINICAL HISTORY: Twisting injury, left ankle pain. RESULT: Three views were obtained. ??An acute fracture of the distal tibia is seen involving the physeal plate, with minimal displacement noted on the lateral projection. ??Some widening of the physeal plate of the distal tibia on the AP and oblique views. ??Soft tissue swelling at the ankle. Ankle mortise is maintained. IMPRESSION: FRACTURE DISTAL TIBIA INVOLVING THE PHYSEAL PLATE, WITH MINIMAL DISPLACEMENT. Discussed with Dr. Fowler 02/23/2014 at 10:45 a.m. Interpreting Physician: ??J LUIS GRACE M.D. ??Read on: ??Feb ??2013 ??9:07A Transcribed by: ??VLR ??On: Feb?2013 12:13P Approved Electronically by: ??J LUIS GRACE M.D. ??on: ??[place] ??2013 11:47A Ordering DR: ??Breanna Attending DR: DR JOSE GONZALEZ Procedure Note Provider, Licha, - 12/22/2016 XR ANKLE MIN 3 VIEWS L [address]5316 Acc#: [id number] DATE OF EXAM: Feb 22 2014 CLINICAL HISTORY: Twisting injury, left ankle pain. RESULT: Three views were obtained. An acute fracture of the distal tibia is seeninvolving the physeal plate, with minimal displacement noted on thelateral projection. Some widening of the physeal plate of the distaltibia on the AP and oblique views. Soft tissue swelling at the ankle.Ankle mortise is maintained. IMPRESSION: FRACTURE DISTAL TIBIA INVOLVING THE PHYSEAL PLATE, WITH MINIMALDISPLACEMENT. Discussed with Dr. Fowler 02/23/2014 at 10:45 a.m. Interpreting Physician: J LUIS GRACE M.D. Read on: Feb 23 2014 9:07A Transcribed by: VLR On: Feb 23 2014 12:13P Approved Electronically by: J LUIS GRACE M.D. on: Feb 24 2014 11:47A Ordering : Breanna Attending DR: DR JOSE GONZALEZ Historical Provider MD CARTER XR PROCEDURES Final R esult documented in this encounter Visit Diagnoses Diagnosis Closed fracture of ankle Unspecified closed fracture of ankle Fall Unspecified fall Place of occurrence, place for recreation and sport Physical games played by children at recess or summer camp Activities involving physical games generally associated with school recess, summer camp and children documented in this encounter
--- OUTSIDE RECORDS SUMMARY | 2024-08-28 06:04 | XMS_ITS | Encounter Summary ---
Author Organization [facility] Healthcare Address [address] [place] [address] Care Team Providers Care Screen Examiner Name Role Phone Rose Mary Kidd MD Primary Care Provider + Reason for Visit * Diagnostic Imaging (Routine) - Closed Specialty Diagnoses / Procedures Referred By Contac t Referred To Contact Diagnoses Acute pain of left knee Procedures XR Knee Left 4 or More Views Orin Johnson NP Phone: tel: fax: [address] [address] Referral ID Status Reason Start Date Expiration Date Visits Re quested Visits Authorized [id number] Closed 04/05/2019 10/14/2020 1 1 Encounter Details Date Type Department Care Team (Late st Contact Info) Description 04/05/2019 11:00 AM CDT - 04/05/2019 11:59 PM CDT Hospital Encounter [facility] [place] [id number] Chetan Jaimes MD [address] [address] Orin Johnson NP [address] [address] Discharge Disposition: Discharge to home or self care Social History Tobacco Use Types Packs/Day Years Used Date Smoking Tobacco: Never Assessed Comments Unknown Sex and Gender Information Value Date Recorded Sex Assigned at Not on file 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 IMPRESSION: Normal Dictated by: Alex Houston The radiology attending physician has personally reviewed this study, and had reviewed and/or edited this written report and agrees with it. Electronically signed by: Tena King us Orin Johnson NP IMG XR PROCEDURES Final Resu lt documented in this encounter Visit Diagnoses Not on filedocumented in this encounter Care Teams Screen Examiner Relationship Specialty Start Date End Date Rose Mary Kidd MD [address] [place] [address] PCP - General 07/21/17 documented as of this encounter
--- OUTSIDE RECORDS SUMMARY | 2024-08-28 06:04 | XMS_ITS | Encounter Summary ---
Author Organization [facility] Facility Care Team Providers Care Rehabilitation Teacher Name Role Phone Unavailable Primary Care Provider Unavailabl e Encounter Details Date Type Department Care Team (Latest Contact Info) Description 06/14/2014 11:18 AM CDT - 06/14/2014 11:59 PM CDT Hospital Encounter [facility] Aftercare for healing traumatic fracture of lower leg Social History Tobacco Use Types Packs/Day Years Used Date Smoking Tobacco: Never Assessed Comments Unknown Sex and Gender Information Value Date Recorded Sex Assigned at Not on file 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 FINAL REPORT ACC# ??Date Time ??Exam [id number] Jun 14, 2014 11:02:00 [id number] ANKLE 3 VIEWS UNILATERAL L EXAMINATION: ?LEFT ANKLE ?06-14-2014 HISTORY: ??Distal tibial Salter II fracture, followup FINDINGS: ??Frontal and lateral films of the ankle an oblique film obtained standing are read compared to prior similar films 05-17-2014 compare with those films there is more solid healing with lateral periosteal reaction along the distal tibial metaphysis is evidence of healing. The alignment remains nearly anatomic. Osteopenia in the foot and ankle is present from disuse.. IMPRESSION: ?Solidly healed nondisplaced Salter II fracture distal tibia Requested By: ENRIQUETA MONREAL Dictated By: ?? LAYNE ALCAZAR M.D. ??on Jun 14 2014 11:05A This document has been electronically signed by: LAYNE ALCAZAR M.D. on Jun 14 2014 11:05A Procedure Note Provider, Licha, - 12/22/2016 LAYNE ALCAZAR M.D. FINAL REPORT ACC# Date Time Exam [id number] Jun 14, 2014 11:02:00 [id number] ANKLE 3 VIEWS UNILATERAL L EXAMINATION: LEFT ANKLE 06-14-2014 HISTORY: Distal tibial Salter II fracture, followup FINDINGS: Frontal and lateral films of the ankle an oblique film obtained standing are read compared to prior similar films 05-17-2014 compare with those films there is more solid healing with lateral periosteal reaction along the distal tibial metaphysis is evidence of healing. The alignment remains nearly anatomic. Osteopenia in the foot and ankle is present from disuse.. IMPRESSION: Solidly healed nondisplaced Salter II fracture distaltibia Requested By: ENRIQUETA MONREAL Dictated By: LAYNE ALCAZAR M.D. on Jun 14 2014 11:05A This document has been electronically signed by: LAYNE ALCAZAR M.D. on Jun 14 2014 11:05A us Historical Provider IMG XR PROCEDURES Final R esult documented in this encounter Visit Diagnoses Diagnosis Aftercare for healing traumatic fracture of lower leg documented in this encounter
--- OUTSIDE RECORDS SUMMARY | 2024-08-28 06:04 | XMS_ITS | Encounter Summary ---
Author Organization [facility] Healthcare Address [address] [place] [address] Care Team Providers Care Hands And Dial Inspector Name Role Phone Unavailable Primary Care Provider Unavailabl e Encounter Details Date Type Department Care Team (Late st Contact Info) Description 08/04/2010 5:59 PM TISSUE RECOVERY TECHNICIAN - 08/04/2010 7:40 PM TISSUE RECOVERY TECHNICIAN Hospital Encounter [facility] Angela Jackson MD [address] [place] [address] Acute pharyngitis; Fever due to unspecified condition Social History Tobacco Use Types Packs/Day Years Used Date Smoking Tobacco: Never Assessed Comments Unknown Sex and Gender Information Value Date Recorded Sex Assigned at Not on file 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
--- OUTSIDE RECORDS SUMMARY | 2024-08-28 06:04 | XMS_ITS | Encounter Summary ---
Author Organization [facility] Address [address] [place] [address] Phone Care Team Providers Care Manager Payer Name Role Phone Rose Mary Kidd MD Primary Care Provider + Reason for Visit * Reason Comments Rash Generalized rash: fa ce, neck, and has now spread to entire body. Benadryl taken at 10Am today and has been taking it twice a day for 4 days, calamine lotion, lotramin lotion, hydrocortisone ointment, benadryl ointment. Nothing seems to be helping. Little sister has two of the same spots as this patient. 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 Gender Identity Not on file Sexual Orientation Not on file documented as of this encounter Last Filed Vital Signs Vital Sign Reading Time Taken Comments Blood Pressure 139/89 03/22/2022 10:07 PM CDT Pulse 88 03/22/2022 10:07 PM CDT Temperature 37 ??C (98.6 ??F) 03/22/2022 10:07 PM CDT Respiratory Rate 16 03/22/2022 10:07 PM CDT Oxygen Saturation 97% 03/22/2022 10:07 PM CDT Inhaled Oxygen Concentration - - Weight 104.3 kg (229 lb 15 oz) 03/22/2022 10:07 PM CDT Height - - Body Mass Index - - documented in this encounter Patient Instructions * Patient Instructions* Mary Viera NP - 03/22/2022 10:00 PM CDT Ringworm: Apply antifungal (over the counter Clotrimazole) twice a day, applying beyond the borders until area is gone. Once area is gone continue to apply for an additional week. May take up to 4 weeks to completely resolve. Follow up with your PCP if no change after 2 weeks on treatment, or if area becomes red, warm, tender, swollen or develops a fever 100.4 or higher. documented in this encounter Ordered Prescriptions Prescription Sig Dispense Quantity Refills Last Filled Start Date End Date clotrimazole 1 % creamIndications:T inea corporis Apply topically 2 (two) times a day for 14 days 28 g 1 03/22/2022 2 documented in this encounter Progress Notes * Yumiko Woods RN - 03/22/2022 10:00 PM CDT I have reviewed the Alger - Suicide Severity Rating Scale with Rosmery Wynne. The provider was made aware. See media component in Snipd for tool. * Maximiliano Mary Bia, ECONOMIC MANAGER - 03/22/2022 10:00 PM CDT Images from the original note were not included. Subjective HPI: Rosmery Wynne is a 21 y.o. female who presents with parent for evaluation of Chief Complaint Patient presents with ??? Rash Generalized rash: face, neck, and has now spread to entire body. Benadryl taken at 10Am today and has been taking it twice a day for 4 days, calamine lotion, lotramin lotion, hydrocortisone ointment, benadryl ointment. Nothing seems to be helping. Little sister has two of the same spots as this patient. Itch, stings to touch, hurts to wear clothes, moisture makes them burn , No COVID or Monkeypox contacts she is aware of Rosmery Wynne is a 21 y.o. female who presents with parent for evaluation of rash. Pt states rash started about 4 days ago. C/o itching to spots. Spots burn if she scratches them. Pt denies any fever or any other symptoms. Eating/drinking as usual. UOP normal. Pt denies any urinary symptoms. No N/V/D. Pt has tried multiple OTC treatments without any improvement. Sister has similar spots. Pt has concerns for monkeypox. States she was reading on the [employer] website and feels that this is what she has. PMH-none PSH-T&A, bilateral ear tubes Allergies to medications-Amoxicillin Vaccines up to date-yes Antibiotics in the past month-none Exposures to COVID-19/daycare/school-none History: Past Medical History: Diagnosis Date ??? Asthma Past Surgical History: Procedure Laterality Date ??? SKIN TAG REMOVAL ??? TONSILECTOMY, ADENOIDECTOMY, BILATERAL MYRINGOTOMY AND TUBES Patient Active Problem List Diagnosis ??? Patellofemoral pain syndrome of left knee ??? Acute pain of left knee Allergies Allergen Reactions ??? Amoxicillin Unknown Social History Tobacco Use ??? Smoking status: Never Smoker ??? Smokeless tobacco: Never Used Substance and Sexual Activity ??? Drug use: Never ??? Sexual activity: Yes Partners: Male control/protection: Condom Male Alcohol Use: Not At Risk ??? Frequency of Alcohol Consumption: Never ??? Average Number of Drinks: Not on file ??? Frequency of Binge Drinking: Not on file Immunizations are up to date. Review of Systems: Review of Systems Constitutional: Negative. Negative for chills and fever. HENT: Negative. Negative for congestion and sore throat. Eyes: Negative. Respiratory: Negative. Negative for cough. Cardiovascular: Negative. Gastrointestinal: Negative. Negative for diarrhea, nausea and vomiting. Genitourinary: Negative. Dark colored urine, odor Musculoskeletal: Negative. Skin: Positive for itching and rash. Neurological: Negative. Psychiatric/Behavioral: Negative. Negative for suicidal ideas. Objective Vitals: 03/22/22 2207 BP: 139/89 Pulse: 88 Resp: 16 Temp: 37 ??C (98.6 ??F) SpO2: 97% Weight: 104.3 kg (229 lb 15 oz) There were no vitals filed for this visit. Physical Exam: Constitutional: Non-toxic appearance, no distress. Active, social, well- developed and well-nourished. HENT: Head: Normocephalic, atraumatic EAR: normal Left TM and external ear canal and normal Right TM and external ear canal Nose: clear, no discharge, no nasal flaring Mouth/Throat: Moist mucous membranes, tonsils 2+, non-erythematous. Eyes: Visual tracking is normal. PERRLA. Bilateral conjunctivae, EOM and lids are normal and without discharge. Neck: Full range of motion, no tenderness or rigidity. Cardiovascular: Normal rate, regular rhythm, S1 normal and S2 normal. no murmur Pulmonary/Chest: No wheezing / rales / rhonchi. Breath sounds, air entry and effort is normal and without distress. Abdominal: Soft and flat. Bowel sounds x4 quad without tenderness. Musculoskeletal: Moves all extremities well and without limp. Lymphadenopathy: No adenopathy noted. Neurological: Alert with normal strength and tone. Skin: Skin is warm and dry. Capillary refill takes less than 2 seconds. Pt has scattered lesions onbody. One spot on right calf, one spot on chest, one spot on back, one spot on lower abdomen, two spots on right arm, and one spot on left thigh. Lesions are erythematous plaques with raised borders and central clearing. No vesicles or pustules noted. No drainage. See pics below. Vitals reviewed. Alger suicide scale reviewed, patient is Low risk for suicide. Lab/Radiology/Diagnostic Review: No orders of the defined types were placed in this encounter. Assessment/Plan: Rosmery Wynne is a 21 y.o. female who presents with parent for evaluation of rash. Pt states rash started about 4 days ago. C/o itching to spots. Spots burn if she scratches them. Pt denies any fever or any other symptoms. Eating/drinking as usual. UOP normal. Pt denies any urinary symptoms. No N/V/D. Pt has tried multiple OTC treatments without any improvement. Sister has similar spots. Pt has concerns for monkeypox. States she was reading on the [employer] website and feels that this is what she has. Physical exam findings consistent with tinea corporis. Pt has no fever. No vesicles or pustules noted. No systemic symptoms. No lymphadenopathy. Plan to treat with Clotrimazole. Continue supportive care. AVS discussed and given to patient. Discussed reasons to seek emergent care. Patient verbalized understanding and agrees with plan. 1. Tinea corporis - clotrimazole 1 % cream; Apply topically 2 (two) times a day for 14 days Dispense: 28 g; Refill: 1 Outpatient Encounter Medications as of 03/22/2022 Medication Sig Dispense Refill ??? clotrimazole 1 % cream Apply topically 2 (two) times a day for 14 days 28 g 1 ??? ibuprofen (ADVIL,MOTRIN) 200 mg tab/cap Take by mouth every 6 (six) hours as needed for pain (Patient not taking: Reported on 03/22/2022) No facility-administered encounter medications on file as of 03/22/2022. REFERRAL / TRANSFER: none Pt is medically stable for discharge at this time. Child has a nontoxic appearance, is well hydrated and in no acute distress. I have given parents instructions regarding the diagnosis, expectations, follow up, and return precautions. I explained to the family that emergent conditions may arise and to go to the ER for new, worsening, or any persistent conditions. I've explained the importance of following up with DidRose Mary reyna MD as instructed. Parent is comfortable with plan of care. Verbalized understanding of discharge education and return precautions. All questions answered to their satisfaction. Reviewed return precautions with parent who verbalized understanding of the plan of care / return precautions, questions answered. Mary Viera NP documented in this encounter Plan of Treatment Not on file documented as of this encounter Visit Diagnoses Diagnosis Tinea corporis- Primary Dermatophytosis of the body documented in this encounter Care Teams Manager Payer Relationship Specialty Start Date End Date Rose Mary Kidd MD [address] [place] [address] PCP - General 07/21/17 documented as of this encounter
--- OUTSIDE RECORDS SUMMARY | 2024-08-28 06:04 | XMS_ITS | Encounter Summary ---
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 us Provider Transcribed Order IMG XR PROCEDURES Fin al Result [facility] documented in this encounter Visit Diagnoses Not on filedocumented in this encounter Care Teams Appeals Court Associate Justice Relationship Specialty Start Date End Date Rose Mary Kidd MD [address] [place] [address] PCP - General 07/21/17 documented as of this encounter
--- OUTSIDE RECORDS SUMMARY | 2024-08-28 06:04 | XMS_ITS | Encounter Summary ---
Author Organization [facility] Facility Care Team Providers Care Diesel Service Journeyman Name Role Phone Unavailable Primary Care Provider Unavailabl e Encounter Details Date Type Department Care Team (Latest Contact Info) Description 03/21/2014 11:47 AM CDT - 03/21/2014 11:59 PM CDT Hospital Encounter [facility] Aftercare for healing traumatic fracture of lower leg Social History Tobacco Use Types Packs/Day Years Used Date Smoking Tobacco: Never Assessed Comments Unknown Sex and Gender Information Value Date Recorded Sex Assigned at Not on file 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 CIARA VALENTINO M.D. FINAL REPORT The radiology attending physician has personally reviewed this study, and has reviewed and/or edited this written report and agrees with it. ACC# ??Date Time ??Exam [id number] Mar 21, 2014 11:45:00 [id number] ANKLE 2 VIEWS UNILATERAL L EXAMINATION: ?? LEFT ANKLE ??03-21-2014 HISTORY: ?F/u distal tibial Salter II fracture FINDINGS: ??Nonweightbearing AP and lateral view examination is compared to previous study from 03/07/2014. Previous casting material has been removed. There is a healing Salter-Maradiaga II fracture off the distal left tibia in near-anatomic alignment. There is mild widening of the syndesmosis, unchanged. Joint spaces are normal. ?? IMPRESSION: ??Healing Salter-Maradiaga II fracture distal tibia, ??in nearly anatomic alignment. ?? Requested By: ENRIQUETA MONREAL Dictated By: ?? CIARA VALENTINO M.D. ??on Mar 21 2014 ??1:33P This document has been electronically signed by: LAYNE ALCAZAR M.D. on Mar 21 2014 ??4:11P Procedure Note Provider, MD Licha - 12/22/2016 LAYNE ALCAZAR M.D. CIARA VALENTINO M.D. FINAL REPORT The radiology attending physician has personally reviewed this study, and has reviewed and/or edited this written report and agrees with it. ACC# Date Time Exam [id number] Mar 21, 2014 11:45:00 [id number] ANKLE 2 VIEWS UNILATERAL L EXAMINATION: LEFT ANKLE 03-21-2014 HISTORY: F/u distal tibial Salter II fracture FINDINGS: Nonweightbearing AP and lateral view examination is compared to previous study from 03/07/2014. Previous casting material has been removed. There is a healing Salter-Maradiaga II fracture off the distal left tibia in near-anatomic alignment. There is mild widening of the syndesmosis, unchanged. Joint spaces are normal. IMPRESSION: Healing Salter-Maradiaga II fracture distal tibia, in nearly anatomic alignment. Requested By: ENRIQUETA MONREAL Dictated By: CIARA VALENTINO M.D. on Mar 21 2014 1:33P This document has been electronically signed by: LAYNE ALCAZAR M.D. on Mar 21 2014 4:11P Historical Provider MD CARTER XR PROCEDURES Final R esult documented in this encounter Visit Diagnoses Diagnosis Aftercare for healing traumatic fracture of lower leg documented in this encounter
--- OUTSIDE RECORDS SUMMARY | 2024-08-28 06:04 | XMS_ITS | Encounter Summary ---
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 She was enjoying her vacation in [place] and was just walking in her hotel room and twisted her left ankle on 03/16/2024. [facility]. She had pain and tenderness in the ankle and she was diagnosed with a medial malleolus fracture and placed into a splint ER notes were reviewed. She was placed into a walker boot and has been nonweightbearing. She was in the office with her mother a friend. 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 Pain Assessment Pain Assessment: 0-10 Pain Score: [...] in her hotel room on 03/16/2024 in [place]. It to be surgically fixed and stabilized. She was seen in [place] and placed into a splint. She only has tenderness of the medial malleolus. It is a fracture below the level of the plafond but it is displaced. 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 PLAN She will be scheduled for open [...] Mendoza Jr., MD documented in this encounter Plan of Treatment Not on file documented as of this encounter Visit Diagnoses Diagnosis Closed displaced fracture of medial malleolus of left tibia, initial encounter- Primary documented in this encounter Historical Medications * This list may reflect changes made after this encounter. acetaminophen-co deine (TYLENOL with CODEINE #3) 300-30 mg per tablet Take 1-2 tablets by mouth every 6 (six) hours as needed 03/17/2024 4 Haloette 0.12-0.015 mg/24 hr vaginal ring INSERT 1 RING VAGINALLY EVERY MONTH 01/24/2024 4 added in this encounter Care Teams Die Attacher Relationship Specialty Start Date End Date Rose Mary Kidd MD [address] [place] [address] PCP - General 07/21/17 documented as of this encounter
--- OUTSIDE RECORDS SUMMARY | 2024-08-28 06:05 | XMS_ITS | Encounter Summary ---
Author Organization [facility] Healthcare Address [address] [place] [address] Care Team Providers Care City Manager Name Role Phone Unavailable Primary Care Provider Unavailabl e Encounter Details Date Type Department Care Team (Late st Contact Info) Description 08/24/2008 7:29 PM GUARD MANAGER - 08/24/2008 8:20 PM GUARD MANAGER Hospital Encounter [facility] Jerson Humphrey MD [address] [facility] [address] [place] [address] Erythema due to burn (first degree) of hand; Moran involving less than 10% of body surface; Accident caused by other hot substance or object; Place of occurrence, home Social History Tobacco Use Types Packs/Day Years Used Date Smoking Tobacco: Never Assessed Comments Unknown Sex and Gender Information Value Date Recorded Sex Assigned at Not on file Legal Sex Female 6:03 AM GUARD MANAGER Gender Identity Not on file Sexual Orientation Not on file documented as of this encounter Plan of Treatment Not on file documented as of this encounter Visit Diagnoses Diagnosis Erythema due to burn (first degree) of hand Erythema due to burn (first degree) of unspecified site of hand Moran involving less than 10% of body surface Accident caused by other hot substance or object Place of occurrence, home documented in this encounter
--- OUTSIDE RECORDS SUMMARY | 2024-08-28 06:05 | XMS_ITS | Encounter Summary ---
Author Organization [facility] Healthcare Address [address] [place] [address] Care Team Providers Care Fire Hazard Inspector Name Role Phone Unavailable Primary Care Provider Unavailabl e Encounter Details Date Type Department Care Team (Late st Contact Info) Description 02/21/2008 11:00 PM CDT - 02/21/2008 11:45 PM CDT Hospital Encounter [facility] Luis A Estrada MD [address] [place] [address] Social History Tobacco Use Types Packs/Day Years Used Date Smoking Tobacco: Never Assessed Comments Unknown Sex and Gender Information Value Date Recorded Sex Assigned at Not on file Legal Sex Female 6:03 AM SET RIDER Gender Identity Not on file Sexual Orientation Not on file documented as of this encounter Plan of Treatment Not on file documented as of this encounter Visit Diagnoses Not on filedocumented in this encounter
--- OUTSIDE RECORDS SUMMARY | 2024-08-28 06:26 | XMS_ITS ---
Care Plan - [facility] Created on: August 28, 2024 ELIAS VILLATORO : 2000 Sex: Female Author Organization [facility] Address [address] [place] [address] Phone Care Team Providers Care Client Service Manager Name Role Phone SURESH VILLALPANDO MD Unavailable [phone]
--- OUTSIDE RECORDS SUMMARY | 2024-08-28 06:26 | XMS_ITS ---
Author Organization [facility] Address [address] [place] [address] Phone Care Team Providers Care [employer] Professional Name Role Phone KWASI FOUNTAIN, SURESH Unavailable [phone] Plan of Treatment No Plan of Treatment Recorded Assessments Includes: Assessments for all patient encounters Findings Encounter Date Contact with and (Suspected) exposure to COVID-19 COVID SICK VISIT- NEW PATIENT with CLYDE THOMAS HARP MAKER-C 08/09/2021 Last Documented On 1 5:58PM ; [facility] Medical Equipment - Implanted Devices [...] 08/09/2021 Last Documented On 1 5:58PM ; [facility] Smoking Status Unknown Medical History Includes: Medical History in patient's chart Description Last Updated Contact with and (Suspected) exposure to COVID-19 08/09/2021 Last Documented On 1 5:58PM ; [facility] Date COVID symptoms started: 08/07 Last Documented On 1 5:58PM ; [facility] No fall 08/09/2021 Last Documented On 1 5:58PM ; [facility] Family History Includes: Family History [...] Subscriber Relationship Effect james Dates 1 - [facility] [id number] ELIAS magana Clinical Notes Includes: Signed Clinical Notes starting from 09/10/2022 No Clinical Notes Recorded
--- OUTSIDE RECORDS SUMMARY | 2024-08-28 06:27 | XMS_ITS | Encounter Summary ---
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
--- OUTSIDE RECORDS SUMMARY | 2024-08-28 06:27 | XMS_ITS | Encounter Summary ---
Author Organization [facility] Facility Care Team Providers Care Ad Trafficker Name Role Phone Unavailable Primary Care Provider Unavailabl e Encounter Details Date Type Department Care Team (Latest Contact Info) Description 09/05/2014 9:35 AM SHIPPING PACKER - 09/05/2014 11:59 PM SHIPPING PACKER Hospital Encounter [facility] Treatment of healed fracture follow-up examination; Other acquired deformity of ankle and foot Social History Tobacco Use Types Packs/Day Years Used Date Smoking Tobacco: Never Assessed Comments Unknown Sex and Gender Information Value Date Recorded Sex Assigned at Not on file Legal Sex Female 6:03 AM SHIPPING PACKER Gender Identity Not on file Sexual Orientation Not on file documented as of this encounter Plan of Treatment Not on file documented as of this encounter Procedures Procedure Name Priority Date/Time Associated Diagnosis Comments XR ANKLE 2 VW Routine 09/05/2014 9:14 AM SHIPPING PACKER XR ANKLE 2 VW Routine 09/05/2014 9:14 AM SHIPPING PACKER documented in this encounter Results * XR Ankle 2 VW (09/05/2014 9:14 AM SHIPPING PACKER) Anatomical Region Laterality Modality N/A Radiographic Jess ging 09/05/2014 9:14 AM SHIPPING PACKER Narrative 09/05/2014 10:03 AM SHIPPING PACKER LAYNE ALCAZAR M.D. FINAL REPORT ACC# ??Date Time ??Exam [id number] Sep 05, 2014 09:14:00 14021 ANKLE 2 VIEWS UNILATERAL L [id number] Sep 05, 2014 09:14:00 [id number] ANKLE 2 VIEWS UNILATERAL R EXAMINATION: ?? [...] M.D. FINAL REPORT ACC# Date Time Exam [id number] Sep 05, 2014 09:14:00 [id number] ANKLE 2 VIEWS UNILATERAL L [id number] Sep 05, 2014 09:14:00 09308 ANKLE 2 VIEWS UNILATERAL R EXAMINATION: BILATERAL [...] XR Ankle 2 VW (09/05/2014 9:14 AM SHIPPING PACKER) Anatomical Region Laterality Modality N/A Radiographic Jess ging 09/05/2014 9:14 AM SHIPPING PACKER Narrative 09/05/2014 10:03 AM SHIPPING PACKER LAYNE ALCAZAR M.D. FINAL REPORT ACC# ??Date Time ??Exam [id number] Sep 05, 2014 09:14:00 70183 ANKLE 2 VIEWS UNILATERAL L [id number] Sep 05, 2014 09:14:00 04887 ANKLE 2 VIEWS UNILATERAL R EXAMINATION: ?? [...] M.D. FINAL REPORT ACC# Date Time Exam [id number] Sep 05, 2014 09:14:00 87815 ANKLE 2 VIEWS UNILATERAL L [id number] Sep 05, 2014 09:14:00 10007 ANKLE 2 VIEWS UNILATERAL R EXAMINATION: BILATERAL [...] normal right ankle Requested By: TRESSA SANDHU DATA COLLECTION SPECIALIST Dictated By: LAYNE ALCAZAR M.D. on Sep [...]
--- OUTSIDE RECORDS SUMMARY | 2024-08-28 06:27 | XMS_ITS | Encounter Summary ---
Author Organization [facility] Address [address] [place] [address] Care Team Providers Care Medical Care Evaluation Specialist Name Role Phone Rose Mary Kidd MD Primary Care Provider [phone] Reason for Visit * Reason Comments Dizziness * Cardiac (Routine) - Closed Specialty Diagnoses / Procedures Referred By Macy mcclain Referred To Contact Pediatric Cardiology Procedures WV ELECTROCARDIOGRAM, TRACING WV TTE W/DOPPLER, COMPLETE Janice Norton MD [address] [place] [id number] Janice Norton MD [address] [place] [address] Referral ID Status Reason Start Date Expiration Date Visits Re quested Visits Authorized [id number] Closed 11/28/2017 05/27/2018 1 1 Encounter Details Date Type Department Care Team (Latest Contact Info) Description 11/28/2017 9:01 AM CDT - 11/28/2017 11:59 PM CDT Hospital Encounter [facility] at [address] [address] Janice Norton MD [address] [place] [address] Discharge Disposition: Home or Self Care Social [...] 98.97% 11/28 10:07 AM CDT Growth Chart: [facility] (Girls, 2- 20 Years) documented [...] symptoms when she istrying to play her Exaleadt. She has a history of asthma a [...] year old healthy sister. She plays the [employer] in the [employer]. She is in 9th grade. Dental Care: [...] 116/76 mmHg with heart rate 96 bpm, anfddzeu381/78 mmHg with heart rate 116 bpm General: [...] chamber enlargement or hypertrophy. There are normal WV, ST, QRS, and QTc intervals. Echocardiogram: Normal [...] who expressed understanding. Janice Norton MD Pediatric Log Roller I communicated my above impression and recommendations [...] (Bezet) 426 ms CG MUSE Calculated P Range 46 degrees CG MUSE Calculated R Range 75 degrees CG MUSE Calculated T Range 36 degrees CG MUSE Interpretation EKG * Pediatric ECG Analysis * Normal sinus rhythm Normal ECG No previous ECGs available Confirmed by Janice Norton ([id number]) on 12/01/2017 3:06:44 PM CG MUSE 11/28/2017 11:3 2 AM CDT 12/01/2017 3:06 PM CDT Janice Norton MD ECG ORDERABLES CG MUSE * ECHO CONSULT - PEDIATRIC (11/28/2017 10:48 AM CDT) 11/28/2017 10:4 8 AM CDT Narrative [facility] - 11/28/2017 11:48 AM CDT ?[address] [facility] [place] [address] ?[phone] Phone ?[phone] Fax ?Non-Congenital Transthoracic Report Pat.Name: ??ELIAS WYNNE ?Pat.ID: ?[id number] ? St.Date: ?? 11/28/2017 ?Exam Time: 10:48:00 AM ? Study Type:Non-Congenital TTE ?Height: ?171.8cm ? Weight: ?107kg ? BSA: ? 2.18 m2 ?Age: ??2000,17Y ?Sex: ? FEMALE ? BP: ?116/76 ?Sonogrphr: Hannah Cool RDCS ? Pat. Stat.:Outpatient ?CPT - 4: ?? 88922 ? Reason for Study:chest pain, right axis deviation History / Clinical:chest pain and right axis deviation Procedures:2D Non-congenital, Doppler Complete, Color Flow Visit ID: ??[id number] ? SUMMARY: Impression: Normal intracardiac anatomy and [...] Janice Norton MD - 11/29/[address] [place] [phone] Fax Non-Congenital Transthoracic Report Pat.Name: ELIAS WYNNE Pat.ID: [id number] St.Date: 11/28/2017 Exam Time: 10:48:00 AM Study Type:Non-Congenital TTE Height: 171.8cm Weight: 107kg BSA: 2.18 m2 Age: 14 2000,17Y Sex: FEMALE BP: 116/76 Sonogrphr: Hannah Cool RDCS Pat. Stat.:Outpatient CPT - 4: 70251 Reason for Study:chest pain, right axis deviation History / Clinical:chest pain and right axis deviation Procedures:2D Non-congenital, Doppler Complete, Color Flow Visit ID: [id number] SUMMARY: Impression: Normal intracardiac anatomy and normal [...] Norton MD Janice Norton MD ECHO ORDERABLES [facility] [place] [address] documented in this encounter Visit Diagnoses Diagnosis Other chest pain- Primary documented in this encounter Care Teams Medical Care Evaluation Specialist Relationship Specialty Start Date End Date Rose Mary Kidd MD [address] [address] PCP - General 03/29/11 documented as of this encounter
--- OUTSIDE RECORDS SUMMARY | 2024-08-28 06:27 | XMS_ITS | Encounter Summary ---
Author Organization [facility] Address [address] [facility] [place] [address] Care Team Providers Care Nurse Executive Name Role Phone Rose Mary Kidd MD Primary Care Provider Encounter Details Date Type Department Care Team (Latest Contact Info) Description 12/27/2017 9:19 AM CDT - 12/27/2017 11:59 PM CDT Hospital Encounter [facility] Pediatrics - Lab [address] [place] [address] Lilibeth Helm, ALMOND PASTE MIXER[address] [address] Discharge Disposition: Home or Self Care Social [...] - 100 ng/mL 12/27/2017 11:29 AM CDT [facility] Blood BLOOD SPECIMEN / Unknown Lab Venipuncture / Unknown 12/27/2017 9:20 AM CDT 12/27/2017 10:02 AM CDT Narrative [facility] - 12/27/2017 11:29 AM CDT Vitamin D Status: ?Deficient ? <10 ?? ng/mL ? Borderline ?10-20 ng/mL ?Sufficient ?>20 ?? ng/mL ?Toxic ? >100 ??ng/mL Lilibeth Helm APRN-ICT TRAINER LAB - CHEMISTR Y ORDERABLES [facility] [address] [place] [address] * FERRITIN (12/27/2017 9:20 AM CDT) Ferritin 31 10 - 140 ng/mL 12/27/2017 11:08 AM CDT [facility] Blood BLOOD SPECIMEN / Unknown Lab Venipuncture / Unknown 12/27/2017 9:20 AM CDT 12/27/2017 10:02 AM CDT Lilibeth Helm ALMOND PASTE MIXER-ICT TRAINER LAB - CHEMISTR Y ORDERABLES Performing Organization Address City/State/[facility] Co de Phone Number [facility] [address] [place] [address] documented in this encounter Visit Diagnoses Diagnosis Restless legs syndrome (RLS) documented in this encounter Care Teams Nurse Executive Relationship Specialty Start Date End Date Rose Mary Kidd MD [address] [facility] [address] [place] [address] PCP - General 03/29/11 documented as of this encounter
--- OUTSIDE RECORDS SUMMARY | 2024-08-28 06:27 | XMS_ITS | Encounter Summary ---
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
--- OUTSIDE RECORDS SUMMARY | 2024-08-28 06:27 | XMS_ITS | Encounter Summary ---
Author Organization [facility] Healthcare Address [address] [place] [address] Care Team Providers Care Adaptive Physical Education Teacher Name Role Phone Rose Mary Kidd MD Primary Care Provider + Reason for Visit * Auth/Cert (Routine) Specialty Diagnoses / Procedures Referred By Contac t Referred To Contact Diagnoses Closed nondisplaced fracture of medial malleolus of left tibia, initial encounter Closed nondisplaced fracture of medial malleolus of left tibia, initial encounter [S82.55XA] Procedures DE OPEN TREATMENT MEDIAL MALLEOLUS FRACTURE ORIF LEFT MEDIAL MALLEOLUS/60 min Referral ID Status Reason Start Date Expiration Date Visits Re quested Visits Authorized [id number] 1 1 Encounter Details Date Type Department Care Team (Latest Contact Info) Description 03/23/2024 8:58 AM CDT - 03/23/2024 2:47 PM CDT Hospital Encounter [facility] Operating Room [address] [place] [address] [place] [address] [address] Closed displaced fracture of medial [...] on file Legal Sex Female 6:03 AM GRAPHICS SPECIALIST Gender Identity Not on file Sexual [...] through Care Everywhere. * Hydrocodone/Acetaminophen (By mouth) (Romanian) * Care After General Anesthesia (General Information) (Romanian) documented in this encounter Medications at Time [...] ankle. She was enjoying her vacation in [place] and was just walking in her hotel room and twisted her left ankle on 03/16/2024. She went to the [facility] on 03/17/2024. She had pain and tenderness in the ankle and she was diagnosed with a medial malleolus fracture and placed into a splint ER notes were reviewed. She was placed into a walker boot and has been nonweightbearing. She was in the office with her mother a friend. 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. Pain Assessment Pain Assessment: 0-10 [...] below the level of the plafond. Assessment/Plan oRsmery was seen today for pain and edema. Diagnoses and all orders for this visit: Closed displaced fracture of medial malleolus of left tibia, initial encounter She has a displaced left medial malleolus fracture from a fall in her hotel room on 03/16/2024 in [place]. It to be surgically fixed and stabilized. She was seen in [place] and placed into a splint. She only has tenderness of the medial malleolus. It is a fracture below the level of the plafond but it is displaced. 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 PLAN She will be scheduled for open [...] MD - Primary RAYMOND Lai - 1st care management assistant Preoperative Diagnosis: Pre-op Diagnosis * Closed [...] Arthrex cannulated screw was placed with anatomic jewish of the medial malleolar fragment with excellent [...] that you and your doctor have chosen [facility] for your surgery. We hope that the following information will help make your visit a pleasant one. Surgery Date: 03/23/2024 Arrive at 10 AM. [facility] (look for sign reading ???EMERGENCY - SURGERY CENTER?? ) [address] [place] [address] Directions: [address] driving down [facility] towards [facility], look for the sign that says Emergency. [...] is not recommended by your physician). Fish Oil/[place] 3, Co Q 10, Cod Liver Oil, [...] insurance cards, and medication list (including all fjao-bos-dbqzubd medications) with you. Prescriptions can be filled [...] Nely Page CRNA)1142 (Paused - Provider: Nely aPge CRNA - Comment: Switch to gravity)1143 (New [...] 03/23/2024 documented in this encounter Care Teams Adaptive Physical Education Teacher Relationship Specialty Start Date End Date Rose Mary Kidd MD [address] [place] [address] PCP - General 07/21/17 documented as of this encounter
--- OUTSIDE RECORDS SUMMARY | 2024-08-28 06:27 | XMS_ITS | Encounter Summary ---
Author Organization [facility] Healthcare Address [address] [place] [address] Care Team Providers Care Elementary Assistant Teacher Name Role Phone Rose Mary Kidd MD Primary Care Provider + Reason for Referral * Diagnostic Imaging (Routine) - Closed Specialty Diagnoses / Procedures Referred By Macy mcclain Referred To Contact Diagnoses Closed displaced fracture of medial malleolus of left tibia with routine healing, subsequent encounter Procedures XR Ankle Left 3 or More Views Adrienne Umanzor [place] [id number] [place] [address] Phone: tel: fax: Referral ID Status Reason Start Date Expiration Date Visits Re quested Visits Authorized [id number] Closed 05/31/2024 06/30/2025 1 1 Reason for Visit * Reason Comments Fracture ORIF Post-op ORIF Encounter Details Date Type Department Care Team (Late st Contact Info) Description 05/31/2024 1:45 PM CDT Office Visit [facility] at [address] [address] [place] [address] [address] Closed displaced fracture of medial [...] on file Legal Sex 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 She is 10 weeks status-post an open [...] been removing the boot to work on uxihj-il-sgmkfy exercises of her left ankle. Blister to [...] erythema, no evidence of any infection. Full hpjer-wu-iglsjh of her left ankle in all planes. [...] Primary documented in this encounter Care Teams Elementary Assistant Teacher Relationship Specialty Start Date End Date Rose Mary Kidd MD [address] [facility] [place] [address] PCP - General 07/21/17 documented as of this encounter
--- OUTSIDE RECORDS SUMMARY | 2024-08-28 06:27 | XMS_ITS | Clinical Summary ---
Author Organization [facility] [place] Address [address] [facility] [place] [address] Care Team Providers Care Poultice Machine Operator Name Role Phone Rose Mary Kidd MD Primary Care Provider [phone] Source Comments [facility] [place],non-owned Affiliates and Associated Physician Practices is amultiple site organization consisting of ambulatory clinics and hospital sitesin [place], [place], [place] and [place]. This disclosure is being madepursuant to the Care Everywhere program and may not contain all information available regarding this patient. Last updated 18.[facility] [place] Allergies Active Allergy Reactions Criticality Noted Date [...] age to complete this topic Care Teams Poultice Machine Operator Relationship Specialty Start Date End Date Rose Mary Kidd MD [address] [facility] [address] [place] [address] PCP - General 03/29/11
--- OUTSIDE RECORDS SUMMARY | 2024-08-28 06:27 | XMS_ITS | Encounter Summary ---
Author Organization [facility] Address [address] [facility] [place] [address] Care Team Providers Care Journeyman Pipe Welder Name Role Phone Rose Mary Kidd MD Primary Care Provider Reason for Visit * Reason Onset Date Comments Surgery Scheduling 07/12/2011 Encounter Details Date Type Department Care Team (Late st Contact Info) Description 07/12/2011 Telephone [facility] Pediatrics - Plastic Surgery Division of Plastic Surgery [address] [place] [address] Val Brennan MD [address] [place] [phone] Surgery Scheduling Social History Tobacco Use Types Packs/Day Years Used Date Smoking Tobacco: Never Assessed Sex and Gender Information Value Date Recorded Sex Assigned at Not on file Gender Identity Not on file Sexual Orientation Not on file documented as of this encounter Miscellaneous Notes * Telephone Encounter - Dariana Winters RN - 07/12/2011 1:26 PM COFFEE HOST Mom called in stating that surgery is [...] Same day surgery for pre-op surgical instructions. EE HOST documented in this encounter Plan of Treatment Not on file documented as of this encounter Visit Diagnoses Not on filedocumented in this encounter Care Teams Journeyman Pipe Welder Relationship Specialty Start Date End Date Rose Mary Kidd MD [address] [place] [address] PCP - General 03/29/11 documented as of this encounter
--- OUTSIDE RECORDS SUMMARY | 2024-08-28 06:27 | XMS_ITS | Encounter Summary ---
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
--- OUTSIDE RECORDS SUMMARY | 2024-08-28 06:27 | XMS_ITS | Encounter Summary ---
Author Organization [facility] Address [address] [facility] [place] [address] Care Team Providers Care Mosaic Tile Maker Name Role Phone Rose Mary Kidd MD Primary Care Provider Reason for Visit * Reason Comments Evaluation restless sleep, trou ble initiating and staying asleep, patient thinks she sleepwalks occasionally Encounter Details Date Type Department Care Team (Latest Contact Info) Description 12/27/2017 8:14 AM CDT - 12/27/2017 9:18 AM CDT Hospital Encounter [facility] Pediatrics - Sleep [address] [place] [address] Lilibeth Helm, CAREER SERVICES COORDINATOR-AERODYNAMICS TEACHER [address] [place] [address] Discharge Disposition: Home or Self Care Social [...] 12/27/2017 8:3 0 AM CDT Growth Chart: [facility] (Girls, 2- 20 Years) documented in this encounter Discharge Instructions * Patient Instructions* Lilibeth Helm APRN-CNP - 12/27/2017 9:06 AM CDT 1. Sleep study 2. Labs today 3. Rosmery will start iron for ferritin < 80 and Vitamin D < 30. Please call our nurse's line with any questions. ([phone], opt 3) documented in this encounter Medications [...] Note Pediatric Sleep Medicine [facility] Chief Complaint Patient presents with ??? Evaluation restless sleep, trouble initiating and staying asleep, patient thinks she sleepwalks occasionally HPI: Rosmery Wynne is a 17 y.o. female who presents to the Pediatric Sleep Disorders Clinic at [facility] on 12/27/2017 for evaluation of headaches [...] negative Neurological ROS: negative Dermatological ROS: negative Maddock Sleepiness Scale: Sitting and Reading would never [...] Date ??? Tonsillectomy and Adenoidectomy 2007 at [facility] Past Medical History: Diagnosis Date ??? GERD [...] Amoxicillin Urticaria Current Outpatient Prescriptions Ordered in [facility] Medication Sig Dispense Refill ??? ibuprofen (MOTRIN) 200 MG tablet Take 400 mg by mouth every 6 hours as needed for Pain ??? melatonin 10 MG capsule Take 10 mg by mouth at bedtime No current [facility]-ordered facility-administered medications on file. Exam: Vitals: 12/27/17 [...] call our nurse's line with any questions. ([phone], opt 3) Follow-up in 3 months Thank you for allowing me to participate in the care of your patient. Please call me with any questions at [phone]. KATARINA Chavez [facility] documented in this encounter Plan of Treatment Not on file documented as of this encounter Results * VITAMIN D (25-HYDROXY) (12/27/2017 9:20 AM CDT) Vitamin D, 25 Hydroxy 28.8 20 - 100 ng/mL 12/27/2017 11:29 AM CDT [facility] Blood BLOOD SPECIMEN / Unknown Lab Venipuncture / Unknown 12/27/2017 9:20 AM CDT 12/27/2017 10:02 AM CDT Narrative [facility] - 12/27/2017 11:29 AM CDT Vitamin D Status: ?Deficient ? <10 ?? ng/mL ? Borderline ?10-20 ng/mL ?Sufficient ?>20 ?? ng/mL ?Toxic ? >100 ??ng/mL Lilibeth SANTANA LAB - CHEMISTR Y ORDERABLES [facility] [address] [facility] [place] [address] * FERRITIN (12/27/2017 9:20 AM CDT) Pathologist [facility] Ferritin 31 10 - 140 ng/mL 12/27/2017 11:08 AM CDT [facility] Blood BLOOD SPECIMEN / Unknown Lab Venipuncture / Unknown 12/27/2017 9:20 AM CDT 12/27/2017 10:02 AM CDT Lilibeth Helm CAREER SERVICES COORDINATOR-AERODYNAMICS TEACHER LAB - CHEMISTR Y ORDERABLES Performing Organization Address City/State/[facility] Co de Phone Number [facility] [address] [place] [address] documented in this encounter Visit Diagnoses Diagnosis Restless legs syndrome (RLS)- Primary Nocturia Chronic nonintractable headache, unspecified headache type documented in this encounter Care Teams Mosaic Tile Maker Relationship Specialty Start [place] [address] [place] [address] PCP - General 03/29/11 documented as of this encounter
--- OUTSIDE RECORDS SUMMARY | 2024-08-28 06:27 | XMS_ITS | Encounter Summary ---
Author Organization [facility] Address [address] [place] [address] Phone Care Team Providers Care Grounds Foreman Name Role Phone Steven Chase MD Primary Care Provider Reason for Visit * Reason Comments Foot Injury Encounter Details Date Type Department Care Team (Late st Contact Info) Description 07/18/2023 12:51 PM SUPERVISOR SCENIC ARTS - 07/18/2023 3:06 PM SUPERVISOR SCENIC ARTS Emergency [facility] [address] [place] [address] Roberta Milton, PRIVATE DUTY LPN, SWIMMING POOL ATTENDANT [address] [place] [address] Closed displaced fracture of distal phalanx of left great toe, initial encounter Discharge Disposition: Discharged to home or Selfcare Social History Tobacco Use Types Packs/Day Years Used Date Smoking Tobacco: Never Assessed Comments No Sex and Gender Information Value Date Recorded Sex Assigned at Female 07/18/2023 1:18 PM SUPERVISOR SCENIC ARTS Legal Sex Female 12:48 PM SUPERVISOR SCENIC ARTS Gender Identity Female 07/18/2023 1:18 PM SUPERVISOR SCENIC ARTS Sexual Orientation Not on file documented as of this encounter Last Filed Vital Signs Vital Sign Reading Time Taken Comments Blood Pressure 143/83 07/18/2023 1:00 PM SUPERVISOR SCENIC ARTS Pulse 82 07/18/2023 1:00 PM SUPERVISOR SCENIC ARTS Temperature 36 ??C (96.8 ??F) 07/18/2023 1:00 PM SUPERVISOR SCENIC ARTS Respiratory Rate 16 07/18/2023 1:00 PM SUPERVISOR SCENIC ARTS Oxygen Saturation 99% 07/18/2023 1:00 PM SUPERVISOR SCENIC ARTS Inhaled Oxygen Concentration - - Weight 99.8 kg (220 lb) 07/18/2023 1:00 PM SUPERVISOR SCENIC ARTS Height 170.2 cm (5' 7 ) 07/18/2023 1:00 PM SUPERVISOR SCENIC ARTS Body Mass Index 34.46 07/18/2023 1:00 PM SUPERVISOR SCENIC ARTS documented in this encounter Discharge Instructions * Discharge Instructions* Roberta Milton APRN, CNP - 07/18/2023 2:34 PM SUPERVISOR SCENIC ARTS Keep wound clean and dry. Rest, elevate, and ice the foot. Monitor for signs of infection. RVISOR SCENIC ARTS * Attachments The following attachments cannot be sent through Care Everywhere. * Toe Fracture [id number] (Zimbabwean) documented in this encounter Medications at Time [...] per wheelchair mode with self as responsible alliance party. RVISOR SCENIC ARTS * Joy Marshall RN - 07/18/2023 2:59 PM CST Pt medicated per provider orders. Pt educated on intended effects and side effects of medication and verbalized understanding, able to provide teach back of education. RVISOR SCENIC ARTS * Joy Marshall RN - 07/18/2023 2:50 PM CST Pt's toe cleansed and dressed with telfa and wrapped with gauze. Post-op shoes available did not fit pt. Pt requesting a boot instead. Tech at bedside to place boot. Pt requesting something for pain prior to leaving. RVISOR SCENIC ARTS * Joy Marshall RN - 07/18/2023 2:44 PM CST Pt medicated per provider orders. Pt educated on intended effects and side effects of medication and verbalized understanding, able to provide teach back of education. RVISOR SCENIC ARTS * Roberta Monge RN - 07/18/2023 2:39 PM CST Report given to DONTAE Hamilton RVISOR SCENIC ARTS * Joy Marshall RN - 07/18/2023 2:37 PM CST Report received from DONTAE Granados. RVISOR SCENIC ARTS * Roberta Monge RN - 07/18/2023 2:25 PM CST Roberta Milton at bedside to discuss test results and plan of care RVISOR SCENIC ARTS * Roberta Monge RN - 07/18/2023 2:15 PM CST Patient resting on stretcher with no distress noted. Denies needs at this time. Call light within reach. Continue to monitor RVISOR SCENIC ARTS * Roberta Monge RN - 07/18/2023 1:40 PM CST Patient is resting in room with call light at bedside. Patient informed about wait time and verbalizes understanding. Patient denies needs at this time and verbalizes understanding that RN will complete hourly rounding. RVISOR SCENIC ARTS * Roberta Milton APRN, CNP - 07/18/2023 [...] Oral Once Roberta Milton APRN, CNP ??? kajnskc-nzgqodbzwr-dbgljsjlb pertussis (BOOSTRIX) injection SUSP 0.5 mL 0.5 [...] Gerald Lockhart D.O. PS: PS Report ID: [id number] Reading Location: [id number] Labs Reviewed - No data to display [...] Von Fontanez MD at 07/19/2023 11:11 AM SUPERVISOR SCENIC ARTS RVISOR SCENIC ARTS RVISOR SCENIC ARTS RVISOR SCENIC ARTS * Jenna Seo RN - 07/18/2023 1:02 PM CST Patient to ED with complaints of left foot pain. Patient dropped a metal cup on her foot. Patient has laceration under left great toenail. RVISOR SCENIC ARTS documented in this encounter Plan of Treatment Not on file documented as of this encounter Procedures Procedure Name Priority Date/Time Associated Diagnosis Comments XR FOOT 3 OR MORE VIEWS LEFT STAT 07/18/2023 1:50 PM SUPERVISOR SCENIC ARTS SPLINT APPLICATION STAT 07/18/2023 1: 18 PM SUPERVISOR SCENIC ARTS documented in this encounter Results * XR FOOT 3 OR MORE VIEWS LEFT (07/18/2023 1:50 PM SUPERVISOR SCENIC ARTS) Anatomical Region Laterality Modality LOWER EXTREMITY, foot Left Digital Ra diography 07/18/2023 2:02 PM SUPERVISOR SCENIC ARTS Impressions 07/18/2023 2:04 PM SUPERVISOR SCENIC ARTS IMPRESSION: Subtle minimally displaced left 1st digit distal phalangeal intra-articular fracture. Narrative 07/18/2023 2:04 PM SUPERVISOR SCENIC ARTS EXAM DESCRIPTION: XR FOOT 3 OR MORE [...] PM T: ??07/18/2023 2:02 PM Report ID: [id number] Reading Location: ??[id number] Procedure Note Gerald Lockhart, DO - 07/18/2023 [...] Gerald Lockhart D.O. PS: PS Report ID: [id number] Reading Location: [id number] IMPRESSION: Subtle minimally displaced left 1st digit distal phalangeal intra-articular fracture. Roberta Milton APRN, SWIMMING POOL ATTENDANT IMG DIAGNOSTIC ORDERA BLES Final Result * SPLINT APPLICATION (07/18/2023 1:18 PM SUPERVISOR SCENIC ARTS) Narrative Von Fontanez MD - 07/18/2023 1:18 PM SUPERVISOR SCENIC ARTS Roberta Milton APRN, CNP ? 07/18/2023 ??2:52 [...] Soft Tissue Infection Given 07/18/2023 2:43 PM SUPERVISOR SCENIC ARTS 500 mg ketorolac (TORADOL) injection 30 mg 30 mg, Intramuscular, ONCE, 1 dose, On Tue07/18/23 at 1530 Given 07/18/2023 2:58 PM SUPERVISOR SCENIC ARTS 30 mg Left Deltoid documented in this encounter Active and Recently Administered Medications Times are shown in SUPERVISOR SCENIC ARTS. Scheduled Medication Order 07/16/2023 07/17/2023 07/18/2023 cephALEXin [...] RN) documented in this encounter Care Teams Grounds Foreman Relationship Specialty Start Date End Date Steven Chase MD [address] [place] [address] PCP - General Family Medicine 07/18/23 documented as of this encounter
--- OUTSIDE RECORDS SUMMARY | 2024-08-28 06:27 | XMS_ITS | Encounter Summary ---
Author Organization [facility] Healthcare Address [address] [place] [address] Care Team Providers Care Spudder Name Role Phone Rose Mary Kidd MD Primary Care Provider + Encounter Details Date Type Department Care Team (Late st Contact Info) Description 07/21/2017 10:30 AM SPENT GRAIN DRYER - 07/21/2017 2:53 PM SPENT GRAIN DRYER Emergency [facility] [place] [address] Roxi Maharaj MD 1 [facility] [address] [place] [address] Discharge Disposition: Discharge to home or self care Social History Tobacco Use Types Packs/Day Years Used Date Smoking Tobacco: Never Assessed Comments Unknown Sex and Gender Information Value Date Recorded Sex Assigned at Not on file Legal Sex Female 6:03 AM SPENT GRAIN DRYER Gender Identity Not on file Sexual Orientation Not on file documented as of this encounter Discharge Disposition Disposition Code Departure Means Destination Discharge to home or self care documented in this encounter Plan of Treatment Not on file documented as of this encounter Procedures Procedure Name Priority Date/Time Associated Diagnosis Comments DIFFERENTIAL AUTO STAT 07/21/2017 12: 26 PM SPENT GRAIN DRYER CREATININE, WHOLE BLOOD STAT 07/21/2017 12:26 PM SPENT GRAIN DRYER CALCIUM, IONIZED STAT 07/21/2017 12:2 6 PM SPENT GRAIN DRYER GLUCOSE, WHOLE BLOOD STAT 07/21/2017 12:26 PM SPENT GRAIN DRYER ELECTROLYTES, WHOLE BLOOD STAT 07/21/2017 12:26 PM SPENT GRAIN DRYER URINALYSIS STAT 07/21/2017 12:26 PM SPENT GRAIN DRYER HCG, URINE, QUALITATIVE STAT 07/21/2017 12:26 PM SPENT GRAIN DRYER URINALYSIS, MICROSCOPIC ONLY STAT 07/21/2017 12:26 PM SPENT GRAIN DRYER CBC WITHOUT DIFFERENTIAL STAT 07/21/2017 12:26 PM SPENT GRAIN DRYER DISCHARGE LABORATORY CUMULATIVE REPORT 07/21/2017 12:00 AM SPENT GRAIN DRYER documented in this encounter Results * Urinalysis, microscopic only (07/21/2017 12:26 PM SPENT GRAIN DRYER) WBC, ur None Seen None Seen [facility] RBC, ur None Seen None Seen [facility] Epithelial cells, renal, ur None Seen None Seen [facility] Epithelial cells, squamous, ur < 5/HPF [facility] Urine 07/21/2017 12:2 6 PM SPENT GRAIN DRYER 07/21/2017 12:30 PM SPENT GRAIN DRYER [facility]ative [facility] - 07/21/2017 1:31 PM SPENT GRAIN DRYER us Beto Cassidy MD LAB URINE ORDERABLES Final R esult [facility] [place] [address] * (ABNORMAL) Urinalysis (07/21/2017 12:26 PM SPENT GRAIN DRYER) Color, ur Yellow [facility] Clarity, ur Clear Clear [facility] Specific gravity, ur 1.020 1.008 - 1.022 [facility] pH, ur 5.5 [facility] Albumin, ur 2+(A) Negative [facility] Glucose, ur ql Negative Negative [facility] Ketones, ur Trace(A) Negative [facility] Bilirubin, ur 1+(A) Negative [facility] Blood, ur Negative Negative [facility] Urobilinogen, ur 0.2 EhrUnit/dL [facility] Nitrites, ur Negative Negative [facility] Leukocyte esterase, ur Negative Negative [facility] Urine 07/21/2017 12:2 6 PM SPENT GRAIN DRYER 07/21/2017 12:30 PM SPENT GRAIN DRYER Narrative [facility] - 07/21/2017 1:13 PM SPENT GRAIN DRYER Beto Cassidy MD LAB URINE ORDERABLES Final R esult [facility] [place] [address] * Differential, auto (07/21/2017 12:26 PM SPENT GRAIN DRYER) Neutrophil abs 2.39 1.50 - 9.40 K/cumm [facility] Lymphocyte abs 1.49 1.00 - 7.20 K/cumm [facility] Monocyte abs 0.56 0.10 - 1.70 K/cumm [facility] Eosinophil abs 0.16 0.10 - 1.60 K/cumm [facility] Basophil abs 0.02 0.00 - 0.30 K/cumm [facility] Imm gran abs 0.02 0.00 - 0.20 K/cumm [facility] Neutrophil pct 51.6 % [facility] Lymphocyte pct 32.1 % [facility] Monocyte pct 12.1 % [facility] Eosinophil pct 3.4 % [facility] Basophil pct 0.4 % [facility] Imm gran pct 0.4 % [facility] Blood specimen (specimen) 07/21/2017 12:26 PM SPENT GRAIN DRYER 07/21/2017 12:29 PM SPENT GRAIN DRYER Narrative [facility] - 07/21/2017 12:54 PM SPENT GRAIN DRYER Beto Cassidy MD LAB BLOOD ORDERABLES Final R esult [facility] [place] [address] * (ABNORMAL) CBC without differential (07/21/2017 12:26 PM SPENT GRAIN DRYER) WBC 4.64 3.80 - 9.90 K/cumm [facility] RBC 5.33(H) 3.90 - 5.20 M/cumm [facility] Hgb 14.4 11.9 - 15.5 g/dL [facility] Hct 43.1 35.6 - 45.5 % [facility] MCV 80.9(L) 81.3 - 96.4 fL [facility] MCH 27.0(L) 27.1 - 33.3 pg [facility] MCHC 33.4 32.3 - 35.7 g/dL [facility] RDW CV 12.5 11.1 - 14.9 % [facility] RDW SD 36.2 35.7 - 48.1 fL [facility] Plt 183 150 - 400 K/cumm [facility] MPV 11.5 9.1 - 12.3 fL [facility] NRBC abs 0.00 0.00 - 0.01 K/cumm [facility] NRBC 0.0 % [facility] Blood specimen (specimen) 07/21/2017 12:26 PM SPENT GRAIN DRYER 07/21/2017 12:29 PM SPENT GRAIN DRYER Narrative [facility] - 07/21/2017 12:54 PM SPENT GRAIN DRYER Beto Cassidy MD LAB BLOOD ORDERABLES Final R esult [facility] [place] [address] * HCG, urine, qualitative (07/21/2017 12:26 PM SPENT GRAIN DRYER) HCG, ur Negative Negative [facility] Urine 07/21/2017 12:2 6 PM SPENT GRAIN DRYER 07/21/2017 12:30 PM SPENT GRAIN DRYER Narrative [facility] - 07/21/2017 12:41 PM SPENT GRAIN DRYER Beto Cassidy MD LAB URINE ORDERABLES Final R esult Performing Organization Address [facility] Co [place] [address] * Electrolytes, whole blood (07/21/2017 12:26 PM SPENT GRAIN DRYER) Sodium, Whole Blood 137 135 - 145 mmol/L [facility] Potassium, bld 3.5 3.3 - 4.9 mmol/L [facility] Chloride, bld 108 100 - 114 mmol/L [facility] CO2, Total Calculated, Whole Blood 28 20 - 30 mmol/L [facility] Anion Gap, Whole Blood 2 mmol/L [facility] Blood specimen (specimen) 07/21/2017 12:26 PM SPENT GRAIN DRYER 07/21/2017 12:29 PM SPENT GRAIN DRYER Narrative [facility] - 07/21/2017 12:40 PM SPENT GRAIN DRYER Beto Cassidy MD LAB BLOOD ORDERABLES Final R esult Performing Organization Address [facility] Co [place] [address] * Calcium, ionized (07/21/2017 12:26 PM SPENT GRAIN DRYER) Ca, ionized, bld 4.72 3.90 - 5.20 mg/dL [facility] Blood specimen (specimen) 07/21/2017 12:26 PM SPENT GRAIN DRYER 07/21/2017 12:29 PM SPENT GRAIN DRYER Narrative [facility] - 07/21/2017 12:40 PM SPENT GRAIN DRYER Beto Cassidy MD LAB BLOOD ORDERABLES Final R esult Performing Organization Address City/[facility]/ZIP Co [place] [address] * Glucose, whole blood (07/21/2017 12:26 PM SPENT GRAIN DRYER) Glucose, bld 87 70 - 199 mg/dL [facility] Blood specimen (specimen) 07/21/2017 12:26 PM SPENT GRAIN DRYER 07/21/2017 12:29 PM SPENT GRAIN DRYER Narrative [facility] - 07/21/2017 12:40 PM SPENT GRAIN DRYER Result [facility] Beto Cassidy MD LAB BLOOD ORDERABLES Final R esult [facility] [place] [address] * Creatinine, whole blood (07/21/2017 12:26 PM SPENT GRAIN DRYER) Creatinine, bld 0.6 0.4 - 1.0 mg/dL [facility] Blood specimen (specimen) 07/21/2017 12:26 PM SPENT GRAIN DRYER 07/21/2017 12:29 PM SPENT GRAIN DRYER Narrative [facility] - 07/21/2017 12:37 PM SPENT GRAIN DRYER Result [facility] Beto Cassidy MD LAB BLOOD ORDERABLES Final R esult Performing Organization Address City/[facility]/ZIP Co [place] [address] * DISCHARGE LABORATORY CUMULATIVE REPORT (07/21/2017 12:00 AM SPENT GRAIN DRYER) Narrative 07/21/2017 12:00 AM SPENT GRAIN DRYER Ordered by an unspecified provider. Historical Provider LAB BLOOD ORDERABLES Julieth l Result documented in this encounter Visit Diagnoses Not on filedocumented in this encounter Care Teams Spudder Relationship Specialty Start Date End Date Rose Mary Kidd MD [address] [place] [address] PCP - General 07/21/17 documented as of this encounter
--- OUTSIDE RECORDS SUMMARY | 2024-08-28 06:27 | XMS_ITS | Encounter Summary ---
Author Organization [facility] Address [address] [place] [address] Care Team Providers Care Ecclesiastical Worker Name Role Phone Rose Mary Kidd MD Primary Care Provider Encounter Details Date Type Department Care Team (Late st Contact Info) Description 12/27/2017 Orders Only [facility] Pediatrics - Sleep [address] [place] [address] Lilibeth Helm, PHOTOGRAPH PRINTER-FAGOT MAKER [address] [place] [address] Social History Tobacco Use Types Packs/Day Years [...] on filedocumented in this encounter Care Teams Ecclesiastical Worker Relationship Specialty Start Date End Date Rose Mary Kidd MD [address] [address] PCP - General 03/29/11 documented as of this encounter
--- OUTSIDE RECORDS SUMMARY | 2024-08-28 06:27 | XMS_ITS | Encounter Summary ---
Author Organization [facility] Facility Care Team Providers Care Procedure Tech Name Role Phone Unavailable Primary Care Provider Unavailabl e Encounter Details Date Type Department Care Team (Latest Contact Info) Description 05/17/2014 10:54 AM CDT - 05/17/2014 11:59 PM CDT Hospital Encounter [facility] Aftercare for healing traumatic fracture of lower leg Social History Tobacco Use Types Packs/Day Years Used Date Smoking Tobacco: Never Assessed Comments Unknown Sex and Gender Information Value Date Recorded Sex Assigned at Not on file Legal Sex Female 6:03 AM OIL WINTERIZER Gender Identity Not on file Sexual Orientation [...] agrees with it. ACC# ??Date Time ??Exam [id number] May 17, 2014 10:44:00 [id number] ANKLE 3 VIEWS UNILATERAL L ACC# ??Date Time ??Exam [id number] May 17, 2014 10:44:00 74729 ANKLE 3 VIEWS UNILATERAL L EXAMINATION: ?? [...] agrees with it. ACC# Date Time Exam [id number] May 17, 2014 10:44:00 50195 ANKLE 3 VIEWS UNILATERAL L ACC# Date Time Exam [id number] May 17, 2014 10:44:00 [id number] ANKLE 3 VIEWS UNILATERAL L EXAMINATION: Left [...]
--- OUTSIDE RECORDS SUMMARY | 2024-08-28 06:27 | XMS_ITS | Encounter Summary ---
Author Organization [facility] Healthcare Address [address] [place] [address] Care Team Providers Care Manager Commission Name Role Phone Rose Mary Kidd MD Primary Care Provider + Reason for Visit * Auth/Cert (Routine) Specialty Diagnoses / Procedures Referred By Contac t Referred To Contact Diagnoses Closed nondisplaced fracture of medial malleolus of left tibia, initial encounter Closed nondisplaced fracture of medial malleolus of left tibia, initial encounter [S82.55XA] Procedures [place] OPEN TREATMENT MEDIAL MALLEOLUS FRACTURE ORIF LEFT MEDIAL MALLEOLUS/60 min Referral ID Status Reason Start Date Expiration Date Visits Re quested Visits Authorized [id number] 1 1 Encounter Details Date Type Department Care Team (Late st Contact Info) Description 03/23/2024 12:30 PM CDT - 03/23/2024 2:30 PM CDT Surgery [facility] Operating Room [address] [place] [address] [place] [address] [address] OPEN REDUCTION INTERNAL FIXATION LEFT MEDIAL MALLEOLUS [...] on file Legal Sex Female 6:03 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S ASSISTANT Gender Identity Not on file Sexual Orientation [...] through Care Everywhere. * Hydrocodone/Acetaminophen (By mouth) (Indonesian) * Care After General Anesthesia (General Information) (Indonesian) documented in this encounter Medications at Time [...] ankle. She was enjoying her vacation in [place] and was just walking in her hotel room and twisted her left ankle on 03/16/2024. She went to the [facility] on 03/17/2024. She had [...] in her hotel room on 03/16/2024 in [place]. It to be surgically fixed and stabilized. She was seen in [place] and placed into a splint. She only has tenderness of the medial malleolus. It is a fracture below the level of the plafond but it is displaced. 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 PLAN She will be scheduled for open [...] MD - Primary RAYMOND Lai - 1st conference assistant Preoperative Diagnosis: Pre-op Diagnosis * Closed [...] Arthrex cannulated screw was placed with anatomic hoahaoism of the medial malleolar fragment with excellent [...] that you and your doctor have chosen [facility] for your surgery. We hope that the following information will help make your visit a pleasant one. Surgery Date: 03/23/2024 Arrive at 10 AM. [facility] (look for sign reading ???[facility] - SUR[facility] CENTER?? ) [address] [place] [address] Directions: When driving down [address] [facility] [address] [facility] towards [facility], look for the sign that [...] is not recommended by your physician). Fish Oil/[place] 3, Co Q 10, Cod Liver Oil, [...] insurance cards, and medication list (including all aepr-rtc-lfnzhle medications) with you. Prescriptions can be filled [...] Page CRNA)[id number] (Paused - Provider: Nely Arlyn [place], HOOK PULLER - Comment: Switch to gravity)1143 (New Bag [...] 03/23/2024 documented in this encounter Care Teams Manager Commission Relationship Specialty Start Date End Date Rose Mary Kidd MD [address] [place] [address] PCP - General 07/21/17 documented as of this encounter
--- OUTSIDE RECORDS SUMMARY | 2024-08-28 06:27 | XMS_ITS | Encounter Summary ---
Author Organization [facility] Healthcare Address [address] [place] [address] Care Team Providers Care Compound Specialist Name Role Phone Rose Mary Kidd MD Primary Care Provider + Reason for Visit * Reason Onset Date Comments Rash 03/22/2022 Encounter Details Date Type Department Care Team (Late st Contact Info) Description 03/22/[address] [facility] Answer Line [address] [place] [id number] Samanta Walker RN Social History Tobacco Use [...] file Legal Sex Female 6:03 AM SET AND EXHIBIT DESIGNER Gender Identity Not on file Sexual [...] them. That helps. They have a white andreafski around them. They are oozing clear/yellow fluid. [...] Protocols used: URINE - UNUSUAL COLOR OR [id number], [id number] * Telephone Encounter - Samanta Walker RN - 03/22/2022 7:53 PM CDT Regarding: has bumps that are spreading and itchy ----- Message from Eusebia Feliciano sent at 03/22/2022 7:38 PM CDT ----- Phone number: Number verified. documented in this encounter Plan of Treatment Not on file documented as of this encounter Visit Diagnoses Not on filedocumented in this encounter Care Teams Compound Specialist Relationship Specialty Start Date End Date Rose Mary Kidd MD [address] [place] [address] PCP - General 07/21/17 documented as of this encounter
--- OUTSIDE RECORDS SUMMARY | 2024-08-28 06:27 | XMS_ITS | Encounter Summary ---
Author Organization [facility] Address [address] [facility] [place] [address] Care Team Providers Care Cleaner Greaser Name Role Phone Rose Mary Kidd MD Primary Care Provider Encounter Details Date Type Department Care Team (Late st Contact Info) Description 07/14/2011 9:58 AM WIND FARM ENGINEER - 07/14/2011 6:40 PM WIND FARM ENGINEER Hospital Encounter [facility] - [address] [place] [address] Val Brennan MD [address] [place] [address] Surgery General Discharge Disposition: Home or Self [...] Comments Blood Pressure 110/54 07/14/2011 6:30 PM WIND FARM ENGINEER Pulse 80 07/14/2011 6:30 PM WIND FARM ENGINEER Temperature 36.1 ??C (96.9 ??F) 07/14/2011 4:35 PM CS T Respiratory Rate 16 07/14/2011 6:30 PM WIND FARM ENGINEER Oxygen Saturation 100% 07/14/2011 6:30 PM WIND FARM ENGINEER Inhaled Oxygen Concentration - - Weight 65.5 kg (144 lb 6.4 oz) 07/14/20 11 10:07 AM WIND FARM ENGINEER Height 150.5 cm (4' 11.25 ) 07/14/2011 10:07 AM WIND FARM ENGINEER Body Mass Index 28.92 07/14/2011 10:07 AM WIND FARM ENGINEER Body Mass Index Percentile 99.63% 07/14 10:07 AM WIND FARM ENGINEER Growth Chart: [facility] (Girls, 2- 20 Years) documented in this encounter Discharge Summaries * Cherelle Strange MD - 07/14/2011 4:46 PM CST Images from the original note were not included. SAME DAY SURGERY DISCHARGE SUMMARY Patient ID: Elias Wynne 10 y.o. 2000 Discharge Date: 07/14/2011 Discharge [...] can shower starting 07/16/2011. Cherelle Strange MD FARM ENGINEER documented in this encounter Discharge Instructions * Discharge Instructions* Lauren Pierce RN - 07/14/2011 6:09 PM WIND FARM ENGINEER Discharge Instructions for: Elias Harrison Ricci Tylenol [...] primary care doctor cannot be reached. 07/14/2011 FARM ENGINEER * Discharge Instructions* Document, Scanned - 07/19/2011 9:25 AM WIND FARM ENGINEER FARM ENGINEER documented in this encounter Medications at Time [...] patient is being discharged from anesthesia care. FARM ENGINEER * Betina Guillen, DO - 07/14/2011 11:10 [...] Date ??? Tonsillectomy and adenoidectomy 2008 at [facility] No family history on file. Labs:No results found for this basename: WBC,HGB,HCT,PLTCOUNT in the last 03432 hoursNo results found for this basename: SODIUM,POTASSIUM,CLORIDE,CO2,BUN,CREATININE,GLUCOSE in the last 63217 hoursNo r esults found for this basename: PT,INR,PTT in the last 83956 hours Test:No results found for this basename: HCGURINE,HCGQUAL in the last 40686 hours VITAL SIGNS Temp: 98.3 ??F Pulse: [...] complications and techniques. He/She/They understand(s) and consent(s). FARM ENGINEER * Sindi Colin MD - 07/14/2011 11:10 AM CST I have personally reviewed the patient's condition and agree with the above evaluation and anesthetic plan. FARM ENGINEER documented in this encounter H&P Notes * [...] Date ??? Tonsillectomy and adenoidectomy 2007 at [facility] MEDICATIONS: No current facility-administered medications [...] they are ready to proceed with surgery. FARM ENGINEER documented in this encounter Procedure Notes * Document, Scanned - 07/19/2011 9:25 AM CSTAssociated Order(s): PATHOLOGY/CYTOLOGY REPORT ORDER FARM ENGINEER documented in this encounter OR Notes * Operative - Val Brennan MD - 07/14/2011 4:48 PM CST [facility] Operative Report NAME: ELIAS WYNNE : 2000 UNIT #: [id number] DATE OF OPERATION: 07/14/2011 ATTENDING SURGEON: VAL [...] lesions x2. Dictated By: VAL BRENNAN MD [facility]/MedQ JOB ID: [id number] FARM ENGINEER * Operative - Cherelle Strange MD - 07/14/2011 4:32 PM CST Pre-operative Diagnosis: Right neck nevus, left neck cyst, lower lip & left axillary skin tag and right medial thigh lesions X 2 Post-operative Diagnosis: Right neck nevus, left neck cyst, lower lip & left axillary skin tag and right medial thigh lesions X 2 Surgeon: Val Brennan MD Fireworks Inspector: Cherelle Strange MD Procedure: 1. Excision of Right neck nevus with local tissue re-arrangement 2. Excision of Left neck mass 3. Exision of lower lip skin tag 4. Excision of left axillary skin tag 5. Excision of right medial thigh lesions X 2 Anesthesia: GETA ASA Class: 2 Pre-op Antibiotic: Clindamycin 600 mg IV EBL: Minimal Complication: None FARM ENGINEER documented in this encounter Miscellaneous Notes * Miscellaneous Scans - Document, Scanned - 08/09/2011 1:32 PM CST FARM ENGINEER * Miscellaneous Scans - Document, Scanned - 07/19/2011 9:25 AM CST FARM ENGINEER * Miscellaneous Scans - Document, Scanned - 07/19/2011 9:25 AM CST FARM ENGINEER * Miscellaneous Scans - Document, Scanned - 07/19/2011 9:25 AM CST FARM ENGINEER * Miscellaneous Scans - Document, Scanned - 07/19/2011 9:25 AM CST FARM ENGINEER documented in this encounter Plan of Treatment Not on file documented as of this encounter Procedures Procedure Name Priority Date/Time Associated Diagnosis Comments PATHOLOGY/CYTOLOGY REPORT ORDER 07/19/2011 9:25 AM WIND FARM ENGINEER GROSS + MICRO EXAM Routine 07/14/2011 2: 43 PM WIND FARM ENGINEER documented in this encounter Results * PATHOLOGY/CYTOLOGY REPORT ORDER (07/19/2011 9:25 AM WIND FARM ENGINEER) Narrative Transcriptions Document, Scanned - 07/19/2011 9:25 AM CST Scanned Document LAB - PATHOLOGY/CYTO LOGY ORDERABLES * GROSS + MICRO EXAM (07/14/2011 2:43 PM WIND FARM ENGINEER) [facility] Clinical History [facility] Comment: The patient is ab 10-year-old girl with two neck lesions, two right thigh lesions, one lower lip skin tag, and left axillary skin tag. ?? Gross Description [facility] Comment: The specimens are received in [...] in cassette C2 . ??(LH/lw) Microscopic Examination [facility] Comment: A) 2 H+E; B) [...] glands, and sweat glands. ??(LH/lw) ?? Diagnosis [facility] Comment: DIAGNOSIS: ??A) LEFT NECK CYST, EXCISION: ? -LAMINATED KERATIN PLUG. ?B) RIGHT NECK NEVUS, EXCISION: ? -NEVUS SEBACEOUS. ?C) RIGHT GROIN/THIGH LESION, EXCISION: ? -NEVUS SEBACEOUS. ?? This case has been personally reviewed and interpreted by the attending (teaching) pathologist. Addendum 1 [facility] Comment: Slides were sent to [facility], [place]. ??Dr. Amanda Hale reviewed [...] epidermal nevus. ??Clinical correlation is recommended. ?? ([facility]) Hand Plug Shaper Gilda Conner, [facility] Resident in Pathology Leona Hopper M.D. [facility] Pathologist Rocky Valdovinos M.D. [facility] Electronically Signed By Rocky Valdovinos M.D. [facility] CYST TISSUE / Unknown 07/14/2011 2:43 PM WIND FARM ENGINEER 07/16/2011 9:01 AM WIND FARM ENGINEER Val Brennan MD LAB - PATHOLOGY /CYTOLOGY ORDERABLES Performing Organization Address City/State/[facility] Co de Phone Number [facility] [address] [place] [address] documented in this encounter Visit Diagnoses Diagnosis [...] is less. $ Given 07/14/2011 5:45 PM WIND FARM ENGINEER 1 tablet isolyte-S pH 7.4 infusion 100 mL/hr, Intravenous, POST-OP CONTINUOUS, Starting on Tue07/14/11 at 1500, Until Lynette 07/15/11 at 0701, Continue Fluids at current rates, until current bag is finished. Then Switch to fluids as ordered for floor. Current Rate 07/14/2011 4:35 PM WIND FARM ENGINEER 100 mL/hr 100 mL/hr documented in this encounter Active and Recently Administered Medications Times are shown in WIND FARM ENGINEER. Continuous Medication Order 07/12/2011 07/13/2011 07/14/2011 isolyte-S [...] PACU) documented in this encounter Care Teams Cleaner Greaser Relationship Specialty Start Date End Date Rose Mary Kidd MD [address] [facility] [address] [place] [address] PCP - General 03/29/11 documented as of this encounter
--- OUTSIDE RECORDS SUMMARY | 2024-08-28 06:27 | XMS_ITS | Encounter Summary ---
Author Organization [facility] Healthcare Address [address] [place] [address] Care Team Providers Care Louver Door Assembler Name Role Phone Rose Mary Kidd MD Primary Care Provider + Encounter Details Date Type Department Care Team (Late st Contact Info) Description 03/20/2024 Orders Only [facility] Medical Group Orthopedics and Sports Medicine at [facility] [address] [address] [place]bekah [place]ter[place] [id number] [place] [address] Closed displaced fracture of medial malleolus [...] on file Legal Sex Female 6:03 AM BLACK JACK DEALER Gender Identity Not on file Sexual Orientation [...] documented as of this encounter Care Teams Louver Door Assembler Relationship Specialty Start Date End Date Rose Mary Kidd MD [address] [place] [address] PCP - General 07/21/17 documented as of this encounter
--- OUTSIDE RECORDS SUMMARY | 2024-08-28 06:27 | XMS_ITS | Encounter Summary ---
Author Organization [employer] [facility] Care Team Providers Care Tile Designer Name Role Phone Steven Chase MD Primary Care Provider Encounter Details Date Type Department Care Team (Latest Contact Info) Description 07/18/2023 Travel Social History Tobacco Use Types Packs/Day Years Used Date Smoking Tobacco: Never Assessed Comments No Sex and Gender Information Value Date Recorded Sex Assigned at Female 07/18/2023 1:18 PM REGISTERED PHARMACIST Legal Sex Female 12:48 PM REGISTERED PHARMACIST Gender Identity Female 07/18/2023 1:18 PM REGISTERED PHARMACIST Sexual Orientation Not on file documented as of this encounter Plan of Treatment Not on file documented as of this encounter Visit Diagnoses Not on filedocumented in this encounter Care Teams Tile Designer Relationship Specialty Start Date End Date Steven Chase MD [address] [place] [address] PCP - General Family Medicine 07/18/23 documented as of this encounter
--- OUTSIDE RECORDS SUMMARY | 2024-08-28 06:27 | XMS_ITS | Encounter Summary ---
Author Organization [facility] Healthcare Address [address] [place] [address] Care Team Providers Care Block Sawyer Name Role Phone Rose Mary Kidd MD Primary Care Provider + Reason for Referral * Consultation (Routine) - Closed Specialty Diagnoses / Procedures Referred By Macy [email or web address] Referred To Contact Physical Therapy Diagnoses Closed displaced fracture of medial malleolus of left tibia with routine healing, [place] [address] [address] Phone: tel: fax: External Order Referral ID Status Reason Start Date Expiration Date V isits Requested Visits Authorized [id number] Closed Evaluate and Treat 04/26/2024 05/26/2025 12 [...] or More Views Speca, [place] [address] [facility] [address] [place] [address] Phone: tel: fax: Referral ID Status Reason Start Date Expiration Date Visits Re quested Visits Authorized [id number] Closed 04/26/2024 05/26/2025 1 1 Reason for Visit * Reason Comments Post-op Encounter Details Date Type Department Care Team (Late st Contact Info) Description 04/26/2024 1:30 PM CDT Office Visit [facility] Medical Group Orthopedics and Sports Medicine at [address] [address] [place] [address] [address] Closed displaced fracture of medial [...] on file Legal Sex Female 6:03 AM CIRCULATION WORKER Gender Identity Not on file Sexual [...] presents to the office today for a [id number]. She is 5 weeks status-post an open [...] been removing the boot to work on [id number] exercises/stretches of her left foot/ankle. Pain Assessment [...] Primary documented in this encounter Care Teams Block Sawyer Relationship Specialty Start Date End Date Rose Mary Kidd MD [address] [place] [address] PCP - General 07/21/17 documented as of this encounter
--- OUTSIDE RECORDS SUMMARY | 2024-08-28 06:27 | XMS_ITS | Encounter Summary ---
Author Organization [facility] Healthcare Address [address] [place] [address] Care Team Providers Care Drink Box Mechanic Name Role Phone Rose Mary Kidd MD Primary Care Provider + Encounter Details Date Type Department Care Team (Late st Contact Info) Description 05/31/2024 Documentation [facility] Medical Group Orthopedics and Sports Medicine at [address] [address] Charley Dominguez Social History Tobacco Use Types Packs/Day [...] on file Legal Sex Female 6:03 AM LOFT RIGGER Gender Identity Not on file Sexual Orientation Not on file documented as of this encounter Plan of Treatment Not on file documented as of this encounter Visit Diagnoses Not on filedocumented in this encounter Care Teams Drink Box Mechanic Relationship Specialty Start Date End Date RoseM ary Kidd MD [address] [place] [address] PCP - General 07/21/17 documented as of this encounter
--- OUTSIDE RECORDS SUMMARY | 2024-08-28 06:27 | XMS_ITS | Encounter Summary ---
Author Organization [facility] Address [address] [facility] [place] [address] Care Team Providers Care Coining Press Operator Name Role Phone Rose Mary Kidd MD Primary Care Provider Encounter Details Date Type Department Care Team (Late st Contact Info) Description 09/22/2022 Lab Requisition [facility] D[facility] Lab [address] [facility] [place] [address] Vasiliy Arredondo MD [address] [place] [address] Social History Tobacco Use Types [...] Comments DERMATOPATHOLOGY Routine 09/21/2022 12:0 0 AM [facility] documented in this encounter Results * DERMATOPATHOLOGY (09/21/2022 12:00 AM [facility]) Case Report Dermatopathology Report ? Case: [id number] ? Authorizing Provider: ??Vasiliy Arredondo MD ?Collected: ? 09/21/2022 12:00 AM ? Ordering Location: ? [facility] ?Received: ?09/22/2022 04:04 PM ? Pathologist: ? Elicia Ferguson MD ? Specimen: ?Skin, left upper bhavesh lip border ? 3 5:16 PM [facility] Final Diagnosis Specimen A. SKIN, left upper bhavesh lip border: RUPTURED EPIDERMOID CYST (L72.0) (see microscopic description) 3 5:16 PM [facility] Clinical History R/O EIC 3 5:16 PM [facility] Gross Description Specimen A: Received is one formalin filled container labeled with the patient's name and designated left upper bhavesh lip border. The specimen consists of a punch biopsy measuring [id number]. Jar 0. 3 5:16 PM [facility] Microscopic Description Specimen A. SKIN, left upper bhavesh lip border: Within the dermis, there is an infiltrate composed of lymphocytes and histiocytes, including multinucleated type giant cells. Some histiocytes contain flakes of material consistent with keratin. Additional deeper sections were obtained and reviewed. 3 5:16 PM [facility] Disclaimer An external and internal [...] purposes. Billing Codes Specimen Charges Stain Charges 24629 1 3 5:16 PM [facility] Embedded Images 3 5:16 PM [facility] Pathology/Cytolog y TISSUE SPECIMEN FROM SKIN / Unknown 09/21/2022 09/22/2022 4:04 PM [facility] Vasiliy Arredondo MD LAB - PATHOLOGY/CYTO LOGY ORDERABLES DERMATOPATHOLOGY LABORATORY [facility] - Department of Dermatology [facility] [address] [place] [address], [address] [phone] documented in this encounter Visit Diagnoses Not on filedocumented in this encounter Care Teams Coining Press Operator Relationship Specialty Start Date End Date Rose Mary Kidd MD [address] [address] PCP - General 03/29/11 documented as of this encounter
--- OUTSIDE RECORDS SUMMARY | 2024-08-28 06:27 | XMS_ITS | Encounter Summary ---
Author Organization [facility] Address [address] [facility] [place] [address] Care Team Providers Care Drier Helper Name Role Phone Rose Mary Kidd MD Primary Care Provider Reason for Visit * Reason Comments Scar here for discussion for scar revision on neck from previous removal of skin tag in 2010. c/o scar pulling at night . Encounter Details Date Type Department Care Team (Late st Contact Info) Description 12/28/2013 10:30 AM CDT - 12/28/2013 11:59 PM CDT Hospital Encounter [facility] - Plastic Surgery Division of Plastic Surgery [address] [place] [address] Val Brennan MD [address] [place] [address] Discharge Disposition: Home or Self Care Social [...] please call the plastic surgery office at [phone] to schedule this procedure. Same day surgery [...] feels is unsightly. Mother stated that her silk screen layout drafter suggested she follow up with Dr. Brennan [...] Date ??? Tonsillectomy and adenoidectomy [address] [facility] Allergies Allergen Reactions ??? Amoxicillin Urticaria Current [...] Val Brennan MD CC: Rose Mary Kidd [address] [place] [address] Date: 12/28/2013 4:46 PM * Sabina Law [...] feels is unsightly. Mother stated that her silk screen layout drafter suggested she follow up with Dr. Brennan [...] Date ??? Tonsillectomy and adenoidectomy [address] [facility] Allergies Allergen Reactions ??? Amoxicillin Urticaria Current [...] on filedocumented in this encounter Care Teams Drier Helper Relationship Specialty Start Date End Date oRse Mary Kidd MD [address] [place] [phone] PCP - General 03/29/11 documented as of this encounter
--- OUTSIDE RECORDS SUMMARY | 2024-08-28 06:27 | XMS_ITS | Patient Health Summary ---
Author Organization [facility] Address [address] [place] [address] Care Team Providers Care Quality Control Systems Manager Name Role Phone Rose Mary Kidd MD Primary Care Provider Note from [facility],non-owned Affiliates and Associated Physician Practices is amultiple site organization consisting of ambulatory clinics and hospital sitesin [place], [place], [place] and [place]. This disclosure is being madepursuant to the Care Everywhere program and may not contain all information available regarding this patient. Last updated 18.[facility] Allergies * Amoxicillin(Urticaria) Medications * Be aware [...] 07/14/2011) Results * DERMATOPATHOLOGY (09/21/2022 12:00 AM PYROTECHNICIAN) Case Report Dermatopathology Report ? Case: [id number] ? Authorizing Provider: ??Vasiliy Arredondo MD ?Collected: ? 09/21/2022 12:00 AM ? Ordering Location: ? [facility] ?Received: ?09/22/2022 04:04 PM ? Pathologist: ? Elicia Ferguson MD ? Specimen: ?Skin, left upper bhavesh lip border ? 5:16 PM [facility] Final Diagnosis Specimen A. SKIN, left upper bhavesh lip border: RUPTURED EPIDERMOID CYST (L72.0) (see microscopic description) 5:16 PM [facility] Clinical History R/O EIC 5:16 PM [facility] Gross Description Specimen A: Received is one formalin filled container labeled with the patient's name and designated left upper bhavesh lip border. The specimen consists of a punch biopsy measuring [id number]. Jar 0. 5:16 PM [facility] Microscopic Description Specimen A. SKIN, left upper bhavesh lip border: Within the dermis, there is an infiltrate composed of lymphocytes and histiocytes, including multinucleated type giant cells. Some histiocytes contain flakes of material consistent with keratin. Additional deeper sections were obtained and reviewed. 5:16 PM [facility] Disclaimer An external and internal positive and negative controls are appropriate for the histochemical, immunohistochemical and immunofluorescence stain(s) in this case (if any), except where stated explicitly. The performance characteristics of the stain(s) cited in this report were developed and its performance characteristic determined by the Dermatopathology Laboratory at [facility], directed by Dr. Williams Hale. These tests need not be, and therefore are not, approved by the [place] Food and Drug Administration. The tests are used for clinical purposes. Billing Codes Specimen Charges Stain Charges 40066 1 3 5:16 PM [facility] Embedded Images 3 5:16 PM [facility] Pathology/Cytolog y TISSUE SPECIMEN FROM SKIN / Unknown 09/21/2022 09/22/2022 4:04 PM PYROTECHNICIAN Vasiliy Arredondo MD LAB - PATHOLOGY/CYTO LOGY ORDERABLES Performing Organization Address City/[facility]/ZIP Co de Phone Number DERMATOPATHOLOGY LABORATORY [facility] - Department of Dermatology [address], [address] Floor [address] [phone] * VITAMIN D (25-HYDROXY) (12/27/2017 9:20 AM CDT) [facility] Vitamin D, 25 Hydroxy 28.8 20 - 100 ng/mL 12/27/2017 11:29 AM CDT [facility] Blood BLOOD SPECIMEN / Unknown Lab Venipuncture / Unknown 12/27/2017 9:20 AM CDT 12/27/2017 10:02 AM CDT Narrative [facility] - 12/27/2017 11:29 AM CDT Vitamin D Status: ?Deficient ? <10 ?? ng/mL ? Borderline ?10-20 ng/mL ?Sufficient ?>20 ?? ng/mL ?Toxic ? >100 ??ng/mL Lilibeth Helm APRN-J2EE CONSULTANT LAB - CHEMISTR Y ORDERABLES Performing Organization Address [facility] Co de Phone Number [facility] [place] [address] * FERRITIN (12/27/2017 9:20 AM CDT) Ferritin 31 10 - 140 ng/mL 12/27/2017 11:08 AM CDT [facility] Blood BLOOD SPECIMEN / Unknown Lab Venipuncture / Unknown 12/27/2017 9:20 AM CDT 12/27/2017 10:02 AM CDT Lilibeth James Helm TANK CAR REPAIRER-J2EE CONSULTANT LAB - CHEMISTR Y ORDERABLES [facility] Juli Jenkins [facility] [place] [address] * CARDIAC EKG ORDER (12/02/2017 2:30 PM [...] (Bezet) 426 ms CG MUSE Calculated P [place] 46 degrees CG MUSE Calculated R [place] 75 degrees CG MUSE Calculated T [place] 36 degrees CG MUSE Interpretation EKG * Pediatric ECG Analysis * Normal sinus rhythm Normal ECG No previous ECGs available Confirmed by Janice Norton ([id number]) on 12/01/2017 3:06:44 PM CG MUSE 11/28/2017 11:3 2 AM CDT 12/01/2017 3:06 PM CDT Janice Norton MD ECG ORDERABLES Performing Organization Address City/[facility]/ZIP Co de Phone Number MUSE * ECHO CONSULT - PEDIATRIC (11/28/2017 10:48 AM CDT) 11/28/2017 10:4 8 AM CDT Narrative [facility] - 11/28/2017 11:48 AM CDT ?[address] [place] [address] ?[phone] Phone ?[phone] Fax ?Non-Congenital Transthoracic Report Pat.Name: ??ELIAS VILLATORO ?Pat.ID: ?[id number] ? St.Date: ?? 11/28/2017 ?Exam Time: 10:48:00 AM ? Study Type:Non-Congenital TTE ?Height: ?171.8cm ? Weight: ?107kg ? BSA: ? 2.18 m2 ?Age: ??2000,17Y ?Sex: ? FEMALE ? BP: ?116/76 ?Sonogrphr: Hannah Cool LU ? Pat. Stat.:Outpatient ?CPT - 4: ?? 63093 ? Reason for Study:chest pain, right axis deviation History / Clinical:chest pain and right axis deviation Procedures:2D Non-congenital, Doppler Complete, Color Flow Visit ID: ??[id number] ? SUMMARY: Impression: Normal intracardiac anatomy and [...] Note Janice Norton MD - 11/29/2017 [address] [place] [address] Fax Non-Congenital Transthoracic Report Pat.Name: ELIAS VILLATORO Pat.ID: [id number] .Date: 11/28/2017 Exam Time: 10:48:00 AM Study Type:Non-Congenital TTE Height: 171.8cm Weight: 107kg BSA: 2.18 m2 Age: 14 2000,17Y Sex: FEMALE BP: 116/76 Sonogrphr: Hannah Cool RDCS Pat. Stat.:Outpatient CPT - 4: 67143 Reason for Study:chest pain, right axis deviation History / Clinical:chest pain and right axis deviation Procedures:2D Non-congenital, Doppler Complete, Color Flow Visit ID: [id number] SUMMARY: Impression: Normal intracardiac anatomy and normal [...] Norton MD Janice Norton MD ECHO ORDERABLES [facility] [address] [place] [address] * PATHOLOGY/CYTOLOGY REPORT ORDER (07/19/2011 9:25 AM PYROTECHNICIAN) Narrative Transcriptions Document, Scanned - 07/19/2011 9:25 AM CST Scanned Document LAB - PATHOLOGY/CYTO LOGY ORDERABLES * GROSS + MICRO EXAM (07/14/2011 2:43 PM PYROTECHNICIAN) [facility] Clinical History [facility] Comment: The patient is ab 10-year-old girl with two neck lesions, two right thigh lesions, one lower lip skin tag, and left axillary skin tag. ?? Gross Description [facility] Comment: The specimens are received in [...] in cassette C2 . ??(LH/lw) Microscopic Examination [facility] Comment: A) 2 H+E; B) [...] glands, and sweat glands. ??(LH/lw) ?? Diagnosis [facility] Comment: DIAGNOSIS: ??A) LEFT NECK CYST, EXCISION: ? -LAMINATED KERATIN PLUG. ?B) RIGHT NECK NEVUS, EXCISION: ? -NEVUS SEBACEOUS. ?C) RIGHT GROIN/THIGH LESION, EXCISION: ? -NEVUS SEBACEOUS. ?? This case has been personally reviewed and interpreted by the attending (teaching) pathologist. Addendum 1 [facility] Comment: Slides were sent to [facility], [place]. ??Dr. Amanda Hale reviewed [...] nevus. ??Clinical correlation is recommended. ?? (CSA) Veterans Employment Representative Gilda Conner, [facility] Resident in Pathology Leona Hopper M.D. [facility] Pathologist Rocky Valdovinos M.D. [facility] Electronically Signed By Rocky Valdovinos M.D. [facility] CYST TISSUE / Unknown 07/14/2011 2:43 PM PYROTECHNICIAN 07/16/2011 9:01 AM PYROTECHNICIAN Val Brennan MD LAB - PATHOLOGY /CYTOLOGY ORDERABLES [facility] [address] [place] [address] Care Teams Quality Control Systems Manager Relationship Specialty Start Date End Date Rose Mary Kidd MD [address] [place] [id number] PCP - General 03/29/11
--- OUTSIDE RECORDS SUMMARY | 2024-08-28 06:27 | XMS_ITS | Referral Summary ---
Author Organization [facility] Address [address] [place] [address] Care Team Providers Care Candy Cooker Helper Name Role Phone Rose Mary Kidd MD Primary Care Provider [phone] Source Comments [facility],non-owned Affiliates and Associated Physician Practices is amultiple site organization consisting of ambulatory clinics and hospital sitesin [place], [place], [place] and [place]. This disclosure is being madepursuant to the Care Everywhere program and may not contain all information available regarding this patient. Last updated 18.[facility] Allergies Active Allergy Reactions Criticality Noted Date [...] of Treatment Not on file Care Teams Candy Cooker Helper Relationship Specialty Start Date End Date Rose Mary Kidd MD [address] [place] [address] PCP - General 03/29/11
--- OUTSIDE RECORDS SUMMARY | 2024-08-28 06:27 | XMS_ITS | Encounter Summary ---
Author Organization [facility] Care Team Providers Care Director Of Medical Staff Services Name Role Phone Unavailable Primary Care Provider Unavailabl e Encounter Details Date Type Department Care Team (Latest Contact Info) Description 04/11/2014 11:04 AM CDT - 04/11/2014 11:59 PM CDT Hospital Encounter [facility] Aftercare for healing traumatic fracture of lower leg Social History Tobacco Use Types Packs/Day Years Used Date Smoking Tobacco: Never Assessed Comments Unknown Sex and Gender Information Value Date Recorded Sex Assigned at Not on file Legal Sex Female 6:03 AM CURB SETTER Gender Identity Not on file Sexual Orientation [...] agrees with it. ACC# ??Date Time ??Exam [id number] Apr 11, 2014 10:59:00 47085 ANKLE 3 VIEWS UNILATERAL L EXAMINATION: ?Left [...] agrees with it. ACC# Date Time Exam [id number] Apr 11, 2014 10:59:00 80079 ANKLE 3 VIEWS UNILATERAL L EXAMINATION: Left [...]
--- OUTSIDE RECORDS SUMMARY | 2024-08-28 06:27 | XMS_ITS | Encounter Summary ---
Author Organization [facility] [employer] [facility] Address [address] [place] [address] Phone Care Team Providers Care School Laboratory Technician Name Role Phone Rose Mary Kidd [...] Description 03/22/2022 10:00 PM CDT Office Visit 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 The provider was made aware. See media component in Gremln for tool. * Maximiliano Mary Bia, PANTOGRAPH WATCHER - 03/22/2022 10:00 PM CDT Images from [...] monkeypox. States she was reading on the [employer] website and feels that this is what [...] No drainage. See pics below. Vitals reviewed. Ralls suicide scale reviewed, patient is Low risk [...] monkeypox. States she was reading on the [employer] website and feels that this is what [...] body documented in this encounter Care Teams School Laboratory Technician Relationship Specialty Start Date End Date Rose Mary Kidd MD [address] [place] [address] PCP - General 07/21/17 documented as of this encounter
--- OUTSIDE RECORDS SUMMARY | 2024-08-28 06:27 | XMS_ITS | Encounter Summary ---
Author Organization [facility] Address [address] [place] [address] Care Team Providers Care Procurement Representative Name Role Phone Rose Mary Kidd MD Primary Care Provider + Reason for Visit * Diagnostic Imaging (Routine) - Closed Specialty Diagnoses / Procedures Referred By Macy t Referred To Contact Diagnoses Closed displaced fracture of medial malleolus of left tibia with routine healing, subsequent encounter Procedures XR Ankle Left 3 [place] [address] [address] Phone: tel: fax: Referral ID Status Reason Start Date Expiration Date Visits Re quested Visits Authorized [id number] Closed 04/26/2024 05/26/2025 1 1 Encounter Details Date Type Department Care Team (Latest Contact Info) Description 04/26/2024 1:53 PM CDT - 04/26/2024 11:59 PM CDT Hospital Encounter [facility] [address] [address] Discharge Disposition: Discharge to home [...] on file 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
--- OUTSIDE RECORDS SUMMARY | 2024-08-28 06:27 | XMS_ITS | Clinical Summary ---
Author Organization [facility] [employer] [facility] Address [address] [place] [address] Phone Care Team Providers Care Knitting Inspector Name Role Phone Rose Mary Kidd [...] Description 05/31/2024 1:45 PM CDT Office Visit [facility] Medical [facility] Orthopedics and Sports Medicine at [address] [address] Adrienne Umanzor PA Closed displaced fracture of medial malleolus of left tibia with routine healing, subsequent encounter (Primary Dx) 05/31/2024 1:29 PM CDT - 05/31/2024 11:59 PM CDT Hospital Encounter [facility] [address] [place] [address] Discharge Disposition: Discharge to home or self care 05/31/2024 Documentation [facility] Orthopedics and Sports Medicine at [address] [address] Charley Dominguez from Last 3 [...] on file Legal Sex Female 6:03 AM EQUIPMENT 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 Gender Identity Not on file Sexual [...] 05/23, 04/10/2014 Medical Devices Implanted Type Area General Operations Manager Device Identifier Shelf Expiration Date Model / Serial / Lot [employer] Low Profile Screws 4mm 46mm Self Drill Self Tap Cannulated [id number]-8840c-46 - [id number] Implanted:Qty: 1 on 03/23/2024 by Donald Mendoza Jr., MD at [facility] Left: Ankle [employer] [id number]-46 / [...] Resu lt from Last 3 Months Insurance [facility] Care Teams Knitting Inspector Relationship Specialty Start Date End Date Rose Mary Kidd MD [address] [place] [address] PCP - General 07/21/17
--- OUTSIDE RECORDS SUMMARY | 2024-08-28 06:27 | XMS_ITS | Referral Summary ---
Author Organization [facility] Address [address] [place] [address] Phone Care Team Providers Care Partner Manager Name Role Phone Rose Mary Kidd MD Primary Care Provider + Encounters Date Type Department Care Team Description 05/31/2024 Documentation [facility] Orthopedics and Sports Medicine at [address] [address] Charley Dominguez 05/31/2024 1:29 PM CDT - 05/31/2024 11:59 PM CDT Hospital Encounter [facility] [address] [place] [address] Discharge Disposition: Discharge to home or self care 05/31/2024 1:45 PM CDT Office Visit [facility] Medical [facility] Orthopedics and Sports Medicine at [address] [address] Adrienne Umanzor PA Closed displaced [...] on file Legal Sex Female 6:03 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 Gender Identity Not on file Sexual Orientation [...] on file Medical Devices Implanted Type Area Bottom Bleacher Device Identifier Shelf Expiration Date Model / Serial / Lot [employer] Low Profile Screws 4mm 46mm Self Drill Self Tap Cannulated [id number]-46 - [id number] Implanted:Qty: 1 on 03/23/2024 by Donald Mendoza Jr., MD at [facility] Left: Ankle [employer] [id number]-46 / / [...] Resu lt from Last 3 Months Insurance [facility] Care Teams Partner Manager Relationship Specialty Start Date End Date Rose Mary Kidd MD [address] [place] [address] PCP - General 07/21/17
--- OUTSIDE RECORDS SUMMARY | 2024-08-28 06:27 | XMS_ITS | Encounter Summary ---
Author Organization [facility] Healthcare Address [address] [place] [address] Care Team Providers Care General Lot Attendant Name Role Phone Rose Mary Kidd MD Primary Care Provider + Reason for Visit * Auth/Cert (Routine) Specialty Diagnoses / Procedures Referred By Contac t Referred To Contact Diagnoses Closed nondisplaced fracture of medial malleolus of left tibia, initial encounter Closed nondisplaced fracture of medial malleolus of left tibia, initial encounter [S82.55XA] Procedures VA OPEN TREATMENT MEDIAL MALLEOLUS FRACTURE ORIF LEFT MEDIAL MALLEOLUS/60 min Referral ID Status Reason Start Date Expiration Date Visits Re quested Visits Authorized [id number] 1 1 Encounter Details Date Type Department Care Team (Late st Contact Info) Description 03/23/2024 11:08 AM CDT Anesthesia Event [facility] Operating Room [address] [place] [address] [place] [address] [facility] [place] [address] Yoandy Mar MD 11 [facility] [address] [address] Anesthesia Record Procedure Summary Procedure Name Responsible [...] ft; Ankle/malleolus; 07/24/24 (Retired LDA, Removed/Completed by [facility] with LDA Utility); 1213 (Retired LDA, Removed/Completed by [facility] with LDA Utility) 03/23/24 1139 by Betina Herniquez RN 07/24/24 1213 by Discharge Provider, Automatic [...] on file Legal 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 Anesthesia plan and risks discussed with patient. [...] PERIPHERAL BLOCK Routine 03/23/2024 3:55 PM CDT VA AN ELECTIVE SUPRAGLOTTIC AIRWAY Routine 03/23/2024 11:23 AM CDT ANESTHESIA PERIPHERAL BLOCK Routine 03/23/2024 11:10 AM CDT documented in this encounter Results * Peripheral Block (03/23/2024 3:55 PM CDT) Narrative Juan Berumen MD - 03/23/2024 3:55 PM CDT Juna Berumen MD ? 03/23/2024 ??3:55 PM Peripheral [...] Berumen MD ANESTHESIA ORDERABLES Final Result * VA AN ELECTIVE SUPRAGLOTTIC AIRWAY (03/23/2024 11:23 AM CDT) Narrative Nely Page CRNA - 03/23/2024 11:23 AM CDT Nely Page CRNA ? 03/23/2024 11:24 AM Airway Patient location: OR Urgency: elective Indications for airway management: anesthesia Difficult airway: no Staff: Placed by: CNC MACHINE OPERATOR: Nely Page CRNA Emergent airway documentation: Risks [...] mg documented in this encounter Care Teams General Lot Attendant Relationship Specialty Start Date End Date Rose Mary Kidd MD [address] [place] [address] PCP - General 07/21/17 documented as of this encounter
--- OUTSIDE RECORDS SUMMARY | 2024-08-28 06:27 | XMS_ITS | Clinical Summary ---
Author Organization [facility] Address [address] [place] [address] Phone Care Team Providers Care Executive Receptionist Name Role Phone ELLEO-SURESH SORENSON MD Unavailable [phone] Reason for Visit and Chief Complaint The Chief Complaint is: COVID exposure yestereday to a friend whom tested pos today, sx of heaviness chest, cough, SOB, faatigue/tired, felt warm-took no meds, JORDAN, muscle/body aches-lower back, mouthdry and upset stomch x 2-3 days, along [...] - Last Documented On 08/09/2021 5:58PM ; [facility] Assessments Includes: Assessments from this encounter Findings - Contact with and (Suspected) exposure to COVID-19 [Z20.822 - Contact with and (suspected) exposure to COVID-19] - Last Documented On 08/09/2021 5:58PM ; [facility] Medical Equipment - Implanted Devices Includes: Current [...] 99 Last Documented: On 08/09/2021 5:32PM ; [facility] Results Includes: Results discussed during this encounter Rapid COVID Test [facility] Ordered by CLYDE ZEE on 10/10/2020 Collected: Reported: 08/09/2021 Last Documented On 1 5:40PM ; [facility] Reviewed on 08/09/2021; All test results are final unless otherwise noted. Rapid COVId neg N (Normal) Last Documented On 1 5:40PM ; [facility] Int. QC Acceptable yes N (Normal) Last Documented On 1 5:40PM ; [facility] Lot # and Exp. Date [id number] 10/16/21 N (Normal) Last Documented On 1 5:40PM ; [facility] History of Present Illness Includes: History of [...] 08/09/2021 Last Documented On 1 5:58PM ; [facility] Smoking Status Unknown Procedures and Surgical History [...] worsen Last Documented On 1 5:55PM ; [facility] use of tobacco assessment performed 1000F Last Documented On 1 5:30PM ; [facility] Medical History Includes: Medical History addressed during this encounter Description Last Updated Contact with and (Suspected) exposure to COVID-19 08/09/2021 Last Documented On 1 5:58PM ; [facility] Date COVID symptoms started: 08/07 Last Documented On 1 5:58PM ; [facility] No fall 08/09/2021 Last Documented On 1 5:58PM ; [facility] Family History Includes: Family History addressed during [...] SICK VISIT- NEW PATIENT CLYDE Fox MARTHA HANDLE LATHE OPERATOR-C [facility] 08/09/20 21 5:08PM 5:45PM Contact with and (Suspected) Exposure To Covid-19 Insurance Includes: Active Insurance Policies Plan Name Member ID Group # Subscriber Relationship Effect james Dates 1 - [facility] [id number] ROSMERY Christy Goldstein f Clinical Notes Includes: Clinical Notes from this encounter No Clinical Notes Recorded
--- OUTSIDE RECORDS SUMMARY | 2024-08-28 06:27 | XMS_ITS | Encounter Summary ---
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 Gender Identity Not on file Sexual Orientation Not on file documented as of this encounter Miscellaneous Notes * Telephone Encounter - Cyn Shaw - 03/20/2024 2:19 PM CDT Patient requesting Tylenol with [place] [address] Plan of Treatment Not on file documented as of this encounter Visit Diagnoses Not on filedocumented in this encounter Care Teams Wind Turbine Technician Relationship Specialty Start Date End Date Rose Mary Kidd MD [address] [place] [address] PCP - General 07/21/17 documented as of this encounter
--- OUTSIDE RECORDS SUMMARY | 2024-08-28 06:27 | XMS_ITS | Encounter Summary ---
Author Organization [facility] Healthcare Address [address] [place] [address] Care Team Providers Care Wet Process Operator Name Role Phone Rose Mary Kidd MD Primary Care Provider + Reason for Visit * Reason Comments Dizziness Shortness of Breath Encounter Details Date Type Department Care Team (Late st Contact Info) Description 01/04/2023 9:56 PM CDT - 01/05/2023 3:13 AM CDT Emergency [facility] Emergency Department [address] [place] [address] Ama Jewell MD 1 [place] [address] Vero Leyva MD 1 [place] [address] Dizziness (Primary Dx) Discharge Disposition: Discharge to [...] on file Legal Sex Female 6:03 AM REFERENCE DATA EXPERT Gender Identity Not on file Sexual Orientation [...] through Care Everywhere. * Vertigo (AfterCare(R) Instructions(ER/ED)) (Nepali) * Benign Paroxysmal Positional Vertigo (AfterCare(R) Instructions(ER/ED)) (Nepali) * Fainting, Uncertain Cause (Nepali) documented in this encounter Medications at [...] voice recognition software. Ama Jewell MD 01/04/23 2257 * Magdy Henry RN - 01/04/2023 6:10 [...] with voice recognition software. Occasional wrong-word or '[id number]' substitutions may have occurred due to the [...] tendency for uric acid stone formation. Source: [place] [employer].Last revised 09-01-2017 CBC WITH AUTO DIFFERENTIAL WBC [...] by myself in the absence of a cork painter and grader) Sinus rhythm with a normal rate of 86, RI intervals slightly short 116, but no obvious [...] and she did not fall over or RI unsteady. She is symmetrical smile symmetrical palate [...] been completed with a voice recognition program. Electric Meter Repairer errors occur. Please contact me for any [...] BLOOD ORDERABLE S Final Result [facility] [place] [address] * XR Chest 1 Vw Portable (01/04/2023 [...] PM T: ??01/04/2023 11:05 PM Report ID: [id number] [place] Location: ??[id number] Procedure Note Von Arora MD - 01/04/2023 [...] Von Arora M.D. AR: AWA Report ID: [id number] [place] Location: [id number] us Ama Jewell MD IMG XR PROCEDURES F inal Result * eGFR (01/04/2023 10:28 PM CDT) eGFR 131 mL/min/1. 73 m2 [facility] ([place]) Comment: Interpretive Data Reference Interval Normal ?>/= [...] LAB BLOOD ORDERABLES Final Result [facility] ([place]) 1 [facility] [place] [address] * Differential, auto (01/04/2023 10:28 PM CDT) Neutrophil abs 5.3 1.7 - 6.5 K/cumm [facility] ([place]) Imm gran abs 0.0 0.0 - 0.1 K/cumm [facility] ([place]) Lymphocyte abs 2.8 0.8 - 3.3 K/cumm [facility] ([place]) Monocyte abs 0.6 0.2 - 0.8 K/cumm [facility] ([place]) Eosinophil abs 0.2 0.0 - 0.5 K/cumm [facility] ([place]) Basophil abs 0.1 0.0 - 0.1 K/cumm [facility] ([place]) Neutrophil pct 58.6 % [facility] ([place]) Comment: Interpretive Data Percent cell count reference ranges are not reported, since discordance with absolute values may lead to misinterpretation of CBC data. Current Interpretive Data was last revised on 2017. Imm gran pct 0.3 % [facility] ([place]) Comment: Interpretive Data Percent cell count reference ranges are not reported, since discordance with absolute values may lead to misinterpretation of CBC data. Current Interpretive Data was last revised on 2017. Lymphocyte pct 31.6 % [facility] ([place]) Comment: Interpretive Data Percent cell count reference ranges are not reported, since discordance with absolute values may lead to misinterpretation of CBC data. Current Interpretive Data was last revised on 2017. Monocyte pct 6.3 % [facility] ([place]) Comment: Interpretive Data Percent cell count reference ranges are not reported, since discordance with absolute values may lead to misinterpretation of CBC data. Current Interpretive Data was last revised on 2017. Eosinophil pct 2.6 % [facility] ([place]) Comment: Interpretive Data Percent cell count reference ranges are not reported, since discordance with absolute values may lead to misinterpretation of CBC data. Current Interpretive Data was last revised on 2017. Basophil pct 0.6 % [facility] ([place]) Comment: Interpretive Data Percent cell count reference ranges are not reported, since discordance with absolute values may lead to misinterpretation of CBC data. Current Interpretive Data was last revised on 2017. Blood 01/04/2023 10:2 8 PM CDT 01/04/2023 10:32 PM CDT us Jerson Humphrey MD LAB BLOOD ORDERABLES Final Result Performing Organization Address [facility] Co de Phone Number [facility] ([place]) 1 [facility] [place] [address] * Ethanol (01/04/2023 10:28 PM CDT) Ethanol <10 <=10 mg/dL [facility] ([place] Comment: Interpretive Data Legal limit of intoxication > or = 80 mg/dL Levels > or = 400 mg/dL are potentially TOXIC. Current interpretive data was last revised on 2018. Blood 01/04/2023 10:2 8 PM CDT 01/04/2023 11:35 PM CDT us Ama Jewell MD LAB BLOOD ORDERABLE S Final Result Performing Organization Address [facility] de Phone Number [facility] ([place]) 1 [place] [address] * (ABNORMAL) Drugs of Abuse Screen, Urine [...] Not Detected CutOff 25 ng/mL [facility] ([place]) Comment: Interpretive Data - Phencyclidine: ??Samples containing [...] URINE ORDERABLE S Final Result [facility] ([place]) 1 [facility] Department [place] [address] * hCG, blood, quantitative (01/04/2023 10:28 PM CDT) hCG, quant <5.0 0.0 - 5.0 IUnits/L [facility] ([place]) Comment: Interpretive Data Non- Female premenopausal: < [...] S Final Result [facility] ([place]) 1 [facility] Department of Laboratories [place] [id number] * Urinalysis reflex to microscopic and culture [...] tendency for uric acid stone formation. Source: [facility] [employer]. Last revised 09-01-2017 Ama Jewell MD LAB MICROBIOLOGY - GENERAL ORDERABLES Final Result Performing Organization Address [facility] Co de Phone Number [facility] ([place]) 1 [place] [address] * Troponin T high-sensitivity series (baseline, 2hr, [...] ORDERABLE S Final Result Performing Organization Address City/[facility] Co de Phone Number [facility] ([place]) 1 [facility] [place] [address] * D-dimer, quantitative (01/04/2023 10:28 PM CDT) [...] Humphrey MD LAB BLOOD ORDERABLES Final Result [facility] ([place]) 1 [facility] Department [place] [address] * Comprehensive metabolic panel (01/04/2023 10:28 PM CDT) Sodium 139 135 - 145 mmol/L [facility] ([place]) Potassium, pl 3.5 3.3 - 4.9 mmol/L [facility] ([place]) Chloride 101 97 - 110 mmol/L [facility] ([place]) CO2 25 22 - 32 mmol/L [facility] ([place]) Anion gap 13 2 - 15 mmol/L [facility] ([place]) BUN 11 8 - 25 mg/dL [facility] ([place]) Creatinine 0.62 0.60 - 1.10 mg/dL [facility] ([place]) Glucose 96 70 - 199 mg/dL [facility] ([place]) Comment: Interpretive Data Fasting glucose [...] Humphrey MD LAB BLOOD ORDERABLES Final Result [facility] ([place] 1 [facility] [place] [address] * CBC with auto differential (01/04/2023 10:28 [...] 0.00 0.00 - 0.01 K/cumm [facility] ([place]) Blood 01/04/2023 10:2 8 PM CDT 01/04/2023 10:32 PM CDT us Jerson Humphrey MD LAB BLOOD ORDERABLES Final Result [facility] ([place]) 1 [facility] [place] [address] * CT Head WO Contrast (01/04/2023 10:25 [...] PM T: ??01/04/2023 10:59 PM Report ID: [id number] [place] Location: ??[id number] Procedure Note Von Arora MD - 01/04/2023 [...] Von Arora M.D. AR: AWA Report ID: [id number] [place] Location: [place] [address] Ama Jewell MD IMG CT PROCEDURES F inal Result * ECG 12 lead (01/04/2023 10:21 PM CDT) 01/04/2023 10:2 1 PM CDT Narrative [facility] - 01/05/2023 8:32 AM CDT Vent Rate: 86 bpm RR Interval: 691 msec RI Interval: 116 msec QRS Duration: 84 msec QT Interval: 359 msec QTC Interval: 403 msec P-R-T [place]: 30 - 75 - 43 degrees SINUS RHYTHM WITH SHORT RI INTERVAL BORDERLINE ECG Electronically Signed By: Yaron Mark MD Ama Jewell MD ECG ORDERABLES Dylan kalen Result - Final [facility] documented in this encounter Visit Diagnoses Diagnosis [...] 01/04/2023 documented in this encounter Care Teams Wet Process Operator Relationship Specialty Start Date End Date Rose Mary Kidd MD [address] [place] [address] PCP - General 07/21/17 documented as of this encounter
--- OUTSIDE RECORDS SUMMARY | 2024-08-28 06:27 | XMS_ITS | Encounter Summary ---
Author Organization [facility] Healthcare Address [address] [place] [address] Care Team Providers Care Commercial Director Name Role Phone Rose Mary Kidd MD Primary Care Provider + Reason for Visit * Diagnostic Imaging (Routine) - Closed Specialty Diagnoses / Procedures Referred By Macy t Referred To Contact Diagnoses Closed displaced fracture of medial malleolus of left tibia with routine healing, subsequent encounter Procedures XR Ankle Left 3 [place] [address] [address] Phone: tel: fax: Referral ID Status Reason Start Date Expiration Date Visits Re quested Visits Authorized [id number] Closed 05/31/2024 06/30/2025 1 1 Encounter Details Date Type Department Care Team (Latest Contact Info) Description 05/31/2024 1:29 PM CDT - 05/31/2024 11:59 PM CDT Hospital Encounter [facility] [address] [address] Discharge Disposition: Discharge to home [...] on file 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
--- OUTSIDE RECORDS SUMMARY | 2024-08-28 06:27 | XMS_ITS | Encounter Summary ---
Author Organization [facility] Healthcare Address [address] [place] [address] Care Team Providers Care Oil Pipeline Dispatcher Name Role Phone Rose Mary Kidd MD Primary Care Provider + Reason for Visit * Reason Comments Abdominal Pain Encounter Details Date Type Department Care Team (Late st Contact Info) Description 01/11/2020 5:31 PM CDT - 01/11/2020 10:06 PM CDT Emergency [facility] [place] [address] Steven Adame MD [id number] [place] [address] Right lower quadrant abdominal pain (Primary Dx) Discharge Disposition: Discharge to home or self care Social History Tobacco Use Types Packs/Day Years Used Date Smoking Tobacco: Never Comments Unknown Sex and Gender Information Value Date Recorded Sex Assigned at Not on file 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 Discussed with the supervisor electronics assembly approximately 2 days ago and due to continued symptoms recommended evaluation at [facility] for ultrasound and workup of potential appendicitis. [...] tendency for uric acid stone formation. Source: [employer].Last revised 09-01-2017 COMPREHENSIVE METABOLIC PANEL - Abnormal [...] quadrant abdominal pain Steven Adame MD 01/11/20 6223 * Delmy Martin RN - 01/11/2020 5:31 [...] on right side.hurts with any movement. NPO [id number] documented in this encounter Plan of Treatment [...] signed by: Tena King Steven Adame MD [facility] [place] PROCEDURES Final Result * US Appendix [...] by: Tena King us Steven Adame MD [facility] [place] PROCEDURES Final Result * US Pelvis [...] by: Tena King us Steven Adame MD [facility] US PROCEDURES Final Result * Differential, auto (01/11/2020 6:29 PM CDT) Neutrophil abs 3.7 1.7 - 6.5 K/cumm [facility] Imm gran abs 0.0 0.0 - 0.1 K/cumm [facility] Lymphocyte abs 2.6 0.8 - 3.3 K/cumm [facility] Monocyte abs 0.5 0.2 - 0.8 K/cumm [facility] Eosinophil abs 0.3 0.0 - 0.5 K/cumm [facility] Basophil abs 0.0 0.0 - 0.1 K/cumm [facility] Neutrophil pct 52.0 % [facility] Comment: Interpretive Data Percent cell count reference ranges are not reported, since discordance with absolute values may lead to misinterpretation of CBC data. Current Interpretive Data was last revised on 2017. Imm gran pct 0.3 % [facility] Comment: Interpretive Data Percent cell count reference ranges are not reported, since discordance with absolute values may lead to misinterpretation of CBC data. Current Interpretive Data was last revised on 2017. Lymphocyte pct 36.2 % [facility] Comment: Interpretive Data Percent cell count reference ranges are not reported, since discordance with absolute values may lead to misinterpretation of CBC data. Current Interpretive Data was last revised on 2017. Monocyte pct 7.0 % [facility] Comment: Interpretive Data Percent cell count reference ranges are not reported, since discordance with absolute values may lead to misinterpretation of CBC data. Current Interpretive Data was last revised on 2017. Eosinophil pct 4.1 % [facility] Comment: Interpretive Data Percent cell count reference ranges are not reported, since discordance with absolute values may lead to misinterpretation of CBC data. Current Interpretive Data was last revised on 2017. Basophil pct 0.4 % [facility] Comment: Interpretive Data Percent cell count reference ranges are not reported, since discordance with absolute values may lead to misinterpretation of CBC data. Current Interpretive Data was last revised on 2017. Blood specimen (specimen) 01/11/2020 6:29 PM CDT 01/11/2020 6:56 PM CDT us Steven Adame MD LAB BLOOD ORDERABLES Final Resul t Performing Organization Address City/[facility]/ZIP Co de Phone Number [facility] [place] [address] * Lipase (01/11/2020 6:29 PM CDT) Lipase 35 5 - 50 Units/L [facility] Blood specimen (specimen) 01/11/2020 6:29 PM CDT 01/11/2020 6:56 PM CDT Steven Adame MD LAB BLOOD ORDERABLES Final Resul t Performing Organization Address [facility] Co de Phone Number [facility] [place] [place] [address] * (ABNORMAL) Comprehensive metabolic panel (01/11/2020 6:29 PM CDT) Sodium 138 135 - 145 mmol/L [facility] Potassium, pl 3.7 3.3 - 4.9 mmol/L [facility] Chloride 108 100 - 114 mmol/L [facility] CO2 22 20 - 30 mmol/L [facility] Anion gap 8 2 - 15 mmol/L [facility] BUN 9 9 - 18 mg/dL [facility] Creatinine 0.51 0.40 - 1.00 mg/dL [facility] Glucose 86 70 - 199 mg/dL [facility] Comment: Interpretive Data Fasting glucose >/= 126 [...] Calcium 9.4 8.5 - 10.3 mg/dL [facility] Bilirubin, total 0.3 0.1 - 1.2 mg/dL [facility] Protein, pl 7.4 6.5 - 8.5 g/dL [facility] Albumin 4.3 3.2 - 5.0 g/dL [facility] Alk phos 48(L) 70 - 260 Units/L [facility] ALT 20 7 - 45 Units/L [facility] AST 19 10 - 50 Units/L [facility] Comment:Hemolyzed; results m ay be falsely elevated. Blood specimen (specimen) 01/11/2020 6:29 PM CDT 01/11/2020 6:56 PM CDT Steven Adame MD LAB BLOOD ORDERABLES Final Resul t Performing Organization Address [facility] Co de Phone Number [facility] Department [place] [address] * CBC with auto differential (01/11/2020 6:29 PM CDT) WBC 7.0 3.8 - 9.9 K/cumm [facility] Hgb 14.1 11.9 - 15.5 g/dL [facility] Hct 42.3 35.6 - 45.5 % [facility] Plt 228 150 - 400 K/cumm [facility] MPV 10.9 9.1 - 12.3 fL [facility] RBC 5.14 3.90 - 5.20 M/cumm [facility] MCV 82.3 81.3 - 96.4 fL [facility] MCH 27.4 27.1 - 33.3 pg [facility] MCHC 33.3 32.3 - 35.7 g/dL [facility] RDW CV 12.6 11.1 - 14.9 % [facility] RDW SD 38.0 35.7 - 48.1 fL [facility] NRBC abs 0.00 0.00 - 0.01 K/cumm [facility] Blood specimen (specimen) 01/11/2020 6:29 PM CDT 01/11/2020 6:56 PM CDT Steven Adame MD LAB BLOOD ORDERABLES Final Resul t Performing Organization Address City/[facility] Co de Phone Number [facility] Department [place] [address] * (ABNORMAL) Urinalysis reflex to microscopic (01/11/2020 6:00 PM CDT) Color, ur Yellow Yellow [facility] Clarity, ur Clear Clear [facility] Specific gravity, ur 1.007(L) 1.010 - 1.025 [facility] pH, urine 7.0 [facility] Protein, ur ql Negative Negative [facility] Glucose, ur ql Negative Negative [facility] Ketones, ur Negative Negative [facility] Bilirubin, ur Negative Negative [facility] Blood, ur Negative Negative [facility] Urobilinogen, ur 0.2 <2.0 mg/dL [facility] Nitrite, ur Negative Negative [facility] Leukocyte esterase, ur Negative Negative [facility] UA reflex comment Reflex conditions for microscopic UA not met. [facility] Urine 01/11/2020 6:00 PM CDT 01/11/2020 6:08 PM CDT Narrative [facility] - 01/11/2020 6:15 PM CDT ?? Urine pH is affected by diet, medications, systemic acid-base disturbances, and renal tubular function. ??pH may affect urinary stone formation. ??For example, urine pH below 6.0 may help reduce the tendency for calcium phosphate stones and pH greater than 6.0 may reduce the tendency for uric acid stone formation. Source: [facility] [employer]. Last revised 09-01-2017 Steven Adame MD LAB URINE ORDERABLES Final Resul t Performing Organization Address [facility] Co de Phone Number [facility] Department [place] [address] * hCG, urine, qualitative (01/11/2020 6:00 PM CDT) HCG, ur Negative Negative [facility] Urine 01/11/2020 6:00 PM CDT 01/11/2020 6:08 PM CDT Steven Adame MD LAB URINE ORDERABLES Final Resul t [facility] Department [place] [address] documented in this encounter Visit Diagnoses Diagnosis [...] RN) documented in this encounter Care Teams Oil Pipeline Dispatcher Relationship Specialty Start Date End Date Rose Mary Kidd MD [address] [place] [address] PCP - General 07/21/17 documented as of this encounter
--- OUTSIDE RECORDS SUMMARY | 2024-08-28 06:27 | XMS_ITS | Encounter Summary ---
Author Organization [facility] Address [address] [facility] [facility] [place] [address] Care Team Providers Care Envelope Cutter Name Role Phone Rose Mary Kidd MD Primary Care Provider Reason for Visit * Reason Onset Date Comments Surgical Followup 07/20/2011 Encounter Details Date Type Department Care Team (Late st Contact Info) Description 07/20/2011 Telephone [facility] Pediatrics - Plastic Surgery Division of Plastic Surgery [address] [place] [address] Val Brennan MD [address] [place] [address] [id number] Surgical Followup Social History Tobacco Use Types Packs/Day Years Used Date Smoking Tobacco: Passive Smo ke Exposure - Never Smoker Sex and Gender Information Value Date Recorded Sex Assigned at Not on file Gender Identity Not on file Sexual Orientation Not on file documented as of this encounter Miscellaneous Notes * Telephone Encounter - Dariana Winters RN - 07/20/2011 12:33 PM CARTOGRAPHY TECHNICIAN Enriqueta called in and states that the [...] difficulty. No further complaints and verbalizes understanding. OGRAPHY TECHNICIAN documented in this encounter Plan of Treatment Not on file documented as of this encounter Visit Diagnoses Not on filedocumented in this encounter Care Teams Envelope Cutter Relationship Specialty Start Date End Date Rose Mary Kidd MD [address] [place] [id number] PCP - General 03/29/11 documented as of this encounter
--- OUTSIDE RECORDS SUMMARY | 2024-08-28 06:27 | XMS_ITS | Encounter Summary ---
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 She was enjoying her vacation in [place] and was just walking in her hotel room and twisted her left ankle on 03/16/2024. She went to the [facility] on 03/17/2024. She had pain and tenderness in the ankle and she was diagnosed with a medial malleolus fracture and placed into a splint ER notes were reviewed. She was placed into a walker boot and has been nonweightbearing. She was in the office with her mother a friend. She is a student but also [facility] Pain Assessment Pain Assessment: 0-10 Pain [...] in her hotel room on 03/16/2024 in [place]. It to be surgically fixed and stabilized. She was seen in [place] and placed into a splint. She only has tenderness of the medial malleolus. It is a fracture below the level of the plafond but it is displaced. 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 PLAN She will be scheduled for open [...] 4 added in this encounter Care Teams Fabrication Operator Relationship Specialty Start Date End Date Rose Mary Kidd MD [address] [place] [address] PCP - General 07/21/17 documented as of this encounter
--- OUTSIDE RECORDS SUMMARY | 2024-08-28 06:27 | XMS_ITS | Encounter Summary ---
Author Organization [facility] Address [address] [facility] [place] [address] Care Team Providers Care Director Of Recreation Therapy Name Role Phone Rose Mary Kidd MD Primary Care Provider Encounter Details Date Type Department Care Team (Latest Contact Info) Description 11/10/2017 3:55 PM CDT - 11/10/2017 11:59 PM CDT Hospital Encounter [facility] at [address] [address] Stephan Funk MD Discharge Disposition: Home or [...] giddiness documented in this encounter Care Teams Director Of Recreation Therapy Relationship Specialty Start Date End Date Rose aMry Kidd MD [address] [place] [address] PCP - General 03/29/11 documented as of this encounter
--- OUTSIDE RECORDS SUMMARY | 2024-08-28 06:27 | XMS_ITS | Encounter Summary ---
Author Organization [facility] Facility Care Team Providers Care Electorate Officer Name Role Phone Unavailable Primary Care Provider Unavailabl e Encounter Details Date Type Department Care Team (Latest Contact Info) Description 03/07/2014 2:46 PM CDT - 03/07/2014 11:59 PM CDT Hospital Encounter [facility] Aftercare for healing traumatic fracture of lower leg Social History Tobacco Use Types Packs/Day Years Used Date Smoking Tobacco: Never Assessed Comments Unknown Sex and Gender Information Value Date Recorded Sex Assigned at Not on file 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 ACC# ??Date Time ??Exam [id number] Mar 07, 2014 14:23:00 11412 ANKLE 2 VIEWS UNILATERAL L [id number] Mar 07, 2014 14:53:00 57234 ANKLE 2 VIEWS UNILATERAL L ACC# ??Date Time ??Exam [id number] Mar 07, 2014 14:23:00 92159 ANKLE 2 VIEWS UNILATERAL L [id number] Mar 07, 2014 14:53:00 11900 ANKLE 2 VIEWS UNILATERAL L EXAMINATION: ??LEFT [...] agrees with it. ACC# Date Time Exam [id number] Mar 07, 2014 14:23:00 28223 ANKLE 2 VIEWS UNILATERAL L [id number] Mar 07, 2014 14:53:00 95244 ANKLE 2 VIEWS UNILATERAL L ACC# Date Time Exam [id number] Mar 07, 2014 14:23:00 96907 ANKLE 2 VIEWS UNILATERAL L [id number] Mar 07, 2014 14:53:00 27083 ANKLE 2 VIEWS UNILATERAL L EXAMINATION: LEFT [...] agrees with it. ACC# ??Date Time ??Exam [id number] Mar 07, 2014 14:23:00 74248 ANKLE 2 VIEWS UNILATERAL L [id number] Mar 07, 2014 14:53:00 39840 ANKLE 2 VIEWS UNILATERAL L ACC# ??Date Time ??Exam [id number] Mar 07, 2014 14:23:00 89498 ANKLE 2 VIEWS UNILATERAL L [id number] Mar 07, 2014 14:53:00 79345 ANKLE 2 VIEWS UNILATERAL L EXAMINATION: ??LEFT [...] agrees with it. ACC# Date Time Exam [id number] Mar 07, 2014 14:23:00 54523 ANKLE 2 VIEWS UNILATERAL L [id number] Mar 07, 2014 14:53:00 45259 ANKLE 2 VIEWS UNILATERAL L ACC# Date Time Exam [id number] Mar 07, 2014 14:23:00 77146 ANKLE 2 VIEWS UNILATERAL L [id number] Mar 07, 2014 14:53:00 94891 ANKLE 2 VIEWS UNILATERAL L EXAMINATION: LEFT [...]
--- OUTSIDE RECORDS SUMMARY | 2024-08-28 06:27 | XMS_ITS | Encounter Summary ---
Author Organization [facility] Address [address] [place] [address] Care Team Providers Care Market Relationship Manager Name Role Phone Rose Mary Kidd MD Primary Care Provider Reason for Visit * Reason Comments Surgical Follow-up Encounter Details Date Type Department Care Team (Late st Contact Info) Description 07/30/2011 9:54 AM HOGSHEAD BUILDER - 07/30/2011 11:59 PM [facility] Hospital Encounter [facility] Pediatrics - Plastic Surgery Division of Plastic Surgery [address] [place] [address]. [place] [address] Val Brennan MD [address] [place] [address] Plastic Surgery Discharge Disposition: Home or Self [...] 2 weeks. Abdelrahman Merchant M.D, M.P.H. PGY-2 [facility] Department of Sugery Pager: Patient personally [...] scar to promote maturation and combat hypertrophy. HEAD BUILDER documented in this encounter Miscellaneous Notes * Miscellaneous Scans - Document, Scanned - 08/25/2011 9:48 AM CST HEAD BUILDER documented in this encounter Plan of Treatment Not on file documented as of this encounter Visit Diagnoses Not on filedocumented in this encounter Care Teams Market Relationship Manager Relationship Specialty Start Date End Date Rose Mary Kidd MD [address] [id number] PCP - General 03/29/11 documented as of this encounter
--- OUTSIDE RECORDS SUMMARY | 2024-08-28 06:27 | XMS_ITS | Encounter Summary ---
Author Organization [facility] Address [address] [facility] [place] [address] Care Team Providers Care Diesel Fitter Mechanic Name Role Phone Rose Mary Kidd MD Primary Care Provider [phone] Encounter Details Date Type Department Care Team (Latest Contact Info) Description 09/18/2019 7:40 AM HOTEL OFFICE MANAGER - 09/18/2019 11:59 PM [facility] Hospital Encounter [facility] at [address] [address] Queenie Montaño MD [address] [place] [id number] Discharge Disposition: Home or Self Care Social [...] type documented in this encounter Care Teams Diesel Fitter Mechanic Relationship Specialty Start Date End Date Rose Mary Kidd MD [address] [address] PCP - General 03/29/11 documented as of this encounter
--- OUTSIDE RECORDS SUMMARY | 2024-08-28 06:27 | XMS_ITS | Encounter Summary ---
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 She is 2 weeks status-post an open [...] documented as of this encounter Care Teams Oil Well Service Operator Helper Relationship Specialty Start Date End Date Rose Mary Kidd MD [address] [place] [address] PCP - General 07/21/17 documented as of this encounter
--- OUTSIDE RECORDS SUMMARY | 2024-08-28 06:27 | XMS_ITS | Encounter Summary ---
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
--- OUTSIDE RECORDS SUMMARY | 2024-08-28 06:27 | XMS_ITS | Encounter Summary ---
Author Organization [facility] [employer] [facility] Address [address] [place] [address] Phone Care Team Providers Care Veneer Sander Name Role Phone Rose Mary Kidd MD Primary Care Provider + Reason for Referral * Diagnostic Imaging (Routine) - Closed Specialty Diagnoses / Procedures Referred By Contac t Referred To Contact Diagnoses Acute pain of left knee Procedures XR Knee Left 4 or More Views Orin Johnson NP Phone: tel: fax: [address] [address] Referral ID Status Reason Start Date Expiration Date Visits Re quested Visits Authorized [id number] Closed 04/05/2019 10/14/2020 1 1 Reason for Visit * Reason Comments Pain Encounter Details Date Type Department Care Team (Late st Contact Info) Description 04/05/2019 10:45 AM CDT Office Visit [facility] - [facility] Pediatric [facility]opedics [facility] 1st [place] [address] [place] [address] Orin Johnson NP [address] 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 Blanquita Jaimes, and designees are Dr. Lincoln Damon, Dr. Jose Roberto Mcfarland, Dr. Scottie Fernando, Dr. Vasiliy Navarro, Dr. Gris Disla, Dr. Herbert Wset, Dr. Jose Virk, Dr. Kumar Camacho, Dr. Gem Ruano, and Dr. Brando Patel. Orin Johnson RN, BCPNP dictating using Fluency Direct. Rec Therapist variances may occur. Cosigned by Chetan Jaimes [...] signed by: Tena King us Orin Johnson LOG CHAIN WORKER IMG XR PROCEDURES Final Resu lt documented in this encounter Visit Diagnoses Diagnosis Acute pain of left knee- Primary Patellofemoral pain syndrome of left knee documented in this encounter Care Teams Veneer Sander Relationship Specialty Start Date End Date Rose Mary Kidd MD [address] [place] [address] PCP - General 07/21/17 documented as of this encounter
--- OUTSIDE RECORDS SUMMARY | 2024-08-28 06:27 | XMS_ITS | Encounter Summary ---
Author Organization [facility] Facility Care Team Providers Care Press Technician Name Role Phone Unavailable Primary Care Provider Unavailabl e Encounter Details Date Type Department Care Team (Latest Contact Info) Description 03/21/2014 11:47 AM CDT - 03/21/2014 11:59 PM CDT Hospital Encounter [facility] Aftercare for healing traumatic fracture of lower leg Social History Tobacco Use Types Packs/Day Years Used Date Smoking Tobacco: Never Assessed Comments Unknown Sex and Gender Information Value Date Recorded Sex Assigned at Not on file 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 ACC# ??Date Time ??Exam [id number] Mar 21, 2014 11:45:00 76115 ANKLE 2 VIEWS UNILATERAL L EXAMINATION: ?? [...] agrees with it. ACC# Date Time Exam [id number] Mar 21, 2014 11:45:00 79511 ANKLE 2 VIEWS UNILATERAL L EXAMINATION: LEFT [...]
--- OUTSIDE RECORDS SUMMARY | 2024-08-28 06:27 | XMS_ITS | Encounter Summary ---
Author Organization [facility] Healthcare Address [address] [place] [address] Care Team Providers Care Filter Washer And Presser Name Role Phone Rose Mary Kidd MD Primary Care Provider + Reason for Visit * Diagnostic Imaging (Routine) - Closed Specialty Diagnoses / Procedures Referred By Contac t Referred To Contact Diagnoses Acute pain of left knee Procedures XR Knee Left 4 or More Views Orin Johnson NP Phone: tel: fax: [address] [address] Referral ID Status Reason Start Date Expiration Date Visits Re quested Visits Authorized [id number] Closed 04/05/2019 10/14/2020 1 1 Encounter Details Date Type Department Care Team (Late st Contact Info) Description 04/05/2019 11:00 AM CDT - 04/05/2019 11:59 PM CDT Hospital Encounter [facility] [place] [phone] Chetan Jaimes MD [address] [address] Orin Johnson NP [address] [address] Discharge Disposition: Discharge to home or self care Social History Tobacco Use Types Packs/Day Years Used Date Smoking Tobacco: Never Assessed Comments Unknown Sex and Gender Information Value Date Recorded Sex Assigned at Not on file Legal Sex Female 6:03 AM LEGAL SERVICE SPECIALIST Gender Identity Not on file Sexual [...] on filedocumented in this encounter Care Teams Filter Washer And Presser Relationship Specialty Start Date End Date Rose Mary Kidd MD [address] [place] [address] PCP - General 07/21/17 documented as of this encounter
--- OUTSIDE RECORDS SUMMARY | 2024-08-28 06:27 | XMS_ITS | Encounter Summary ---
Author Organization [facility] Facility Care Team Providers Care Traveling Accountant Name Role Phone Unavailable Primary Care Provider Unavailabl e Encounter Details Date Type Department Care Team (Latest Contact Info) Description 06/14/2014 11:18 AM CDT - 06/14/2014 11:59 PM CDT Hospital Encounter [facility] Aftercare for healing traumatic fracture of lower leg Social History Tobacco Use Types Packs/Day Years Used Date Smoking Tobacco: Never Assessed Comments Unknown Sex and Gender Information Value Date Recorded Sex Assigned at Not on file Legal Sex Female 6:03 AM HEALTHCARE MANAGEMENT Gender Identity Not on file Sexual Orientation [...] M.D. FINAL REPORT ACC# ??Date Time ??Exam [id number] Jun 14, 2014 11:02:00 21499 ANKLE 3 VIEWS UNILATERAL L EXAMINATION: ?LEFT [...] M.D. FINAL REPORT ACC# Date Time Exam [id number] Jun 14, 2014 11:02:00 15992 ANKLE 3 VIEWS UNILATERAL L EXAMINATION: LEFT [...]
--- OUTSIDE RECORDS SUMMARY | 2024-08-28 06:27 | XMS_ITS | Encounter Summary ---
Author Organization [facility] Address [address] [facility] [place] [address] Care Team Providers Care Glassware Verifier Name Role Phone Rose Mary Kidd MD Primary Care Provider Reason for Visit * Reason Comments Skin Tag dark skin tag on nec k, in between legs, and small bumb on neck Encounter Details Date Type Department Care Team (Late st Contact Info) Description 05/14/2011 12:01 AM CDT - 05/14/2011 11:59 PM T Hospital Encounter [facility] Pediatrics - Plastic Surgery Division of Plastic Surgery [address] [place] [address] Val Brennan MD [address] [place] [address] Plastic Surgery Discharge Disposition: Home or Self [...] 05/14/2011 8:1 0 AM CDT Growth Chart: [facility] (Girls, 2- 20 Years) documented in this encounter Discharge Instructions * Patient Instructions* Rekha Dillon RN - 05/14/2011 11:00 AM CDT Plastic Surgey has recommended that your child be scheduled for surgery. Please call the plastic surgery office at [phone] to schedule this procedure. Please call plastic [...] Brennan MD - 05/14/2011 8:48 AM CDT [facility] Plastic Surgery Note 05/14/2011 HISTORY: Rosmery [...] Document, Scanned - 06/30/2011 11:27 AM CST OGRAMMETRIC TECH documented in this encounter Plan of Treatment Not on file documented as of this encounter Visit Diagnoses Not on filedocumented in this encounter Care Teams Glassware Verifier Relationship Specialty Start Date End Date Rose Mary Kidd MD [address] [address] PCP - General 03/29/11 documented as of this encounter
--- OUTSIDE RECORDS SUMMARY | 2024-08-28 06:27 | XMS_ITS | Clinical Summary ---
Author Organization [facility] Address [address] [place] [address] Phone Care Team Providers Care Field Secretary Name Role Phone Steven Chase MD Primary Care Provider Allergies Active Allergy Reactions Criticality Noted Date Comments Amoxicillin Unknown 07/18/2023 Medications No known medications Immunizations Immunization Administration Dates Next Due TDAP Vaccine 07/18/2023 Social History Tobacco Use Types Packs/Day Years Used Date Smoking Tobacco: Never Assessed Comments No Sex and Gender Information Value Date Recorded Sex Assigned at Female 07/18/2023 1:18 PM WATCH COMMANDER Legal Sex Female 12:48 PM WATCH COMMANDER Gender Identity Female 07/18/2023 1:18 PM WATCH COMMANDER Sexual Orientation Not on file Last Filed Vital Signs Vital Sign Reading Time Taken Comments Blood Pressure 143/83 07/18/2023 1:00 PM WATCH COMMANDER Pulse 82 07/18/2023 1:00 PM WATCH COMMANDER Temperature 36 ??C (96.8 ??F) 07/18/2023 1:00 PM WATCH COMMANDER Respiratory Rate 16 07/18/2023 1:00 PM WATCH COMMANDER Oxygen Saturation 99% 07/18/2023 1:00 PM WATCH COMMANDER Inhaled Oxygen Concentration - - Weight 99.8 kg (220 lb) 07/18/2023 1:00 PM WATCH COMMANDER Height 170.2 cm (5' 7 ) 07/18/2023 1:00 PM WATCH COMMANDER Body Mass Index 34.46 07/18/2023 1:00 PM WATCH COMMANDER Plan of Treatment Health Maintenance Due Date [...] this topic Insurance MEDICAID [place] Care Teams Field Secretary Relationship Specialty Start Date End Date Steven Chase MD [address] [place] [address] PCP - General Family Medicine 07/18/23
--- OUTSIDE RECORDS SUMMARY | 2024-08-28 06:27 | XMS_ITS | Encounter Summary ---
Author Organization [facility] Address [address] [facility] [place] [address] Care Team Providers Care Monument Carver Name Role Phone Rose Mary Kidd MD Primary Care Provider [phone] Reason for Visit * Reason Comments WOUND DEHISCENCE had skin tag removal 07/14 on R. upper thigh. wounds opened today. mom had notified plastic division plant engineer. Encounter Details Date Type Department Care Team (Late st Contact Info) Description 07/24/2011 5:27 PM SENIOR DIRECTOR CREATIVE SERVICES - 07/24/2011 7:27 PM SENIOR DIRECTOR CREATIVE SERVICES Emergency ER at [address] [address] Toni Glynn MD [address] [place] [phone] Skin tag; Wound check, dressing change Discharge [...] Comments Blood Pressure 106/67 07/24/2011 5:35 PM SENIOR DIRECTOR CREATIVE SERVICES Pulse 100 07/24/2011 5:32 PM SENIOR DIRECTOR CREATIVE SERVICES Temperature 37.3 ??C (99.2 ??F) 07/24/2011 5:32 PM CS T Respiratory Rate 18 07/24/2011 5:32 PM SENIOR DIRECTOR CREATIVE SERVICES Oxygen Saturation - - Inhaled Oxygen Concentration - - Weight 67.2 kg (148 lb 2.4 oz) 07/24/2011 5:32 P M SENIOR DIRECTOR CREATIVE SERVICES Height - - Body Mass Index - - documented in this encounter Discharge Instructions * Discharge Instructions* Toni Glynn MD - 07/24/2011 7:12 PM SENIOR DIRECTOR CREATIVE SERVICES Sutured Wound Care Your cut has been [...] Document Re-Released: 06/10/2009 ExitCare?? Patient Information ??2009 [employer]. OR DIRECTOR CREATIVE SERVICES * Discharge Instructions* Document, Scanned - 07/26/2011 8:46 PM SENIOR DIRECTOR CREATIVE SERVICES OR DIRECTOR CREATIVE SERVICES documented in this encounter Medications at Time [...] Date ??? Tonsillectomy and adenoidectomy 2008 at [facility] 07/14/2011 1. Excision of anterior neck [...] with Dr Brennan as scheduled on 07/30/2011 OR DIRECTOR CREATIVE SERVICES documented in this encounter ED Notes * Paulette Schrader RN - 07/24/2011 7:26 PM CST Bacitracin and dressing placed on wound to go home. Dressing supplies sent home with family.* OR DIRECTOR CREATIVE SERVICES * Swetha Izquierdo RN - 07/24/2011 7:03 PM CST Wound cleansed with surcleanse and water. Pt tolerated fair. Awaiting bacitracin from the pharmacy. OR DIRECTOR CREATIVE SERVICES * Toni Glynn MD - 07/24/2011 6:57 [...] hours a day, from any computer, through [employer], the online version of our electronic medical record. If you would like to use this service, please call Yulia Sandoval, Connectivity Coordinator, at . We appreciate the opportunity to care for your patients. If you would like additional information, please call the emergency department directly at . Sincerely, Toni Glynn MD Division of Emergency Medicine [facility], [place] [facility] [place] FIRST TRAUMA I DESIGNATED EMERGENCY DEPARTMENT 07/24/2011 6:57 PM Rosmery Wynne [id number] [facility] EMERGENCY DEPT History Chief Complaint Patient presents with ??? WOUND DEHISCENCE had skin tag removal 07/14 on R. upper thigh. wounds opened today. mom had notified plastic division plant engineer. HPI Comments: 10 yo female to ED with concern about surgical wounds. Patient had skin tags removed on 07/14. Today wound on upper right thigh noted to be open. Called plastics division plant engineer and referred to ED. Plastics has already seen patient in ED and taken care of wound. To be discharged to home with bacitracin ointment. Past Medical History Diagnosis Date ??? Unspecified asthma triggered by allergies, no inhaler use ??? GERD (gastroesophageal reflux disease) Past Surgical History Procedure Date ??? Tonsillectomy and adenoidectomy 2008 at [facility] History Social History ??? Marital Status: [...] check, dressing change Toni Glynn M.D., Ph.D. Lead Case Manager of Pediatrics Division of Pediatric Emergency Medicine Department of Pediatrics, [facility] OR DIRECTOR CREATIVE SERVICES * Swetha Izquierdo RN - 07/24/2011 6:51 PM CST Plastics to the bedside for assessment. Plastic requesting that wound be cleansed and bacitracin beapplied. Awaiting bacitracin and discharge papers. OR DIRECTOR CREATIVE SERVICES * Swetha Izquierdo RN - 07/24/2011 6:14 [...] this time. Will continue to monitor pt. OR DIRECTOR CREATIVE SERVICES documented in this encounter Miscellaneous Notes * Miscellaneous Scans - Document, Scanned - 08/18/2011 8:50 AM CST OR DIRECTOR CREATIVE SERVICES * Miscellaneous Scans - Document, Scanned - 08/17/2011 5:27 PM CST OR DIRECTOR CREATIVE SERVICES documented in this encounter Plan of Treatment [...] 24 hours. $ Given 07/24/2011 6:10 PM SENIOR DIRECTOR CREATIVE SERVICES 400 mg documented in this encounter Active and Recently Administered Medications Times are shown in SENIOR DIRECTOR CREATIVE SERVICES. Scheduled Medication Order 07/22/2011 07/23/2011 07/24/2011 ibuprofen (MOTRIN) tablet 400 mg (COMPLETED) 400 mg, Oral, ONCE, 1 dose, On 07/24/11 at 1830, Maximum allowable amount = 3200 mg / 24 hours. 1810 ($ Given - Prov ider: Swetha Izquierdo RN) documented in this encounter Care Teams Monument Carver Relationship Specialty Start Date End Date Rose Mary Kidd MD [address] [phone] PCP - General 03/29/11 documented as of this encounter
--- OUTSIDE RECORDS SUMMARY | 2024-08-28 06:28 | XMS_ITS | Encounter Summary ---
Author Organization [facility] Healthcare Address [address] [place] [address] Care Team Providers Care Edge Beader Name Role Phone Unavailable Primary Care Provider Unavailabl e Encounter Details Date Type Department Care Team (Late st Contact Info) Description 08/04/2010 5:59 PM DATA LIBRARIAN - 08/04/2010 7:40 PM DATA LIBRARIAN Hospital Encounter [facility] Angela Jackson MD [address] [place] [address] Acute pharyngitis; Fever due to unspecified condition Social History Tobacco Use Types Packs/Day Years Used Date Smoking Tobacco: Never Assessed Comments Unknown Sex and Gender Information Value Date Recorded Sex Assigned at Not on file Legal Sex Female 6:03 AM DATA LIBRARIAN Gender Identity Not on file Sexual Orientation Not on file documented as of this encounter Plan of Treatment Not on file documented as of this encounter Visit Diagnoses Diagnosis Acute pharyngitis Fever due to unspecified condition documented in this encounter
--- OUTSIDE RECORDS SUMMARY | 2024-08-28 06:28 | XMS_ITS | Encounter Summary ---
Author Organization [facility] Healthcare Address [address] [place] [address] Care Team Providers Care Information Management Specialist Name Role Phone Unavailable Primary Care Provider Unavailabl e Encounter Details Date Type Department Care Team (Late st Contact Info) Description 02/22/2014 8:46 PM CDT - 02/22/2014 10:57 PM CDT Hospital Encounter [facility] Jose Estrada MD [address] [place] [address] Closed fracture of ankle; Fall; Place of occurrence, place for recreation and sport; Physical games played by children at recess or summer camp Social History Tobacco Use Types Packs/Day Years Used Date Smoking Tobacco: Never Assessed Comments Unknown Sex and Gender Information Value Date Recorded Sex Assigned at Not on file Legal Sex Female 6:03 AM MATH TEACHER Gender Identity Not on file Sexual [...] CDT XR ANKLE MIN 3 VIEWS L 51823 ??Acc#: ??[id number] DATE OF EXAM: ??Feb ??2013 CLINICAL HISTORY: [...] 12/22/2016 XR ANKLE MIN 3 VIEWS L 51024 Acc#: [id number] DATE OF EXAM: Feb 22 2014 CLINICAL [...]
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
--- OUTSIDE RECORDS SUMMARY | 2024-08-28 06:28 | XMS_ITS | Encounter Summary ---
Author Organization [facility] Healthcare Address [address] [place] [address] Care Team Providers Care Fruit Farmer Name Role Phone Unavailable Primary Care Provider Unavailabl e Encounter Details Date Type Department Care Team (Late st Contact Info) Description 01/03/2011 11:52 AM CDT - 01/03/2011 12:57 PM CDT Hospital Encounter [facility] Jerson Humphrey MD [address] [place] [address] Bronchitis; Allergic rhinitis; Otitis media Social History Tobacco Use Types Packs/Day Years Used Date Smoking Tobacco: Never Assessed Comments Unknown Sex and Gender Information Value Date Recorded Sex Assigned at Not on file Legal Sex Female 6:03 AM BB SHOT PACKER Gender Identity Not on file Sexual Orientation Not on file documented as of this encounter Plan of Treatment Not on file documented as of this encounter Visit Diagnoses Diagnosis Bronchitis Bronchitis, not specified as acute or chronic Allergic rhinitis Allergic rhinitis, cause unspecified Otitis media Unspecified otitis media documented in this encounter
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
--- OUTSIDE RECORDS SUMMARY | 2024-08-28 06:28 | XMS_ITS | Encounter Summary ---
Author Organization [facility] Facility Care Team Providers Care Power Plant Operators Supervisor Name Role Phone Unavailable Primary Care Provider Unavailabl e Encounter Details Date Type Department Care Team (Latest Contact Info) Description 08/07/2010 11:08 PM PLAYGROUND EQUIPMENT ERECTOR - 08/07/2010 11:59 PM PLAYGROUND EQUIPMENT ERECTOR Hospital Encounter [facility] Viral infection in conditions classified elsewhere and of unspecified site Social History Tobacco Use Types Packs/Day Years Used Date Smoking Tobacco: Never Assessed Comments Unknown Sex and Gender Information Value Date Recorded Sex Assigned at Not on file Legal Sex Female 6:03 AM PLAYGROUND EQUIPMENT ERECTOR Gender Identity Not on file Sexual Orientation Not on file documented as of this encounter Plan of Treatment Not on file documented as of this encounter Visit Diagnoses Diagnosis Viral infection in conditions classified elsewhere and of unspecified site documented in this encounter
--- OUTSIDE RECORDS SUMMARY | 2024-08-28 06:28 | XMS_ITS | Encounter Summary ---
Author Organization [facility] Facility Care Team Providers Care Stringed Instrument Repairer Name Role Phone Unavailable Primary Care Provider Unavailabl e Encounter Details Date Type Department Care Team (Late st Contact Info) Description 02/26/2014 2:35 PM CDT - 02/26/2014 4:00 PM CDT Hospital Encounter [facility] Enriqueta Nevarez MD DDS [address] [place] [address] Closed fracture of ankle Social History Tobacco Use Types Packs/Day Years Used Date Smoking Tobacco: Never Assessed Comments Unknown Sex and Gender Information Value Date Recorded Sex Assigned at Not on file Legal Sex Female 6:03 AM WOMEN'S BASKETBALL COACH Gender Identity Not on file Sexual Orientation [...] M.D. FINAL REPORT ACC# ??Date Time ??Exam [id number] Feb 26, 2014 14:27:00 [id number] Ankle 2 views L EXAMINATION: ?Left ankle 2 views COMPARISON: [facility] 02/22/2014 HISTORY: ??Follow-up fracture IMPRESSION: ?? Views [...] M.D. FINAL REPORT ACC# Date Time Exam [id number] Feb 26, 2014 14:27:00 [id number] Ankle 2 views L EXAMINATION: Left ankle 2 views COMPARISON: [facility] 02/22/2014 HISTORY: Follow-up fracture IMPRESSION: Views through [...]
--- OUTSIDE RECORDS SUMMARY | 2024-08-28 06:28 | XMS_ITS | Encounter Summary ---
Author Organization [facility] Healthcare Address [address] [place] [address] Care Team Providers Care Pilot Fuel Engineer Name Role Phone Unavailable Primary Care Provider Unavailabl e Encounter Details Date Type Department Care Team (Late st Contact Info) Description 02/21/2008 11:00 PM CDT - 02/21/2008 11:45 PM CDT Hospital Encounter [facility] uLis A Estrada MD [address] [place] [address] Social History Tobacco Use Types Packs/Day Years Used Date Smoking Tobacco: Never Assessed Comments Unknown Sex and Gender Information Value Date Recorded Sex Assigned at Not on file Legal Sex Female 6:03 AM RAMP AND CARGO SUPERVISOR Gender Identity Not on file Sexual Orientation Not on file documented as of this encounter Plan of Treatment Not on file documented as of this encounter Visit Diagnoses Not on filedocumented in this encounter
== END 2024-08-21 08:40 | disposition home or self-care (01) ==
PROVIDERS: Emergency Provider Nurse Practitioner; PCP Family Medicine
DX: H66.92 Otitis media, unspecified, left ear (principal); H60.92 Unspecified otitis externa, left ear; E28.2 Polycystic ovarian syndrome; J45.909 Unspecified asthma, uncomplicated
CPT/HCPCS: 99213; G0463

== ENCOUNTER 2024-09-05 12:52 | Emergency (ER) | payer OTHER, SELFPAY ==
[2024-09-05 12:57] VITALS: BP 136/68; PULSE 91; RESP 20; TEMP 36.1; O2SAT 100
[2024-09-05 13:34] LABS: EDCOVIDSCREEN Negative (Negative); EDINFLUASCREEN Negative (Negative); EDINFLUBSCREEN Negative (Negative)
--- NOTE | 2024-09-05 13:39 | ED.URI ---
HPI - URI/Sore Throat General Chief Complaint: Upper Respiratory Infection Stated Complaint: Vomiting/Fever/Chest Congestion/Headache Time Seen by Provider: 09/05/24 13:15 Source: patient Mode of arrival: ambulatory Limitations: no limitations History of Present Illness HPI Narrative: 24 yo F presents with c/o cough, chest congestion, chills, bodyaches, low grade fever for 4 days. taking dayquil to treat symptoms. Denies N/v/D. 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 All systems reviewed and negative except as noted above. Related Data Home Medications ?Medication ?Instructions ?Recorded ?Confirmed ?Last Taken ?Type etonogestrel 0.12 mg-ethinyl 1 vag ring vaginal ONCE 08/21/24 08/21/24 Unknown History estradiol 0.015 mg/24 hr vaginal ring (EluRyng) Allergies Allergy/AdvReac Type Severity Reaction Status Date / Time Penicillins Allergy Severe HIVES Verified 09/05/24 13:14 amoxicillin Allergy Stopped Verified 09/05/24 13:14 Breathing Review of Systems Review of Systems: CONSTITUTIONAL: Denies fever, chills, or sweats. EYES: Denies visual changes, redness, or discharge. ENT: Reports rhinorrhea, congestion. Denies sore throat, or otalgia. CARDIOVASCULAR: Denies chest pain, palpitations, or edema. RESPIRATORY: reports cough , chest congestion. Denies dyspnea. GASTROINTESTINAL: Denies abdominal pain, nausea, vomiting, or diarrhea. GENITOURINARY: Denies dysuria or hematuria. SKIN: Denies rash or itching. MUSCULOSKELETAL: Denies back pain, joint pain, or myalgia. NEUROLOGIC: Denies headache, numbness, or weakness. PSYCHIATRIC: Denies anxiety or depression. All other systems reviewed are negative, except as documented in HPI. [facility] Past Medical History Medical History PCOS (polycystic ovarian syndrome) Ankle fracture, left Right arm fracture Foot fracture, right Pneumonia Asthma Surgical History Surgical History History of surgical removal of skin lesion on neck Hx of tonsillectomy Family History Family History Mother Hypertension Depression Social History Social History Smoking status: Never smoker Substance use: never Living arrangements: with family Occupation/Education: student Gender identity (if verbalized by the patient): Female Spiritual care concerns: No Comments At time of signature, agree with nursing past medical, surgical, social and family history. There is no relevant family history pertinent to the presenting complaint. Exam Narrative: GENERAL: This is a well-nourished, well-developed patient, Ill-appearing but no acute distress HEAD: normocephalic, atraumatic. EYES: PERRL. Sclera clear/white. Vision is grossly intact. EARS: External ears normal, auditory canals clear and without drainage, TMs normal without perforation. Hearing grossly intact. NOSE: External nose normal with mild congestion, clear nasal drainage THROAT: Mucous membranes moist, posterior pharynx clear. NECK: Neck supple, non-tender without lymphadenopathy, masses or thyromegaly. CARDIOVASCULAR: Regular rate and rhythm without murmurs, gallops, or rubs. RESPIRATORY: mildly coarse to bilateral lower lung avelar on auscultation otherwise clear. Breath sounds equal bilaterally. No wheezes, rales, or rhonchi. SKIN: warm, Dry, intact with no suspicious lesions or rash, good texture and turgor. NEURO: awake, alert, and oriented to person, place and time. There were no obvious focal neurologic abnormalities. EXTREMITIES: No joint tenderness, effusion, or edema noted. Course Course Level of Care: Express Care Visit Vital Signs Vital signs: Vital Signs Temperature 36.1 C L 09/05/24 12:57 Pulse Rate 91 09/05/24 12:57 Respiratory Rate 20 09/05/24 12:57 Blood Pressure 136/68 09/05/24 12:57 Pulse Oximetry 100 09/05/24 12:57 Oxygen Delivery Room Air 09/05/24 12:57 Temperature 36.1 C L 09/05/24 12:57 Pulse Rate 91 09/05/24 12:57 Respiratory Rate 20 09/05/24 12:57 Blood Pressure 136/68 09/05/24 12:57 Pulse Oximetry 100 09/05/24 12:57 Oxygen Delivery Room Air 09/05/24 12:57 reviewed MDM - URI/Sore Throat MDM Narrative Medical decision making narrative: negative COVID and influenza. Will treat patient with an antibiotic due to pneumonia exposure. Nontoxic. No respiratory distress. Patient is aware of diagnosis, understands and agrees to treatment plan. Anticipatory guidance given. Patient agrees to follow-up as directed and is aware of reasons to seek care at the emergency department. Portions of this record may have been created with voice recognition software Differential Diagnosis Differential diagnosis: Likely upper respiratory infection, sinusitis, viral infection, bronchitis, influenza and other ( COVID, pneumonia) Lab Data Labs: Lab Results 09/05/24 Range/Units 13:29 POC Influenza A Ag Negative (Negative) POC Influenza B Ag Negative (Negative) POC SARS CoV-2 Ag Negative (Negative) Discharge Plan Discharge Clinical Impression: Upper respiratory infection with cough and congestion, Exposure to pneumonia Patient Disposition: Home, Self-Care Condition: Stable Instructions: Antibiotic Form, Pneumonia (ED) Additional Instructions: Your COVID and influenza test were negative today. I am prescribing an antibiotic today due to recent exposure and exam findings for pneumonia. Take antibiotic as prescribed until gone. Take Tylenol or ibuprofen every 6-8 hours as needed for pain and fever. Drink plenty of water and rest. Follow-up with your primary care physician if symptoms are not improving. Patient Language: Dutch Prescriptions: New azithromycin 250 mg tablet See Rx Instructions .ROUTE .COMPLEX Qty: 6 0RF Rx Instructions: For 250 mg dose pack: take 500 mg today (day 1), then 250 mg for 4 days (days 2-5) benzonatate 200 mg capsule 200 mg PO TID PRN (Reason: cough) Qty: 20 0RF No Action etonogestrel-ethinyl estradiol [EluRyng] 0.12-0.015 mg/24 hr ring 1 vag ring vaginal ONCE Follow-up/Referrals: Steven Chase MD [Primary Care Provider] - Stand Alone Forms: Work/School Release IP Time of Disposition: 13:34
== END 2024-09-05 13:47 | disposition home or self-care (01) ==
PROVIDERS: Emergency Provider Nurse Practitioner Family; PCP Family Medicine
DX: J06.9 Acute upper respiratory infection, unspecified (principal); R05.9 Cough, unspecified; Z20.89 Contact with and (suspected) exposure to other communicable diseases; Z20.822 Contact with and (suspected) exposure to COVID-19; E28.2 Polycystic ovarian syndrome; J45.909 Unspecified asthma, uncomplicated
CPT/HCPCS: 87426; 87804; 99213; G0463

== ENCOUNTER 2024-09-26 10:19 | Emergency (ER) | payer SELFPAY ==
[2024-09-26 10:26] VITALS: BP 148/73; PULSE 112; RESP 18; TEMP 36.8; O2SAT 100
--- NOTE | 2024-09-26 11:03 | ED_ITS ---
HPI - Nausea/Vomiting/Diarrhea General Chief complaint: Nausea/Vomiting/Diarrhea Stated complaint: Chills/Cough/Vomiting/Headache Time Seen by Provider: 09/26/24 11:04 Source: patient, RN notes reviewed and old records reviewed Mode of arrival: ambulatory Limitations: no limitations History of Present Illness HPI Narrative: 24 year old female who presents to [facility] with complaints of headache, fatigue, body aches,chills since Tuesday. Patient states she has also had some cough, sore throat and she has had vomiting. Patient reports that she had 102F fever this morning has been taking ibuprofen and Zofran for her symptoms. MD elicited complaint: nausea, vomiting and other (headache, fatigue, sore throat, chills) Onset (ago): day(s) (3) Associated nausea: Yes Associated abdominal pain: No Treatment prior to arrival: NSAIDs and other (Zofran) Related Data Home Medications ?Medication ?Instructions ?Recorded ?Confirmed ?Last Taken ?Type etonogestrel 0.12 mg-ethinyl 1 vag ring vaginal ONCE 08/21/24 08/21/24 Unknown History estradiol 0.015 mg/24 hr vaginal ring (EluRyng) Allergies Allergy/AdvReac Type Severity Reaction Status Date / Time Penicillins Allergy Severe HIVES Verified 09/26/24 10:49 amoxicillin Allergy Stopped Verified 09/26/24 10:49 Breathing Review of Systems Review of Systems: CONSTITUTIONAL: positive malaise, chills, sweats, or fever. EYES: Denies visual changes, redness, or discharge. ENT: Reports rhinorrhea, congestion, sinus pain, otalgia and sore throat. CARDIOVASCULAR: Denies chest pain, palpitations, or edema. RESPIRATORY: Reports cough.? Denies dyspnea. GASTROINTESTINAL: Denies abdominal pain,positive nausea, vomiting,no diarrhea SKIN: Denies rash or itching. MUSCULOSKELETAL: reports myalgia. NEUROLOGIC: reports headache. All systems reviewed & are unremarkable except as noted in HPI and below PMFSH Past Medical History Medical History PCOS (polycystic ovarian syndrome) Ankle fracture, left Right arm fracture Foot fracture, right Pneumonia Asthma Surgical History Surgical History History of surgical removal of skin lesion on neck Hx of tonsillectomy Family History Family History Mother Hypertension Depression Social History Social History Smoking status: Never smoker Substance use: never Living arrangements: with family Occupation/Education: student Gender identity (if verbalized by the patient): Female Spiritual care concerns: No Comments At time of signature, agree with nursing past medical, surgical, social and family history. There is no relevant family history pertinent to the presenting complaint Exam Narrative: GENERAL: Well-appearing, well-nourished, and in no acute distress. HEAD: Normocephalic EYES: PERRLA, conjunctivae clear ENT: Nares clear, turbinates edematous and erythematous, clear discharge. Mucous membranes moist. TM pearly olvera with dull light reflex bilaterally; no tragal tenderness. Oropharynx erythematous without lesions. Tonsils not present and throat without exudate, no drooling, no hoarseness, no trismus, uvula midline.post nasal drinage. NECK: Supple. No lymphadenopathy CHEST: Clear to auscultation, breath sounds equal. No wheezing, rhonchi, rales, or stridor. No respiratory distress, speaks in full sentences.cough SAO2 100% on room air HEART: Regular rate and rhythm. No murmur heard. SKIN: Warm, dry, no rash. NEURO: Alert and oriented x3. PSYCH: Normal mood and affect Course Course Emergency Course: Patient is aware of diagnosis, understands and agrees to treatment plan.? Anticipatory guidance given.? Patient agrees to follow-up as directed and is aware of reasons to seek care at the emergency department. Portions of this record may have been created with voice recognition software Level of Care: Express Care Visit Vital Signs Vital signs: Vital Signs Temperature 36.8 C 09/26/24 10: Pulse Rate 112 H 09/26/24 10: Respiratory Rate 18 09/26/24 10:26 Blood Pressure 148/73 H 09/26/24 10:26 Pulse Oximetry 100 09/26/24 10:26 Oxygen Delivery Room Air 09/26/24 10:26 Temperature 36.8 C 09/26/24 10: Pulse Rate 112 H 09/26/24 10:26 Respiratory Rate 18 09/26/24 10:26 Blood Pressure 148/73 H 09/26/24 10:26 Pulse Oximetry 100 09/26/24 10:26 Oxygen Delivery Room Air 09/26/24 10:26 Reviewed MDM - Nausea/Vomiting/Diarrhea Differential Diagnosis Differential diagnosis: Likely other (URI, viral infection, influenza, COVID, pharyngitis, COVID, viral syndrome) Medical Records Attestation: I reviewed the patient's medical records. Lab Data Attestation: I reviewed the patient's lab results. Lab results narrative: Influenza A negative, Influenza B negative, COVID, antigen negative, Strep screen negative,strep culture sent Labs: Lab Results 09/26/24 Range/Units 11:21 POC Influenza A Ag Negative (Negative) POC Influenza B Ag Negative (Negative) POC SARS CoV-2 Ag Negative (Negative) POC Grp A Strep Screen Negative (Negative) Critical Care Time Critical Care Time Critical Care Time: No Discharge Plan Discharge Clinical Impression: Viral syndrome Patient Disposition: Home, Self-Care Condition: Stable Instructions: Antibiotic Form, Viral Syndrome (ED) Additional Instructions: Increase fluids especially juices and water [id number] cough and cold medicine of your choice for your symptoms Tylenol or ibuprofen for any fever pain Zofran for nausea and vomiting heat to the face 20-30 minutes 4-6 times a day for pain Salt water gargles, throat lozenges or throat sprays as desired Maintain clear liquids until nausea has subsided then slowly advance diet avoid spicy foods and caffeine Patient Language: Citizen Of [place] Prescriptions: No Action etonogestrel-ethinyl estradiol [EluRyng] 0.12-0.015 mg/24 hr ring 1 vag ring vaginal ONCE benzonatate 200 mg capsule 200 mg PO TID PRN (Reason: cough) Qty: 20 0RF Follow-up/Referrals: Steven Chase MD [Primary Care Provider] - Stand Alone Forms: Work/School Release IP Time of Disposition: 11:23 Quality Radha Coma Scale Eyes: Open Verbal: Oriented and Alert Motor: Follows Commands Radha Coma Total Score: 15
--- OUTSIDE RECORDS SUMMARY | 2024-09-26 11:21 | XMS_ITS | Patient Health Summary ---
Author Organization [facility] Address [address] [place] [place] [address] Care Team Providers Care Foreign Legal Consultant Name Role Phone Rose Mary Kidd MD Primary Care Provider [phone] Note from [facility],non-owned Affiliates and Associated Physician Practices is amultiple site organization consisting of ambulatory clinics and hospital sitesin [place], [place], [place] and [place]. This disclosure is being madepursuant to the Care Everywhere program and may not contain all information available regarding this patient. Last updated 18.[facility] Allergies * Amoxicillin(Urticaria) Medications * Be aware [...] 07/14/2011) Results * DERMATOPATHOLOGY (09/21/2022 12:00 AM COOK PR[facility]URE) Case Report Dermatopathology Report ? Case: [id number] ? Authorizing Provider: ??Vasiliy Arredondo MD ?Collected: ? 09/21/2022 12:00 AM ? Ordering Location: ? [facility] ?Received: ?09/22/2022 04:04 PM ? Pathologist: ? Elicia Ferguson MD ? Specimen: ?Skin, left upper bhavesh lip border ? 5:16 PM [facility] Final Diagnosis Specimen A. SKIN, left upper bhavesh lip border: RUPTURED EPIDERMOID CYST (L72.0) (see microscopic description) 5:16 PM [facility] Clinical History R/O EIC 5:16 PM [facility] Gross Description Specimen A: Received is one formalin filled container labeled with the patient's name and designated left upper bhavesh lip border. The specimen consists of a punch biopsy measuring [id number]. Jar 0. 5:16 PM [facility] Microscopic Description Specimen A. SKIN, left upper bhavesh lip border: Within the dermis, there is an infiltrate composed of lymphocytes and histiocytes, including multinucleated type giant cells. Some histiocytes contain flakes of material consistent with keratin. Additional deeper sections were obtained and reviewed. 5:16 PM [facility] Disclaimer An external and internal positive and negative controls are appropriate for the histochemical, immunohistochemical and immunofluorescence stain(s) in this case (if any), except where stated explicitly. The performance characteristics of the stain(s) cited in this report were developed and its performance characteristic determined by the Dermatopathology Laboratory at [facility], directed by Dr. Williams aHle. These tests need not be, and therefore are not, approved by the [place] Food and Drug Administration. The tests are used for clinical purposes. Billing Codes Specimen Charges Stain Charges 61988 1 3 5:16 PM [facility] Embedded Images 3 5:16 PM [facility] Pathology/Cytolog y TISSUE SPECIMEN FROM SKIN / Unknown 09/21/2022 09/22/2022 4:04 PM [facility] Vasiliy Arredondo MD LAB - PATHOLOGY/CYTO LOGY ORDERABLES Performing Organization Address City/[facility]/ZIP Co de Phone Number DERMATOPATHOLOGY LABORATORY [facility] - Department of Dermatology [address], [address] [phone] * VITAMIN D (25-HYDROXY) (12/27/2017 9:20 AM CDT) [facility] Vitamin D, 25 Hydroxy 28.8 20 - 100 ng/mL 12/27/2017 11:29 AM CDT [facility] Blood BLOOD SPECIMEN / Unknown Lab Venipuncture / Unknown 12/27/2017 9:20 AM CDT 12/27/2017 10:02 AM CDT Narrative [facility] - 12/27/2017 11:29 AM CDT Vitamin D Status: ?Deficient ? <10 ?? ng/mL ? Borderline ?10-20 ng/mL ?Sufficient ?>20 ?? ng/mL ?Toxic ? >100 ??ng/mL Lilibeth Helm APRN-CONTROL CENTER OPERATOR LAB - CHEMISTR Y ORDERABLES Performing Organization Address [facility] Co de Phone Number [facility] [place] [address] * FERRITIN (12/27/2017 9:20 AM CDT) Ferritin 31 10 - 140 ng/mL 12/27/2017 11:08 AM CDT [facility] Blood BLOOD SPECIMEN / Unknown Lab Venipuncture / Unknown 12/27/2017 9:20 AM CDT 12/27/2017 10:02 AM CDT Lilibeth James Helm PAPER FINISHER-CONTROL CENTER OPERATOR LAB - CHEMISTR Y ORDERABLES [facility] Juli Jenkins [facility] [place] [address] * CARDIAC EKG ORDER (12/02/2017 2:30 PM [...] (Bezet) 426 ms CG MUSE Calculated P [place] 46 degrees CG MUSE Calculated R [place] 75 degrees CG MUSE Calculated T [place] 36 degrees CG MUSE Interpretation EKG * Pediatric ECG Analysis * Normal sinus rhythm Normal ECG No previous ECGs available Confirmed by Janice Norton ([id number]) on 12/01/2017 3:06:44 PM CG MUSE 11/28/2017 11:3 2 AM CDT 12/01/2017 3:06 PM CDT Janice Norton MD ECG ORDERABLES Performing Organization Address City/[facility]/ZIP Co de Phone Number MUSE * ECHO CONSULT - PEDIATRIC (11/28/2017 10:48 AM CDT) 11/28/2017 10:4 8 AM CDT Narrative [facility] - 11/28/2017 11:48 AM CDT ?[address] [place] [address] ?[phone] Phone ?[phone] Fax ?Non-Congenital Transthoracic Report Pat.Name: ??ELIAS VILLATORO ?Pat.ID: ?[id number] ? St.Date: ?? 11/28/2017 ?Exam Time: 10:48:00 AM ? Study Type:Non-Congenital TTE ?Height: ?171.8cm ? Weight: ?107kg ? BSA: ? 2.18 m2 ?Age: ??2000,17Y ?Sex: ? FEMALE ? BP: ?116/76 ?Sonogrphr: Hannah Cool LU ? Pat. Stat.:Outpatient ?CPT - 4: ?? [id number] ? Reason for Study:chest pain, right axis deviation History / Clinical:chest pain and right axis deviation Procedures:2D Non-congenital, Doppler Complete, Color Flow Visit ID: ??[id number] ? SUMMARY: Impression: Normal intracardiac anatomy and [...] Note Janice Norton MD - 11/29/2017 [address] [place] [address] Fax Non-Congenital Transthoracic Report Pat.Name: ELIAS VILLATORO Pat.ID: [id number] .Date: 11/28/2017 Exam Time: 10:48:00 AM Study Type:Non-Congenital TTE Height: 171.8cm Weight: 107kg BSA: 2.18 m2 Age: 14 2000,17Y Sex: FEMALE BP: 116/76 Sonogrphr: Hannah Cool RDCS Pat. Stat.:Outpatient CPT - 4: 47091 Reason for Study:chest pain, right axis deviation History / Clinical:chest pain and right axis deviation Procedures:2D Non-congenital, Doppler Complete, Color Flow Visit ID: [id number] SUMMARY: Impression: Normal intracardiac anatomy and normal [...] MD Janice Norton MD ECHO ORDERABLES [facility] [address] [place] [address] * PATHOLOGY/CYTOLOGY REPORT ORDER (07/19/2011 9:25 AM COOK PRESSURE) Narrative Transcriptions Document, Scanned - 07/19/2011 9:25 AM CST Scanned Document LAB - PATHOLOGY/CYTO LOGY ORDERABLES * GROSS + MICRO EXAM (07/14/2011 2:43 PM COOK PRESSURE) [facility] Clinical History [facility] Comment: The patient is ab 10-year-old girl with two neck lesions, two right thigh lesions, one lower lip skin tag, and left axillary skin tag. ?? Gross Description [facility] Comment: The specimens are received [...] in cassette C2 . ??(LH/lw) Microscopic Examination [facility] Comment: A) 2 H+E; B) [...] glands, and sweat glands. ??(LH/lw) ?? Diagnosis [facility] Comment: DIAGNOSIS: ??A) LEFT NECK CYST, EXCISION: ? -LAMINATED KERATIN PLUG. ?B) RIGHT NECK NEVUS, EXCISION: ? -NEVUS SEBACEOUS. ?C) RIGHT GROIN/THIGH LESION, EXCISION: ? -NEVUS SEBACEOUS. ?? This case has been personally reviewed and interpreted by the attending (teaching) pathologist. Addendum 1 [facility] Comment: Slides were sent to [facility], [place]. ??Dr. Amanda Hale [...] nevus. ??Clinical correlation is recommended. ?? (CSA) Seafood Technology Specialist Gilda Conner, [facility] Resident in Pathology Leona Hopper M.D. [facility] Pathologist Rocky Valdovinos M.D. [facility] Electronically Signed By Rocky Valdovinos M.D. [facility] CYST TISSUE / Unknown 07/14/2011 2:43 PM [facility]OOK PR[facility]URE 07/16/2011 9:01 AM COOK PR[facility]URE Val Brennan MD LAB - PATHOLOGY /CYTOLOGY ORDERABLES [facility] [address] [place] [address] Care Teams Foreign Legal Consultant Relationship Specialty Start Date End Date Rose Mary Kidd MD [address] [place] [id number] PCP - General 03/29/11
--- OUTSIDE RECORDS SUMMARY | 2024-09-26 11:21 | XMS_ITS | Clinical Summary ---
Author Organization [facility] [employer] [facility] Address [address] [place] [address] Phone Care Team Providers Care Tester Operator Helper Name Role Phone Rose Mary [...] 2018 Acute pain of left knee 04/06/2019 Surgical History Surgery Date Site/Laterality Comments TONSILECTOMY, [...] on file Legal Sex Female 6:03 AM PICTURE PAINTER Gender Identity Not on file Sexual Orientation [...] 05/23, 04/10/2014 Medical Devices Implanted Type Area Inserter Operator Device Identifier Shelf Expiration Date Model / Serial / Lot [employer] Low Profile Screws 4mm 46mm Self Drill Self Tap Cannulated [id number] - [id number] Implanted:Qty: 1 on 03/23/2024 by Donald Mendoza Jr., MD at [facility] Left: Ankle [employer] [id number] / / Insurance [facility] Care Teams Tester Operator Helper Relationship Specialty Start Date End Date Rose Mary Kidd MD [address] [place] [address] PCP - General 07/21/17
--- OUTSIDE RECORDS SUMMARY | 2024-09-26 11:21 | XMS_ITS | Referral Summary ---
Author Organization [facility] Address [address] [place] [address] Care Team Providers Care Crm Marketing Manager Name Role Phone Rose Mary Kidd MD Primary Care Provider [phone] Source Comments [facility],non-owned Affiliates and Associated Physician Practices is amultiple site organization consisting of ambulatory clinics and hospital sitesin [place], [place], [place] and [place]. This disclosure is being madepursuant to the Care Everywhere program and may not contain all information available regarding this patient. Last updated 18.[facility] Allergies Active Allergy Reactions Criticality Noted Date [...] of Treatment Not on file Care Teams Crm Marketing Manager Relationship Specialty Start Date End Date Rose Mary Kidd MD [address] [place] [address] PCP - General 03/29/11
--- OUTSIDE RECORDS SUMMARY | 2024-09-26 11:21 | XMS_ITS | Encounter Summary ---
Author Organization [facility] Address [address] [place] [address] Care Team Providers Care Production Engine Repairer Name Role Phone Rose Mary Kidd MD Primary Care Provider + Encounter Details Date Type Department Care Team (Late st Contact Info) Description 05/31/2024 Documentation [facility] Medical Group Orthopedics and Sports Medicine at [address] [address] Charley Dominguez Social History Tobacco [...] on file Legal Sex Female 6:03 AM CLOTH BLEACHING RANGE OPERATOR CHIEF Gender Identity Not on file Sexual Orientation Not on file documented as of this encounter Plan of Treatment Not on file documented as of this encounter Visit Diagnoses Not on filedocumented in this encounter Care Teams Production Engine Repairer Relationship Specialty Start Date End Date Rose Mary Kidd MD [address] [place] [address] PCP - General 07/21/17 documented as of this encounter
--- OUTSIDE RECORDS SUMMARY | 2024-09-26 11:21 | XMS_ITS | Encounter Summary ---
Author Organization [facility] Address [address] [place] [address] Care Team Providers Care Java Engineer Name Role Phone Rose Mary Kidd MD Primary Care Provider Encounter Details Date Type Department Care Team (Late st Contact Info) Description 09/22/2022 Lab Requisition [facility] [address] [place] [address] Vasiliy Arredondo MD [address] [place] [address] Social History Tobacco Use Types [...] Comments DERMATOPATHOLOGY Routine 09/21/2022 12:0 0 AM CRUDE OIL DRIVER documented in this encounter Results * DERMATOPATHOLOGY (09/21/2022 12:00 AM CRUDE OIL DRIVER) Case Report Dermatopathology Report ? Case: [id number] ? Authorizing Provider: ??Vasiliy Arredondo MD ?Collected: ? 09/21/2022 12:00 AM ? Ordering Location: ? [facility] ?Received: ?09/22/2022 04:04 PM [...] specimen consists of a punch biopsy measuring [id number]. Jar 0. 3 5:16 PM [facility] [...] characteristic determined by the Dermatopathology Laboratory at [facility], directed by Dr. Williams Hale. These tests need not be, and therefore are not, approved by the [place] Food and Drug Administration. The tests are used for clinical purposes. Billing Codes Specimen Charges Stain Charges 82684 1 3 5:16 PM CRUDE OIL DRIVER DERMATOPATHOLOGY LABORATORY Embedded Images 3 5:16 PM CRUDE OIL DRIVER DERMATOPATHOLOGY LABORATORY Pathology/Cytolog y TISSUE SPECIMEN FROM SKIN / Unknown 09/21/2022 09/22/2022 4:04 PM CRUDE OIL DRIVER Vasiliy Arredondo MD LAB - PATHOLOGY/CYTO LOGY ORDERABLES DERMATOPATHOLOGY LABORATORY [facility] - Department of Dermatology [facility] Medicine [address] [place] [address], [address] [phone] documented in this encounter Visit Diagnoses Not on filedocumented in this encounter Care Teams Java Engineer Relationship Specialty Start Date End Date Rose Mary Kidd MD [address] [address] PCP - General 03/29/11 documented as of this encounter
--- OUTSIDE RECORDS SUMMARY | 2024-09-26 11:21 | XMS_ITS | Clinical Summary ---
Author Organization [facility] Address [address] [place] [address] Phone Care Team Providers Care Right Of Way Maintenance Supervisor Name Role Phone ELLEO-SURESH SORENSON MD Unavailable [phone] Reason for Visit and Chief Complaint The [...] - Last Documented On 08/09/2021 5:58PM ; [facility] Assessments Includes: Assessments from this encounter Findings - Contact with and (Suspected) exposure to COVID-19 [Z20.822 - Contact with and (suspected) exposure to COVID-19] - Last Documented On 08/09/2021 5:58PM ; [facility] Medical Equipment - Implanted Devices Includes: [...] 99 Last Documented: On 08/09/2021 5:32PM ; [facility] Results Includes: Results discussed during this encounter Rapid COVID Test [facility] Ordered by CLYDE ZEE on 10/10/2020 Collected: Reported: 08/09/2021 Last Documented On 1 5:40PM ; [facility] Reviewed on 08/09/2021; All test results are final unless otherwise noted. Rapid COVId neg N (Normal) Last Documented On 1 5:40PM ; [facility] Int. QC Acceptable yes N (Normal) Last Documented On 1 5:40PM ; [facility] Lot # and Exp. Date [id number] 10/16/21 N (Normal) Last Documented On 1 5:40PM ; [facility] History of Present Illness Includes: [...] 08/09/2021 Last Documented On 1 5:58PM ; [facility] Smoking Status Unknown Procedures and [...] worsen Last Documented On 1 5:55PM ; [facility] use of tobacco assessment performed 1000F Last Documented On 1 5:30PM ; [facility] Medical History Includes: Medical History addressed during this encounter Description Last Updated Contact with and (Suspected) exposure to COVID-19 08/09/2021 Last Documented On 1 5:58PM ; [facility] Date COVID symptoms started: 08/07 Last Documented On 1 5:58PM ; [facility] No fall 08/09/2021 Last Documented On 1 5:58PM ; [facility] Family History Includes: Family History [...] SICK VISIT- NEW PATIENT CLYDE Fox MARTHA SNUFF BLENDER-C [facility] 08/09/20 21 5:08PM 5:45PM Contact with and (Suspected) Exposure To Covid-19 Insurance Includes: Active Insurance Policies Plan Name Member ID Group # Subscriber Relationship Effect james Dates 1 - [facility] [id number] ROSMERY Christy Goldstein f Clinical Notes Includes: Clinical Notes from this encounter No Clinical Notes Recorded
--- OUTSIDE RECORDS SUMMARY | 2024-09-26 11:21 | XMS_ITS ---
Author Organization [facility] Address [address] [place] [address] Phone Care Team Providers Care Data Support Analyst Name Role Phone KWASI FOUNTAIN, SURESH Unavailable [phone] Plan of Treatment No Plan of Treatment Recorded Assessments Includes: Assessments for all patient encounters Findings Encounter Date Contact with and (Suspected) exposure to COVID-19 COVID SICK VISIT- NEW PATIENT with CLYDE THOMAS CYLINDER INSPECTOR-C 08/09/2021 Last Documented On 1 5:58PM ; [facility] Medical Equipment - Implanted Devices Includes: Current and historical Devices No Medical Equipment Recorded Medications Includes: Current and historical Medications No Medications Taken Medications Administered Includes: Administered Medications in patient's chart No Administered Medications Recorded Results Includes: Results from 09/26/2023 through 09/26/2024 No Results Recorded For Specified Dates History of Present Illness History of Present Illness not supported for this document type No History of Present Illness Recorded Social History Description Last Updated Tobacco non-user 08/09/2021 Last Documented On 1 5:58PM ; [facility] Smoking Status Unknown Medical History Includes: Medical History in patient's chart Description Last Updated Contact with and (Suspected) exposure to COVID-19 08/09/2021 Last Documented On 1 5:58PM ; [facility] Date COVID symptoms started: 08/07 Last Documented On 1 5:58PM ; [facility] No fall 08/09/2021 Last Documented On 1 5:58PM ; [facility] Family History Includes: Family History in patient's [...] Effect james Dates 1 - [facility] [id number] ELIAS magana Clinical Notes Includes: Signed Clinical Notes starting from 09/10/2022 No Clinical Notes Recorded
--- OUTSIDE RECORDS SUMMARY | 2024-09-26 11:21 | XMS_ITS | Clinical Summary ---
Author Organization [facility] Address [address] [place] [address] Care Team Providers Care Latent Print Examiner Name Role Phone Rose Mary Kidd MD Primary Care Provider [phone] Source Comments [facility],non-owned Affiliates and Associated Physician Practices is amultiple site organization consisting of ambulatory clinics and hospital sitesin [place], [place], [place] and [place]. This disclosure is being madepursuant to the Care Everywhere program and may not contain all information available regarding this patient. Last updated 18.[facility] Allergies Active Allergy Reactions Criticality Noted [...] - 3-dose series) 2017 CHLAMYDIA/GONORRHEA SCREENING 2018 MENINGOCOCCAL (Group B) VACC INE (1 of 2 - Standard) 2018 HEPATITIS C SCREENING 08/08/2020 DTAP/TDAP/TD VACCINES [...] age to complete this topic Care Teams Latent Print Examiner Relationship Specialty Start Date End Date Rose Mary Kidd MD [address] [facility] [address] [place] [address] PCP - General 03/29/11
--- OUTSIDE RECORDS SUMMARY | 2024-09-26 11:21 | XMS_ITS | Clinical Summary ---
Author Organization [facility] Address [address] [place] [address] Phone Care Team Providers Care Site Identification Specialist Name Role Phone Steven Chase MD Primary Care Provider Allergies Active Allergy Reactions Criticality Noted Date Comments Amoxicillin Unknown 07/18/2023 Medications No known medications Immunizations Immunization Administration Dates Next Due TDAP Vaccine 07/18/2023 Social History Tobacco Use Types Packs/Day Years Used Date Smoking Tobacco: Never Assessed Comments No Sex and Gender Information Value Date Recorded Sex Assigned at Female 07/18/2023 1:18 PM EXHAUSTER Legal Sex Female 12:48 PM EXHAUSTER Gender Identity Female 07/18/2023 1:18 PM EXHAUSTER Sexual Orientation Not on file Last Filed Vital Signs Vital Sign Reading Time Taken Comments Blood Pressure 143/83 07/18/2023 1:00 PM EXHAUSTER Pulse 82 07/18/2023 1:00 PM EXHAUSTER Temperature 36 ??C (96.8 ??F) 07/18/2023 1:00 PM EXHAUSTER Respiratory Rate 16 07/18/2023 1:00 PM EXHAUSTER Oxygen Saturation 99% 07/18/2023 1:00 PM EXHAUSTER Inhaled Oxygen Concentration - - Weight 99.8 kg (220 lb) 07/18/2023 1:00 PM EXHAUSTER Height 170.2 cm (5' 7 ) 07/18/2023 1:00 PM EXHAUSTER Body Mass Index 34.46 07/18/2023 1:00 PM EXHAUSTER Plan of Treatment Health Maintenance Due Date [...] this topic Insurance [place]ICAID [place] Care Teams Site Identification Specialist Relationship Specialty Start Date End Date Steven Chase MD [address] [place] [address] PCP - General Family Medicine 07/18/23
--- OUTSIDE RECORDS SUMMARY | 2024-09-26 11:21 | XMS_ITS | Referral Summary ---
Author Organization 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 Gender Identity Not on file Sexual [...] on file Medical Devices Implanted Type Area Linux Admin Device Identifier Shelf Expiration Date Model / Serial / Lot [employer] Low Profile Screws 4mm 46mm Self Drill Self Tap Cannulated [id number] - [id number] Implanted:Qty: 1 on 03/23/2024 by Donald Mendoza Jr., MD at [facility] Left: Ankle [employer] [id number] / / Insurance [facility] Care Teams Relay Technician Relationship Specialty Start Date End Date Rose Mary Kidd MD [address] [place] [address] PCP - General 07/21/17
--- OUTSIDE RECORDS SUMMARY | 2024-09-26 11:21 | XMS_ITS ---
Care Plan - [facility] Created on: September 26, 2024 ELIAS VILLATORO : 2000 Sex: Female Author Organization [facility] Address [address] [place] [address] Phone Care Team Providers Care Branding Specialist Name Role Phone SURESH VILLALPANDO MD Unavailable [phone]
[2024-09-26 11:23] LABS: EDCOVIDSCREEN Negative (Negative); EDINFLUASCREEN Negative (Negative); EDINFLUBSCREEN Negative (Negative); EDSTREPNEGPOS1 Negative (Negative)
== END 2024-09-26 11:32 | disposition home or self-care (01) ==
PROVIDERS: Emergency Provider Registered Nurse; PCP Family Medicine
DX: B34.9 Viral infection, unspecified (principal); Z20.822 Contact with and (suspected) exposure to COVID-19
CPT/HCPCS: 87081; 87426; 87804; 87880; 99213; G0463

== ENCOUNTER 2025-02-24 11:19 | Emergency (ER) | payer OTHER, SELFPAY ==
--- OUTSIDE RECORDS SUMMARY | 2025-02-24 11:22 | XMS_ITS | Clinical Summary ---
Author Organization [facility] Address [address] [place] [address] Phone Care Team Providers Care Mud Analysis Well Logging Operator Name Role Phone Steven Chase MD [...] making you feel afraid or unsafe? Denies 10/24/2024 Comments No Sex and Gender Information Value Date Recorded Sex Assigned at Not on file Legal Sex Female 6:03 AM BUILDING TECH Gender Identity Not on file Sexual Orientation Not on file Obstetrics History Last Filed Vital Signs Vital Sign Reading Time Taken Comments Blood Pressure 114/82 10/24/2024 11:45 PM BUILDING TECH Pulse 92 10/24/2024 11:45 PM BUILDING TECH Temperature 36.1 C (96.9 F) 10/24/2024 10:17 PM BUILDING TECH Respiratory Rate 18 10/24/2024 10:18 PM BUILDING TECH Oxygen Saturation 100% 10/24/2024 11:45 PM BUILDING TECH Inhaled Oxygen Concentration - - Weight 99.8 kg (220 lb) 10/24/2024 10:17 PM BUILDING TECH Height 172.7 cm (5' 8) 10/24/2024 10:17 PM BUILDING TECH Body Mass Index 33.45 10/24/2024 10:17 PM BUILDING TECH Plan of Treatment Health Maintenance Due Date Last Done Comments Cervical Cancer Screening 2002 Chlamydia and Gonorrhea (GC/ CT) Screening 2002 Depression Screening 2002 Hepatitis C Screening 2002 Meningococcal B Vaccine (1 o f 2 - Standard) 2018 Regular Well Visit/Exam 18-64 2020 Influenza Vaccine (Season Ended) 2025 06/23/20 09 DTaP/Tdap/Td Vaccine (8 - Td or Tdap) 07/18/2033 07/18/2023, 11/20/2013, 03/21/2008, Additional history exists Hepatitis B Screening Completed 08/19/2003 , 2002, 2002, Additional history exists Pneumococcal vaccine <65 Completed 003, 02/15/2003, 2002, Additional history exists Varicella Vaccines Completed 03/21/2008, 01/31/2004 HPV Vaccines Completed 11/12/2014, 05/23, 04/10/2014 Medical Devices Implanted Type Area Security Consultant Device Identifier Shelf Expiration Date Model / Serial / Lot [employer] Low Profile Screws 4mm 46mm Self Drill Self Tap Cannulated [id number] - [id number] Implanted:Qty: 1 on 03/23/2024 by Donald Mendoza Jr., MD at [facility] Left: Ankle [employer] [id number] / / Insurance [facility] [place] [address] Care Teams Mud Analysis Well Logging Operator Relationship Specialty Start Date End Date Steven Chase MD [address] [facility] [address] [place] [address] PCP - General Family Medicine 10/24/24
--- OUTSIDE RECORDS SUMMARY | 2025-02-24 11:22 | XMS_ITS | Clinical Summary ---
Author Organization [facility] Address [address] [place] [address] Phone Care Team Providers Care Pigs Feet Cleaner Name Role Phone Steven Chase MD Primary Care Provider Allergies Active Allergy Reactions Criticality Noted Date Comments Amoxicillin Unknown 07/18/2023 Medications No known medications Immunizations Immunization Administration Dates Next Due TDAP Vaccine 07/18/2023 Social History Tobacco Use Types Packs/Day Years Used Date Smoking Tobacco: Never Assessed Comments No Sex and Gender Information Value Date Recorded Sex Assigned at Female 07/18/2023 1:18 PM CITRUS PICKER Legal Sex Female 12:48 PM CITRUS PICKER Gender Identity Female 07/18/2023 1:18 PM CITRUS PICKER Sexual Orientation Not on file Last Filed Vital Signs Vital Sign Reading Time Taken Comments Blood Pressure 143/83 07/18/2023 1:00 PM CITRUS PICKER Pulse 82 07/18/2023 1:00 PM CITRUS PICKER Temperature 36 C (96.8 F) 07/18/2023 1:00 PM CITRUS PICKER Respiratory Rate 16 07/18/2023 1:00 PM CITRUS PICKER Oxygen Saturation 99% 07/18/2023 1:00 PM CITRUS PICKER Inhaled Oxygen Concentration - - Weight 99.8 kg (220 lb) 07/18/2023 1:00 PM CITRUS PICKER Height 170.2 cm (5' 7) 07/18/2023 1:00 PM CITRUS PICKER Body Mass Index 34.46 07/18/2023 1:00 PM CITRUS PICKER Plan of Treatment Health Maintenance Due Date Last Done Comments Hepatitis C Virus (HCV) Screening 2002 Meningococcal B Immunization (1 of 2 - Standard) 2018 Pap Smear 2023 SARS-COV-2 Immunization ( season) 2024 10/30/2020 Influenza Immunization (Season Ended) 2025 Td Immunization Every 10 Years (Adults With [...] this topic Insurance [place]ICAID [place] Care Teams Pigs Feet Cleaner Relationship Specialty Start Date End Date Steven Chase MD [address] [place] [address] PCP - General Family Medicine 07/18/23
--- OUTSIDE RECORDS SUMMARY | 2025-02-24 11:22 | XMS_ITS | Encounter Summary ---
Author Organization [facility] Address [address] [place] [address] Care Team Providers Care Inspector Watch Train Name Role Phone Rose Mary Kidd MD Primary Care Provider [phone] Encounter Details Date Type Department Care Team (Late st Contact Info) Description 09/22/2022 Lab Requisition [facility] [address] [facility], [facility] [place] [address] Vasiliy Arredondo MD [address] [place] [address] Social History Tobacco Use Types Packs/Day Years Used Date Smoking Tobacco: Passive Smo ke Exposure - Never Smoker Smokeless Tobacco: Never Comments No Sex and Gender Information Value Date Recorded Sex Assigned at Not on file Legal Sex Female 5:45 AM SECURITY SYSTEMS INTEGRATOR Gender Identity Not on file Sexual Orientation Not on file documented as of this encounter Plan of Treatment Not on file documented as of this encounter Procedures Procedure Name Priority Date/Time Associated Diagnosis Comments DERMATOPATHOLOGY Routine 09/21/2022 12:0 0 AM SECURITY SYSTEMS INTEGRATOR documented in this encounter Results * DERMATOPATHOLOGY (09/21/2022 12:00 AM SECURITY SYSTEMS INTEGRATOR) Case Report Dermatopathology Report Case: [id number] Authorizing Provider: Vasiliy Arredondo MD Collected: 09/21/2022 12:00 AM Ordering Location: [facility] Lab Received: 09/22/2022 04:04 PM Pathologist: Elicia Ferguson MD Specimen: Skin, left upper bhavesh lip border 5:16 PM [facility] Final Diagnosis Specimen A. SKIN, left upper bhavesh lip border: RUPTURED EPIDERMOID CYST (L72.0) (see microscopic description) 5:16 PM [facility] at [address] SECURITY SYSTEMS INTEGRATOR Clinical History R/O EIC 5:16 PM [facility] Gross Description Specimen A: Received is one formalin filled container labeled with the patient's name and designated left upper bhavesh lip border. The specimen consists of a punch biopsy measuring [id number]. Jar 0. 5:16 PM [facility] Microscopic Description Specimen A. SKIN, left upper bhavesh lip border: Within the dermis, there is an infiltrate composed of lymphocytes and histiocytes, including multinucleated type giant cells. Some histiocytes contain flakes of material consistent with keratin. Additional deeper sections were obtained and reviewed. 5:16 PM [facility] Disclaimer An external and internal positive and negative controls are appropriate for the histochemical, immunohistochemical and immunofluorescence stain(s) in this case (if any), except where stated explicitly. The performance characteristics of the stain(s) cited in this report were developed and its performance characteristic determined by the Dermatopathology Laboratory at [facility], directed by Dr. Williams Hale. These tests need not be, and therefore are not, approved by the [place] Food and Drug Administration. The tests are used for clinical purposes. Billing Codes Specimen Charges Stain Charges 39002 1 5:16 PM [facility] Embedded Images 5:16 PM [facility] Pathology/Cytolog y TISSUE SPECIMEN FROM SKIN / Unknown 09/21/2022 09/22/2022 4:04 PM SECURITY SYSTEMS INTEGRATOR us Vasiliy Arredondo MD LAB - PATHOLOGY/CYTOLOGY ORD ERABLES Final Result DERMATOPATHOLOGY LABORATORY [facility] - Department of Dermatology [facility] Specialized Medicine [address] [place] [address], [address] [place] [address], [facility] [phone] documented in this encounter Visit Diagnoses Not on filedocumented in this encounter Care Teams Inspector Watch Train Relationship Specialty Start Date End Date Rose Mary Kidd MD [address] [address] PCP - General 03/29/11 documented as of this encounter
--- OUTSIDE RECORDS SUMMARY | 2025-02-24 11:22 | XMS_ITS | Clinical Summary ---
Author Organization [facility] Address [address] [facility] [place] [address] Care Team Providers Care Brewery Worker Name Role Phone Rose Mary Kidd MD Primary Care Provider Source Comments [facility],non-owned Affiliates and Associated Physician Practices is amultiple site organization consisting of ambulatory clinics and hospital sitesin [place], [place], [place] and [place]. This disclosure is being madepursuant to the Care Everywhere program and may not contain all information available regarding this patient. Last updated 18.[facility] Allergies Active Allergy Reactions Criticality Noted Date Comments Amoxicillin Urticaria 05/14/2011 Medications * Be aware that medications may not be up to date on this document. Alwaysverify current medications with the patient. ibuprofen (MOTRIN) 200 MG tablet Take 400 [...] on file Legal Sex Female 5:45 AM PNEUMATIC JACK OPERATOR Gender Identity Not on file Sexual Orientation Not on file Last Filed Vital Signs Vital Sign Reading Time Taken Comments Blood Pressure 108/58 12/27/2017 8:30 AM CDT Pulse 91 12/27/2017 8:30 AM CDT Temperature 37.3 C (99.2 F) 07/24/2011 5:32 PM PNEUMATIC JACK OPERATOR Respiratory Rate 16 11/28/2017 10:0 7 AM CDT Oxygen Saturation 97% 12/27/2017 8:30 AM CDT Inhaled Oxygen Concentration - - Weight 107.3 kg (236 lb 8.9 oz) 12/27/2017 8:30 AM CDT Height 172.5 cm (5' 7.91) 12/27/2017 8:30 AM CD T Body Mass Index 36.06 12/27/2017 8:30 AM CDT Plan of Treatment Health Maintenance Due Date Last Done Comments HIV SCREENING 2017 HPV VACCINE (1 - 3-dose series) 2017 CHLAMYDIA/GONORRHEA SCREENING 2018 MENINGOCOCCAL (Group B) VACC INE SHARED DECISION-MAKING (1 of 2 - Standard) 2018 HEPATITIS C SCREENING 08/08/2020 DTAP/TDAP/TD VACCINES (1 - Tdap) 2021 HEPATITIS B VACCINE (1 of 3 - 19+ 3-dose series) 2021 PAP SMEAR 2023 COVID-19 VACCINE (1 - 2023-2 5 season) 2024 DEPRESSION SCREENING 08/22/2024 INFLUENZA VACCINE (Season Ended) 2025 ZOSTER VACCINE (1 of 2) 2052 HIB VACCINE Aged Out No longer eligi ble based on patient's age to complete this topic MENINGOCOCCAL GROUPS A/C/Y/W VACCINE Aged Out No longer eligible b ased on patient's age to complete this topic PNEUMOCOCCAL VACCINE Aged Out No long er eligible based on patient's age to complete this topic Insurance [facility] Member Subscriber Plan / Payer (Ef fective 2017-Present) Name:Rosmery Wynne Christy Member ID:Not on file Relation to Subscriber:Child Name:CANDELARIO YWNNEIVAN Ramirez Date of :1982 (Home) Address: [place] [address] Payer ID:[id number] (NAIC) Type:O Address: [place] [phone] [facility] CARE [facility] MEDICAID - OUT OF STATE Care Teams Brewery Worker Relationship Specialty Start Date End Date Rose Mary Kidd MD [address] [place] [address] PCP - General 03/29/11
--- OUTSIDE RECORDS SUMMARY | 2025-02-24 11:22 | XMS_ITS | Referral Summary ---
Author Organization [facility] Address [address] [place] [address] Phone Care Team Providers Care Trash Truck Driver Name Role Phone Steven Chase MD Primary [...] file Legal Sex Female 6:03 AM SENIOR OFFICER Gender Identity Not on file Sexual Orientation Not on file Last Filed Vital Signs Vital Sign Reading Time Taken Comments Blood Pressure 114/82 10/24/2024 11:45 PM SENIOR OFFICER Pulse 92 10/24/2024 11:45 PM SENIOR OFFICER Temperature 36.1 C (96.9 F) 10/24/2024 10:17 PM SENIOR OFFICER Respiratory Rate 18 10/24/2024 10:18 PM SENIOR OFFICER Oxygen Saturation 100% 10/24/2024 11:45 PM SENIOR OFFICER Inhaled Oxygen Concentration - - Weight 99.8 kg (220 lb) 10/24/2024 10:17 PM SENIOR OFFICER Height 172.7 cm (5' 8) 10/24/2024 10:17 PM SENIOR OFFICER Body Mass Index 33.45 10/24/2024 10:17 PM SENIOR OFFICER Plan of Treatment Not on file Medical Devices Implanted Type Area Associate Director Financial Aid Device Identifier Shelf Expiration Date Model / Serial / Lot [employer] Low Profile Screws 4mm 46mm Self Drill Self Tap Cannulated [id number] - [id number] Implanted:Qty: 1 on 03/23/2024 by Donald Mendoza Jr., MD at [facility] Left: Ankle [employer] [id number] / / Insurance [facility] IDPA Care Teams Trash Truck Driver Relationship Specialty Start Date End Date Steven Chase MD [address] [facility] [address] [place] [address] PCP - General Family Medicine 10/24/24
--- OUTSIDE RECORDS SUMMARY | 2025-02-24 11:22 | XMS_ITS | Encounter Summary ---
Author Organization [facility] Address [address] [place] [address] Care Team Providers Care Appliance Technician Name Role Phone Rose Mary Kidd MD Primary Care Provider + Steven Chase MD Primary Care Provider Encounter Details Date Type Department Care Team (Late st Contact Info) Description 05/31/2024 Documentation [facility] Medical Group Orthopedics and Sports Medicine at [address] [address] Charley Dominguez Social History Tobacco [...] on file Legal Sex Female 6:03 AM TINNING EQUIPMENT TENDER Gender Identity Not on file Sexual Orientation Not on file documented as of this encounter Plan of Treatment Not on file documented as of this encounter Visit Diagnoses Not on filedocumented in this encounter Care Teams Appliance Technician Relationship Specialty Start Date End Date Rose Mary Kidd MD [address] [place] [address] PCP - General 07/21/17 10/23/24 Steven Chase MD [address] [place] [address] PCP - General Family Medicine 10/24/24 documented as of this encounter
[2025-02-24 11:28] VITALS: BP 134/89; PULSE 89; RESP 18; TEMP 36.4; O2SAT 99
--- NOTE | 2025-02-24 11:33 | ED_ITS ---
HPI - Extremity Injury (Lower) General Chief Complaint: Extremity Injury, Lower Stated Complaint: Left Big Toe Pain/Skin Sore Time Seen by Provider: 02/24/25 11:21 Patient presents to Express Care with complaints pain and bruising to left big toe that she noticed upon waking. Patient noted stubbing her toe last night which is not uncommon for her. Patient reports ripping off half of her nail in significant other told her she should have this evaluated because likely they would have to take off the toenail. patient does also note a hard area next to the little toe that has been on and off since she had a ankle fracture at the end of March last year. Patient reports over injuries to toes and ankle of this foot. Denies numbness or tingling in feet or toes. Related Data Allergies Allergy/AdvReac Type Severity Reaction Status Date / Time Penicillins Allergy Severe HIVES Verified 02/24/25 11:30 amoxicillin Allergy Stopped Verified 02/24/25 11:30 Breathing Review of Systems Constitutional: Constitutional: Reports as per HPI, Denies chills, Denies fatigue, Denies fever(s) and Denies weakness Eyes: Eyes: Reports no additional eye complaints Cardiovascular: Cardiovascular: Reports no additional cardiovascular complaints Respiratory: Respiratory: Reports no additional respiratory complaints Gastrointestinal: Gastrointestinal: Reports no additional gastrointestinal complaints Genitourinary: Genitourinary: Reports no additional female genitourinary complaints Musculoskeletal: Musculoskeletal: Reports as per HPI, Reports arthralgias, Reports joint swelling and Denies muscle cramps Integumentary/Breasts: Skin/Breast: Reports as per HPI Comments: Injury to left big toenail, bruising left big toenail Neurologic: Reports as per HPI, Denies numbness and Denies weakness Psychiatric: Psychiatric: Reports no additional psychiatric complaints Endocrine: Endocrine: Reports no additional endocrine complaints Hematologic/Lymphatic: Hematologic/Lymphatic: Reports no additional hematologic/lymphatic complaints Allergic/Immunologic: Allergic/Immunologic: Reports no additional allergic/immunologic complaints [facility] Past Medical History Medical History PCOS (polycystic ovarian syndrome) Ankle fracture, left Right arm fracture Foot fracture, right Pneumonia Asthma Surgical History Surgical History History of surgical removal of skin lesion on neck Hx of tonsillectomy Family History Family History Mother Hypertension Depression Social History Social History Smoking status: Never smoker Substance use: never Living arrangements: with family Occupation/Education: student Gender identity (if verbalized by the patient): Female Spiritual care concerns: No Exam Const: General: healthy appearing and no acute distress Nutritional Appearance: well nourished Orientation/consciousness: patient oriented x3 Limitations: no limitations Resp: Effort & Inspection: normal respiratory effort Auscultation: clear to auscultation bilaterally Cardio: Rate: regular rate Rhythm: regular rhythm Skin: General skin exam: normal color Rashes: no rashes Wounds: wounds noted Other: callous noted to the distal end of 5th metatarsal left foot- non tender with palpation, no erythema noted. Neuro: General: patient oriented x3 and moves all extremities Speech: normal speech Gait exam (Neuro): Normal gait present Extrem: Left lower extremity: foot Details: normal capillary refill, abnormal to inspection (ecchymosis over great toe ), tenderness Location: of the great toe, abnormal ROM of toe Details: pain with active ROM Location: of the great toe, no edema, ecchymosis (great toe ) and vascular exam Details: dorsalis pedis pulse present, posterior tibial pulse present and normal capillary refill; no unusual warmth, no abrasions and no lacerations Psych: Mental Status: mental status grossly normal Affect: normal affect Attitude: cooperative Course Course Level of Care: Express Care Visit Vital Signs Vital signs: Vital Signs Temperature 97.6 F 02/24/25 11:28 Pulse Rate 89 02/24/25 11:28 Respiratory Rate 18 02/24/25 11:28 Blood Pressure 134/89 02/24/25 11:28 Pulse Oximetry 99 02/24/25 11:28 Oxygen Delivery Room Air 02/24/25 11:28 Temperature 97.6 F 02/24/25 11:28 Pulse Rate 89 02/24/25 11:28 Respiratory Rate 18 02/24/25 11:28 Blood Pressure 134/89 02/24/25 11:28 Pulse Oximetry 99 02/24/25 11:28 Oxygen Delivery Room Air 02/24/25 11:28 MDM - Extremity Injury (Lower) MDM Narrative Medical decision making narrative: spoke with patient about overall symptoms and she has injured her toe and recommended x-ray of this great toe for concern for fracture. Patient declines x-rays at this time does not believe this is broken just wanted to ensure what to do with this toenail. Noted that there is thickening and yellowing to the toenail likely fungal infection. Will treat for fungal toenail infection but likely would need follow-up with primary care physician for oral antifungal medications. Also noted area is likely a callus and corn to the 5th metatarsal. Recommended corn pads and follow-up with surgeon or molecular geneticist for further evaluation. Discharge instructions reviewed with patient, as well as provided in writing per nursing staff. The instructions also include specific and strict return/GO TO THE ER as well as f/u information. All questions have been answered, and the patient deny any further questions with discharge and discharge plan. Differential Diagnosis Differential diagnosis: Likely fracture of toe and other ( Fracture foot, subungual hematoma tinea) Medical Records Attestation: I reviewed the patient's medical records. Imaging Data My impression: declines imaging Discharge Plan Discharge Clinical Impression: Injury of great toe of left foot, Tinea unguium Patient Disposition: Home Condition: Stable Instructions: Antibiotic Form, Skin Yeast Infection (ED), Nail Avulsion (ED) Additional Instructions: recommended using corn pads to this side of your little toe these are available [id number] and follow-up with surgeon or molecular geneticist for further evaluation and treatment of this. You have declined x-rays of your great toe likely there is a contusion or sprain or possible fracture in this toe recommended resting, ice, and ibuprofen consistently until symptoms resolve. You do have a fungal infection of this left great toe nail recommended using the topical medication nightly for 4 weeks may also apply tea tree oil to the area. May need follow-up with primary care physician for oral antifungal medications since toenail fungus is difficult to treat. Patient Language: Macedonian Prescriptions: New ciclopirox 8 % solution 1 applic topical HS 28 Days Qty: 6.6 0RF Follow-up/Referrals: Steven Chase MD [Primary Care Provider] - Time of Disposition: 11:52
== END 2025-02-24 12:02 | disposition home or self-care (01) ==
PROVIDERS: Emergency Provider Nurse Practitioner Family; PCP Family Medicine
DX: S99.922A Unspecified injury of left foot, initial encounter (principal); X58.XXXA Exposure to other specified factors, initial encounter; B35.1 Tinea unguium; J45.909 Unspecified asthma, uncomplicated; E28.2 Polycystic ovarian syndrome
CPT/HCPCS: 99213; G0463

== ENCOUNTER 2025-04-17 08:44 | Emergency (ER) | payer OTHER, SELFPAY ==
--- OUTSIDE RECORDS SUMMARY | 2025-04-16 15:27 | XMS_ITS | Encounter Summary ---
Author Organization [facility] Healthcare Address [address] [place] [address] Care Team Providers Care Stopping Builder Name Role Phone Steven Chase MD Primary Care Provider Reason for Visit * Diagnostic Imaging (Routine) - Pending Review Specialty Diagnoses / Procedures Referred By Macy t Referred To Contact Diagnoses Missed Procedures US Ob Under 14 Weeks W Endovaginal US Pelvis W Endovaginal JianVal machado MD [address] [address] Phone: tel: fax: [address] [address] Referral ID Status Reason Start Date Expiration Date V isits Requested Visits Authorized [id number] Pending Review 04/16/2025 05/16/2026 1 1 Encounter Details Date Type Department Care Team (Latest Contact Info) Description 04/16/2025 3:27 PM CDT - 04/16/2025 11:59 PM CDT Hospital Encounter [facility] [address] [place] [id number] Missed Discharge Disposition: Discharge to home or self [...] on file Legal Sex Female 6:03 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 Gender Identity Not on file Sexual Orientation [...] documented in this encounter Plan of Treatment Pending Results Name Type Priority Associated Diagnoses Date /Time US Ob Under 14 Weeks W Endovaginal Imaging Schedule VELASQUEZ, Read VELASQUEZ (Appt Today, Awaiting Results) Missed 04/16/2025 5:29 PM CDT Scheduled Orders Name Type Priority Associated Diagnoses Order Schedule US Ob Under 14 Weeks W Endovaginal Imaging Schedule VELASQUEZ, Read VELASQUEZ (Appt Today, Awaiting Results) Missed Once for 1 Occurrences starting 04/16/2025 until 04/16/2025 documented as of this encounter Visit Diagnoses Diagnosis Missed documented in this encounter Care Teams Stopping Builder Relationship Specialty Start Date End Date Steven Chase MD [address] [place] [address] PCP - General Family Medicine 10/24/24 documented as of this encounter
--- OUTSIDE RECORDS SUMMARY | 2025-04-17 08:49 | XMS_ITS | Clinical Summary ---
Author Organization [facility] Address [address] [place] [address] Phone Care Team Providers Care Senior Marketing Coordinator Name Role Phone Steven Chase MD Primary Care Provider Allergies Active Allergy Reactions Criticality Noted Date Comments Amoxicillin Unknown 07/18/2023 Medications No known medications Immunizations Immunization Administration Dates Next Due TDAP Vaccine 07/18/2023 Social History Tobacco Use Types Packs/Day Years Used Date Smoking Tobacco: Never Assessed Comments No Sex and Gender Information Value Date Recorded Sex Assigned at Female 07/18/2023 1:18 PM 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 ENGINEER Legal Sex Female 12:48 PM 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 PLANT MECHANICAL ENGINEER Gender Identity Female 07/18/2023 1:18 PM 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 PLANT MECHANICAL ENGINEER Sexual Orientation Not on file Last Filed Vital Signs Vital Sign Reading Time Taken Comments Blood Pressure 143/83 07/18/2023 1:00 PM 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 PLANT MECHANICAL ENGINEER Pulse 82 07/18/2023 1:00 PM 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 PLANT MECHANICAL ENGINEER Temperature 36 C (96.8 F) 07/18/2023 1:00 PM 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 PLANT MECHANICAL ENGINEER Respiratory Rate 16 07/18/2023 1:00 PM 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 PLANT MECHANICAL ENGINEER Oxygen Saturation 99% 07/18/2023 1:00 PM 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 PLANT MECHANICAL ENGINEER Inhaled Oxygen Concentration - - Weight 99.8 kg (220 lb) 07/18/2023 1:00 PM 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 PLANT MECHANICAL ENGINEER Height 170.2 cm (5' 7) 07/18/2023 1:00 PM 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 PLANT MECHANICAL ENGINEER Body Mass Index 34.46 07/18/2023 1:00 PM 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 PLANT MECHANICAL ENGINEER Plan of Treatment Health Maintenance Due Date Last Done Comments Hepatitis C Virus (HCV) Screening 2002 Meningococcal B Immunization (1 of 2 - Standard) 2018 Pap Smear 2023 SARS-COV-2 Immunization ( season) 2024 10/30/2020 Influenza Immunization (#1) 2025 Td Immunization Every 10 Years (Adults [...] this topic Insurance [place]ICA[place] Care Teams Senior Marketing Coordinator Relationship Specialty Start Date End Date Steven Chase MD [address] [place] [address] PCP - General Family Medicine 07/18/23
--- OUTSIDE RECORDS SUMMARY | 2025-04-17 08:49 | XMS_ITS | Clinical Summary ---
Author Organization [facility] Address [address] [place] [address] Phone Care Team Providers Care Rivet Driver Name Role Phone Unavailable Primary Care Provider Unavailabl e Allergies Active Allergy Reactions Criticality Noted Date Comments Amoxicillin Hives High 04/03/2025 Medications VIT [id number] S ORAL Take by mouth. Active ibuprofen (MOTRIN) 600 mg tablet Take 1 Tablet (600 mg) by mouth every 6 hours as needed for Pain, Mild. 30 Tablet 04/03/2025 Active ALPRAZolam (XANAX) 0.5 mg tabletIndication s:Incomplete miscarriage Take 1 Tablet (0.5 mg) by mouth nightly as needed for Anxiety. 2 Tablet 04/03/2025 Active Encounters Date Type Department Care Team Description 04/10/2025 External Device Data [facility] ABSTRACTION Provider, Abstract 04/09/2025 External Device Data [facility] ABSTRACTION Provider, Abstract 04/03/2025 1:05 PM CDT - 04/03/2025 6:28 PM CDT Emergency [facility] Obstetrics Emergency Department [address] [place] [address] Mimi Brennan MD Incomplete miscarriage (Primary Dx); Encounter for blood typing Discharge Disposition: Home or Self Care 04/03/2025 Travel from Last 3 Months Social History Tobacco Use Types Packs/Day Years Used Date Smoking Tobacco: Former Cigarettes Smokeless Tobacco: Never Tobacco Cessation:Counseling Given: No Alcohol Use Standard Drinks/Week Comments Not Currently 0 (1 standard drink = 0.6 oz pur e alcohol) Feeling Safe Answer Date Recorded Are you in a relationship wi th someone who hurts you emotionally and/or physically? No 04/03/2025 Estimated Date of Delivery Comme nts Yes 11/21/2025 Date entered sade or to episode creation Sex and Gender Information Value Date Recorded Sex Assigned at Not on file Legal Sex Female 12:54 PM CDT Gender Identity Not on file Sexual Orientation Not on file Last Filed Vital Signs Vital Sign Reading Time Taken Comments Blood Pressure 139/76 04/03/2025 5:35 PM CDT Pulse 80 04/03/2025 2:50 PM CDT Temperature 36.8 C (98.2 F) 04/03/2025 5:35 PM CDT Respiratory Rate 20 04/03/2025 5:35 PM CDT Oxygen Saturation 98% 04/03/2025 5:14 PM CDT Inhaled Oxygen Concentration - - Weight 117.9 kg (260 lb) 04/03/2025 12:59 PM CDT Height 172.7 cm (5' 8) 04/03/2025 12:59 PM CDT Body Mass Index 39.53 04/03/2025 12:59 PM CDT Plan of Treatment Health Maintenance Due Date Last Done Comments CHLAMYDIA SCREENING (ANNUAL) 11-24 YEARS 2013 HPV VACCINES (1 - 3-dose series) 2017 HEPATITIS B VACCINES (1 of 3 - 19+ 3-dose series) 07/23 CERVICAL CANCER SCREENING 2023 HPV/Cotest (21-29) 2023 PAP SMEAR 2023 INFLUENZA VACCINE (#1) 2025 DTAP/TDAP/TD VACCINES (2 - Td or Tdap) 07/18/2033 RSV VACCINE (60+ or ) (No Doses Required) Comp leted Procedures Procedure Name Priority Date/Time Associated Diagnosis Comments VERIFICATION BLOOD GROUP Stat 04/03/2025 3:50 PM CDT Encounter for blood typing URINALYSIS W/REFLEX MICROSCOPIC Stat 04/03/2025 3:50 PM CDT US OB TRANSVAGINAL Stat 04/03/2025 3: 43 PM CDT POC US PELVIS OB FIRST TRIMESTER Stat 04/03/2025 2:15 PM CDT TYPE AND SCREEN Stat 04/03/2025 1:41 PM CDT HCG QUANTITATIVE, BLOOD Stat 04/03/2025 1:41 PM CDT EXTRA TUBE (GREEN) Stat 04/03/2025 1: 41 PM CDT EXTRA TUBE Stat 04/03/2025 1:41 PM CDT CBC WITH DIFFERENTIAL Stat 04/03/2025 1:41 PM CDT from Last 3 Months Results * VERIFICATION BLOOD GROUP (04/03/2025 3:50 PM CDT) ABO GROUP O 04/03/2025 4:48 PM CDT [facility] RH (D) TYPE Positive 04/03/2025 4:48 PM CDT [facility] Blood Venipuncture / Unknown 04/03/2025 3:50 PM CDT 04/03/2025 4:15 PM CDT us Mimi Brennan MD BLOOD BANK ORDERABLES Final Re sult [facility] CLIA# [id number] [place] [address] * (ABNORMAL) URINALYSIS WITH REFLEX MICROSCOPIC (04/03/2025 3:50 PM CDT) COLOR UA Red(A) Pale to Dark Yellow 04/03/2025 4:52 PM CDT [facility] CLARITY UA Bloody(A) Clear 04/03/2025 4:52 PM CDT [facility] SPECIFIC GRAVITY UA 1.015 1.003 - 1.035 04/03/2025 4:52 PM CDT [facility] PH UA 6.5 5.0 - 8.0 04/03/2025 4:52 PM CDT [facility] LEUKOCYTE ESTERASE UA 1+(A) Negative 04/03/2025 4:52 PM CDT [facility] NITRITE UA Negative Negative 04/03/2025 4:52 PM CDT [facility] PROTEIN UA 3+(A) Negative 04/03/2025 4:52 PM CDT [facility] GLUCOSE UA Negative Negative 04/03/2025 4:52 PM CDT [facility] KETONES UA 2+(A) Negative 04/03/2025 4:52 PM CDT [facility] UROBILINOGEN UA Normal <2.0 mg/dL 4:52 PM CDT [facility] BILIRUBIN UA Negative Negative 04/03/2025 4:52 PM CDT [facility] BLOOD UA 4+(A) Negative 04/03/2025 4:52 PM CDT [facility] WBC UA >100(A) 0 - 2 /hpf 04/03/2025 4:52 PM CDT [facility] RBC UA >100(A) 0 - 2 /hpf 04/03/2025 4:52 PM CDT [facility] BACTERIA UA Negative Negative /hpf 04/03/2025 4:52 PM CDT [facility] EPITHELIAL CELLS, URINE 0-5 0 - 5 /hpf 04/03/2025 4:52 PM CDT [facility] HYALINE CAST None Seen None Seen, 0-2 /lpf 04/03/2025 4:52 PM CDT [facility] Urine URINE SPECIMEN OBTAINED BY CLEAN CATCH PROCEDURE / Unknown Collection / Unknown 04/03/2025 3:50 PM CDT 04/03/2025 4:15 PM CDT us Mimi Brennan MD URINE ORDERABLES Final Result [facility] CLIA# [id number] [place] [address] * US OB TRANSVAGINAL (04/03/2025 3:43 PM CDT) Anatomical Region Laterality Modality Pelvis Ultrasound 04/03/2025 3:47 PM CDT Impressions 04/03/2025 3:53 PM CDT IMPRESSION: Abnormal shaped gestational sac containing a yolk sac but no pole Less than expected decidual reaction Normal ovaries with a corpus luteum cyst in the left ovary DICTATION LOCATION: [address] Narrative 04/03/2025 3:53 PM CDT ENDOVAGINAL PELVIC ULTRASOUND DATE: 04/03/2025 3:43 PM HISTORY: Vaginal Bleeding. COMPARISON: None FINDINGS: Endovaginal pelvic ultrasound was performed. The uterus measures 10.2 x 5 x 5.7 cm. There is a gestational sac which is elongated in configuration. Decidual reaction is less than expected. There may be a small yolk sac Right ovary measures 4.4 x 2.4 x 2.1 cm with normal blood flow. The left ovary measures 2.8 x 3.7 x 2.6 cm with follicular cysts and normal blood flow.. There is a corpus luteum cyst measuring 18 mm INCIDENTAL FINDINGS: None. Procedure Note Cristi Jade MD - 04/03/2025 ENDOVAGINAL PELVIC ULTRASOUND DATE: 04/03/2025 3:43 PM HISTORY: Vaginal Bleeding. COMPARISON: None FINDINGS: Endovaginal pelvic ultrasound was performed. The uterus measures 10.2 x 5 x 5.7 cm. There is a gestational sac which is elongated in configuration. Decidual reaction is less than expected. There may be a small yolk sac Right ovary measures 4.4 x 2.4 x 2.1 cm with normal blood flow. The left ovary measures 2.8 x 3.7 x 2.6 cm with follicular cysts and normal blood flow.. There is a corpus luteum cyst measuring 18 mm INCIDENTAL FINDINGS: None. IMPRESSION: Abnormal shaped gestational sac containing a yolk sac but no pole Less than expected decidual reaction Normal ovaries with a corpus luteum cyst in the left ovary DICTATION LOCATION: [address] us Mimi Brennan MD US ORDERABLES Final Result * POC US PELVIS OB FIRST TRIMESTER (04/03/2025 2:15 PM CDT) Narrative ED POC US - 04/03/2025 2:15 PM CDT Mimi Brennan MD 04/03/2025 5:05 PM POC US PELVIS OB FIRST TRIMESTER Date/Time: 04/03/2025 2:15 PM Performed by: Mimi Brennan MD Authorized by: Mimi Brennan MD Comments: Bedside Limited Obstetric ED Ultrasound Report Name: Rosmery Wynne is a 24 y.o. female Date: 04/03/2025 LMP: No LMP recorded. Patient is . EGA: 6w6d BETH: Estimated Date of Delivery: 11/21/25 Performed Transabdominally yes; Performed Transvaginally yes Foreign Food Specialty Cook: Mimi Brennan MD Indication: vaginal bleeding & cramping in Gestational Sac: located intrauterine Yolk Sac: Present Embryo/Fetus: unable to visualize Heartrate: unable to visualize CRL: Uterus/cervix/adnexa without any noted abnormalities. Findings/Interpretation: intrauterine with indeterminate viability Recommendation: Radiology US to document viability (already had US 1w ago showing IUP with +FHT at [facility]). Co Founder: Mimi Brennan MD us Mimi Brennan MD NON LAB POC TESTS Final Result ED POC US [address] [place] [address], [place] * EXTRA TUBE (GREEN) (04/03/2025 1:41 PM CDT) Blood Venipuncture / Unknown 04/03/2025 1:41 PM CDT 04/03/2025 2:11 PM CDT us Mimi Brennan MD CHEMISTRY ORDERABLES Final Res ult [facility]# [id number] [place] [address] * (ABNORMAL) CBC WITH DIFFERENTIAL (04/03/2025 1:41 PM CDT) WBC 7.4 4.0 - 9.8 K/uL 04/03/2025 2:44 PM CDT [facility] RBC 4.89 3.90 - 4.90 M/uL 04/03/2025 2:44 PM CDT [facility] HEMOGLOBIN 13.1 11.8 - 14.8 g/dL 04/03/2025 2:44 PM CDT [facility] HEMATOCRIT 40.3 35.5 - 44.0 % 04/03/2025 2:44 PM CDT [facility] MCV 82.4 82.0 - 99.0 fL 04/03/2025 2:44 PM CDT [facility] MCH 26.8(L) 27.2 - 32.6 pg 04/03/2025 2:44 PM CDT [facility] MCHC 32.5 31.5 - 35.5 g/dL 04/03/2025 2:44 PM CDT [facility] RDW 13.7 11.5 - 14.5 % 04/03/2025 2:44 PM CDT [facility] RDW-STDEV 41.1 37.1 - 48.7 fL 04/03/2025 2:44 PM CDT [facility] PLATELETS 233 140 - 350 K/uL 04/03/2025 2:44 PM CDT [facility] MPV 11.0 9.3 - 12.4 fL 04/03/2025 2:44 PM CDT [facility] NEUTROPHILS 64 % 04/03/2025 2:44 PM CDT [facility] LYMPHOCYTES 25 % 04/03/2025 2:44 PM CDT [facility] MONOCYTES 8 % 04/03/2025 2:44 PM CDT [facility] EOSINOPHILS 3 % 04/03/2025 2:44 PM CDT [facility] BASOPHILS 0 % 04/03/2025 2:44 PM CDT [facility] IMMATURE GRANULOCYTES 0 % 04/03/2025 2:44 PM CDT [facility] NEUTROPHIL ABSOLUTE 4.72 1.90 - 7.00 K/uL 04/03/2025 2:44 PM CDT [facility] LYMPHOCYTE ABSOLUTE 1.82 0.70 - 4.50 K/uL 04/03/2025 2:44 PM CDT [facility] MONOCYTE ABSOLUTE 0.62 0.10 - 1.30 K/uL 04/03/2025 2:44 PM CDT [facility] EOSINOPHIL ABSOLUTE 0.21 0.00 - 0.70 K/uL 04/03/2025 2:44 PM CDT [facility] BASOPHILS ABSOLUTE 0.03 0.00 - 0.20 K/uL 04/03/2025 2:44 PM CDT [facility] IMMATURE GRANULOCYTES ABSOLUTE 0.02 0.00 - 0.03 K/uL 04/03/2025 2:44 PM CDT [facility] Blood Venipuncture / Unknown 04/03/2025 1:41 PM CDT 04/03/2025 2:11 PM CDT us Mimi Brennan MD HEMATOLOGY ORDERABLES Final Re sult [facility] CLIA# [id number] [place] [address] * TYPE AND SCREEN (04/03/2025 1:41 PM CDT) ABO GROUP O 04/03/2025 3:32 PM CDT [facility] RH (D) TYPE Positive 04/03/2025 3:32 PM CDT [facility] ANTIBODY SCREEN Negative 04/03/2025 3:32 PM CDT [facility] Blood Venipuncture / Unknown 04/03/2025 1:41 PM CDT 04/03/2025 2:54 PM CDT us Mimi Brennan MD BLOOD BANK ORDERABLES Edited R esult - Final [facility] CLIA# [id number] [address] [place] [address] * (ABNORMAL) HCG QUANTITATIVE, BLOOD (04/03/2025 1:41 PM CDT) HCG QUANT, BLOOD 20,585.0( H) <=5.0 mIU/mL 04/03/2025 3:26 PM CDT [facility] [employer] [facility] Comment: Male <= 2 mIU/mL Female Non premenopausal <= 1 mIU/mL Non postmenopausal <= 7 mIU/mL Gestational Age HCG Concentration 3 Weeks 5.4 - 72.0 mIU/mL 4 Weeks 10.2 - 708 mIU/mL 5 Weeks 217 - 8245 mIU/mL 6 Weeks 152 - 32,177 mIU/mL 7 Weeks 4059 - 153,767 mIU/mL 8 Weeks 31,366 - 149,094 mIU/mL 9 Weeks 59,109 - 135,901 mIU/mL 10 Weeks 44,186 - 170,409 mIU/mL 12 Weeks 27,107 - 201,615 mIU/mL 14 Weeks 24,302 - 93,646 mIU/mL 15 Weeks 12,540 - 69,747 mIU/mL 16 Weeks 8904 - 55,332 mIU/mL 17 Weeks 8240 - 51,793 mIU/mL 18 Weeks 9649 - 55,271 mIU/mL Blood Venipuncture / Unknown 04/03/2025 1:41 PM CDT 04/03/2025 2:11 PM CDT us Mimi Brennan MD CHEMISTRY ORDERABLES Final Res ult [facility] [employer] [facility] CLIA# [id number] [place] [address] from Last 3 Months Insurance [place] Advance Directives For more information, please contact: [phone] * Full Code (Latest Code Status on File) Date Activated Date Inactivated Comments 04/03/2025 1:12 PM 04/03/2025 8:28 PM
--- OUTSIDE RECORDS SUMMARY | 2025-04-17 08:49 | XMS_ITS | Encounter Summary ---
Author Organization [facility] Address [address] [place] [address] Care Team Providers Care Air Defense Control Officer Name Role Phone Rose Mary Kidd MD Primary Care Provider Encounter Details Date Type Department Care Team (Late st Contact Info) Description 09/22/2022 Lab Requisition [facility] [address] [facility] [facility] [place] [address] Vasiliy Arredondo MD [address] [place] [address] Social History Tobacco Use Types Packs/Day Years Used Date Smoking Tobacco: Passive Smo ke Exposure - Never Smoker Smokeless Tobacco: Never Comments No Sex and Gender Information Value Date Recorded Sex Assigned at Not on file Legal 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 Gender Identity Not on file Sexual Orientation Not on file documented as of this encounter Plan of Treatment Not on file documented as of this encounter Procedures Procedure Name Priority Date/Time Associated Diagnosis Comments DERMATOPATHOLOGY Routine 09/21/2022 12:0 0 AM CAPSULE FILLING MACHINE OPERATOR documented in this encounter Results * DERMATOPATHOLOGY (09/21/2022 12:00 AM CAPSULE FILLING MACHINE OPERATOR) Case Report Dermatopathology Report Case: [id number] Authorizing Provider: Vasiliy Arredondo MD Collected: 09/21/2022 12:00 AM Ordering Location: [facility] Lab Received: 09/22/2022 04:04 PM Pathologist: Elicia Ferguson MD Specimen: Skin, left upper bhavesh lip border 5:16 PM [facility] Final Diagnosis Specimen A. SKIN, left upper bhavesh lip border: RUPTURED EPIDERMOID CYST (L72.0) (see microscopic description) 5:16 PM [facility]ERMAT[facility] at [address] CAPSULE FILLING MACHINE OPERATOR Clinical History R/O EIC 5:16 PM [facility] Gross Description Specimen A: Received is one formalin filled container labeled with the patient's name and designated left upper bhavesh lip border. The specimen consists of a punch biopsy measuring [id number]. Jar 0. 5:16 PM [facility] Microscopic Description Specimen A. SKIN, left upper bhavesh lip border: Within the dermis, there is an infiltrate composed of lymphocytes and histiocytes, including multinucleated type giant cells. Some histiocytes contain flakes of material consistent with keratin. Additional deeper sections were obtained and reviewed. 5:16 PM [facility] Disclaimer An external and internal positive and negative controls are appropriate for the histochemical, immunohistochemical and immunofluorescence stain(s) in this case (if any), except where stated explicitly. The performance characteristics of the stain(s) cited in this report were developed and its performance characteristic determined by the Dermatopathology Laboratory at [facility], directed by Dr. Williams Hale. These tests need not be, and therefore are not, approved by the [place] Food and Drug Administration. The tests are used for clinical purposes. Billing Codes Specimen Charges Stain Charges 08001 1 5:16 PM [facility] Embedded Images 5:16 PM [facility] Pathology/Cytolog y TISSUE SPECIMEN FROM SKIN / Unknown 09/21/2022 09/22/2022 4:04 PM CAPSULE FILLING MACHINE OPERATOR us Vasiliy Arredondo MD LAB - PATHOLOGY/CYTOLOGY ORD ERABLES Final Result DERMATOPATHOLOGY LABORATORY [facility] - Department of Dermatology [facility] [address] [place] [address], [address] [place] [address], [facility] [phone] documented in this encounter Visit Diagnoses Not on filedocumented in this encounter Care Teams Air Defense Control Officer Relationship Specialty Start Date End Date Rose Mary Kidd MD [address] [address] PCP - General 03/29/11 documented as of this encounter
--- OUTSIDE RECORDS SUMMARY | 2025-04-17 08:49 | XMS_ITS | Encounter Summary ---
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
--- OUTSIDE RECORDS SUMMARY | 2025-04-17 08:49 | XMS_ITS | Clinical Summary ---
Author Organization [facility] Address [address] [place] [address] Phone Care Team Providers Care Mortgage Accounting Clerk Name Role Phone Steven Chase MD Primary [...] Encounters Date Type Department Care Team Description 04/16/2025 3:27 PM CDT - 04/16/2025 11:59 PM CDT Hospital Encounter [facility] [address] [place] [address] Missed Discharge Disposition: Discharge to home or self care 04/12/2025 10:30 AM CDT Lab [address] [address] 04/05/2025 12:45 PM CDT [address] [address] 03/29/2025 1:28 PM CDT - 03/29/2025 11:59 PM CDT Hospital Encounter [facility] [address] [place] [address] Encounter for screening for uncertain dates Discharge Disposition: Discharge to home or self care from Last 3 Months Surgical History Surgery [...] file Legal Sex Female 6:03 AM COMPLIANCE ENGINEER Gender Identity Not on file Sexual Orientation Not on file Obstetrics History Last Filed Vital Signs Vital Sign Reading Time Taken Comments Blood Pressure 114/82 10/24/2024 11:45 PM COMPLIANCE ENGINEER Pulse 92 10/24/2024 11:45 PM COMPLIANCE ENGINEER Temperature 36.1 C (96.9 F) 10/24/2024 10:17 PM COMPLIANCE ENGINEER Respiratory Rate 18 10/24/2024 10:18 PM COMPLIANCE ENGINEER Oxygen Saturation 100% 10/24/2024 11:45 PM COMPLIANCE ENGINEER Inhaled Oxygen Concentration - - Weight 99.8 kg (220 lb) 10/24/2024 10:17 PM COMPLIANCE ENGINEER Height 172.7 cm (5' 8) 10/24/2024 10:17 PM COMPLIANCE ENGINEER Body Mass Index 33.45 10/24/2024 10:17 PM COMPLIANCE ENGINEER Plan of Treatment Health Maintenance Due Date Last Done Comments Cervical Cancer Screening 2002 Chlamydia and Gonorrhea (GC/ CT) Screening 2002 Depression Screening 2002 Hepatitis C Screening 2002 Meningococcal B Vaccine (1 o f 2 - Standard) 2018 Regular Well Visit/Exam 18-64 2020 Influenza Vaccine (#1) 2025 06/23/2009 DTaP/Tdap/Td Vaccine (8 - Td or Tdap) 07/18/2033 07/18/2023, 11/20/2013, 03/21/2008, Additional history exists Hepatitis B Screening Completed 08/19/2003 , 2002, 2002, Additional history exists Pneumococcal vaccine <65 Completed 003, 02/15/2003, 2002, Additional history exists Varicella Vaccines Completed 03/21/2008, 01/31/2004 HPV Vaccines Completed 11/12/2014, 05/23, 04/10/2014 Medical Devices Implanted Type Area Career Law Clerk Device Identifier Shelf Expiration Date Model / Serial / Lot [employer] Low Profile Screws 4mm 46mm Self Drill Self Tap Cannulated [id number] - [id number] Implanted:Qty: 1 on 03/23/2024 by Donald Mendoza Jr., MD at [facility] Left: Ankle [employer] [id number] / / Procedures Procedure Name Priority Date/Time Associated Diagnosis Comments DIFFERENTIAL AUTO Routine 04/12/2025 10: 57 AM CDT CBC WITH AUTO DIFFERENTIAL Routine 04/12/2025 10:57 AM CDT HCG, BLOOD, QUANTITATIVE Routine 04/12/2025 10:57 AM CDT HCG, BLOOD, QUANTITATIVE Routine 04/05/2025 1:04 PM CDT US OB UNDER 14 WEEKS W ENDOVAGINAL Schedule Routine, Read Routine (OP Routine) 03/29/2025 2:17 PM CDT Encounter for screening for uncertain dates from Last 3 Months Results * Differential, auto (04/12/2025 10:57 AM CDT) Neutrophil abs 3.03 1.50 - 6.50 K/cumm Imm gran abs 0.01 0.00 - 0.10 K/cumm [facility]) Lymphocyte abs 1.59 0.80 - 3.30 K/cumm [facility]) Monocyte abs 0.36 0.20 - 0.80 K/cumm [facility]) Eosinophil abs 0.16 0.00 - 0.50 K/cumm [facility] ([place]) Basophil abs 0.03 0.00 - 0.10 K/cumm [facility]) Neutrophil pct 58.5 % [facility] ([place] Comment: Interpretive Data Percent cell count reference ranges are not reported, since discordance with absolute values may lead to misinterpretation of CBC data. Current Interpretive Data was last revised on 2017. Imm gran pct 0.2 % [facility] ([place]) Comment: Interpretive Data Percent cell count reference ranges are not reported, since discordance with absolute values may lead to misinterpretation of CBC data. Current Interpretive Data was last revised on 2017. Lymphocyte pct 30.7 % [facility] ([place]) Comment: Interpretive Data Percent cell count reference ranges are not reported, since discordance with absolute values may lead to misinterpretation of CBC data. Current Interpretive Data was last revised on 2017. Monocyte pct 6.9 % [facility] ([place]) Comment: Interpretive Data Percent cell count reference ranges are not reported, since discordance with absolute values may lead to misinterpretation of CBC data. Current Interpretive Data was last revised on 2017. Eosinophil pct 3.1 % [facility] ([place] Comment: Interpretive Data Percent cell count reference ranges are not reported, since discordance with absolute values may lead to misinterpretation of CBC data. Current Interpretive Data was last revised on 2017. Basophil pct 0.6 % [facility] ([place]) Comment: Interpretive Data Percent cell count reference ranges are not reported, since discordance with absolute values may lead to misinterpretation of CBC data. Current Interpretive Data was last revised on 2017. Blood 04/12/2025 10:5 7 AM CDT 04/12/2025 11:27 AM CDT us Val Villar MD LAB BLOOD ORDERABLES Fin al Result [facility] Department [place] [address] * (ABNORMAL) CBC with auto differential (04/12/2025 10:57 AM CDT) WBC 5.18 3.80 - 9.90 K/cumm Hgb 13.2 11.9 - 15.5 g/dL [facility]) Hct 40.5 35.6 - 45.5 % [facility]) Plt 260 150 - 400 K/cumm [facility]) MPV 10.5 9.1 - 12.3 fL [facility]) RBC 4.92 3.90 - 5.20 M/cumm [facility]) MCV 82.3 81.3 - 96.4 fL [facility]) MCH 26.8(L) 27.1 - 33.3 pg [facility] ([place]) MCHC 32.6 32.3 - 35.7 g/dL [facility]) RDW CV 13.5 11.1 - 14.9 % [facility]) RDW SD 40.4 35.7 - 48.1 fL [facility]) NRBC abs 0.00 0.00 - 0.01 K/cumm [facility] ([place]) Blood 04/12/2025 10:5 7 AM CDT 04/12/2025 11:27 AM CDT Val Villar MD LAB BLOOD ORDERABLES Fin al Result Performing Organization Address [facility] Co de Phone Number [facility] ([place]) [address] [place] [address] * (ABNORMAL) hCG, blood, quantitative (04/12/2025 10:57 AM CDT) hCG, quant 12,823.0( H) 0.0 - 5.0 IUnits/L [facility] ([place]) Comment: Interpretive Data Male: < 5 IU/L Non- premenopausal Female: <5 IU/L The Najma hCG Beta Quant assay procedure was used. Results from different manufacturers or methods may not be comparable. Serial testing should be performed using the same method. Interpretive Data was last revised on 2023 Blood 04/12/2025 10:5 7 AM CDT 04/12/2025 11:27 AM CDT Result [facility] Val Villar MD LAB BLOOD ORDERABLES Fin al Result Performing Organization Address [facility] Co de Phone Number [facility] ([place] [address] [place] [address] * (ABNORMAL) hCG, blood, quantitative (04/05/2025 1:04 PM CDT) hCG, quant 7,609.0(H ) 0.0 - 5.0 IUnits/L [facility] ([place]) Comment: Interpretive Data Male: < 5 IU/L Non- premenopausal Female: <5 IU/L The Najma hCG Beta Quant assay procedure was used. Results from different manufacturers or methods may not be comparable. Serial testing should be performed using the same method. Interpretive Data was last revised on 2023 Blood 04/05/2025 1:04 PM CDT 04/05/2025 1:11 PM CDT Val Villar MD LAB BLOOD ORDERABLES Fin al Result [facility] [place] [facility] Department [place] [address] * US Ob Under 14 Weeks W Endovaginal (03/29/2025 2:17 PM CDT) Anatomical Region Laterality Modality Abdomen N/A Ultrasound 03/29/2025 5:39 PM CDT Impressions 03/29/2025 5:39 PM CDT Single live intrauterine of 6 weeks 1 day with heart rate of 128 BPM. Electronically signed by: Shauna Calix M.D. Narrative 03/29/2025 5:39 PM CDT EXAM: OB ULTRASOUND LESS THAN 14 WEEKS: DATE: 03/29/2025 1:45 PM CLINICAL HISTORY:Z36.87 TECHNIQUE: Transabdominal and transvaginal ultrasonographic images of the pelvis were obtained by the technologist and submitted for review. COMPARISON: No prior study is available for comparison. FINDINGS: The uterus is 8.8 x 4.4 x 5.1 cm. Intrauterine gestational sac mean diameter of 14.6 mm is seen corresponding to 5 weeks and 5 days. There is a yolk sac and pole with heart rate of 128 BPM. [place]-rump length of 4 mm corresponds to 6 weeks and 1 day +/- 4 days with EDC 11/21/2025. The right ovary is 3.4 x 2.0 x 1.6 cm left is 2.8 x 2.0 x 2.8 cm in both unremarkable. Bilateral ovarian blood flow is documented with color flow and arterial and venous waveforms noted with spectral Doppler. There is no free pelvic fluid. Procedure Note Shauna Calix MD - 03/29/2025 EXAM: OB ULTRASOUND LESS THAN 14 WEEKS: DATE: 03/29/2025 1:45 PM CLINICAL HISTORY:Z36.87 TECHNIQUE: Transabdominal and transvaginal ultrasonographic images of the pelvis were obtained by the technologist and submitted for review. COMPARISON: No prior study is available for comparison. FINDINGS: The uterus is 8.8 x 4.4 x 5.1 cm. Intrauterine gestational sac mean diameter of 14.6 mm is seen corresponding to 5 weeks and 5 days. There is a yolk sac and pole with heart rate of 128 BPM. [place]-rump length of 4 mm corresponds to 6 weeks and 1 day +/- 4 days with EDC 11/21/2025. The right ovary is 3.4 x 2.0 x 1.6 cm left is 2.8 x 2.0 x 2.8 cm in both unremarkable. Bilateral ovarian blood flow is documented with color flow and arterial and venous waveforms noted with spectral Doppler. There is no free pelvic fluid. IMPRESSION: Single live intrauterine of 6 weeks 1 day with heart rate of 128 BPM. Electronically signed by: Shauna Calix M.D. us Val Villar MD IMG OB US PROCEDURES Fin al Result from Last 3 Months Insurance [facility] Care Teams Mortgage Accounting Clerk Relationship Specialty Start Date End Date Steven Chase MD [address] [facility] [address] [place] [address] PCP - General Family Medicine 10/24/24
--- OUTSIDE RECORDS SUMMARY | 2025-04-17 08:49 | XMS_ITS | Clinical Summary ---
Author Organization [facility] Address [address] [place] [address] Care Team Providers Care Process Safety Engineer Name Role Phone Rose Mary Kidd MD Primary Care Provider Source Comments [facility],non-owned Affiliates and Associated Physician Practices is amultiple site organization consisting of ambulatory clinics and hospital sitesin [place], [place], [place] and [place]. This disclosure is being madepursuant to the Care Everywhere program and may not contain all information available regarding this patient. Last updated 18.[facility] Allergies Active Allergy Reactions Criticality Noted [...] on file Legal Sex Female 5:45 AM CRYSTALLOGRAPHER Gender Identity Not on file Sexual Orientation Not on file Last Filed Vital Signs Vital Sign Reading Time Taken Comments Blood Pressure 108/58 12/27/2017 8:30 AM CDT Pulse 91 12/27/2017 8:30 AM CDT Temperature 37.3 C (99.2 F) 07/24/2011 5:32 PM CRYSTALLOGRAPHER Respiratory Rate 16 11/28/2017 10:0 7 AM [...] season) 2024 DEPRESSION SCREENING 08/22/2024 INFLUENZA VACCINE (#1) 2025 ZOSTER VACCINE (1 of 2) 2052 HIB VACCINE Aged Out No longer eligi ble based on patient's age to complete this topic MENINGOCOCCAL GROUPS A/C/Y/W VACCINE Aged Out No longer eligible b ased on patient's age to complete this topic PNEUMOCOCCAL VACCINE Aged Out No long er eligible based on patient's age to complete this topic Insurance [facility] Member Subscriber Plan / Payer (Ef fective 2017-Present) Name:Rosmery Wynne Christy Member ID:Not on file Relation to Subscriber:Child Name:CANDELARIO WYNNEIVAN Ramirez Date of :1982 (Home) Address: [place] [address] Payer ID:[id number] (NAIC) Type:O Address: [place] [id number] [facility] MEDICAID - OUT OF STATE Care Teams Process Safety Engineer Relationship Specialty Start Date End Date Rose Mary Kidd MD [address] [place] [address] PCP - General 03/29/11
[2025-04-17 08:55] VITALS: BP 134/79; PULSE 95; RESP 16; TEMP 36.4; O2SAT 100
--- NOTE | 2025-04-17 09:05 | ED_ITS ---
HPI - URI/Sore Throat General Chief Complaint: Upper Respiratory Infection Stated Complaint: throat/congestion/fever Time Seen by Provider: 04/17/25 09:05 Source: patient Mode of arrival: ambulatory Limitations: no limitations History of Present Illness HPI Narrative: 24-year-old female presents with complaint of sore throat, congestion, postnasal drainage, cough, fatigue for 3 days. Taking bayh-ntt-ibxmima DayQuil NyQuil cold and flu. 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 Denies nausea vomiting. All systems reviewed and negative except as noted above. Related Data Allergies Allergy/AdvReac Type Severity Reaction Status Date / Time Penicillins Allergy Severe HIVES Verified 03/05/25 14:36 amoxicillin Allergy Stopped Verified 03/05/25 14:36 Breathing PMFSH Past Medical History Medical History PCOS (polycystic ovarian syndrome) Ankle fracture, left Right arm fracture Foot fracture, right Pneumonia Asthma Surgical History Surgical History History of surgical removal of skin lesion on neck Hx of tonsillectomy Family History Family History Mother Hypertension Depression Social History Social History Smoking status: Never smoker Substance use: never Living arrangements: with family Occupation/Education: student Gender identity (if verbalized by the patient): Female Spiritual care concerns: No Comments At time of signature, agree with nursing past medical, surgical, social and family history. There is no relevant family history pertinent to the presenting complaint. Exam Narrative: GENERAL: This is a well-nourished, well-developed patient, Ill-appearing but in no acute distress HEAD: normocephalic, atraumatic. EYES: PERRL. Sclera clear/white. Vision is grossly intact. EARS: External ears normal, auditory canals clear and without drainage, TMs normal without perforation. Hearing grossly intact. NOSE: External nose normal with clear nasal drainage, mild erythema to nares. THROAT: Mucous membranes moist, Mild erythema without swelling or exudates NECK: Neck supple, non-tender without lymphadenopathy, masses or thyromegaly. CARDIOVASCULAR: Regular rate and rhythm without murmurs, gallops, or rubs. RESPIRATORY: Clear to auscultation. Breath sounds equal bilaterally. No wheezes, rales, or rhonchi. SKIN: warm, Dry, intact with no suspicious lesions or rash, good texture and turgor. NEURO: awake, alert, and oriented to person, place and time. There were no obvious focal neurologic abnormalities. EXTREMITIES: No joint tenderness, effusion, or edema noted. Course Course Level of Care: Express Care Visit Vital Signs Vital signs: Vital Signs Temperature 36.4 C 04/17/25 08:55 Pulse Rate 95 04/17/25 08:55 Respiratory Rate 16 04/17/25 08:55 Blood Pressure 134/79 04/17/25 08:55 Pulse Oximetry 100 04/17/25 08:55 Oxygen Delivery Room Air 04/17/25 08:55 Temperature 36.4 C 04/17/25 08:55 Pulse Rate 95 04/17/25 08:55 Respiratory Rate 16 04/17/25 08:55 Blood Pressure 134/79 04/17/25 08:55 Pulse Oximetry 100 04/17/25 08:55 Oxygen Delivery Room Air 04/17/25 08:55 reviewed MDM - URI/Sore Throat MDM Narrative Medical decision making narrative: negative COVID, strep and influenza test. recommend patient continue DayQuil NyQuil cold and flu To treat viral symptoms. Lungs clear to auscultation. No respiratory distress. Differential Diagnosis Differential diagnosis: Likely upper respiratory infection, sinusitis, viral infection, influenza and pharyngitis Discharge Plan Discharge Clinical Impression: Viral upper respiratory tract infection with cough Patient Disposition: Home Condition: Stable Instructions: Upper Respiratory Infection (ED) Additional Instructions: your COVID, influenza and strep test was negative today. A strep culture was ordered and results will take 24-48 hours. If your strep culture is positive we will call you at that time and prescribed an antibiotic. Continue taking tktv-ggl-keeqopk medications to treat her symptoms. Take as directed on packaging. Drink at least 64 oz water a day. Place cool mist humidifier in bedroom where you sleep. Follow-up with your primary care physician as needed. Patient Language: [place] Prescriptions: No Action buspirone 5 mg tablet 5 mg PO TID PRN (Reason: anxiety) Qty: 60 1RF Follow-up/Referrals: Steven Chase MD [Primary Care Provider, Family Practice] Stand Alone Forms: Work/School Release IP Time of Disposition: 09:15
[2025-04-17 09:15] LABS: EDCOVIDSCREEN Negative (Negative)
[2025-04-17 09:16] LABS: EDINFLUASCREEN Negative (Negative); EDINFLUBSCREEN Negative (Negative); EDSTREPNEGPOS1 Negative (Negative)
== END 2025-04-17 09:23 | disposition home or self-care (01) ==
PROVIDERS: Emergency Provider Nurse Practitioner Family; PCP Family Medicine
DX: J06.9 Acute upper respiratory infection, unspecified (principal); Z20.822 Contact with and (suspected) exposure to COVID-19
CPT/HCPCS: 87081; 87426; 87804; 87880; 99213; G0463

== ENCOUNTER 2025-04-19 00:59 | Day surgery (SDC) | payer OTHER, SELFPAY ==
[2025-04-18 10:07] VITALS: BMI 39.6
--- NOTE | 2025-04-18 10:08 | PC.NURSE ---
Report to the Outpatient Waiting Room, entrance under the green pavilion located off [facility], at time _0600_ on date _[id number]_. Planned Procedure Time: _0730_.? Time changes happen often and if your time is changed the preop area will call you the afternoon before. - You and your visitor will be asked to self-screen and do not enter if you have any COVID symptoms. Please call surgeon if you need to reschedule. - A mask is optional within the hospital at this time. Patients may have clear liquids (water, carbonated beverages, clear teas, apple juice) until 3 hours prior to surgery with a maximum of 20 ounces. - No food from midnight until time of surgery and no smoking, or chewing tobacco (or any form of nicotine). No chewing gum, candy or mints. Take only the following medications with a SIP of water on the morning of surgery: ___Buspirone if needed.____ DO NOT STOP ANY OF YOUR OTHER PRESCRIPTION MEDICATIONS PRIOR TO SURGERY EXCEPT THE FOLLOWING Hold all vitamins and supplements for 3 days per anesthesiologist. Medications to discontinue per physician Date to take last dose Please no make-up, nail tajik, hairspray, perfume, deodorant, or body powder the day of surgery.? No jewelry (including any body piercings) or valuables the day of surgery, leave them at home.? Please take a shower or bath the night before, or the morning of, surgery with an antibacterial soap.? Wear comfortable, loose fitting clothing.? - Jewelry must be removed prior to entering the operating room.? Rings and piercings that are not removed may be cut off. - The hospital will not accept responsibility for valuables.? - Please leave all valuables, including medications, at home the day of surgery. If you are going home after surgery, a licensed personal driver must drive you home.? - NO public transportation without another adult if you receive anesthesia. - We recommend that an adult stay with you for 24 hours following discharge. - We also recommend that you do not drive, make important decision, drink alcoholic beverages, or take any drugs that were not prescribed by your health care provider for at least 24 hours after your discharge time. Follow any additional instructions given to you from your surgeon. Telephone instructions given to __Rosmery___and asked if any additional questions and then verbalized understanding. Patient advised to call surgeon office or pre surgery nurse liaison [phone] if any additional questions.
--- OUTSIDE RECORDS SUMMARY | 2025-04-19 01:02 | XMS_ITS | Encounter Summary ---
Author Organization [facility] Address [address] [place] [address] Care Team Providers Care Floor Refinisher Name Role Phone Rose Mary Kidd MD Primary Care Provider [phone] Encounter Details Date Type Department Care Team (Late st Contact Info) Description 09/22/2022 Lab Requisition [facility] [address] [facility], [facility] [place] [address] Vasiliy Arredondo MD [address] [place] [address] Social History Tobacco Use Types Packs/Day Years Used Date Smoking Tobacco: Passive Smo ke Exposure - Never Smoker Smokeless Tobacco: Never Comments No Sex and Gender Information Value Date Recorded Sex Assigned at Not on file Legal Sex Female 5:45 AM TAPROOM ATTENDANT Gender Identity Not on file Sexual Orientation Not on file documented as of this encounter Plan of Treatment Not on file documented as of this encounter Procedures Procedure Name Priority Date/Time Associated Diagnosis Comments DERMATOPATHOLOGY Routine 09/21/2022 12:0 0 AM TAPROOM ATTENDANT documented in this encounter Results * DERMATOPATHOLOGY (09/21/2022 12:00 AM TAPROOM ATTENDANT) Case Report Dermatopathology Report Case: [id number] Authorizing Provider: Vasiliy Arredondo MD Collected: 09/21/2022 12:00 AM Ordering Location: [facility] Lab Received: 09/22/2022 04:04 PM Pathologist: Elicia Ferguson MD Specimen: Skin, left upper bhavesh lip border 5:[address] [facility] DERMATOPATHOLOGY LABORATORY Final Diagnosis Specimen A. SKIN, left upper bhavehs lip border: RUPTURED EPIDERMOID CYST (L72.0) (see microscopic description) 5:[address] [facility] DERMATOPATHOLOGY LABORATORY at 1716 TAPROOM ATTENDANT Clinical History R/O EIC 5:[address] [facility] DERMATOPATHOLOGY LABORATORY Gross Description Specimen A: Received is one formalin filled container labeled with the patient's name and designated left upper bhavesh lip border. The specimen consists of a punch biopsy measuring [id number]. Jar 0. 5:[address] [facility] DERMATOPATHOLOGY LABORATORY Microscopic Description Specimen A. SKIN, left upper bhavesh lip border: Within the dermis, there is an infiltrate composed of lymphocytes and histiocytes, including multinucleated type giant cells. Some histiocytes contain flakes of material consistent with keratin. Additional deeper sections were obtained and reviewed. 5:[address] [facility] DERMATOPATHOLOGY LABORATORY Disclaimer An external and internal positive and negative controls are appropriate for the histochemical, immunohistochemical and immunofluorescence stain(s) in this case (if any), except where stated explicitly. The performance characteristics of the stain(s) cited in this report were developed and its performance characteristic determined by the Dermatopathology Laboratory at [facility], directed by Dr. Williams Hale. These tests need not be, and therefore are not, approved by the [place] Food and Drug Administration. The tests are used for clinical purposes. Billing Codes Specimen Charges Stain Charges 90235 1 5:[address] [facility] DERMATOPATHOLOGY LABORATORY Embedded Images 5:[address] [facility] DERMATOPATHOLOGY LABORATORY Pathology/Cytolog y TISSUE SPECIMEN FROM SKIN / Unknown 09/21/2022 09/22/2022 4:04 PM TAPROOM ATTENDANT us Vasiliy Arredondo MD LAB - PATHOLOGY/CYTOLOGY ORD ERABLES Final Result DERMATOPATHOLOGY LABORATORY [facility] - Department of Dermatology [facility] Special[facility] [address] [place] [address], [address] [place] [address], [place] [phone] documented in this encounter Visit Diagnoses Not on filedocumented in this encounter Care Teams Floor Refinisher Relationship Specialty Start Date End Date Rose Mary Kidd MD [address] [address] PCP - General 03/29/11 documented as of this encounter
--- OUTSIDE RECORDS SUMMARY | 2025-04-19 01:02 | XMS_ITS | Clinical Summary ---
Author Organization [facility] Address [address] [place] [address] Phone Care Team Providers Care Parachute Repairer Name Role Phone Steven Chase MD Primary [...] Encounters Date Type Department Care Team Description 04/17/2025 11:50 AM CDT Lab [facility] [address] [place] [address] Arrived 04/16/2025 3:27 PM CDT - 04/16/2025 11:59 PM CDT Hospital Encounter [facility] [address] [place] [address] Missed Discharge Disposition: Discharge to home or self care 04/12/2025 10:30 AM CDT Lab [facility] [address] [place] [address] 04/05/2025 12:45 PM CDT Lab [facility] [address] [place] [address] 03/29/2025 1:28 PM CDT - 03/29/2025 11:59 [place] [address] Encounter for screening for uncertain dates Discharge [...] on file Legal 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 Gender Identity Not on file Sexual Orientation Not on file Obstetrics History Last Filed Vital Signs Vital Sign Reading Time Taken Comments Blood Pressure 114/82 10/24/2024 11:45 PM REAL ESTATE ASSISTANT Pulse 92 10/24/2024 11:45 PM REAL ESTATE ASSISTANT Temperature 36.1 C (96.9 F) 10/24/2024 10:17 PM REAL ESTATE ASSISTANT Respiratory Rate 18 10/24/2024 10:18 PM REAL ESTATE ASSISTANT Oxygen Saturation 100% 10/24/2024 11:45 PM REAL ESTATE ASSISTANT Inhaled Oxygen Concentration - - Weight 99.8 kg (220 lb) 10/24/2024 10:17 PM REAL ESTATE ASSISTANT Height 172.7 cm (5' 8) 10/24/2024 10:17 PM REAL ESTATE ASSISTANT Body Mass Index 33.45 10/24/2024 10:17 PM REAL ESTATE ASSISTANT Plan of Treatment Health Maintenance Due Date [...] 05/23, 04/10/2014 Medical Devices Implanted Type Area Commissary Superintendent Device Identifier Shelf Expiration Date Model / Serial / Lot [employer] Low Profile Screws 4mm 46mm Self Drill Self Tap Cannulated [id number] - [id number] Implanted:Qty: 1 on 03/23/2024 by Donald Mendoza Jr., MD at [facility] Left: Ankle [employer] [id number] / / Procedures Procedure Name Priority Date/Time Associated Diagnosis Comments HCG, BLOOD, QUANTITATIVE STAT 04/17/2025 11:51 AM CDT US OB UNDER 14 WEEKS W ENDOVAGINAL Schedule VELASQUEZ, Read VELASQUEZ (Appt Today, Awaiting Results) 04/16/2025 5:29 PM CDT Missed DIFFERENTIAL AUTO Routine 04/12/2025 10: 57 AM CDT CBC WITH AUTO DIFFERENTIAL Routine 04/12/2025 10:57 AM CDT HCG, BLOOD, QUANTITATIVE Routine 04/12/2025 10:57 AM CDT HCG, BLOOD, QUANTITATIVE Routine 04/05/2025 1:04 PM CDT US OB UNDER 14 WEEKS W ENDOVAGINAL Schedule Routine, Read Routine (OP Routine) 03/29/2025 2:17 PM CDT Encounter for screening for uncertain dates from Last 3 Months Results * (ABNORMAL) hCG, blood, quantitative (04/17/2025 11:51 AM CDT) hCG, quant 12,426.0( H) 0.0 - 5.0 IUnits/L [facility] CO[facility] ([place]) Comment: Interpretive Data Male: < 5 IU/L Non- premenopausal Female: <5 IU/L The Najma hCG Beta Quant assay procedure was used. Results from different manufacturers or methods may not be comparable. Serial testing should be performed using the same method. Interpretive Data was last revised on 2023 Blood 04/17/2025 11:5 1 AM CDT 04/17/2025 11:58 AM CDT us Val Villar MD LAB BLOOD ORDERABLES Fin al Result [facility] ([place]) 1 [facility] Department [place] [address] * US Ob Under 14 Weeks W Endovaginal (04/16/2025 5:29 PM CDT) Anatomical Region Laterality Modality Abdomen N/A Ultrasound 04/17/2025 1:17 PM CDT Narrative 04/17/2025 1:27 PM CDT EXAM DESCRIPTION: US OB UNDER 14 WEEKS W ENDOVAGINAL REASON FOR STUDY: Vaginal bleeding for 2 weeks. Miscarriage. Beta hCG initially dropped then reportedly shabbir again. Beta-hCG: Reportedly 12,823 mIU/mL TECHNIQUE: Transabdominal and transvaginal images acquired of the pelvis. COMPARISON: OB ultrasound 03/29/2025 FINDINGS: Clinical gestational age: 8 weeks 6 days Clinical estimated Due Date: 11/21/2025 Intrauterine gestational sac: Not present. The endometrium is heterogeneous and thickened measuring 3 cm. Portions of the internal debris show flow. The findings are suspicious for retained products of conception. No definite gestational sac is seen. Uterus: The uterus is anteverted , measuring 8.6 x 5.8 x 7.1 cm. Right Ovary/Adnexa: The right ovary measures 3.3 x 2.1 x 2.1 cm. There is documentation of color Doppler flow in the right ovary. The right ovary appears unremarkable. No adnexal mass. Left Ovary/Adnexa: The left ovary measures 3.7 x 2.5 x 2 cm. There is documentation of color Doppler flow in the left ovary. The left ovary appears unremarkable. No adnexal mass. Free Fluid: None. Other Findings: None. IMPRESSION: 1. No definite intrauterine gestational sac is seen. The endometrium is thickened measuring up to 3 cm and contains heterogeneous debris throughout. There is increased vascularity in the periphery of the debris. The findings are suspicious for retained products of conception. 2. No large adnexal mass. THIS IS AN ELECTRONICALLY VERIFIED FINAL REPORT 04/17/2025 1:27 PM - Electronically signed by Michele Castillo M.D. LB: JOANNA Report ID: [id number] Reading Location: [id number] Procedure Note Michele Castillo MD - 04/17/2025 EXAM DESCRIPTION: US OB UNDER 14 WEEKS W ENDOVAGINAL REASON FOR STUDY: Vaginal bleeding for 2 weeks. Miscarriage. Beta hCG initially dropped then reportedly shabbir again. Beta-hCG: Reportedly 12,823 mIU/mL TECHNIQUE: Transabdominal and transvaginal images acquired of thepelvis. COMPARISON: OB ultrasound 03/29/2025 FINDINGS: Clinical gestational age: 8 weeks 6 days Clinical estimated Due Date: 11/21/2025 Intrauterine gestational sac: Not present. The endometrium isheterogeneous and thickened measuring 3 cm. Portions of the internal debris show flow.The findings are suspicious for retained products of conception. No definite gestational sac is seen. Uterus: The uterus is anteverted , measuring 8.6 x 5.8 x 7.1 cm. Right Ovary/Adnexa: The right ovary measures 3.3 x 2.1 x 2.1 cm. Thereis documentation of color Doppler flow in the right ovary. The right ovary appears unremarkable. No adnexal mass. Left Ovary/Adnexa: The left ovary measures 3.7 x 2.5 x 2 cm. There is documentation of color Doppler flow in the left ovary. The left ovaryappears unremarkable. No adnexal mass. Free Fluid: None. Other Findings: None. IMPRESSION: 1. No definite intrauterine gestational sac is seen. The endometrium is thickened measuring up to 3 cm and contains heterogeneous debristhroughout. There is increased vascularity in the periphery of the debris. Thefindings are suspicious for retained products of conception. 2. No large adnexal mass. THIS IS AN ELECTRONICALLY VERIFIED FINAL REPORT 04/17/2025 1:27 PM - Electronically signed by Michele Castillo M.D. LB: JOANNA Report ID: [id number] Reading Location: [place] [address] us Val Villar MD IMG OB US PROCEDURES Fin al Result * Differential, auto (04/12/2025 10:57 AM CDT) [...] LAB BLOOD ORDERABLES Fin al Result [facility]JA[facility]A COCHRAN ([place]) 1 [facility] Department [place] [address] * (ABNORMAL) CBC with auto differential (04/12/2025 [...] Fin al Result [facility] ([place]) 1 [facility] Department [place] [address] * (ABNORMAL) hCG, blood, quantitative (04/12/2025 10:57 AM CDT) hCG, quant 12,823.0( H) 0.0 - 5.0 IUnits/L [facility] ([place]) Comment: Interpretive Data Male: < 5 IU/L [...] ORDERABLES Fin al Result Performing Organization Address [facility] de Phone Number YAJAIRA COCHRAN ([place]) 1 [facility] [place] [employer] [place] [address] * (ABNORMAL) hCG, blood, quantitative (04/05/2025 1:04 PM CDT) hCG, quant 7,609.0(H ) 0.0 - 5.0 IUnits/L [facility] ([place]) Comment: Interpretive Data Male: < 5 IU/L [...] ORDERABLES Fin al Result Performing Organization Address [facility] de Phone Number YAJAIRA COCHRAN ([place]) 1 [place] [address] * US Ob Under 14 Weeks W [...] pole with heart rate of 128 BPM. [place]-rump length of 4 mm corresponds to 6 [...] pole with heart rate of 128 BPM. [place]-rump length of 4 mm corresponds to 6 [...] al Result from Last 3 Months Insurance [facility] Care Teams Parachute Repairer Relationship Specialty Start Date End Date Steven Chase MD [address] [facility] [address] [place] [address] PCP - General Family Medicine 10/24/24
--- OUTSIDE RECORDS SUMMARY | 2025-04-19 01:02 | XMS_ITS | Clinical Summary ---
Author Organization [facility] Address [address] [place] [address] Phone Care Team Providers Care Pediatric Urologist Name Role Phone Unavailable Primary Care Provider Unavailabl e Allergies Active Allergy Reactions Criticality Noted Date Comments Amoxicillin Hives High 04/03/2025 Medications VIT [id number] S ORAL Take by mouth. Active ibuprofen (MOTRIN) 600 mg tablet Take 1 Tablet (600 mg) by mouth every 6 hours as needed for Pain, Mild. 30 Tablet 04/03/2025 Active ALPRAZolam (XANAX) 0.5 mg tabletIndication s:Incomplete miscarriage Take 1 Tablet (0.5 mg) by mouth nightly as needed for Anxiety. 2 Tablet 04/03/2025 Active Encounters Date Type Department Care Team Description 04/17/2025 External Device Data [facility] ABSTRACTION Provider, Abstract 04/10/2025 External Device Data [facility] [place]CTION Provider, Abstract 04/09/2025 External Device Data [facility] [place] Provider, Abstract 04/03/2025 1:05 PM CDT - 04/03/2025 6:28 PM CDT Emergency [facility] Obstetrics Emergency Department [address] [address] Mimi Brennan MD Incomplete miscarriage [...] ABO GROUP O 04/03/2025 4:48 PM CDT [facility] RH (D) TYPE Positive 04/03/2025 4:48 PM CDT [facility] Blood Venipuncture / Unknown 04/03/2025 3:50 PM CDT 04/03/2025 4:15 PM CDT us Mimi Brennan MD BLOOD BANK ORDERABLES Final Re sult [facility] CLIA# [id number] [place] [address] * (ABNORMAL) URINALYSIS WITH REFLEX MICROSCOPIC (04/03/2025 3:50 PM CDT) COLOR UA Red(A) Pale to Dark Yellow 04/03/2025 4:52 PM CDT [facility] CLARITY UA Bloody(A) Clear 04/03/2025 4:52 PM CDT [facility] SPECIFIC GRAVITY UA 1.015 1.003 - 1.035 04/03/2025 4:52 PM CDT [facility] PH UA 6.5 5.0 - 8.0 04/03/2025 4:52 PM CDT [facility] LEUKOCYTE ESTERASE UA 1+(A) Negative 04/03/2025 4:52 PM CDT [facility] NITRITE UA Negative Negative 04/03/2025 4:52 PM CDT [facility] PROTEIN UA 3+(A) Negative 04/03/2025 4:52 PM CDT [facility] GLUCOSE UA Negative Negative 04/03/2025 4:52 PM CDT [facility] KETONES UA 2+(A) Negative 04/03/2025 4:52 PM CDT [facility] UROBILINOGEN UA Normal <2.0 mg/dL 4:52 PM CDT [facility] BILIRUBIN UA Negative Negative 04/03/2025 4:52 PM CDT [facility] BLOOD UA 4+(A) Negative 04/03/2025 4:52 PM CDT [facility] WBC UA >100(A) 0 - 2 /hpf 04/03/2025 4:52 PM CDT [facility] RBC UA >100(A) 0 - 2 /hpf 04/03/2025 4:52 PM CDT [facility] BACTERIA UA Negative Negative /hpf 04/03/2025 4:52 PM CDT [facility] EPITHELIAL CELLS, URINE 0-5 0 - 5 /hpf 04/03/2025 4:52 PM CDT [facility] HYALINE CAST None Seen None Seen, 0-2 /lpf 04/03/2025 4:52 PM CDT [facility] Urine URINE SPECIMEN OBTAINED BY CLEAN CATCH PROCEDURE / Unknown Collection / Unknown 04/03/2025 3:50 PM CDT 04/03/2025 4:15 PM CDT us Mimi Brennan MD URINE ORDERABLES Final Result [facility] CLIA# [id number] [address] [place] [address] * US OB TRANSVAGINAL (04/03/2025 3:43 PM CDT) Anatomical Region Laterality Modality Pelvis Ultrasound 04/03/2025 3:47 PM CDT Impressions 04/03/2025 3:53 PM CDT IMPRESSION: Abnormal shaped gestational sac containing a yolk sac but no pole Less than expected decidual reaction Normal ovaries with a corpus luteum cyst in the left ovary DICTATION LOCATION: [address] Narrative 04/03/2025 3:53 PM CDT ENDOVAGINAL [...] cyst in the left ovary DICTATION LOCATION: [address] us Mimi Brennan MD US ORDERABLES [...] 11/21/25 Performed Transabdominally yes; Performed Transvaginally yes Landscape Technician: Mimi Brennan MD Indication: vaginal bleeding & cramping in Gestational Sac: located intrauterine Yolk Sac: Present Embryo/Fetus: unable to visualize Heartrate: unable to visualize CRL: Uterus/cervix/adnexa without any noted abnormalities. Findings/Interpretation: intrauterine with indeterminate viability Recommendation: Radiology US to document viability (already had US 1w ago showing IUP with +FHT at [facility]). Search Engine Optimization Manager: Mimi Brennan MD us Mimi Brennan MD NON LAB POC TESTS Final Result Performing Organization Address City/[facility]/ZIP Co de Phone Number ED POC US [address] [place] [address], [place] * EXTRA TUBE (GREEN) (04/03/2025 1:41 PM CDT) Blood Venipuncture / Unknown 04/03/2025 1:41 PM CDT 04/03/2025 2:11 PM CDT us Mimi Brennan MD CHEMISTRY ORDERABLES Final Res ult [facility] MES[facility]# [id number] [place] [address] * (ABNORMAL) CBC WITH DIFFERENTIAL (04/03/2025 1:41 PM CDT) WBC 7.4 4.0 - 9.8 K/uL 04/03/2025 2:44 PM CDT [facility] RBC 4.89 3.90 - 4.90 M/uL 04/03/2025 2:44 PM CDT [facility] HEMOGLOBIN 13.1 11.8 - 14.8 g/dL 04/03/2025 2:44 PM CDT [facility] HEMATOCRIT 40.3 35.5 - 44.0 % 04/03/2025 2:44 PM CDT [facility] MCV 82.4 82.0 - 99.0 fL 04/03/2025 2:44 PM CDT [facility] MCH 26.8(L) 27.2 - 32.6 pg 04/03/2025 2:44 PM CDT [facility] MCHC 32.5 31.5 - 35.5 g/dL 04/03/2025 2:44 PM CDT [facility] RDW 13.7 11.5 - 14.5 % 04/03/2025 2:44 PM CDT [facility] RDW-STDEV 41.1 37.1 - 48.7 fL 04/03/2025 2:44 PM CDT [facility] PLATELETS 233 140 - 350 K/uL 04/03/2025 2:44 PM CDT [facility] MPV 11.0 9.3 - 12.4 fL 04/03/2025 2:44 PM CDT [facility] NEUTROPHILS 64 % 04/03/2025 2:44 PM CDT [facility] LYMPHOCYTES 25 % 04/03/2025 2:44 PM CDT [facility] MONOCYTES 8 % 04/03/2025 2:44 PM CDT [facility] EOSINOPHILS 3 % 04/03/2025 2:44 PM CDT [facility] BASOPHILS 0 % 04/03/2025 2:44 PM CDT [facility] IMMATURE GRANULOCYTES 0 % 04/03/2025 2:44 PM CDT [facility] NEUTROPHIL ABSOLUTE 4.72 1.90 - 7.00 K/uL 04/03/2025 2:44 PM CDT [facility] LYMPHOCYTE ABSOLUTE 1.82 0.70 - 4.50 K/uL 04/03/2025 2:44 PM CDT [facility] MONOCYTE ABSOLUTE 0.62 0.10 - 1.30 K/uL 04/03/2025 2:44 PM CDT [facility] EOSINOPHIL ABSOLUTE 0.21 0.00 - 0.70 K/uL 04/03/2025 2:44 PM CDT [facility] BASOPHILS ABSOLUTE 0.03 0.00 - 0.20 K/uL 04/03/2025 2:44 PM CDT [facility] IMMATURE GRANULOCYTES ABSOLUTE 0.02 0.00 - 0.03 K/uL 04/03/2025 2:44 PM CDT [facility] Blood Venipuncture / Unknown 04/03/2025 1:41 PM CDT 04/03/2025 2:11 PM CDT us Mimi Brennan MD HEMATOLOGY ORDERABLES Final Re sult [facility] CLIA# [id number] [address] [place] [address] * TYPE AND SCREEN (04/03/2025 1:41 PM CDT) ABO GROUP O 04/03/2025 3:32 PM CDT [facility] RH (D) TYPE Positive 04/03/2025 3:32 PM CDT [facility] ANTIBODY SCREEN Negative 04/03/2025 3:32 PM CDT [facility] Blood Venipuncture / Unknown 04/03/2025 1:41 PM CDT 04/03/2025 2:54 PM CDT Mimi Brennan MD BLOOD BANK ORDERABLES Edited R esult - Final [facility] CLIA# [id number] [address] [place] [address] * (ABNORMAL) HCG QUANTITATIVE, BLOOD (04/03/2025 1:41 PM CDT) HCG QUANT, BLOOD 20,585.0( H) <=5.0 mIU/mL 04/03/2025 3:26 PM CDT [facility] [employer] Comment: Male <= 2 mIU/mL Female Non [...] Brennan MD CHEMISTRY ORDERABLES Final Res ult [facility] [employer] CLIA# [id number] [address] [place] [address] from Last 3 Months Insurance [place] Advance Directives For more information, please contact: [phone] * Full Code (Latest Code Status on File) Date Activated Date Inactivated Comments 04/03/2025 1:12 PM 04/03/2025 8:28 PM
--- OUTSIDE RECORDS SUMMARY | 2025-04-19 01:02 | XMS_ITS | Encounter Summary ---
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
--- OUTSIDE RECORDS SUMMARY | 2025-04-19 01:02 | XMS_ITS | Clinical Summary ---
Author Organization [facility] Address [address] [place] [address] Phone Care Team Providers Care Manager Financial Reporting Name Role Phone Steven Chase MD Primary Care Provider Allergies Active Allergy Reactions Criticality Noted Date Comments Amoxicillin Unknown 07/18/2023 Medications No known medications Immunizations Immunization Administration Dates Next Due TDAP Vaccine 07/18/2023 Social History Tobacco Use Types Packs/Day Years Used Date Smoking Tobacco: Never Assessed Comments No Sex and Gender Information Value Date Recorded Sex Assigned at Female 07/18/2023 1:18 PM RETAIL PERSONAL BANKER Legal Sex Female 12:48 PM RETAIL PERSONAL BANKER Gender Identity Female 07/18/2023 1:18 PM RETAIL PERSONAL BANKER Sexual Orientation Not on file Last Filed Vital Signs Vital Sign Reading Time Taken Comments Blood Pressure 143/83 07/18/2023 1:00 PM RETAIL PERSONAL BANKER Pulse 82 07/18/2023 1:00 PM RETAIL PERSONAL BANKER Temperature 36 C (96.8 F) 07/18/2023 1:00 PM RETAIL PERSONAL BANKER Respiratory Rate 16 07/18/2023 1:00 PM RETAIL PERSONAL BANKER Oxygen Saturation 99% 07/18/2023 1:00 PM RETAIL PERSONAL BANKER Inhaled Oxygen Concentration - - Weight 99.8 kg (220 lb) 07/18/2023 1:00 PM RETAIL PERSONAL BANKER Height 170.2 cm (5' 7) 07/18/2023 1:00 PM RETAIL PERSONAL BANKER Body Mass Index 34.46 07/18/2023 1:00 PM RETAIL PERSONAL BANKER Plan of Treatment Health Maintenance Due Date [...] this topic Insurance [place] Care Teams Manager Financial Reporting Relationship Specialty Start Date End Date Steven Chase MD [address] [place] [address] PCP - General Family Medicine 07/18/23
--- OUTSIDE RECORDS SUMMARY | 2025-04-19 01:02 | XMS_ITS | Clinical Summary ---
Author Organization [facility] Address [address] [facility] [place] [address] Care Team Providers Care Development Coach Name Role Phone Rose Mary Kidd MD Primary Care Provider [phone] Source Comments [facility],non-owned Affiliates and Associated Physician Practices is amultiple site organization consisting of ambulatory clinics and hospital sitesin [place], [place], [place] and [place]. This disclosure is being madepursuant to the Care Everywhere program and may not contain all information available regarding this patient. Last updated 18.[facility] Allergies Active Allergy Reactions Criticality Noted [...] on file Legal Sex Female 5:45 AM FHA UNDERWRITER Gender Identity Not on file Sexual Orientation Not on file Last Filed Vital Signs Vital Sign Reading Time Taken Comments Blood Pressure 108/58 12/27/2017 8:30 AM CDT Pulse 91 12/27/2017 8:30 AM CDT Temperature 37.3 C (99.2 F) 07/24/2011 5:32 PM FHA UNDERWRITER Respiratory Rate 16 11/28/2017 10:0 7 AM [...] patient's age to complete this topic Insurance [facility] Member Subscriber Plan / Payer (Ef fective 2017-Present) Name:Rosmery Wynne Christy Member ID:Not on file Relation to Subscriber:Child Name:CANDELARIO WYNNEIVAN Ramirez Date of :1982 (Home) Address: [place] [address] Payer ID:[id number] (NAIC) Type:O Address: [place] [phone] [facility] MEDICAID - OUT OF STATE Care Teams Development Coach Relationship Specialty Start Date End Date Rose Mary Kidd MD [address] [place] [address] PCP - General 03/29/11
[2025-04-19 06:06] VITALS: BP 143/95; PULSE 84; RESP 18; TEMP 36.1; O2SAT 100
[2025-04-19] MEDS: ACETAMINOPHEN 500 MG TABLET 1000 MG PO (06:23)
[2025-04-19] MEDS: LACTATED RINGERS 1,000 ML 30 ML IV CONT (06:30)
--- NOTE | 2025-04-19 06:39 | WPDANESEPPF ---
Anes - Initial Pre Proc Eval Procedure: Operation Date: 04/19/25 07:30 Proposed Procedures p Suction Dilation and Curettage - Val Villar MD Date/Time: 04/19/25 06:39 Surgeon: Val Villar MD Pre Op Diagnosis: sab Patient Data Age: 24 Gender: F Height: 1.73 m Weight: 118.2 kg Allergies Allergy/AdvReac Type Severity Reaction Status Date / Time Penicillins Allergy Severe HIVES Verified 04/18/25 09:57 amoxicillin Allergy Stopped Verified 04/18/25 09:57 Breathing Home Medications ?Medication ?Instructions ?Recorded ?Confirmed ?Type buspirone 5 mg tablet 5 mg PO TID PRN anxiety #60 tabs 03/05/25 04/18/25 Rx pseudoephedrine 60 mg-DM 30 1 ea PO DAILY PRN pain 04/18/25 04/18/25 History mg-acetaminophen 650 mg oral packet Patient hx anesthesia problems: none Family hx anesthesia problems: none Results Review: All pre-operative results and documents have been reviewed as part of the pre-operative evaluation. [facility] Past Medical History Medical History PCOS (polycystic ovarian syndrome) Ankle fracture, left Right arm fracture Foot fracture, right Pneumonia Asthma Surgical History Surgical History History of surgical removal of skin lesion on neck Hx of tonsillectomy Family History Family History Mother Hypertension Depression Social History Social History Smoking status: Never smoker Tobacco type: e-cigarettes/vaping Alcohol intake: current Substance use: current Substance use type: marijuana Living arrangements: with family Occupation/Education: student Gender identity (if verbalized by the patient): Female Spiritual care concerns: No Anes - Eval Final PreProcedure Day of Procedure 04/19/25 06:39 Patient weight: morbidly obese Heart: regular rate and rhythm Lungs: clear to auscultation Airway: Mallampati scale class II Neurological: alert and oriented Last oral intake: >/= 8 hours ASA classification: III Emergent: no Anesthetic plan: proceed Anesthesia type and monitoring: general GIVS and standard monitoring Results Review: All pre-operative results and documents have been reviewed as part of the pre-operative evaluation. Informed Consent: The patient's anesthetic plan and its attendant risks and benefits were discussed with the patient/family/POA. Questions were solicited and answers provided to the satisfaction of the patient/family/POA.
--- NOTE | 2025-04-19 07:15 | SUR.PREOP ---
PATIENT ELECTS TO HAVE HOME OF HER CHOICE: [facility] [place] [address]
--- NOTE | 2025-04-19 07:18 | P.HP_ITS ---
History of Present Illness History of Present Illness Consent: Risks, benefits, and alternatives have been discussed and questions answered. Patient agrees to proceed with procedure. Chief complaint: Incomplete Narrative: Rosmery Wynne is a 24 year old female with an incomplete . Patient bleeding and dropping HCG. One week after hCG dropped hCG was repeated and gone. Ultrasound was repeated and showed vascularity retained products. Plan is to proceed with suction D&C. Risks of infection, bleeding and perforation are reviewed. Patient agrees to proceed. Patient was instructed to wait 1 cycle before trying for again. Review of Systems Review of Systems: not repeated day of surgery; patient states no changes in status [facility] Past Medical History Medical History (Updated 04/19/25 @ 07:20 by Val Villar MD) Ankle fracture, left Right arm fracture Foot fracture, right Pneumonia Asthma Surgical History Surgical History History of surgical removal of skin lesion on neck Hx of tonsillectomy Family History Family History Mother Hypertension Depression Social History Social History Smoking status: Never smoker Tobacco type: e-cigarettes/vaping Alcohol intake: current Substance use: current Substance use type: marijuana Living arrangements: with family Occupation/Education: student Gender identity (if verbalized by the patient): Female Spiritual care concerns: No Meds Home Medications and Allergies Home Medications ?Medication ?Instructions ?Recorded ?Confirmed ?Type buspirone 5 mg tablet 5 mg PO TID PRN anxiety #60 tabs 03/05/25 04/19/25 Rx pseudoephedrine 60 mg-DM 30 1 ea PO DAILY PRN pain 04/18/25 History mg-acetaminophen 650 mg oral packet Allergies Allergy/AdvReac Type Severity Reaction Status Date / Time Penicillins Allergy Severe HIVES Verified 04/19/25 06:42 amoxicillin Allergy Stopped Verified 04/19/25 06:42 Breathing Exam Const: General: healthy appearing and alert Orientation/consciousness: patient oriented x3 Resp: Effort & Inspection: normal respiratory effort Auscultation: clear to auscultation bilaterally Cardio: Rate: regular rate Rhythm: regular rhythm GI: GI Palp: Yes Soft to palpation, No Tenderness to palpation present (GI) and No Palpable mass present : External Female Exam: normal external appearance Speculum Exam - Vagina: normal appearance of the vagina and normal vaginal discharge Speculum Exam - Cervix: normal appearance of the cervix Bimanual exam- vagina & uterus: uterine size normal and consistency normal Bimanual Exam- Adnexa, other: normal adnexae and No adnexal tenderness Neuro: General: patient oriented x3 Assessment and Plan Assessment and plan (1) Incomplete : Code(s): O03.4 - Incomplete spontaneous without complication Status: Acute Assessment and Plan: Plan is to proceed with suction D&C
--- NOTE | 2025-04-19 07:18 | WPDHPUPDATE1 ---
History and Physical Update Update Date/Time: 04/19/25 07:18 History and Physical has been reviewed, including an updated exam of the patient. There are NO changes in the patient's condition. Risks, benefits, and alternatives have been discussed and questions answered. Patient agrees to proceed with procedure.
--- NOTE | 2025-04-19 07:48 | S_PTH ---
PATIENT: Rosmery Wynne LOC: [facility] U#:[id number] AGE/SX: 24/F ROOM: RE04/19/[address]: Val Villar MD : 2000 BED: DIS: 04/19/2025 SPEC #: [id number] RECD: 04/19/25 08:08 STATUS: SHELIA REQ #: [id number] CHARLENE: 04/19/25 07:[address]: Val Villar DEPT: [facility] Surgical RECD BY: Olimpia Mejia ENTERED: 04/19/25 08:09 SP TYPE: Surgical OTHR DR: Steven Chase MD Tissues: A - Products of Conception Procedures: Hematoxylin and Eosin Stain Gross and Microscopic Level 4
--- NOTE | 2025-04-19 07:55 | P.OP_ITS ---
Procedure Note - Detailed Date of Procedure 04/19/25 Pre-op Diagnosis Incomplete Post-op Diagnosis Same Procedure Performed Suction D&C Surgeon Val Villar MD Anesthesia MAC and Local Findings Uterus sounds to 10cm and there are moderate products of conception. Description of Procedure The patient was taken to the operating room and placed under anesthesia in the dorsal lithotomy position. She was prepped and draped in the usual sterile [facility] ion. [place] speculum was placed in the vagina and the cervix grasped on the anterior lip with a tenaculum. The cervix was injected in each quadrant with 1% lidocaine. Uterus was sounded to 10cm. The cervix was serially dilated to an 8 [place]. The 8mm curved suction curette is used to evacuate the uterus until no further products were noted in the tubing. The sharp curette was then used and no further products were noted. One additional pass with the suction curette was taken. No additional products were noted. All instruments are removed. Sponge, needle, and instrument counts are correct per the OR staff. The patient was taken to recovery in stable condition. Estimated Blood Loss 100 (100cc of products of conception) Drains No Packing No Pathology Yes (Products of conception) Complications No immediate complications Condition Stable Disposition PACU
[2025-04-19 07:56] VITALS: BP 139/80; PULSE 88; RESP 16; O2SAT 99
[2025-04-19 08:20] VITALS: BP 124/79; PULSE 73; RESP 18; O2SAT 100
[2025-04-19 08:45] VITALS: BP 136/75; PULSE 81; RESP 16
== END 2025-04-19 08:52 | disposition home or self-care (01) ==
PROVIDERS: PCP Family Medicine; Visit Provider Obstetrics & Gynecology Gynecology
PROC: (CPT 59812; principal; 2025-04-19 07:30)
DX: O03.4 Incomplete spontaneous abortion without complication (principal); J45.909 Unspecified asthma, uncomplicated; E28.2 Polycystic ovarian syndrome; F12.90 Cannabis use, unspecified, uncomplicated; Z98.890 Other specified postprocedural states
CPT/HCPCS: 59812; 36415; 85461; 86850; 86900; 86901; 88305; A9270; J1885; J2003; J2210; J2250; J2704; J3010; J7120

== ENCOUNTER 2025-05-08 09:49 | Emergency (ER) | payer OTHER, SELFPAY ==
--- OUTSIDE RECORDS SUMMARY | 2025-05-06 20:46 | XMS_ITS | Encounter Summary ---
Author Organization [facility] Healthcare Address [address] [place] [address] Care Team Providers Care Safety Engineer Pressure Vessels Name Role Phone Steven Chase MD Primary Care Provider Reason for Visit * Reason Comments Migraine Encounter Details Date Type Department Care Team (Late st Contact Info) Description 05/06/2025 8:46 PM CDT - 05/06/2025 10:54 PM CDT Emergency [facility] Emergency Department [address] [place] [address] Other migraine without status migrainosus, not intractable (Primary Dx) Discharge Disposition: Discharge to home [...] making you feel afraid or unsafe? Denies 05/06/2025 Comments No Sex and Gender Information Value Date Recorded Sex Assigned at Not on file Legal Sex Female 6:03 AM [employer] Gender Identity Not on file Sexual Orientation Not on file documented as of this encounter Last Filed Vital Signs Vital Sign Reading Time Taken Comments Blood Pressure 163/113 05/06/2025 10:50 PM CDT Pulse 87 05/06/2025 10:50 PM CDT Temperature 36.1 C (97 F) 05/06/2025 4:57 PM CDT Respiratory Rate 16 05/06/2025 10:50 PM CDT Oxygen Saturation 100% 05/06/2025 10:50 PM CDT Inhaled Oxygen Concentration - - Weight - - Height - - Body Mass Index - - documented in this encounter Discharge Instructions * Discharge Instructions* Jessy Sky PA - 05/06/2025 10:36 PM CDT You were seen today for evaluation of facial pain, migraine, eye pain and tingling. Your lab work here was reassuring. Your CT showed no abnormality outside of chronic sinus infection. Your physical exam was tough to differentiate if this was due to a complex migraine or trigeminal neuralgia. You were treated for both and had improvement. To help with symptoms, I have sent you in carbamazepine. Please take this twice per day until you can follow up with your primary care provider for re-evaluation Return to the ER for any significant change in symptoms including vision change, fevers It was a pleasure taking care of you today. We thank you for entrusting our team with your healthcare needs documented in this encounter Medications at Time of Discharge carBAMazepine XR (TEGretol XR) 100 mg 12 hr tablet Take 1 tablet (100 mg total) by mouth 2 (two) times a day for 14 days 28 tablet 05/06/2025 HYDROcodone-acet aminophen (NORCO) 5-325 mg per tabletIndication [...] 1 04/09/2024 documented as of this encounter Ordered Prescriptions Prescription Sig Dispense Quantity Refills Last Filled Start Date End Date carBAMazepine XR (TEGretol XR) 100 mg 12 hr tablet Take 1 tablet (100 mg total) by mouth 2 (two) times a day for 14 days 28 tablet 05/06/2025 05/20/2025 documented in this encounter Discharge Disposition Disposition Code Departure Means Destination Comment s Discharge to home or self care documented in this encounter ED Notes * Jessy Sky PA - 05/06/2025 9:47 PM CDT HPI Chief Complaint Patient presents with Migraine 24-year-old A&O x4 female patient presents for evaluation of migraine and significant right eyepressure. Started suddenly earlier today while at work. She denies associated current vision changes. No extremity numbness or tingling Patient History: Past Medical History: Diagnosis Date Asthma Closed nondisplaced fracture of medial malleolus of left tibia, initial encounter Motion sickness PONV (postoperative nausea and vomiting) Review of Systems Review of Systems Neurological: Positive for dizziness and headaches. All other systems reviewed and are negative. Physical Exam ED Triage Vitals [05/06/25 1657] Temp Pulse Resp BP SpO2 36.1 ??C (97 ??F) 75 18 (!) 156/108 100 % Temp src Heart Rate Source Patient Position BP Location FiO2 (%) -- -- -- -- -- Height Height Method Weight Weight Method -- -- -- -- Physical Exam Vitals and nursing note reviewed. Constitutional: General: She is not in acute distress. Appearance: Normal appearance. She is not ill-appearing, toxic-appearing or diaphoretic. Eyes: Extraocular Movements: Extraocular movements intact. Pupils: Pupils are equal, round, and reactive to light. Cardiovascular: Rate and Rhythm: Normal rate. Pulses: Normal pulses. Pulmonary: Effort: Pulmonary effort is normal. Breath sounds: Normal breath sounds. Abdominal: Tenderness: There is no abdominal tenderness. Musculoskeletal: General: No swelling or tenderness. Normal range of motion. Cervical back: Normal range of motion. Skin: General: Skin is warm and dry. Capillary Refill: Capillary refill takes less than 2 seconds. Neurological: General: No focal deficit present. Mental Status: She is alert and oriented to person, place, and time. Cranial Nerves: No cranial nerve deficit. Sensory: No sensory deficit. Motor: No weakness. Coordination: Coordination normal. Gait: Gait normal. Deep Tendon Reflexes: Reflexes normal. MDM NIH Score Medical Decision Making 24-year-old A&O x4 female patient presents for evaluation of right-sided facial pain and migraine. She states this started suddenly at around 11:00 a.m. today while she was at work. She felt tingling to her face and some right tongue numbness. She states that has significant pain over her facenear the forehead, under her eye, into her jaw. She denies current vision change. She denies dizziness. The tingling and numbness to her face has since resolved. She had no speech changes at any time. No dyspnea, chest pain, nausea/vomiting/diarrhea. No new med changes Physical exam shows well-appearing female patient. Cranial nerves intact. No facial droop. 5/5 strength all major muscle groups full range motion all major joints. Lungs clear all avelar Differential: Trigeminal neuralgia, complex migraine, underlying infectious process. Doubt ICH Plan: Labs, CT, migraine cocktail Amount and/or Complexity of Data Reviewed Radiology: Decision-making details documented in ED Course. Risk Prescription drug management. ED Course as of 05/06/25 2243 Time: 05/06 2108 Value: CT Head WO Contrast Comment: IMPRESSION: 1. No acute intracranial findings. 2. Near-complete opacification of the right sphenoid sinus and right frontal sinus along with mucosal thickening of bilateral ethmoid air cells , left sphenoid sinus and left frontal sinus due to chronic sinusitis By: Jessy Sky PA Time: 05/06 2234 Comment: Patient feeling much better at this time it is comfortable going home. We will send her home with carbamazepine and she will follow up with the primary. She is agreeable with the plan. All questions answered By: Jessy Sky PA Final diagnoses: Other migraine without status migrainosus, not intractable Jessy Sky PA 05/06/252242 * Magdy Berry, RN - 05/06/2025 4:48 PM CDT Pt to ED via POV. Per Pt she has had a migraine that is worsening x 1week. Pt reports that 2 hours [employer] her right side of her face has been numb including her the right side of her tongue. Pt reports right eye blurred. Pt reports generalized weakness. documented in this encounter Plan of Treatment Not on file documented as of this encounter Procedures Procedure Name Priority Date/Time Associated Diagnosis Comments CT HEAD WO CONTRAST ED 05/06/2025 6 :11 PM CDT EGFR STAT 05/06/2025 5:04 PM CDT DIFFERENTIAL AUTO STAT 05/06/2025 5:0 4 PM CDT CBC WITH AUTO DIFFERENTIAL STAT 05/06/2025 5:04 PM CDT HCG, BLOOD, QUANTITATIVE STAT 05/06/2025 5:04 PM CDT COMPREHENSIVE METABOLIC PANEL STAT 05/06/2025 5:04 PM CDT documented in this encounter Results * CT Head WO Contrast (05/06/2025 6:11 PM CDT) Anatomical Region Laterality Modality Head and Neck N/A Computed Tomogra phy 05/06/2025 7:43 PM CDT Narrative 05/06/2025 8:06 PM CDT EXAM DESCRIPTION: CT HEAD WO CONTRAST REASON FOR STUDY: migrain w/ right side numbness Patient presents with left facial numbness for 4 hours without injury. TECHNIQUE: Axial images acquired through the brain without intravenous contrast. Images stored on PACS. Automated exposure control was used as a dose optimization technique for this examination. COMPARISON: 01/04/2023 FINDINGS: BRAIN: No hemorrhage, edema or mass effect. No recent infarct. The olvera-white matter differentiation is preserved. No cerebral or cerebellar atrophy. Normal size and morphology of the ventricular system. No acute intraventricular hemorrhage. Basal cisterns are patent. No midline shift. EXTRA-AXIAL SPACES: No fluid collections. No masses. CALVARIUM: No fracture. SINUSES/MASTOIDS: Near-complete opacification of the right sphenoid sinus and right frontal sinus along with mucosal thickening of bilateral ethmoid air cells and left sphenoid sinus and left frontal sinus due to chronic sinusitis. Mastoid air cells are clear. ORBITS: No significant abnormality. OTHER: No other significant abnormality. IMPRESSION: 1. No acute intracranial findings. 2. Near-complete opacification of the right sphenoid sinus and right frontal sinus along with mucosal thickening of bilateral ethmoid air cells , left sphenoid sinus and left frontal sinus due to chronic sinusitis THIS IS AN ELECTRONICALLY VERIFIED FINAL REPORT 05/06/2025 8:06 PM - Electronically signed by Nataliia Hancock M.D. AT: AT Report ID: [id number] Reading Location: [id number] Procedure Note Nataliia Hancock MD - 05/06/2025 EXAM DESCRIPTION: CT HEAD WO CONTRAST REASON FOR STUDY: migrain w/ right side numbness Patient presents with left facial numbness for 4 hours without injury. TECHNIQUE: Axial images acquired through the brain without intravenous contrast. Images stored on PACS. Automated exposure control was used asa dose optimization technique for this examination. COMPARISON: 01/04/2023 FINDINGS: BRAIN: No hemorrhage, edema or mass effect. No recent infarct. The olvera-white matter differentiation is preserved. No cerebral or cerebellar atrophy. Normal size and morphology of the ventricular system. Noacute intraventricular hemorrhage. Basal cisterns are patent. No midlineshift. EXTRA-AXIAL SPACES: No fluid collections. No masses. CALVARIUM: No fracture. SINUSES/MASTOIDS: Near-complete opacification of the right sphenoid sinusand right frontal sinus along with mucosal thickening of bilateral ethmoid air cells and left sphenoid sinus and left frontal sinus due to chronicsinusitis. Mastoid air cells are clear. ORBITS: No significant abnormality. OTHER: No other significant abnormality. IMPRESSION: 1. No acute intracranial findings. 2. Near-complete opacification of the right sphenoid sinus and rightfrontal sinus along with mucosal thickening of bilateral ethmoid air cells , left sphenoid sinus and left frontal sinus due to chronic sinusitis THIS IS AN ELECTRONICALLY VERIFIED FINAL REPORT 05/06/2025 8:06 PM - Electronically signed by Nataliia Hancock M.D. AT: AT Report ID: [id number] Reading Location: [id number] Ama Jewell MD IMG CT PROCEDURES F inal Result * eGFR (05/06/2025 5:04 PM CDT) eGFR >90 >=60 mL/min/1. 73 m2 Comment: Interpretive Data Reference Interval Normal >/= 90 mL/min/1.73m2 Mildly decreased* 60 - 89 mL/min/1.73m2 Mildly to moderately decreased 45 - 59 mL/min/1.73m2 Moderately to severely decreased 30 - 44 mL/min/1.73m2 Severely decreased 15 - 29 mL/min/1.73m2 Kidney Failure < 15 mL/min/1.73m2 *Relative to young adult level Estimated glomerular [...] interpretive data was last reviewed 2021. Blood 05/06/2025 5:04 PM CDT 05/06/2025 5:06 PM CDT us Ama Jewell MD LAB BLOOD ORDERABLE S Final Result [facility] ([place]) [facility] Department [place] [address] * (ABNORMAL) Differential, auto (05/06/2025 5:04 PM CDT) Neutrophil abs 8.42(H) 1.50 - 6.50 K/cumm Imm gran abs 0.03 0.00 - 0.10 K/cumm [facility] ([place]) Lymphocyte abs 1.62 0.80 - 3.30 K/cumm [facility] ([place]) Monocyte abs 0.46 0.20 - 0.80 K/cumm [facility] ([place]) Eosinophil abs 0.11 0.00 - 0.50 K/cumm [facility] ([place]) Basophil abs 0.02 0.00 - 0.10 K/cumm [facility] ([place]) Neutrophil pct 79.0 % [facility] ([place]) Comment: Interpretive Data Percent cell count reference ranges are not reported, since discordance with absolute values may lead to misinterpretation of CBC data. Current Interpretive Data was last revised on 2017. Imm gran pct 0.3 % [facility] ([place]) Comment: Interpretive Data Percent cell count reference ranges are not reported, since discordance with absolute values may lead to misinterpretation of CBC data. Current Interpretive Data was last revised on 2017. Lymphocyte pct 15.2 % [facility] ([place]) Comment: Interpretive Data Percent cell count reference ranges are not reported, since discordance with absolute values may lead to misinterpretation of CBC data. Current Interpretive Data was last revised on 2017. Monocyte pct 4.3 % [facility] ([place]) Comment: Interpretive Data Percent cell count reference ranges are not reported, since discordance with absolute values may lead to misinterpretation of CBC data. Current Interpretive Data was last revised on 2017. Eosinophil pct 1.0 % [facility] ([place]) Comment: Interpretive Data Percent cell count reference ranges are not reported, since discordance with absolute values may lead to misinterpretation of CBC data. Current Interpretive Data was last revised on 2017. Basophil pct 0.2 % [facility] ([place]) Comment: Interpretive Data Percent cell count reference ranges are not reported, since discordance with absolute values may lead to misinterpretation of CBC data. Current Interpretive Data was last revised on 2017. Blood 05/06/2025 5:04 PM CDT 05/06/2025 5:06 PM CDT Ama Jewell MD LAB BLOOD ORDERABLE S Final Result Performing Organization Address [facility] Co de Phone Number [facility] ([place]) [facility] [place] [address] * hCG, blood, quantitative (05/06/2025 5:04 PM CDT) [facility] hCG, quant <5.0 0.0 - 5.0 IUnits/L [facility] ([place]) Comment: Interpretive Data Male: < 5 IU/L Non- premenopausal Female: <5 IU/L The Najma hCG Beta Quant assay procedure was used. Results from different manufacturers or methods may not be comparable. Serial testing should be performed using the same method. Interpretive Data was last revised on 2023 Blood 05/06/2025 5:04 PM CDT 05/06/2025 5:06 PM CDT Ama Jewell MD LAB BLOOD ORDERABLE S Final Result Performing Organization Address City/[facility]/ZIP Co de Phone Number [facility] ([place]) 1 [facility] [place] [employer] [address] * Comprehensive metabolic panel (05/06/2025 5:04 PM CDT) Sodium 135 135 - 145 mmol/L [facility] ([place]) Potassium, pl 4.3 3.3 - 4.9 mmol/L [facility] ([place]) Chloride 102 97 - 110 mmol/L [facility] ([place]) CO2 23 22 - 32 mmol/L [facility] ([place]) Anion gap 10 2 - 15 mmol/L [facility] ([place]) BUN 11 6 - 25 mg/dL [facility] ([place]) Creatinine 0.68 0.60 - 1.10 mg/dL [facility] ([place]) Glucose 109 70 - 199 mg/dL [facility] ([place]) Comment: Interpretive Data Fasting glucose >/= 126 mg/dl is diagnostic for diabetes. Fasting is defined as no caloric intake [...] interpretive data was last revised 2022. Calcium 9.4 8.5 - 10.3 mg/dL [facility] ([place]) Bilirubin, total 0.2 0.1 - 1.2 mg/dL [facility] ([place]) Protein, pl 7.4 6.5 - 8.5 g/dL [facility] ([place]) Albumin 4.3 3.5 - 5.0 g/dL [facility] ([place]) Alk phos 63 40 - 130 Units/L [facility] ([place]) ALT 14 7 - 45 Units/L [facility] ([place]) AST 16 10 - 45 Units/L [facility] ([place]) Blood 05/06/2025 5:04 PM CDT 05/06/2025 5:06 PM CDT us Ama Jewell MD LAB BLOOD ORDERABLE S Final Result [facility] ([place]) 1 [facility] Department [place] [address] * (ABNORMAL) CBC with auto differential (05/06/2025 5:04 PM CDT) WBC 10.66(H) 3.80 - 9.90 K/cumm Hgb 13.1 11.9 - 15.5 g/dL [facility] ([place]) Hct 41.0 35.6 - 45.5 % [facility] ([place]) Plt 284 150 - 400 K/cumm [facility] ([place]) MPV 10.6 9.1 - 12.3 fL [facility] ([place]) RBC 4.91 3.90 - 5.20 M/cumm [facility] ([place]) MCV 83.5 81.3 - 96.4 fL [facility] ([place]) MCH 26.7(L) 27.1 - 33.3 pg [facility] ([place]) MCHC 32.0(L) 32.3 - 35.7 g/dL [facility] ([place]) RDW CV 12.9 11.1 - 14.9 % [facility] ([place]) RDW SD 39.5 35.7 - 48.1 fL [facility] ([place]) NRBC abs 0.00 0.00 - 0.01 K/cumm [facility] ([place]) Blood 05/06/2025 5:04 PM CDT 05/06/2025 5:06 PM CDT us Ama Jewell MD LAB BLOOD ORDERABLE S Final Result [facility] ([place]) [facility] Department [place] [address] documented in this encounter Visit Diagnoses Diagnosis Other migraine without status migrainosus, not intractable- Primary documented in this encounter Administered Medications Inactive Administered Medications - up to 3 most recent administrations Medication Order MAR Action Action Date Dose Rate Site carBAMazepine (TEGretol) tablet 200 mg 200 mg, oral, Once, On Tue05/06/25 at 2116, For 1 dose Given 05/06/2025 9:47 PM CDT 200 mg diphenhydrAMINE (BENADRYL) 50 mg/mL injection 25 mg 25 mg, intravenous, Administer over 2 Minutes, Once, On Tue05/06/25 at 2116, For 1 dose Given 05/06/2025 9:43 PM CDT 25 mg ketorolac (TORADOL) 30 mg/mL injection 30 mg 30 mg, intravenous, Once, On Tue05/06/25 at 2116, For 1 dose, For Adult IV push, administer over 15 seconds Given 05/06/2025 9:45 PM CDT 30 mg metoclopramide (REGLAN) 5 mg/mL injection 10 mg 10 mg, intravenous, Once, On Tue05/06/25 at 2116, For 1 dose Given 05/06/2025 9:46 PM CDT 10 mg sodium chloride 0.9% bolus 1,000 mL 1,000 mL, intravenous, at 999 mL/hr, Administer over 1 Hours, Once, On Tue05/06/25 at 2202, For 1 dose Rate/Dose Verify 05/06/2025 10:54 PM CDT 999 mL/hr Off Pump Infusion 05/06/2025 10:06 PM CDT 1,000 mL 999 m L/hr documented in this encounter Active and Recently Administered Medications Times are shown in CDT. Scheduled Medication Order 05/04/2025 05/05/2025 05/06/2025 carBAMazepine (TEGretol) tablet 200 mg (COMPLETED) 200 mg, oral, Once, On Tue05/06/25 at 2116, For 1 dose 2146 (Given - Provid er: Jing Sargent RN) diphenhydrAMINE (BENADRYL) 50 mg/mL injection 25 mg (COMPLETED) 25 mg, intravenous, Administer over 2 Minutes, Once, On Tue05/06/25 at 211, For 1 dose 2142 (Given - Provid er: Jing Sargent RN) ketorolac (TORADOL) 30 mg/mL injection 30 mg (COMPLETED) 30 mg, intravenous, Once, On Tue05/06/25 at 2115, For 1 dose, For Adult IV push, administer over 15 seconds 2144 (Given - Provid er: Jing Sargent RN) metoclopramide (REGLAN) 5 mg/mL injection 10 mg (COMPLETED) 10 mg, intravenous, Once, On Tue05/06/25 at 2116, For 1 dose 2146 (Given - Provid er: Jing Sargent, DONTAE) sodium chloride 0.9% bolus 1,000 mL (COMPLETED) 1,000 mL, intravenous, at 999 mL/hr, Administer over 1 Hours, Once, On Tue05/06/25 at 2202, For 1 dose 2206 (Off Pump Infus ion - Provider: Concha Robles RN)2254 (Rate/Dose Verify - Provider: Concha Robles RN)2254 (Stopped - Provider: Concha Robles RN) documented in this encounter Care Teams Safety Engineer Pressure Vessels Relationship Specialty Start Date End Date Steven Chase MD [address] [place] [address] PCP - General Family Medicine 10/24/24 documented as of this encounter
--- NOTE | ~2025-05-08 | XR_ITS ---
Examination: XR chest 2V Clinical History: sob X 1 DAY Comparison: 05/30/2024 Technique: PA and Lateral Findings: Cardiomediastinal silhouette normal size and configuration. Lungs clear. No acute bony abnormality. IMPRESSION: 1. No acute cardiopulmonary findings. Reviewed, dictated and finalized at location R.
--- NOTE | ~2025-05-08 | CT_ITS ---
EXAMINATION: CT brain & sinus wo jody, 05/08/2025 10:25 CDT HISTORY: right sided headache,facial pain COMPARISON: No comparisons available. Technique: Axial images obtained of the brain without contrast. One or more of the following dose reduction techniques were used: automated exposure control, adjustment of the mA and/or kV according to patient size, use of iterative reconstruction technique. Findings: No acute infarct or parenchymal hemorrhage. No abnormal mass or mass effect. No midline shift. No extra-axial fluid collections. No hydrocephalus. Mastoid air cells unremarkable. Severe right sphenoid, maxillary and ethmoidal sinusitis with frontal sinusitis, underlying polyp formation suspected. No acute fracture. No significant facial or scalp soft tissue swelling evident. No radiopaque foreign body is seen. Impression: 1.No acute intracranial abnormality. Reviewed, dictated and finalized at location A. Impression: 1.No acute intracranial abnormality.
[2025-05-08 10:01] VITALS: BP 155/119; PULSE 79; RESP 16; TEMP 36.8; O2SAT 100
--- NOTE | 2025-05-08 10:10 | ED_ITS ---
HPI - Headache General Chief Complaint: Headache Stated Complaint: trigeminal neuralgia pain Time Seen by Provider: 05/08/25 10:10 Source: patient Mode of arrival: ambulatory Limitations: no limitations History of Present Illness HPI Narrative: Rosmery is a 24-year-old female patient presenting to the ER today with complaints of right-sided headache/facial numbness x1 week. She reports she was seen at [facility] ER days ago and diagnosed with sinusitis and migraine. They gave her a migraine cocktail in the ER and discharge her with carbamazepine. They told her that she likely had trigeminal neuralgia. Denies any URI symptoms. Last menstrual period was April 17. She denies any vomiting but does have some nausea. Rates her pain currently a 05/31. Related Data Home Medications ?Medication ?Instructions ?Recorded ?Confirmed ?Last Taken ?Type pseudoephedrine 60 mg-DM 30 1 ea PO DAILY PRN pain 04/18/25 Unknown History mg-acetaminophen 650 mg oral packet Allergies Allergy/AdvReac Type Severity Reaction Status Date / Time Penicillins Allergy Severe HIVES Verified 05/08/25 10:07 amoxicillin Allergy Stopped Verified 05/08/25 10:07 Breathing Review of Systems 2 Review of Systems: Pertinent positives per HPI. Patient denies any fever, chills, rash, visual changes, dizziness, cough, runny nose, sore throat, chest pain, palpitations, nausea, vomiting, diarrhea, constipation, abdominal pain, or any urinary issues. [facility] Past Medical History Medical History (Updated 05/08/25 @ 12:48 by Eh Razo APRN) Ankle fracture, left Right arm fracture Foot fracture, right Pneumonia Asthma Surgical History Surgical History History of surgical removal of skin lesion on neck Hx of tonsillectomy Family History Family History Mother Hypertension Depression Social History Social History Smoking status: Never smoker Tobacco type: e-cigarettes/vaping Alcohol intake: current Substance use: current Substance use type: marijuana Living arrangements: with family Occupation/Education: student Gender identity (if verbalized by the patient): Female Spiritual care concerns: No Comments At the time of my signature, I reviewed and agree with the nursing past medical, surgical, social, and family history. There is no relevant family history pertinent to the patient complaint. Exam 2 Narrative: General: Well-developed, morbidly obese, in no apparent distress Head: Normocephalic, atraumatic Eyes: Pupils equally round and reactive to light bilaterally, EOM intact, sclera and conjunctive clear, no discharge, lids normal Ears: TMs intact and clear, ear canals clear, no drainage, grossly hearing normal. Nose: Nares patent, no discharge, mild inflammation, right-sided frontal, sphenoid, ethmoid, and maxillary sinus tenderness. Mouth: Oropharynx without lesions or masses, good dentition, MMM. Tongue midline, even rise and fall of uvula Neck: Supple, trachea midline, no enlargement of anterior or posterior cervical nodes, no thyroid masses or goiter palpable. Cardio: Regular rate and rhythm, s1 and s2 normal, no murmur appreciated. Resp: Clear to auscultation bilaterally anteriorly and posteriorly, no rhonchi, rales, wheezing or rubs Musculoskeletal: No deformity, non-tender to palpation, grossly normal range of motion, muscle strength strong and equal, peripheral pulse strong, no edema, no cyanosis, normal gait and station Neuro: Alert and oriented x4 with normal speech, no focal deficits, cranial nerves I through XII intact, muscle strength 5 out of 5, sensation intact bilaterally. Course Course Emergency Course: Portions of this record may have been created with voice recognition software. Vital Signs Vital signs: Vital Signs Temperature 36.8 C 05/08/25 10:01 Pulse Rate 79 05/08/25 10:01 Respiratory Rate 16 05/08/25 10:01 Blood Pressure 155/119 H 05/08/25 10:01 Pulse Oximetry 100 05/08/25 10:01 Oxygen Delivery Room Air 05/08/25 10:01 Temperature 36.8 C 05/08/25 10:01 Pulse Rate 79 05/08/25 10:01 Respiratory Rate 16 05/08/25 10:01 Blood Pressure 155/119 H 05/08/25 10:01 Pulse Oximetry 100 05/08/25 10:01 Oxygen Delivery Room Air 05/08/25 10:01 Vital signs reviewed MDM - Headache MDM Narrative Medical decision making narrative: At the time of visit patient is resting comfortably on the exam table. Patient appears to be nontoxic. complaints of right-sided headache/facial numbness x1 week. She reports she was seen at [facility] ER days ago and diagnosed with sinusitis and migraine. They gave her a migraine cocktail in the ER and discharge her with carbamazepine. They told her that she likely had trigeminal neuralgia. Denies any URI symptoms. Last menstrual period was April 17. She denies any vomiting but does have some nausea. Rates her pain currently a 10/10. Labs: CBC shows a normal white blood cell count of 8, H&H is 13.1 and 41.2. Does have a low CHC 30 1.8 otherwise MCV MCH are normal repeat be a 10.5, CMP is unremarkable Diagnostics: Head CT was sinuses shows severe right sphenoid, ethmoid, and maxillary sinusitis, no intra a cranial abnormality. Chest x-ray is negative for any acute cardiopulmonary process. Plan: I suspect patient has severe sinusitis as described above. Prescription for doxycycline and prednisone was sent to the pharmacy. Supportive measures were discussed with the patient and they voiced understanding discharge instructions and agrees to treatment plan. Return precautions reviewed Lab Data 05/08/25 10:57 05/08/25 10:57 Labs: Lab Results 05/08/25 Range/Units 10:57 WBC 8.0 (4.5-10.0) K/mm3 RBC 4.98 (4.2-5.4) M/mm3 Hgb 13.1 (12.0-15.0) g/dL Hct 41.2 (37.0-47.0) % MCV 82.7 (80-100) fl MCH 26.3 (26-34) pg MCHC 31.8 L (32-36) g/dl RDW 12.9 (11.5-14.5) % Plt Count 278 (150-375) k/mm3 MPV 10.5 H (7.4-10.4) fl Immature Gran % (Auto) 0.2 (0-0.5) % Neut % (Auto) 63.1 (45.5-73.1) % Lymph % (Auto) 27.4 (18.3-44.2) % [place] % (Auto) 6.5 (2.6-8.5) % Eos % (Auto) 2.4 (0-4.4) % Baso % (Auto) 0.4 (0.2-1.2) % Lymph # (Auto) 2.20 (0.9-3.2) K/mm3 [place] # (Auto) 0.5 (0.1-0.6) K/mm3 Eos # (Auto) 0.2 (0-0.3) K/mm3 Baso # (Auto) 0.0 (0.0-0.1) K/mm3 Abs Immat Gran (auto) 0.02 (0.00-0.031) K/mm3 Absolute Neuts (auto) 5.1 (1.3-6.7) K/mm3 Absolute Nucleated RBC 0.000 (0.0-0.012) K/mm3 Nucleated RBC % 0.0 (0.0-0.2) % Sodium 138 (137-145) mmol/L Potassium 4.0 (3.4-5.0) mmol/L Chloride 105 (98-107) mmol/L Carbon Dioxide 24 (22-30) mmol/L Anion Gap 9 (4-12) mmol/L BUN 10 (7-17) mg/dL Creatinine 0.67 L (0.7-1.0) mg/dL Estim Creat Clear Calc 156 ml/min Estimated GFR > 60 (59 - ) Glucose 85 (65-110) mg/dL Calcium 9.2 (8.4-10.2) mg/dL Total Bilirubin 0.5 (0.2-1.3) mg/dL AST 31 (14-36) U/L ALT 20 (6-35) U/L Alkaline Phosphatase 55 (38-126) U/L Total Protein 8.1 (6.3-8.2) g/dL Albumin 4.5 (3.5-5.1) g/dL Imaging Data Radiologist's impression: ITS Impressions Head/Sinuses CT 05/08/25 10:38 Impression: 1.No acute intracranial abnormality. Chest X-Ray 05/08/25 11:41 IMPRESSION: 1. No acute cardiopulmonary findings. Discharge Plan Discharge Clinical Impression: Acute bacterial rhinosinusitis Patient Disposition: Home Condition: Stable Instructions: Antibiotic Form, Rhinosinusitis (ED) Additional Instructions: CT shows severe right-sided sinusitis of the frontal, sphenoid, ethmoid, and maxillary sinuses. Chest x-rays negative for any acute cardiopulmonary process per Lab work is reassuring Take prescription medications only as prescribed-hydrocodone, doxycyline, and prednisone Stop taking the carbamazepine Increase fluids and stay well hydrated May take Tylenol or motrin as directed on bottle for pain/fever Go to the ED if you develop a worsening in your condition- high fever not controlled by Tylenol or Motrin, worsening headache dehydration, weakness, lethargy, shortness of breath, or chest pain. Follow up with your PCP in 3-5 days if symptoms persist. Patient Language: Brazilian Prescriptions: New doxycycline monohydrate 100 mg capsule 100 mg PO BID 10 Days Qty: 20 0RF prednisone 20 mg tablet 40 mg PO DAILY 5 Days Qty: 10 0RF hydrocodone-acetaminophen 5-325 mg tablet 1 tablet PO Q8H PRN (Reason: pain) 3 Days Qty: 10 0RF No Action buspirone 5 mg tablet 5 mg PO TID PRN (Reason: anxiety) Qty: 60 1RF pnbfelqtzqz-HR-hlsoavqwmwqsi 60-30-650 mg powder in packet 1 ea PO DAILY PRN (Reason: pain) Follow-up/Referrals: Steven Chase MD [Primary Care Provider, [facility]] Time of Disposition: 12:49 Quality NIHSS Nursing Documentation ED NIHSS nursing documentation: reviewed/agree
--- OUTSIDE RECORDS SUMMARY | 2025-05-08 10:47 | XMS_ITS | Clinical Summary ---
Author Organization [facility] Address [address] [place] [address] Phone Care Team Providers Care Supervisor Furnace Process Name Role Phone Unavailable Primary Care Provider Unavailabl e Allergies Active Allergy Reactions Criticality Noted Date Comments Amoxicillin Hives High 04/03/2025 Medications VIT [id number]-[id number] S ORAL Take by mouth. Active ibuprofen (MOTRIN) 600 mg tablet Take 1 Tablet (600 mg) by mouth every 6 hours as needed for Pain, Mild. 30 Tablet 04/03/2025 Active ALPRAZolam (XANAX) 0.5 mg tabletIndication s:Incomplete miscarriage Take 1 Tablet (0.5 mg) by mouth nightly as needed for Anxiety. 2 Tablet 04/03/2025 Active Encounters Date Type Department Care Team Description 04/30/2025 External Device Data ST[facility] ABSTRACTION Provider, Abstract 04/30/2025 External Device Data [facility] ABSTRACTION Provider, Abstract 04/30/2025 External Device Data [facility] ABSTRACTION Provider, Abstract 04/24/2025 External Device Data [facility] ABSTRACTION Provider, Abstract 04/17/2025 External Device Data [facility] ABSTRACTION Provider, Abstract 04/10/2025 External Device Data ST[facility] ABSTRACTION Provider, Abstract 04/09/2025 External Device Data ST[facility] ABSTRACTION Provider, Abstract 04/03/2025 1:05 PM CDT - 04/03/2025 6:28 PM CDT Emergency [facility] Obstetrics Emergency Department [address] [place] [address] Mimi Brennan MD Incomplete miscarriage [...] ABO GROUP O 04/03/2025 4:48 PM CDT [facility] [employer] [facility] RH (D) TYPE Positive 04/03/2025 4:48 PM CDT [facility] [employer] Blood Venipuncture / Unknown 04/03/2025 3:50 PM CDT 04/03/2025 4:15 PM CDT us Mimi Brennan MD BLOOD BANK ORDERABLES Final Re sult [facility] [employer] [employer] [facility] CLIA# [id number] [place] [address] * (ABNORMAL) URINALYSIS WITH REFLEX MICROSCOPIC (04/03/2025 3:50 PM CDT) COLOR UA Red(A) Pale to Dark Yellow 04/03/2025 4:52 PM CDT [facility] [employer] [facility] CLARITY UA Bloody(A) Clear 04/03/2025 4:52 PM CDT [facility] [employer] [facility] SPECIFIC GRAVITY UA 1.015 1.003 - 1.035 04/03/2025 4:52 PM CDT [facility] LABORAT[facility] PH UA 6.5 5.0 - 8.0 04/03/2025 4:52 PM CDT [facility] LEUKOCYTE ESTERASE UA 1+(A) Negative 04/03/2025 4:52 PM CDT [facility] NITRITE UA Negative Negative 04/03/2025 4:52 PM CDT [facility] PROTEIN UA 3+(A) Negative 04/03/2025 4:52 PM CDT [facility] GLUCOSE UA Negative Negative 04/03/2025 4:52 PM CDT [facility] KETONES UA 2+(A) Negative 04/03/2025 4:52 PM CDT [facility] UROBILINOGEN UA Normal <2.0 mg/dL 4:52 PM CDT [facility] BILIRUBIN UA Negative Negative 04/03/2025 4:52 PM CDT [facility] BLOOD UA 4+(A) Negative 04/03/2025 4:52 PM CDT [facility] WBC UA >100(A) 0 - 2 /hpf 04/03/2025 4:52 PM CDT [facility] RBC UA >100(A) 0 - 2 /hpf 04/03/2025 4:52 PM CDT [facility] BACTERIA UA Negative Negative /hpf 04/03/2025 4:52 PM CDT [facility] EPITHELIAL CELLS, URINE 0-5 0 - 5 /hpf 04/03/2025 4:52 PM CDT [facility] HYALINE CAST None Seen None Seen, 0-2 /lpf 04/03/2025 4:52 PM CDT [facility] Urine URINE SPECIMEN OBTAINED BY CLEAN CATCH PROCEDURE / Unknown Collection / Unknown 04/03/2025 3:50 PM CDT 04/03/2025 4:15 PM CDT us Mimi Brennan MD URINE ORDERABLES Final Result [facility] CLIA# [id number] [place] [address] * US OB TRANSVAGINAL (04/03/2025 3:43 PM CDT) Anatomical Region Laterality Modality Pelvis Ultrasound 04/03/2025 3:47 PM CDT Impressions 04/03/2025 3:53 PM CDT IMPRESSION: Abnormal shaped gestational sac containing a yolk sac but no pole Less than expected decidual reaction Normal ovaries with a corpus luteum cyst in the left ovary DICTATION LOCATION: Location [facility] Narrative 04/03/2025 3:53 PM CDT ENDOVAGINAL PELVIC [...] cyst in the left ovary DICTATION LOCATION: [address] us Mimi Brennan MD US ORDERABLES [...] 11/21/25 Performed Transabdominally yes; Performed Transvaginally yes Human Resources Operations Director: Mimi Brennan MD Indication: vaginal bleeding & cramping in Gestational Sac: located intrauterine Yolk Sac: Present Embryo/Fetus: unable to visualize Heartrate: unable to visualize CRL: Uterus/cervix/adnexa without any noted abnormalities. Findings/Interpretation: intrauterine with indeterminate viability Recommendation: Radiology US to document viability (already had US 1w ago showing IUP with +FHT at [facility]). Dental Appliance Repairer: Mimi Brennan MD us Mimi Brennan MD NON LAB POC TESTS Final Result ED POC US [address] [place] [address], [place] * EXTRA TUBE (GREEN) (04/03/2025 1:41 PM CDT) Blood Venipuncture / Unknown 04/03/2025 1:41 PM CDT 04/03/2025 2:11 PM CDT us Mimi Brennan MD CHEMISTRY ORDERABLES Final Res ult [facility]ORATORY SERVICES [facility]# [id number] [id number] [place] [address] * (ABNORMAL) CBC WITH DIFFERENTIAL (04/03/2025 1:41 PM CDT) [facility] WBC 7.4 4.0 - 9.8 K/uL 04/03/2025 2:44 PM CDT [facility] RBC 4.89 3.90 - 4.90 M/uL 04/03/2025 2:44 PM CDT [facility] HEMOGLOBIN 13.1 11.8 - 14.8 g/dL 04/03/2025 2:44 PM CDT [facility] HEMATOCRIT 40.3 35.5 - 44.0 % 04/03/2025 2:44 PM CDT [facility] MCV 82.4 82.0 - 99.0 fL 04/03/2025 2:44 PM CDT [facility] MCH 26.8(L) 27.2 - 32.6 pg 04/03/2025 2:44 PM CDT [facility] MCHC 32.5 31.5 - 35.5 g/dL 04/03/2025 2:44 PM CDT [facility] RDW 13.7 11.5 - 14.5 % 04/03/2025 2:44 PM CDT [facility] RDW-STDEV 41.1 37.1 - 48.7 fL 04/03/2025 2:44 PM CDT [facility] PLATELETS 233 140 - 350 K/uL 04/03/2025 2:44 PM CDT [facility] MPV 11.0 9.3 - 12.4 fL 04/03/2025 2:44 PM CDT [facility] NEUTROPHILS 64 % 04/03/2025 2:44 PM CDT [facility] LYMPHOCYTES 25 % 04/03/2025 2:44 PM CDT [facility] MONOCYTES 8 % 04/03/2025 2:44 PM CDT [facility] EOSINOPHILS 3 % 04/03/2025 2:44 PM CDT [facility] BASOPHILS 0 % 04/03/2025 2:44 PM CDT [facility] IMMATURE GRANULOCYTES 0 % 04/03/2025 2:44 PM CDT [facility] NEUTROPHIL ABSOLUTE 4.72 1.90 - 7.00 K/uL 04/03/2025 2:44 PM CDT [facility] LYMPHOCYTE ABSOLUTE 1.82 0.70 - 4.50 K/uL 04/03/2025 2:44 PM CDT [facility] MONOCYTE ABSOLUTE 0.62 0.10 - 1.30 K/uL 04/03/2025 2:44 PM CDT [facility] EOSINOPHIL ABSOLUTE 0.21 0.00 - 0.70 K/uL 04/03/2025 2:44 PM CDT [facility] BASOPHILS ABSOLUTE 0.03 0.00 - 0.20 K/uL 04/03/2025 2:44 PM CDT [facility] IMMATURE GRANULOCYTES ABSOLUTE 0.02 0.00 - 0.03 K/uL 04/03/2025 2:44 PM CDT [facility] Blood Venipuncture / Unknown 04/03/2025 1:41 PM CDT 04/03/2025 2:11 PM CDT us Mimi Brennan MD HEMATOLOGY ORDERABLES Final Re sult [facility] CLIA# [id number] [id number] [place] [address] * TYPE AND SCREEN (04/03/2025 1:41 PM CDT) ABO GROUP O 04/03/2025 3:32 PM CDT [facility] RH (D) TYPE Positive 04/03/2025 3:32 PM CDT [facility] ANTIBODY SCREEN Negative 04/03/2025 3:32 PM CDT [facility] Blood Venipuncture / Unknown 04/03/2025 1:41 PM CDT 04/03/2025 2:54 PM CDT us Mimi Brennan MD BLOOD BANK ORDERABLES Edited R esult - Final [facility] [employer] CLIA# [id number] [address] [place] [address] * (ABNORMAL) HCG QUANTITATIVE, BLOOD (04/03/2025 1:41 PM CDT) HCG QUANT, BLOOD 20,585.0( H) <=5.0 mIU/mL 04/03/2025 3:26 PM CDT [facility] Comment: Male <= 2 mIU/mL Female [...] Brennan MD CHEMISTRY ORDERABLES Final Res ult [facility] [facility] CLIA# [id number] [address] [place] [address] from Last 3 Months Insurance [employer] [employer] [place] Advance Directives For more information, please contact: [phone] * Full Code (Latest Code Status on File) Date Activated Date Inactivated Comments 04/03/2025 1:12 PM 04/03/2025 8:28 PM
--- OUTSIDE RECORDS SUMMARY | 2025-05-08 10:47 | XMS_ITS | Clinical Summary ---
Author Organization [facility] Address [address] [place] [address] Care Team Providers Care Objective C Developer Name Role Phone Rose Mary Kidd MD Primary Care Provider Source Comments [facility],non-owned Affiliates and Associated Physician Practices is amultiple site organization consisting of ambulatory clinics and hospital sitesin [place], [place], [place] and [place]. This disclosure is being madepursuant to the Care Everywhere program and may not contain all information available regarding this patient. 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 Gender Identity Not on file Sexual Orientation Not on file Last Filed Vital Signs Vital Sign Reading Time Taken Comments Blood Pressure 108/58 12/27/2017 8:30 AM CDT Pulse 91 12/27/2017 8:30 AM CDT Temperature 37.3 C (99.2 F) 07/24/2011 5:32 PM ACET[employer] RECOVERY WORKER Respiratory Rate 16 11/28/2017 10:0 7 AM [...] 19+ 3-dose series) 2021 PAP SMEAR 2023 DEPRESSION SCREENING 08/22/2024 COVID-19 VACCINE (1 - 2023-2 5 season) 2025 INFLUENZA VACCINE (#1) 2025 ZOSTER VACCINE (1 of 2) 2052 HIB VACCINE Aged Out No longer eligi ble based on patient's age to complete this topic MENINGOCOCCAL GROUPS A/C/Y/W VACCINE Aged Out No longer eligible b ased on patient's age to complete this topic PNEUMOCOCCAL VACCINE Aged Out No long er eligible based on patient's age to complete this topic Insurance [facility] SELF PAY NO INSURANCE Member Subscriber Plan / Payer (Ef fective for All Dates) Name:Rosmery Wynne Chritsy Member ID:Not on file Relation to Subscriber:Not on file Name:ROSMERY WYNNE Christy Subscriber ID:Not on file (Home) Address: [place] [address] Payer ID:Not on file Group ID:Not on file Type:Self Pay Address: [place], [place] [facility] Member Subscriber Plan / Payer (Ef fective 2018-Present) Name:Rosmery Wynne Christy Member ID:Not on file Relation to Subscriber:Child Name:TASNEEM WYNNE Date of :1982 (Home) Address: [place] [address] Payer ID:[id number] (NAIC) Type:O Address: [place] [phone] [facility] Member Subscriber Plan / Payer (Ef fective 2022-Present) Name:Rosmery Wynne Christy Relation to Subscriber:Child Name:TASNEEM WYNNE Subscriber ID:Not on file Date of :1980 (Home) Address: [place] [address] Payer ID:[id number] (NAIC) Type:O Address: [place] [phone] MEDICAID - OUT OF STATE Care Teams Objective C Developer Relationship Specialty Start Date End Date Rose Mary Kidd MD [address] [facility] [address] [place] [address] PCP - General 03/29/11
--- OUTSIDE RECORDS SUMMARY | 2025-05-08 10:47 | XMS_ITS | Encounter Summary ---
Author Organization [facility] Address [address] [place] [address] Care Team Providers Care Graduate Recruiter Name Role Phone Rose Mary Kidd MD Primary Care Provider [phone] Encounter Details Date Type Department Care Team (Late st Contact Info) Description 09/22/2022 Lab Requisition [facility] [address] [facility], [facility] [place] [address] Vasiliy Arredondo MD [address] [place] [address] Social History Tobacco Use Types Packs/Day Years Used Date Smoking Tobacco: Passive Smo ke Exposure - Never Smoker Smokeless Tobacco: Never Comments No Sex and Gender Information Value Date Recorded Sex Assigned at Not on file 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 Gender Identity Not on file Sexual Orientation Not on file documented as of this encounter Plan of Treatment Not on file documented as of this encounter Procedures Procedure Name Priority Date/Time Associated Diagnosis Comments DERMATOPATHOLOGY Routine 09/21/2022 12:0 0 AM WEAVER NARROW FABRICS documented in this encounter Results * DERMATOPATHOLOGY (09/21/2022 12:00 AM WEAVER NARROW FABRICS) Case Report Dermatopathology Report Case: [id number] Authorizing Provider: Vasiliy Arredondo MD Collected: 09/21/2022 12:00 AM Ordering Location: [facility] DermPath Lab Received: 09/22/2022 04:04 PM Pathologist: Elicia Ferguson MD Specimen: Skin, left upper bhavesh lip border 5:16 PM [facility] DERMATOPATHOLOGY [facility]ORATORY Final Diagnosis Specimen A. SKIN, left upper bhavesh lip border: RUPTURED EPIDERMOID CYST (L72.0) (see microscopic description) 5:16 PM [facility] DERMATOPATHOLOGY LABORATORY at [address] [employer] Clinical History R/O EIC 5:16 PM [facility] DERMATOPATHOLOGY LABORATORY Gross Description Specimen A: Received is one formalin filled container labeled with the patient's name and designated left upper bhavesh lip border. The specimen consists of a punch biopsy measuring [id number]. Jar 0. 5:16 PM [facility] DERMATOPATHOLOGY LABORATORY Microscopic Description Specimen A. SKIN, left upper bhavesh lip border: Within the dermis, there is an infiltrate composed of lymphocytes and histiocytes, including multinucleated type giant cells. Some histiocytes contain flakes of material consistent with keratin. Additional deeper sections were obtained and reviewed. 5:16 PM [facility] DERMATOPATHOLOGY LABORATORY Disclaimer An external and internal positive and negative controls are appropriate for the histochemical, immunohistochemical and immunofluorescence stain(s) in this case (if any), except where stated explicitly. The performance characteristics of the stain(s) cited in this report were developed and its performance characteristic determined by the Dermatopathology Laboratory at [facility], directed by Dr. Williams aHle. These tests need not be, and therefore are not, approved by the [place] Food and Drug Administration. The tests are used for clinical purposes. Billing Codes Specimen Charges Stain Charges 53953 1 5:16 PM [facility] DERMATOPATHOLOGY LABORATORY Embedded Images 5:16 PM [facility] DERMATOPATHOLOGY [facility]ORATORY Pathology/Cytolog y TISSUE SPECIMEN FROM SKIN / Unknown 09/21/2022 09/22/2022 4:04 PM WEAVER NARR[employer] FABR[employer] us Vasiliy Arredondo MD LAB - PATHOLOGY/CYTOLOGY ORD ERABLES Final Result DERMATOPATHOLOGY LABORATORY [facility] - Department of Dermatology [facility] Special[facility] [address] [place] [address], [address] [place] [address], [facility] [phone] documented in this encounter Visit Diagnoses Not on filedocumented in this encounter Care Teams Graduate Recruiter Relationship Specialty Start Date End Date Rose Mary Kidd MD [address] [address] PCP - General 03/29/11 documented as of this encounter
--- OUTSIDE RECORDS SUMMARY | 2025-05-08 10:48 | XMS_ITS | Clinical Summary ---
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 Legal Sex Female 12:48 PM SWAGER OPERATOR Gender Identity Female 07/18/2023 1:18 PM SWAGER OPERATOR Sexual Orientation Not on file Last Filed Vital Signs Vital Sign Reading Time Taken Comments Blood Pressure 143/83 07/18/2023 1:00 PM SWAGER OPERATOR Pulse 82 07/18/2023 1:00 PM SWAGER OPERATOR Temperature 36 C (96.8 F) 07/18/2023 1:00 PM SWAGER OPERATOR Respiratory Rate 16 07/18/2023 1:00 PM SWAGER OPERATOR Oxygen Saturation 99% 07/18/2023 1:00 PM SWAGER OPERATOR Inhaled Oxygen Concentration - - Weight 99.8 kg (220 lb) 07/18/2023 1:00 PM SWAGER OPERATOR Height 170.2 cm (5' 7) 07/18/2023 1:00 PM SWAGER OPERATOR Body Mass Index 34.46 07/18/2023 1:00 PM SWAGER OPERATOR Plan of Treatment Health Maintenance Due Date Last Done Comments Hepatitis C Virus (HCV) Screening 2002 Meningococcal B Immunization (1 of 2 - Standard) 2018 Pap Smear 2023 Influenza Immunization (#1) 2025 SARS-COV-2 Immunization ( season) 2025 10/30/2020 Td Immunization Every 10 Years (Adults [...] this topic Insurance [place] Care Teams Horologist Relationship Specialty Start Date End Date Steven Chase MD [address] [place] [address] PCP - General Family Medicine 07/18/23
--- OUTSIDE RECORDS SUMMARY | 2025-05-08 10:48 | XMS_ITS | Clinical Summary ---
Author Organization [facility] Address [address] [place] [address] Phone Care Team Providers Care Information Systems Technician Name Role Phone Steven Chase MD [...] a day 30 g 1 4 Active carBAMazepine XR (TEGretol XR) 100 mg 12 hr tablet Take 1 tablet (100 mg total) by mouth 2 (two) times a day for 14 days 28 tablet 5 05/20/20 25 Active Active Problems Problem Noted Date Diagnosed Date Closed displaced fracture of medial malleolus of left tibia 03/19/2024 Patellofemoral pain syndrome of left knee 2018 Acute pain of left knee 04/06/2019 Encounters Date Type Department Care Team Description 05/06/2025 8:46 PM CDT - 05/06/2025 10:54 PM CDT Emergency [facility] Emergency Department [address] [place] [address] Other migraine without status migrainosus, not intractable (Primary Dx) Discharge Disposition: Discharge to home or self care 04/17/2025 11:50 AM CDT Lab [address] [address] 04/16/2025 3:27 PM CDT - 04/16/2025 11:59 PM CDT Hospital Encounter [facility] [address] [place] [address] Missed Discharge Disposition: Discharge to home or self care 04/12/2025 10:30 AM CDT [address] [address] 04/05/2025 12:45 PM CDT Lab [address] [address] 03/29/2025 1:28 PM CDT - 03/29/2025 11:59 PM CDT Hospital Encounter [facility] [id number] [place] [address] Encounter for screening for uncertain dates Discharge [...] on file Legal 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 Gender Identity Not on file Sexual Orientation [...] 99.8 kg (220 lb) 10/24/2024 10:17 PM RUBBER COMPOUNDER Height 172.7 cm (5' 8) 10/24/2024 10:17 PM RUBBER COMPOUNDER Body Mass Index 33.45 10/24/2024 10:17 PM RUBBER COMPOUNDER Plan of Treatment Health Maintenance Due Date [...] 05/23, 04/10/2014 Medical Devices Implanted Type Area Beauty Parlor Cleaner Device Identifier Shelf Expiration Date Model / Serial / Lot [employer] Low Profile Screws 4mm 46mm Self Drill Self Tap Cannulated [id number] - [id number] Implanted:Qty: 1 on 03/23/2024 by Donald Mendoza Jr., MD at [facility] Left: Ankle [employer] [id number] / / Procedures Procedure Name Priority Date/Time Associated Diagnosis Comments CT HEAD WO CONTRAST ED 05/06/2025 6 :11 PM CDT EGFR STAT 05/06/2025 5:04 PM CDT DIFFERENTIAL AUTO STAT 05/06/2025 5:0 4 PM CDT HCG, BLOOD, QUANTITATIVE STAT 05/06/2025 5:04 PM CDT COMPREHENSIVE METABOLIC PANEL STAT 05/06/2025 5:04 PM CDT CBC WITH AUTO DIFFERENTIAL STAT 05/06/2025 5:04 PM CDT HCG, BLOOD, QUANTITATIVE STAT 04/17/2025 11:51 AM [...] dates from Last 3 Months Results * CT Head WO Contrast (05/06/2025 [...] Nataliia Hancock M.D. AT: AT Report ID: [id number] Reading Location: [id number] Procedure Note Nataliia Hancock MD - 05/06/2025 [...] Nataliia Hancock M.D. AT: AT Report ID: [id number] Reading Location: [id number] Ama Jewell MD IMG CT PROCEDURES F [...] MD LAB BLOOD ORDERABLE S Final Result [facility] ([place]) 1 [facility] [place] [address] * (ABNORMAL) Differential, auto (05/06/2025 5:04 PM [...] Neutrophil pct 79.0 % [facility] ([place]) Comment: Interpretive [...] BLOOD ORDERABLE S Final Result [facility] ([place]) 1 [facility] Department of Laboratories [place] [id number] * (ABNORMAL) CBC with auto differential (05/06/2025 5:04 PM CDT) WBC 10.66(H) 3.80 - 9.90 K/cumm Hgb 13.1 11.9 - 15.5 g/dL [facility] ([place]) Hct 41.0 35.6 - 45.5 % [facility] ([place]) Plt 284 150 - 400 K/cumm [facility] ([place]) MPV 10.6 9.1 - 12.3 fL [facility] ([place]) RBC 4.91 3.90 - 5.20 M/cumm [facility] ([place]) MCV 83.5 81.3 - 96.4 fL [facility] ([place]) MCH 26.7(L) 27.1 - 33.3 pg [facility] ([place]) MCHC 32.0(L) 32.3 - 35.7 g/dL [facility] ([place]) RDW CV 12.9 11.1 - 14.9 % [facility] ([place]) RDW SD 39.5 35.7 - 48.1 fL [facility] ([place]) NRBC abs 0.00 0.00 - 0.01 K/cumm [facility] ([place]) Blood 05/06/2025 5:04 PM CDT 05/06/2025 5:06 PM CDT Ama Jewell MD LAB BLOOD ORDERABLE S Final Result Performing Organization Address City/[facility] Co de Phone Number [facility] ([place]) 1 [facility] [place] [address] * hCG, blood, quantitative (05/06/2025 5:04 PM CDT) Pathologist [facility] hCG, quant <5.0 0.0 - 5.0 IUnits/L [facility] ([place]) Comment: Interpretive Data Male: < [...] ORDERABLE S Final Result Performing Organization Address City/[facility]/ZIP Co de Phone Number [facility] ([place]) 1 [facility] [place] [address] * Comprehensive metabolic panel (05/06/2025 5:04 PM CDT) Sodium 135 135 - 145 mmol/L [facility] ([place]) Potassium, pl 4.3 3.3 - 4.9 mmol/L [facility] ([place]) Chloride 102 97 - 110 mmol/L [facility] ([place]) CO2 23 22 - 32 mmol/L [facility] ([place]) Anion gap 10 2 - 15 mmol/L [facility] ([place]) BUN 11 6 - 25 mg/dL [facility] ([place]) Creatinine 0.68 0.60 - 1.10 mg/dL [facility] ([place]) Glucose 109 70 - 199 mg/dL [facility] ([place]) Comment: Interpretive Data Fasting glucose >/= 126 [...] classification and Diagnosis of Diabetes Diabetes Care 202; 46: S19-S40. Current interpretive data was last [...] CDT 05/06/2025 5:06 PM CDT us Ama Jewlel MD LAB BLOOD ORDERABLE S Final Result [facility] ([place]) 1 [facility] [place] [address] * (ABNORMAL) hCG, blood, quantitative (04/17/2025 11:51 AM CDT) hCG, quant 12,426.0( H) 0.0 - 5.0 IUnits/L [facility] ([place]) Comment: Interpretive Data Male: < [...] BLOOD ORDERABLES Fin al Result [facility] ([place]) 1 [facility] [place] [address] * US Ob Under 14 Weeks W [...] Michele Castillo M.D. LB: JOANNA Report ID: [id number] Reading Location: [id number] Procedure Note Michele Castillo MD - 04/17/2025 [...] Michele Castillo M.D. LB: JOANNA Report ID: [id number] Reading Location: [place] [address] us Val Villar MD IMG OB US [...] MD LAB BLOOD ORDERABLES Fin al Result [facility] ([place]) 1 [facility] [place] [address] * (ABNORMAL) CBC with auto differential (04/12/2025 [...] ORDERABLES Fin al Result Performing Organization Address [facility] de Phone Number [facility] ([place]) 1 [place] [address] * (ABNORMAL) hCG, blood, quantitative (04/12/2025 10:57 AM CDT) hCG, quant 12,823.0( H) 0.0 - 5.0 IUnits/L [facility] ([place]) Comment: Interpretive Data Male: < 5 IU/L [...] ORDERABLES Fin al Result Performing Organization Address [facility] de Phone Number [facility] ([place]) [address] [place] [address] * (ABNORMAL) hCG, blood, quantitative (04/05/2025 1:04 PM CDT) hCG, quant 7,609.0(H ) 0.0 - 5.0 IUnits/L [facility] ([place]) Comment: Interpretive Data Male: < 5 IU/L Non- premenopausal Female: <5 IU/L The Najma hCG Beta Quant assay procedure was used. Results from different manufacturers or methods may not be comparable. Serial testing should be performed using the same method. Interpretive Data was last revised on 2023 Blood 04/05/2025 1:04 PM CDT 04/05/2025 1:11 PM CDT us Val Villar MD LAB BLOOD ORDERABLES Fin al Result [facility] [place] 1 [facility] [place] [address] * US Ob Under 14 Weeks W [...] pole with heart rate of 128 BPM. [place]-rump length of 4 mm corresponds to 6 [...] pole with heart rate of 128 BPM. [place]-rump length of 4 mm corresponds to 6 [...] al Result from Last 3 Months Insurance [facility] Care Teams Information Systems Technician Relationship Specialty Start Date End Date Steven Chase MD [address] [facility] [address] [place] [address] PCP - General Family Medicine 10/24/24
--- OUTSIDE RECORDS SUMMARY | 2025-05-08 10:48 | XMS_ITS | Encounter Summary ---
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
[2025-05-08] MEDS: SODIUM CHLORIDE 0.9% IV 1,000 ML 999 ML IV CONT (10:58)
[2025-05-08] MEDS: ONDANSETRON INJ 4 MG/2 ML VIAL IV PUSH ×2 (10:59→11:53)
[2025-05-08] MEDS: KETOROLAC 30 MG/ML VIAL (*BKC) IV PUSH (11:00)
[2025-05-08 11:08] LABS: Hematocrit 41.2 % (37.0-47.0); Hemoglobin 13.1 g/dL (12.0-15.0); Immature Granulocyte Percent A 0.2 % (0-0.5); Lymphocytes Absolute Auto 2.20 K/mm3 (0.9-3.2); Mean Corpuscular HGB Conc 31.8 g/dl (32-36); Mean Corpuscular Hemoglobin 26.3 pg (26-34); Mean Corpuscular Volume 82.7 fl (80-100); Nucleated Red Blood Cells Absolute Auto 0.000 K/mm3 (0.0-0.012); Nucleated Red Blood Cells Perc 0.0 % (0.0-0.2); Platelet Count Result 278 k/mm3 (150-375); Red Blood Count 4.98 M/mm3 (4.2-5.4); White Blood Count 8.0 K/mm3 (4.5-10.0)
[2025-05-08 11:22] LABS: Alanine Aminotransferase 20 U/L (6-35); Albumin Level 4.5 g/dL (3.5-5.1); Alkaline Phosphatase 55 U/L (38-126); Anion Gap 9 mmol/L (4-12); Aspartate Amino Transferase 31 U/L (14-36); Bilirubin,Total 0.5 mg/dL (0.2-1.3); Blood Urea Nitrogen 10 mg/dL (7-17); Calcium 9.2 mg/dL (8.4-10.2); Carbon Dioxide 24 mmol/L (22-30); Chloride 105 mmol/L (98-107); Estimated CRCL calculation 156 ml/min; Estimated Glomerular Filt Rate > 60; Glucose 85 mg/dL (65-110); Potassium 4.0 mmol/L (3.4-5.0); Sodium 138 mmol/L (137-145); Total Protein 8.1 g/dL (6.3-8.2)
[2025-05-08] MEDS: HYDROmorphone HCL INJ (*CRX) 1 MG/ML SYR 0.5 MG IV PUSH ×2 (11:53→12:26)
[2025-05-08 13:10] VITALS: BP 150/100; PULSE 68; RESP 18; O2SAT 99
== END 2025-05-08 13:11 | disposition home or self-care (01) ==
PROVIDERS: Emergency Provider Nurse Practitioner Family; PCP Family Medicine
DX: J01.90 Acute sinusitis, unspecified (principal); B96.89 Other specified bacterial agents as the cause of diseases classified elsewhere
CPT/HCPCS: 36415; 70450; 70486; 71046; 80053; 85025; 96361; 96374; 96375; 96376; 99284; J1171; J1200; J1885; J2405; J7030

== ENCOUNTER 2025-06-28 10:37 | Emergency (ER) | payer OTHER, SELFPAY ==
[2025-06-28 10:45] VITALS: BP 146/93; PULSE 84; RESP 18; TEMP 36.5; O2SAT 100
--- OUTSIDE RECORDS SUMMARY | 2025-06-28 11:17 | XMS_ITS | Clinical Summary ---
Author Organization [facility] Address [address] [place] [address] Phone Care Team Providers Care Hammersmith Helper Name Role Phone Steven Chase MD Primary Care Provider Allergies Active Allergy Reactions Criticality Noted Date Comments Amoxicillin Unknown 07/18/2023 Medications No known medications Immunizations Immunization Administration Dates Next Due TDAP Vaccine 07/18/2023 Social History Tobacco Use Types Packs/Day Years Used Date Smoking Tobacco: Never Assessed Comments No Sex and Gender Information Value Date Recorded Sex Assigned at Female 07/18/2023 1:18 PM PLANT ATTENDANT Legal Sex Female 12:48 PM PLANT ATTENDANT Gender Identity Female 07/18/2023 1:18 PM PLANT ATTENDANT Sexual Orientation Not on file Last Filed Vital Signs Vital Sign Reading Time Taken Comments Blood Pressure 143/83 07/18/2023 1:00 PM PLANT ATTENDANT Pulse 82 07/18/2023 1:00 PM PLANT ATTENDANT Temperature 36 C (96.8 F) 07/18/2023 1:00 PM PLANT ATTENDANT Respiratory Rate 16 07/18/2023 1:00 PM PLANT ATTENDANT Oxygen Saturation 99% 07/18/2023 1:00 PM PLANT ATTENDANT Inhaled Oxygen Concentration - - Weight 99.8 kg (220 lb) 07/18/2023 1:00 PM PLANT ATTENDANT Height 170.2 cm (5' 7) 07/18/2023 1:00 PM PLANT ATTENDANT Body Mass Index 34.46 07/18/2023 1:00 PM PLANT ATTENDANT Plan of Treatment Health Maintenance Due Date [...] to complete this topic Insurance [place] [address] Care Teams Hammersmith Helper Relationship Specialty Start Date End Date Steven Chase MD [address] [place] [address] PCP - General Family Medicine 07/18/23
--- OUTSIDE RECORDS SUMMARY | 2025-06-28 11:17 | XMS_ITS | Clinical Summary ---
Author Organization [facility] Address [address] [facility] [place] [address] Care Team Providers Care Personnel Scheduler Name Role Phone Rose Mary Kidd MD Primary Care Provider Source Comments [facility],non-owned Affiliates and Associated Physician Practices is amultiple site organization consisting of ambulatory clinics and hospital sitesin [place], [place], [place] and [place]. This disclosure is being madepursuant to the Care Everywhere program and may not contain all information available regarding this patient. Last updated 18.[facility] Allergies Active Allergy Reactions Criticality Noted Date [...] on file Legal Sex Female 5:45 AM NETSUITE CONSULTANT Gender Identity Not on file Sexual Orientation Not on file Last Filed Vital Signs Vital Sign Reading Time Taken Comments Blood Pressure 108/58 12/27/2017 8:30 AM CDT Pulse 91 12/27/2017 8:30 AM CDT Temperature 37.3 C (99.2 F) 07/24/2011 5:32 PM NETSUITE CONSULTANT Respiratory Rate 16 11/28/2017 10:0 7 AM [...] patient's age to complete this topic Insurance [facility] SELF PAY NO INSURANCE Member Subscriber Plan / Payer (Ef fective for All Dates) Name:Rosmery Wynne Christy Member ID:Not on file Relation to Subscriber:Not on file Name:ROSMERY WYNNE Christy Subscriber ID:Not on file (Home) Address: [place] [address] Payer ID:Not on file Group ID:Not on file Type:Self Pay Address: [place] [facility] Member Subscriber Plan / Payer (Ef fective 2018-Present) Name:Rosmery Wynne Christy Member ID:Not on file Relation to Subscriber:Child Name:TASNEEM WYNNE Date of :1982 (Home) Address: [place] [address] Payer ID:[id number] (NAIC) Type:O Address: [place] [id number] [facility] Member Subscriber Plan / Payer (Ef fective 2022-Present) Name:Rosmery Wynne Christy Relation to Subscriber:Child Name:TASNEEM WYNNE Subscriber ID:Not on file Date of :1980 (Home) Address: [place] [address] Payer ID:[id number] (NAIC) Type:O Address: [place] [id number] MEDICAID - OUT OF STATE Care Teams Personnel Scheduler Relationship Specialty Start Date End Date Rose Mary Kidd MD [address] [facility] [address] [place] [address] PCP - General 03/29/11
--- OUTSIDE RECORDS SUMMARY | 2025-06-28 11:17 | XMS_ITS | Clinical Summary ---
Author Organization [facility] Address [address] [place] [address] Phone Care Team Providers Care Business Information Consultant Name Role Phone Steven Chase MD Primary [...] day for 14 days 28 tablet 5 Active Active Problems Problem Noted Date Diagnosed Date Closed displaced fracture of medial malleolus of left tibia 03/19/2024 Patellofemoral pain syndrome of left knee 2018 Acute pain of left knee 04/06/2019 Encounters Date Type Department Care Team Description 05/06/2025 8:46 PM CDT - 05/06/2025 10:54 PM CDT Emergency [facility] Emergency Department [address] [place] [address] Other migraine without status migrainosus, not intractable (Primary Dx) Discharge Disposition: Discharge to home or self care 04/17/2025 11:50 AM CDT Lab [address] [address] 04/16/2025 3:27 PM CDT - 04/16/2025 11:59 PM CDT Hospital Encounter [facility] [address] [place] [address] Missed Discharge Disposition: Discharge to home or self care 04/12/2025 10:30 AM CDT [address] [address] 04/05/2025 12:45 PM CDT [address] [address] 03/29/2025 1:28 PM CDT - 03/29/2025 11:59 [place] [address] Encounter for screening for uncertain dates Discharge [...] on file Legal Sex Female 6:03 AM OPERATIONS 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 Gender Identity Not on file Sexual Orientation [...] 99.8 kg (220 lb) 10/24/2024 10:17 PM OPERATIONS TRAINER Height 172.7 cm (5' 8) 10/24/2024 10:17 PM OPERATIONS TRAINER Body Mass Index 33.45 10/24/2024 10:17 PM OPERATIONS TRAINER Plan of Treatment Health Maintenance Due Date Last Done Comments Cervical Cancer Screening 2002 Chlamydia and Gonorrhea (GC/ CT) Screening 2002 Depression Screening 2002 Hepatitis C Screening 2002 Meningococcal B Vaccine (1 o f 2 - Standard) 2018 Regular Well Visit/Exam 18-64 2020 Pneumococcal vaccine <65 (1 of 1 - PPSV23, PCV20, or PCV21) 2021 08/19/2003, 02/15/2003, 2002, Additional history exists Influenza Vaccine (#1) 2025 06/23/2009 DTaP/Tdap/Td Vaccine (8 - Td or Tdap) 07/18/2033 07/18/2023, 11/20/2013, 03/21/2008, Additional history exists Hepatitis B Screening Completed 08/19/2003 , 2002, 2002, Additional history exists Varicella Vaccines Completed 03/21/2008, 01/31/2004 HPV Vaccines Completed 11/12/2014, 05/23, 04/10/2014 Medical Devices Implanted Type Area Safe And Vault Service Mechanic Device Identifier Shelf Expiration Date Model / Serial / Lot [employer] Low Profile Screws 4mm 46mm Self Drill Self Tap Cannulated [id number] - [id number] Implanted:Qty: 1 on 03/23/2024 by Donald Mendoza Jr., MD at [facility] Left: Ankle [employer] [id number] / / [...] Nataliia Hancock M.D. AT: AT Report ID: [id number] Reading Location: [id number] Procedure Note Nataliia Hancock MD - 05/06/2025 [...] Nataliia Hancock M.D. AT: AT Report ID: [id number] Reading Location: [id number] Ama Jewell MD IMG CT PROCEDURES F [...] BLOOD ORDERABLE S Final Result [facility] ([place]) 1 [facility] [place] [address] * (ABNORMAL) Differential, auto (05/06/2025 5:04 PM [...] S Final Result [facility] ([place]) 1 [facility] [place] [address] * (ABNORMAL) CBC with auto differential (05/06/2025 [...] RDW CV 12.9 11.1 - 14.9 % [facility] RDW SD 39.5 35.7 - 48.1 fL [facility] ([place] NRBC abs 0.00 0.00 - 0.01 K/cumm [facility] ([place] Blood 05/06/2025 5:04 PM CDT 05/06/2025 5:06 PM CDT Ama Jewell MD LAB BLOOD ORDERABLE S Final Result Performing Organization Address City/[facility]/ZIP Co de Phone Number [facility] 1 [facility] [place] [address] * hCG, blood, quantitative (05/06/2025 5:04 PM CDT) hCG, quant <5.0 0.0 - 5.0 IUnits/L [facility] ([place]) Comment: Interpretive Data [...] S Final Result [facility] ([place]) 1 [facility] [place] [address] * Comprehensive metabolic panel (05/06/2025 5:04 PM CDT) Sodium 135 135 - 145 mmol/L [facility] ([place]) Potassium, pl 4.3 3.3 - 4.9 mmol/L [facility] ([place]) Chloride 102 97 - 110 [...] S Final Result [facility] ([place]) 1 [facility] [place] [address] * (ABNORMAL) hCG, blood, quantitative (04/17/2025 11:51 AM CDT) hCG, quant 12,426.0( H) 0.0 - 5.0 IUnits/L [facility] ([place]) Comment: Interpretive Data Male: < [...] Fin al Result [facility] ([place]) 1 [facility] [place] [address] * US Ob Under 14 Weeks W [...] Michele Castillo M.D. LB: JOANNA Report ID: [id number] Reading Location: [id number] Procedure Note Michele Castillo MD - 04/17/2025 [...] Michele Castillo M.D. LB: JOANNA Report ID: [id number] Reading Location: [place] [address] us Val Villar MD IMG OB US [...] Fin al Result [facility] ([place]) 1 [facility] [place] [address] * (ABNORMAL) CBC with auto differential (04/12/2025 [...] abs 0.00 0.00 - 0.01 K/cumm [facility] ([place]) Blood 04/12/2025 10:5 7 AM CDT 04/12/2025 11:27 AM CDT Val Villar MD LAB BLOOD ORDERABLES Fin al Result Performing Organization Address [facility] de Phone Number [facility] ([place]) 1 [place] [address] * (ABNORMAL) hCG, blood, quantitative (04/12/2025 10:57 AM CDT) hCG, quant 12,823.0( H) 0.0 - 5.0 IUnits/L [facility] ([place]) Comment: Interpretive Data Male: < 5 IU/L [...] ORDERABLES Fin al Result Performing Organization Address [facility] de Phone Number [facility] ([place]) 1 [facility] [place] [address] * (ABNORMAL) hCG, blood, quantitative (04/05/2025 1:04 PM CDT) hCG, quant 7,609.0(H ) 0.0 - 5.0 IUnits/L [facility] ([place]) Comment: Interpretive Data Male: < 5 IU/L [...] BLOOD ORDERABLES Fin al Result [facility] ([place]) 1 [facility] [place] [address] * US Ob Under 14 Weeks W [...] pole with heart rate of [address] [place]-rump length of 4 mm corresponds to 6 [...] pole with heart rate of [address] [place]-rump length of 4 mm corresponds to 6 [...] al Result from Last 3 Months Insurance [facility]ICE PLUS [facility] HMO/PPO Address: [facility] [address] [place] [address] Care Teams Business Information Consultant Relationship Specialty Start Date End Date Steven Chase MD [address] [facility] [address] [place] [address] PCP - General Family Medicine 10/24/24
--- OUTSIDE RECORDS SUMMARY | 2025-06-28 11:17 | XMS_ITS | Clinical Summary ---
Author Organization [facility] Address [address] [place] [address] Phone Care Team Providers Care Senior Account Executive Name Role Phone Unavailable Primary Care Provider Unavailabl e Allergies Active Allergy Reactions Criticality Noted Date Comments Amoxicillin Hives High 04/03/2025 Medications VIT 66-VPWG-TVOED-DS S ORAL Take by mouth. Active ibuprofen (MOTRIN) 600 mg tablet Take 1 Tablet (600 mg) by mouth every 6 hours as needed for Pain, Mild. 30 Tablet 04/03/2025 Active ALPRAZolam (XANAX) 0.5 mg tabletIndication s:Incomplete miscarriage Take 1 Tablet (0.5 mg) by mouth nightly as needed for Anxiety. 2 Tablet 04/03/2025 Active Encounters Date Type Department Care Team Description 06/19/2025 External Device Data [facility] ABSTRACTION Provider, Abstract 05/28/2025 External Device Data [facility] ABSTRACTION Provider, Abstract 05/28/2025 External Device Data [facility] ABSTRACTION Provider, Abstract 05/28/2025 External Device Data [facility] ABSTRACTION Provider, Abstract [...] CDT - 04/03/2025 6:28 PM CDT Emergency [facility] Obstetrics Emergency Department [address] [place] [address] Mimi Brennan MD Incomplete miscarriage [...] ABO GROUP O 04/03/2025 4:48 PM CDT [facility] RH (D) TYPE Positive 04/03/2025 4:48 PM CDT [facility] Blood Venipuncture / Unknown 04/03/2025 3:50 PM CDT 04/03/2025 4:15 PM CDT us Mimi Brennan MD BLOOD BANK ORDERABLES Final Re sult [facility] CLIA# [id number] [place] [address] * (ABNORMAL) URINALYSIS WITH REFLEX MICROSCOPIC (04/03/2025 3:50 PM CDT) COLOR UA Red(A) Pale to Dark Yellow 04/03/2025 4:[address] [facility] CLARITY UA Bloody(A) Clear 04/03/2025 4:52 PM CDT [facility] SPECIFIC GRAVITY UA 1.015 1.003 - 1.035 04/03/2025 4:[address] [facility] PH UA 6.5 5.0 - 8.0 04/03/2025 4:52 PM CDT [facility] LEUKOCYTE ESTERASE UA 1+(A) Negative 04/03/2025 4:52 PM CDT [facility] NITRITE UA Negative Negative 04/03/2025 4:52 PM CDT [facility] PROTEIN UA 3+(A) Negative 04/03/2025 4:52 PM CDT [facility] GLUCOSE UA Negative Negative 04/03/2025 4:52 PM CDT [facility] KETONES UA 2+(A) Negative 04/03/2025 4:[address] [facility] UROBILINOGEN UA Normal <2.0 mg/dL 4:[address] [facility] BILIRUBIN UA Negative Negative 04/03/2025 4:52 PM CDT [facility] BLOOD UA 4+(A) Negative 04/03/2025 4:[address] [facility] WBC UA >100(A) 0 - 2 /hpf 04/03/2025 4:[address] [facility] RBC UA >100(A) 0 - 2 /hpf 04/03/2025 4:[address] [facility] BACTERIA UA Negative Negative /hpf 04/03/2025 4:[address] [facility] EPITHELIAL CELLS, URINE 0-5 0 - 5 /hpf 04/03/2025 4:[address] [facility] HYALINE CAST None Seen None Seen, 0-2 /lpf 04/03/2025 4:[address] [facility] Urine URINE SPECIMEN OBTAINED BY CLEAN CATCH PROCEDURE / Unknown Collection / Unknown 04/03/2025 3:50 PM CDT 04/03/2025 4:15 PM CDT us Mimi Brennan MD URINE ORDERABLES Final Result [facility] CLIA# [id number] [place] [address] * US OB TRANSVAGINAL (04/03/2025 3:43 PM CDT) Anatomical Region Laterality Modality Pelvis Ultrasound 04/03/2025 3:47 PM CDT Impressions 04/03/2025 3:53 PM CDT IMPRESSION: Abnormal shaped gestational sac containing a yolk sac but no pole Less than expected decidual reaction Normal ovaries with a corpus luteum cyst in the left ovary DICTATION LOCATION: Location 7 - [facility] Narrative 04/03/2025 3:53 PM CDT [...] cyst in the left ovary DICTATION LOCATION: [address] us Mimi Brennan MD US ORDERABLES [...] 11/21/25 Performed Transabdominally yes; Performed Transvaginally yes Drier Operator: Mimi Brennan MD Indication: vaginal bleeding & cramping in Gestational Sac: located intrauterine Yolk Sac: Present Embryo/Fetus: unable to visualize Heartrate: unable to visualize CRL: Uterus/cervix/adnexa without any noted abnormalities. Findings/Interpretation: intrauterine with indeterminate viability Recommendation: Radiology US to document viability (already had US 1w ago showing IUP with +FHT at [facility]). Clinical Laboratory Technologist: Mimi Brennan MD us Mimi Brennan MD NON LAB POC TESTS Final Result ED POC US [address] [place] [address], [place] * EXTRA TUBE (GREEN) (04/03/2025 1:41 PM CDT) Blood Venipuncture / Unknown 04/03/2025 1:41 PM CDT 04/03/2025 2:11 PM CDT us Mimi Brennan MD CHEMISTRY ORDERABLES Final Res ult [facility] CLIA# [id number] [place] [address] * (ABNORMAL) CBC WITH DIFFERENTIAL (04/03/2025 1:41 PM CDT) Pathologist [facility] WBC 7.4 4.0 - 9.8 K/uL 04/03/2025 2:[address] [facility] RBC 4.89 3.90 - 4.90 M/uL 04/03/2025 2:[address] [facility] HEMOGLOBIN 13.1 11.8 - 14.8 g/dL 04/03/2025 2:44 PM CDT [facility] HEMATOCRIT 40.3 35.5 - 44.0 % 04/03/2025 2:[address] [facility] MCV 82.4 82.0 - 99.0 fL 04/03/2025 2:[address] [facility] MCH 26.8(L) 27.2 - 32.6 pg 04/03/2025 2:44 PM CDT [facility] MCHC 32.5 31.5 - 35.5 g/dL 04/03/2025 2:44 PM CDT [facility] RDW 13.7 11.5 - 14.5 % 04/03/2025 2:44 PM CDT [facility] RDW-STDEV 41.1 37.1 - 48.7 fL 04/03/2025 2:[address] [facility] PLATELETS 233 140 - 350 K/uL 04/03/2025 2:[address] [facility] MPV 11.0 9.3 - 12.4 fL 04/03/2025 2:[address] [facility] NEUTROPHILS 64 % 04/03/2025 2:[address] [facility] LYMPHOCYTES 25 % 04/03/2025 2:[address] [facility] MONOCYTES 8 % 04/03/2025 2:[address] [facility] EOSINOPHILS 3 % 04/03/2025 2:[address] [facility] BASOPHILS 0 % 04/03/2025 2:44 PM CDT [facility] IMMATURE GRANULOCYTES 0 % 04/03/2025 2:[address] [facility] NEUTROPHIL ABSOLUTE 4.72 1.90 - 7.00 K/uL 04/03/2025 2:[address] [facility] LYMPHOCYTE ABSOLUTE 1.82 0.70 - 4.50 K/uL 04/03/2025 2:[address] [facility] MONOCYTE ABSOLUTE 0.62 0.10 - 1.30 K/uL 04/03/2025 2:[address] [facility] EOSINOPHIL ABSOLUTE 0.21 0.00 - 0.70 K/uL 04/03/2025 2:[address] [facility] BASOPHILS ABSOLUTE 0.03 0.00 - 0.20 K/uL 04/03/2025 2:[address] [facility] IMMATURE GRANULOCYTES ABSOLUTE 0.02 0.00 - 0.03 K/uL 04/03/2025 2:[address] [facility] Blood Venipuncture / Unknown 04/03/2025 1:41 PM CDT 04/03/2025 2:11 PM CDT us Miim Brennan MD HEMATOLOGY ORDERABLES Final Re sult [facility] CLIA# [id number] [place] [address] * TYPE AND SCREEN (04/03/2025 1:41 PM CDT) ABO GROUP O 04/03/2025 3:32 PM CDT [facility] RH (D) TYPE Positive 04/03/2025 3:32 PM CDT [facility] ANTIBODY SCREEN Negative 04/03/2025 3:32 PM CDT [facility] Blood Venipuncture / Unknown 04/03/2025 1:41 PM CDT 04/03/2025 2:54 PM CDT Mimi Brennan MD BLOOD BANK ORDERABLES Edited R esult - Final [facility] CLIA# [id number] [address] [place] [address] * (ABNORMAL) HCG QUANTITATIVE, BLOOD (04/03/2025 1:41 PM CDT) HCG QUANT, BLOOD 20,585.0( H) <=5.0 mIU/mL 04/03/2025 3:26 PM CDT [facility] Comment: Male <= 2 mIU/mL Female [...] Brennan MD CHEMISTRY ORDERABLES Final Res ult [facility]# [id number] [place] [address] from Last 3 Months Insurance [employer] [place] Advance Directives For more information, please contact: [phone] * Full Code (Latest Code Status on File) Date Activated Date Inactivated Comments 04/03/2025 1:12 PM 04/03/2025 8:28 PM
--- OUTSIDE RECORDS SUMMARY | 2025-06-28 11:17 | XMS_ITS | Encounter Summary ---
Author Organization [facility] Address [address] [place] [address] Care Team Providers Care Consulting It Architect Name Role Phone Rose Mary Kidd MD Primary Care Provider Encounter Details Date Type Department Care Team (Late st Contact Info) Description 09/22/2022 Lab Requisition [facility] [address] 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 Gender Identity Not on file Sexual Orientation Not on file documented as of this encounter Plan of Treatment Not on file documented as of this encounter Procedures Procedure Name Priority Date/Time Associated Diagnosis Comments DERMATOPATHOLOGY Routine 09/21/2022 12:0 0 AM OYSTER BUYER documented in this encounter Results * DERMATOPATHOLOGY (09/21/2022 12:00 AM OYSTER BUYER) Case Report Dermatopathology Report Case: [id number] Authorizing Provider: Vasiliy Arredondo MD Collected: 09/21/2022 12:00 AM Ordering Location: [facility] Lab Received: 09/22/2022 04:04 PM Pathologist: Elicai Ferguson MD Specimen: Skin, left upper bhavesh lip border 5:16 PM [facility] DERMATOPATHOLOGY LABORATORY Final Diagnosis Specimen A. SKIN, left upper bhavesh lip border: RUPTURED EPIDERMOID CYST (L72.0) (see microscopic description) 5:16 PM [facility] DERMATOPATHOLOGY LABORATORY at [address] [employer] BUYER Clinical History R/O EIC 5:16 PM [facility] DERMATOPATHOLOGY LABORATORY Gross Description Specimen A: Received is one formalin filled container labeled with the patient's name and designated left upper bhavesh lip border. The specimen consists of a punch biopsy measuring [id number]. Jar 0. 5:16 PM [facility] DERMATOPATHOLOGY LABORATORY Microscopic Description Specimen A. SKIN, left upper bhavesh lip border: Within the dermis, there is an infiltrate composed of lymphocytes and histiocytes, including multinucleated type giant cells. Some histiocytes contain flakes of material consistent with keratin. Additional deeper sections were obtained and reviewed. 5:16 PM [facility] DERMATOPATHOLOGY LABORATORY Disclaimer An external and internal positive and negative controls are appropriate for the histochemical, immunohistochemical and immunofluorescence stain(s) in this case (if any), except where stated explicitly. The performance characteristics of the stain(s) cited in this report were developed and its performance characteristic determined by the Dermatopathology Laboratory at [facility], directed by Dr. Williams Hale. These tests need not be, and therefore are not, approved by the [place] Food and Drug Administration. The tests are used for clinical purposes. Billing Codes Specimen Charges Stain Charges 63645 1 5:16 PM [facility] DERMATOPATHOLOGY LABORATORY Embedded Images 5:16 PM [facility] DERMATOPATHOLOGY LABORATORY Pathology/Cytolog y TISSUE SPECIMEN FROM SKIN / Unknown 09/21/2022 09/22/2022 4:04 PM [employer] BU[employer]ER us Vasiliy Arredondo MD LAB - PATHOLOGY/CYTOLOGY ORD ERABLES Final Result DERMATOPATHOLOGY LABORATORY [facility] - Department of Dermatology [facility] Specialized Medicine [address] [place] [address], [address] [place] [address], [facility] [phone] documented in this encounter Visit Diagnoses Not on filedocumented in this encounter Care Teams Consulting It Architect Relationship Specialty Start Date End Date Rose Mary Kidd MD [address] [address] PCP - General 03/29/11 documented as of this encounter
--- NOTE | 2025-06-28 12:03 | ED.URI ---
HPI - URI/Sore Throat General Chief Complaint: Upper Respiratory Infection Stated Complaint: cold/flu symptoms Time Seen by Provider: 06/28/25 11:50 Source: patient, RN notes reviewed and old records reviewed Mode of arrival: ambulatory Limitations: no limitations History of Present Illness HPI Narrative: 24 year old female who presents to express care with complaints of fever, sore throat, headache, seasonal allergies flaring since last night, has taken Zyrtec for her symptoms. Patient reports that she had a missed and required a suction D&C in late March has not yet had a period,did take a test last week that was negative, also has history of PCOS. 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 Patient denies any nausea vomiting or any diarrhea, denies any acute cough,shortness of breath or any ear pain. MD elicited complaint: fever, sore throat, rhinorrhea, nasal congestion and other (headache) Pertinent past history: seasonal allergies Onset (ago): day(s) (since last evening) Consistency: constant Severity: mild Able to tolerate fluids by mouth: Yes Related Data Allergies Allergy/AdvReac Type Severity Reaction Status Date / Time Penicillins Allergy Severe HIVES Verified 06/28/25 10:55 amoxicillin Allergy Stopped Verified 06/28/25 10:55 Breathing Review of Systems Review of Systems: CONSTITUTIONAL: Reports malaise, chills, sweats, or fever. EYES: Denies visual changes, redness, or discharge. ENT: Reports rhinorrhea, congestion, sinus pain,no otalgia and positive for sore throat. CARDIOVASCULAR: Denies chest pain, palpitations, or edema. RESPIRATORY: Reports no cough.? Denies dyspnea. GASTROINTESTINAL: Denies abdominal pain, nausea, vomiting, diarrhea SKIN: Denies rash or itching. MUSCULOSKELETAL: Denies myalgia. NEUROLOGIC:Reports headache. All systems reviewed & are unremarkable except as noted in HPI and below [facility] Past Medical History Medical History (Updated 06/29/25 @ 14:14 by Tena Amezquita APRN) Anxiety PCOS (polycystic ovarian syndrome) Missed ab 04/19/2025 Ankle fracture, left Right arm fracture Foot fracture, right Pneumonia Asthma Surgical History Surgical History (Updated 06/29/25 @ 14:13 by Tena Amezquita APRN) History of dilatation and curettage for misscarriage History of orthopedic surgery reconstruction of left ankle History of surgical removal of skin lesion on neck Hx of tonsillectomy Family History Family History Mother Hypertension Depression Social History Social History (Updated 06/29/25 @ 14:14 by Tena Amezquita APRN) Tobacco type: e-cigarettes/vaping Alcohol intake: current Alcohol use details: social Substance use: current Substance use type: marijuana Living arrangements: with family Occupation/Education: student Gender identity (if verbalized by the patient): Female Spiritual care concerns: No Comments At time of signature, agree with nursing past medical, surgical, social and family history. There is no relevant family history pertinent to the presenting complaint Exam Narrative: GENERAL: Well-appearing, well-nourished, and in no acute distress. HEAD: Normocephalic EYES: PERRLA, conjunctivae clear ENT: Nares clear, turbinates edematous and erythematous, clear discharge, sinus pressure headache.. Mucous membranes moist. TM pearly olvera with dull light reflex bilaterally; no tragal tenderness. Oropharynx erythematous without lesions. Tonsils not present and throat without exudate, no drooling, no hoarseness, no trismus, uvula midline.post nasal drainage NECK: Supple. No lymphadenopathy CHEST: Clear to auscultation, breath sounds equal. No wheezing, rhonchi, rales, or stridor. No respiratory distress, speaks in full sentences.SAO2 100% on room air HEART: Regular rate and rhythm. No murmur heard. SKIN: Warm, dry, no rash. NEURO: Alert and oriented x3. PSYCH: Normal mood and affect Course Course Emergency Course: Patient is aware of diagnosis, understands and agrees to treatment plan.? Anticipatory guidance given.? Patient agrees to follow-up as directed and is aware of reasons to seek care at the emergency department. Portions of this record may have been created with voice recognition software Level of Care: Express Care Visit Vital Signs Vital signs: Vital Signs Temperature 36.5 C 06/28/25 10:45 Pulse Rate 84 06/28/25 10:45 Respiratory Rate 18 06/28/25 10:45 Blood Pressure 146/93 H 06/28/25 10:45 Pulse Oximetry 100 06/28/25 10:45 Oxygen Delivery Room Air 06/28/25 10:45 Temperature 36.5 C 06/28/25 10:45 Pulse Rate 84 06/28/25 10:45 Respiratory Rate 18 06/28/25 10:45 Blood Pressure 146/93 H 06/28/25 10:45 Pulse Oximetry 100 06/28/25 10:45 Oxygen Delivery Room Air 06/28/25 10:45 Reviewed MDM - URI/Sore Throat MDM Narrative Medical decision making narrative: Differential diagnosis considered: Alba virus, strep pharyngitis, allergic rhinitis, upper respiratory tract infection, sinusitis, rhinosinusitis, nasopharyngitis. viral pharyngitis, otitis media, otitis externa, pneumonia, bronchitis, viral cough syndrome, viral syndrome, and influenza.? Exam findings show no acute concerns or changes; patient is non-toxic appearing and is in no distress.? Patient is appropriate for outpatient treatment and follow-up. Differential Diagnosis Differential diagnosis: Likely upper respiratory infection, sinusitis, viral infection, influenza, pharyngitis and other (strep pharyngitis, COVID) Medical Records Attestation: I reviewed the patient's medical records. Lab Data Attestation: I reviewed the patient's lab results. Lab results narrative: Influenza A& B negative, COVID antigen negative, Strep screen negative, culture sent Labs: Lab Results 06/28/25 Range/Units 12:28 POC Influenza A Ag Negative (Negative) POC Influenza B Ag Negative (Negative) POC SARS CoV-2 Ag Negative (Negative) POC Grp A Strep Screen Negative (Negative) reviewed Critical Care Time Critical Care Time Critical Care Time: No Discharge Plan Discharge Clinical Impression: URI, acute Pharyngitis Qualifiers: Pharyngitis/tonsillitis etiology: unspecified etiology Qualified Code(s): J02.9 - Acute pharyngitis, unspecified Patient Disposition: Home Condition: Stable Instructions: Antibiotic Form, Pharyngitis (ED), Upper Respiratory Infection (ED) Additional Instructions: Increase fluids especially juices and water [id number] cough and cold medicine of your choice for your symptoms recommend Delsym or Robitussin cough syrup Zyrtec Claritin or Elvira daily nasal spray as prescribed Steroids as directed--take with food heat to the face 20-30 minutes 4-6 times a day for pain Salt water gargles, throat lozenges or throat sprays as desired Your strep test today was negative. A throat culture will be sent to the laboratory for further testing. IF the test is positive, you will receive a phone call within 48 hours and an appropriate antibiotic will be initiated at that time. If your symptoms persist, change or worsen significantly before you can contact your personal physician then please, without delay, go to the emergency department for further evaluation. Follow-up with PCP in 7-10 days or sooner if needed Follow up with PCP soon in regards to your blood pressure which is elevated above threshold for referral. Blood pressure above 120/80 may indicate pre-hypertension. 146/93 Patient Language: Prydeinig Prescriptions: New fluticasone propionate [Flonase Allergy Relief] 50 mcg/actuation spray,suspension 1 spray intranasal DAILY Qty: 16 0RF Rx Instructions: administer into each nostril methylprednisolone [Medrol (Vipin)] 4 mg tablets,dose pack See Rx Instructions .ROUTE .COMPLEX Qty: 21 0RF Rx Instructions: orally per package directions Follow-up/Referrals: Steven Chase MD [Primary Care Provider, Family Practice] Stand Alone Forms: Work/School Release IP Time of Disposition: 12:43 Quality Radha Coma Scale Eyes: Open Verbal: Oriented and Alert Motor: Follows Commands Radha Coma Total Score: 15
[2025-06-28 12:31] LABS: EDCOVIDSCREEN Negative (Negative); EDINFLUASCREEN Negative (Negative); EDINFLUBSCREEN Negative (Negative); EDSTREPNEGPOS1 Negative (Negative)
== END 2025-06-28 12:48 | disposition home or self-care (01) ==
PROVIDERS: Emergency Provider Registered Nurse; PCP Family Medicine
DX: J06.9 Acute upper respiratory infection, unspecified (principal); J02.9 Acute pharyngitis, unspecified; Z20.822 Contact with and (suspected) exposure to COVID-19; F12.90 Cannabis use, unspecified, uncomplicated; J45.909 Unspecified asthma, uncomplicated; E28.2 Polycystic ovarian syndrome
CPT/HCPCS: 87081; 87426; 87804; 87880; 99213; G0463